=== PATIENT | female | born 1945 | race Caucasian/White ===

== ENCOUNTER → 2017-08-22 10:30 | Outpatient (CLI) | payer OTHER, SELFPAY ==
--- NOTE | 2017-08-22 10:34 | STE_ITS ---
Reason For Study: AORTIC INSUFFICIENCY Stress Results Protocol: Pasha Protocol Maximum Predicted HR: 149 bpm Target HR: 127 bpm% Max imum Predicted HR: 98 % DurationHeart Rate Stage (mm:ss) (bpm) BPComm ent BASELINE 59 142/70 STAGE 1 3:00 11 4 162/98 STAGE 2 3:00 14 6 174/100 STAGE 3 0:11 14 6 / LEG FATIGUE/ NO CHEST PAIN RECOVERY 81 148/82 Stress Duration: 6:11 mm:ss Maximum Stress HR: 146 bpm Baseline Echocardiogram Findings The estimated ejection fraction is 65 %. Stress Echo Wall motion Data Resting WMIntermediate WMStress WM Resting Wall Motion Wall Motion Stress No regional wall motion No regional wall motion abnormalities noted. abnormalities noted. EKG Data Normal intervals are noted. The patient exercised according to the regular Pasha protocol for a total duration of 6:11. The maximum heart rate attained was 166 beats per minute. The patient exercised into stage 3 of the Pasha protocol. This was 113% of maximum predicted heart rate. During stress, there were no ST or T wave changes noted to suggest ischemia. No clinical angina was noted. No arrhythmias noted. Interpretation Summary The estimated ejection fraction is 65 %. Normal, adequate, treadmill echocardiogram. Negative for ischemia by EKG and echocardiographic criteria. No anginal symptoms noted. No arrhythmias noted. Appropriate blood pressure response to exercise. Hypertensive blood pressure response to exercise. Average exercise capacity for age. Patient had mild aortic insufficiency which did not appreciably worsen at peak exercise. Final LVEF is 6075%. No complications. Doppler Measurements & Calculations AI max madisyn: 498.4 cm/sec AI max P.4 mmHg AI dec slope: 521.7 cm/sec2 AI P1/2t: 279.8 msec Ordering Physician: David Adams Referring Physician: David Adams Performed By: Candice Fields, AJAY, RVT
== END ==
PROVIDERS: Family Provider Internal Medicine; PCP Internal Medicine; Visit Provider Internal Medicine Cardiovascular Disease
DX: R06.09 Other forms of dyspnea (principal); I35.1 Nonrheumatic aortic (valve) insufficiency; I42.2 Other hypertrophic cardiomyopathy; I10 Essential (primary) hypertension
CPT/HCPCS: 93017; 93350

== ENCOUNTER 2017-11-10 10:28 | Day surgery (SDC) | payer OTHER, SELFPAY ==
[2017-11-10 10:49] VITALS: BP 139/63; PULSE 69; RESP 16; TEMP 36.9; O2SAT 100; BMI 32.2
--- NOTE | 2017-11-10 12:45 | PCM.HP.STD ---
Problem List (1) Screening for intestinal cancer Status: Acute History of Present Illness Date of Admission: 11/10/17 The patient is a 72 year old F who presents via open access for a screening colonoscopy. She was referred by Dr. Dyana Cartwright. The patient recently had a cardiac stress test performed by Dr. David Adams. This was felt to be an appropriate response. She is able to climb a flight of stairs. She denies chest pain or shortness of breath. No abdominal pain. No bright red blood per rectum or melena. Her most recent colonoscopy was 13 years prior. She has no personal or family history of colon polyps or colon cancer. Past Medical History Past Medical History (Chronic Problems): Chronic Problems (Last Reviewed 08/17/17 @ 08:50 by Catrina Esteban) Asymmetric septal hypertrophy (Chronic) Nonrheumatic aortic valve insufficiency (Chronic) Hypertension (Chronic) Medical History: Medical History (Last Reviewed 08/17/17 @ 08:50 by Catrina Esteban) Asymmetric septal hypertrophy (Chronic) I42.2 Nonrheumatic aortic valve insufficiency (Chronic) I35.1 Hypertension (Chronic) I10 Anserine bursitis M70.50 Macular degeneration H35.30 Obstructive sleep apnea G47.33 Vertigo R42 Allergies No Known Allergies Allergy (Verified 11/08/17 11:00) Home Medications: Ambulatory Orders Medication Instructions Recorded aspirin 81 mg tablet,delayed 81 mg PO QHS 08/01/17 release lisinopril 10 mg tablet 10 mg PO QDAY 08/01/17 vit A 7,160 unit-vit C 113 mg-vit 1 tab PO DAILY 08/01/17 E 100 [id number] tablet omega-3 fatty acids 1,000 mg 1,000 mg PO QDAY 08/02/17 capsule Surgical History: Surgical History (Last Reviewed 08/17/17 @ 08:50 by Catrina Esteban) H/O parathyroidectomy Z98.890 Hx of cholecystectomy Z90.49 Smoking Status: Never smoker Review of Systems Constitutional: Denies: Anorexia Eyes: Denies: Blurred vision Cardiovascular: Denies: Chest Pain, Claudication Respiratory: Denies: Cough Gastrointestinal: Denies: Abdominal Pain Psychiatric: Denies: Anxiety Endocrine: Denies: Change in Body Habitus VTE Information - Inpt Only VTE Present on Admission: No Patient Problems: Active and Suspected Problems (Last Reviewed 08/17/17 @ 08:50 by Catrina Esteban) Screening for intestinal cancer (Acute) - Physical Exam General: Alert, Oriented x3, Cooperative, No apparent distress HEENT: Atraumatic Oral: Moist Mucosa Neck: Supple Lungs: Clear to auscultation Cardiovascular: Regular rate, Regular Rhythm Abdomen: Bowel Sounds Present, Soft, Non Tender Extremities: No Calf Tenderness Musculoskeletal: No Tenderness to Palpation of Joints or Extremities Neurological: Cranial nerves II-XII grossly intact Psych/Mental Status: Normal Affect Vital Signs Temp Pulse Resp BP Pulse Ox 98.4 F 69 16 139/63 H 100 11/10/17 10:49 11/10/17 10:49 11/10/17 10:49 11/10/17 10:49 11/10/17 10:49 Oxygen Delivery Method Room Air Weight: 165 lb 2.02 oz Body Mass Index (BMI) 32.2 Assessment/Plan All Active Problems (Last Reviewed 08/17/17 @ 08:50 by Catrina Esteban) Screening for intestinal cancer (Acute) I recommend the patient is screening colonoscopy. She is aware of the technique, benefits, risks and alternatives. She has had an opportunity to ask and have questions answered. She is perform the bowel preparation. We will proceed as noted. Otis Thayer M.D., F.A.C.S.
[2017-11-10 13:22] VITALS: BP 112/46; BP 116/61; BP 124/79; BP 125/75; BP 131/114; BP 139/63; BP 146/59; PULSE 75; RESP 14; TEMP 36.6; O2SAT 100
--- NOTE | 2017-11-10 13:24 | OP.ENDO_ITS ---
Patient Name: Annette Hair Procedure Date: 11/10/2017 12:43 PM Date of : 1945 Age: 72 Procedure: Colonoscopy Indications: Screening for colorectal malignant neoplasm Providers: Otis Thayer MD Referring MD: Otis Thayer MD Medicines: Midazolam 3 mg IV, Meperidine 100 mg IV Patient Profile: Last Colonoscopy: more than 10 years ago. Complications: No immediate complications. Procedure: Pre-Anesthesia Assessment: - Prior to the procedure, a History and Physical was performed, and patient medications and allergies were reviewed. The patient's tolerance of previous anesthesia was also reviewed. The risks and benefits of the procedure and the sedation options and risks were discussed with the patient. All questions were answered, and informed consent was obtained. Prior Anticoagulants: The patient has taken no previous anticoagulant or antiplatelet agents. ASA Grade Assessment: II - A patient with mild systemic disease. After reviewing the risks and benefits, the patient was deemed in satisfactory condition to undergo the procedure. After I obtained informed consent, the scope was passed under direct vision. Throughout the procedure, the patient's blood pressure, pulse, and oxygen saturations were monitored continuously. The colonoscope was introduced through the anus and advanced to the cecum, identified by appendiceal orifice and ileocecal valve. The colonoscopy was performed without difficulty. The patient tolerated the procedure well. The quality of the bowel preparation was good. Moderate Sedation: Moderate (conscious) sedation was personally administered by the endoscopist. The following parameters were monitored: oxygen saturation, heart rate, blood pressure, and response to care. Total physician intraservice time was 15 minutes. Scope In: 1:06:45 PM Scope Withdrawal Time 0 hours 6 minutes 8 seconds Scope Out: 1:18:08 PM Total Procedure Duration Time 0 hours 11 minutes 23 seconds Findings: The digital rectal exam findings include non-thrombosed external hemorrhoids, non-thrombosed internal hemorrhoids and internal hemorrhoids that prolapse with straining, but spontaneously regress to the resting position (Grade II). Lax anal tone and perianal escoriation noted Multiple diverticula were found in the sigmoid colon and descending colon. The exam was otherwise without abnormality. Impression: - Non-thrombosed external hemorrhoids, non-thrombosed internal hemorrhoids and internal hemorrhoids that prolapse with straining, but spontaneously regress to the resting position (Grade II) found on digital rectal exam. - Diverticulosis in the sigmoid colon and in the descending colon. - The examination was otherwise normal. - No specimens collected. Recommendation: - Discharge patient to home. - Resume previous diet. - Continue present medications. - Repeat colonoscopy in 10 years for screening purposes. Procedure Code(s): --- Professional --- 11120, Colonoscopy, flexible; diagnostic, including collection of specimen(s) by brushing or washing, when performed (separate procedure) 25513, 59, Moderate sedation services provided by the same physician or other qualified health continuum of care manager performing the diagnostic or therapeutic service that the sedation supports, requiring the presence of an independent trained observer to assist in the monitoring of the patient's level of consciousness and physiological status; initial 15 minutes of intraservice time, patient age 5 years or older Diagnosis Code(s): --- Professional --- Z12.11, Encounter for screening for malignant neoplasm of colon K64.1, Second degree hemorrhoids K64.4, Residual hemorrhoidal skin tags K57.30, Diverticulosis of large intestine without perforation or abscess without bleeding CPT copyright 2017 [employer]. All rights reserved. The codes documented in this report are preliminary and upon real estate teacher review may be revised to meet current compliance requirements. Otis Thayer MD 11/10/2017 1:24:09 PM This report has been signed electronically. Number of Addenda: 0 Note Initiated On: 11/10/2017 12:43 PM
[2017-11-10 13:28] VITALS: BP 114/82; BP 139/63; PULSE 64; RESP 14; O2SAT 96
[2017-11-10 13:34] VITALS: BP 104/45; BP 139/63; PULSE 74; RESP 14; O2SAT 98
[2017-11-10 13:38] VITALS: BP 107/64; BP 139/63; PULSE 63; RESP 14; TEMP 36.1; O2SAT 99
[2017-11-10 14:00] VITALS: BP 139/63
== END 2017-11-10 14:08 | disposition home or self-care (01) ==
LOC: EN 10:28 → AC 10:30
PROVIDERS: Family Provider Internal Medicine; PCP Internal Medicine; Visit Provider Surgery
PROC: 0DJD8ZZ Inspection of Lower Intestinal Tract, Via Natural or Artificial Opening Endoscopic (ICD-10-PCS; CPT 45378; principal; 2017-11-10 12:25)
DX: Z12.11 Encounter for screening for malignant neoplasm of colon (principal); I10 Essential (primary) hypertension; G47.33 Obstructive sleep apnea (adult) (pediatric); Z79.899 Other long term (current) drug therapy; Z79.82 Long term (current) use of aspirin; K64.4 Residual hemorrhoidal skin tags; K57.30 Diverticulosis of large intestine without perforation or abscess without bleeding; K64.1 Second degree hemorrhoids
CPT/HCPCS: 45378; 99152; 99153; J7040; J7120

== ENCOUNTER → 2018-07-17 | Outpatient (CLI) | payer OTHER, SELFPAY ==
[2018-03-13 11:13] VITALS: BMI 32.9
--- NOTE | 2018-07-17 09:02 | ECHOCS_ITS ---
Reason For Study: VALVE REPLACEMENT-EVAL Procedure This was a 2D Doppler, Color Flow transthoracic echocardiogram. Exam performed in department. Left Ventricle Normal size and thickness. The estimated ejection fraction is 65 %. Stage 2 diastolic dysfunction. No regional wall motion abnormalities noted. Right Ventricle Normal size and thickness. Normal systolic function. Atria Normal left atrium. Normal right atrium. Normal atrial septum. Mitral Valve The mitral valve is structurally normal. No prolapse or stenosis seen. Trivial mitral valve insufficiency. Tricuspid Valve Normal tricuspid valve. Trivial tricuspid valve insufficiency. Right ventricular systolic pressure estimated to be 31 mmHg. Aortic Valve Trisinus/trileaflet aortic valve. Mild focal aortic valve calcification. Trivial aortic valve insufficiency. Pulmonic Valve Normal pulmonic valve. Great Vessels Normal aortic root. Normal arch. Normal inferior vena cava. Inferior vena cava collapse with sniff. Pericardium/Pleural No pericardial effusion. Medication 22 gauge I.V. with prn adaptor inserted into right arm. Diluted definity 4ml given slow IV push to enhance endocardial definition. MMode/2D Measurements & Calculations LVIDd: 4.0 cm IVSd: 1.0 cm Ao root diam: 2.8 cm LVIDs: 2.6 cm LVPWd: 1.0 cm RVDd: 3.3 cm FS: 34.3 % LAV(MOD-bp): 42.9 ml LVAd ap4: 29.5 cm2 SV(MOD-sp4): 59.3 ml LAV(MOD-bp) Indexed: 25.0 ml/m2 EDV(MOD-sp4): 88.7 ml LAV(MOD-sp2): 48.2 ml EDV(sp4-el): 96.2 ml LAV(MOD-sp4): 37.8 ml LVAs ap4: 14.9 cm2 ESV(MOD-sp4): 29.4 ml ESV(sp4-el): 31.1 ml EF(MOD-sp4): 66.9 % EF(sp4-el): 67.6 % SV(sp4-el): 65.1 ml LA A4 area: 14.7 cm2 LA dimension(2D): 3.4 cm RA A4 area: 14.7 cm2 Time Measurements MV dec time: 0.24 sec Doppler Measurements & Calculations MV E max wilfrid: 111.2 cm/sec Lat Peak E' Wilfrid: 10.8 cm/sec Med Peak E' Wilfrid: 10.1 cm/sec MV A max wilfrid: 68.0 cm/sec E/E' lat: 10.3 E/E' med: 11.0 MV E/A: 1.6 Ao V2 max: 190.6 cm/sec AI max wilfrid: 507.8 cm/sec LV V1 max: 107.9 cm/sec Ao max P.5 mmHg AI max P.2 mmHg LV V1 max P.7 mmHg AI dec slope: 285.4 cm/sec2 AI P1/2t: 521.2 msec PA V2 max: 92.2 cm/sec TR max wilfrid: 253.4 cm/sec TR max P.7 mmHg Interpretation Summary The estimated ejection fraction is 65 %. Stage 2 diastolic dysfunction. Trivial mitral valve insufficiency. Trivial tricuspid valve insufficiency. Right ventricular systolic pressure estimated to be 31 mmHg. Trivial aortic valve insufficiency. The study was technically difficult. There is no comparison study available. Contrast injection was performed. Ordering Physician: David Adams Referring Physician: JAI SHEARER Performed By: Taryn Pinon RDCS
== END | disposition home or self-care (01) ==
PROVIDERS: Family Provider Internal Medicine; PCP Internal Medicine; Referring Provider Internal Medicine Cardiovascular Disease; Visit Provider Internal Medicine Cardiovascular Disease
DX: I35.1 Nonrheumatic aortic (valve) insufficiency (principal); I10 Essential (primary) hypertension
CPT/HCPCS: 93306; Q9957; A4216; C8929

== ENCOUNTER → 2018-07-20 | Outpatient (CLI) | payer OTHER, SELFPAY ==
[2018-03-13 11:13] VITALS: BMI 32.9
--- NOTE | 2018-07-20 09:26 | STEWCON_ITS ---
Reason For Study: HTN, AI Stress Results Protocol: Pasha Protocol Maximum Predicted HR: 148 bpm Target HR: 126 bpm % Maximum Predicted HR: 91 % DurationHeart Rate Stage (mm:ss) (bpm) BP Comment Baseline 58 128/80No Chest Pain; Diluted Definity 3 ML Given Pasha Protocol Stage I 3:00 106 142/76No Chest Pain Pasha Protocol Stage II 3:00 134 150/72No Chest Pain; Mild to Moderate Dyspnea Recovery 75 118/78No Chest Pain Stress Duration: 6:00 mm:ss Maximum Stress HR: 134 bpm METS: 7 Baseline Echocardiogram Findings The estimated ejection fraction is 65 %. Stress Echo Wall motion Data Resting WM Intermediate WM Stress WM Resting Wall Motion Wall Motion Stress No regional wall motion No regional wall motion abnormalities noted. abnormalities noted. EKG Data The baseline ECG displays normal sinus rhythm. The patient exercised according to the regular Pasha protocol for a total duration of 6:00. The maximum heart rate attained was 146 beats per minute. This was 98% of maximum predicted heart rate. The patient exercised into stage 3 of the Pasha protocol. During stress, there were no ST or T wave changes noted to suggest ischemia. Interpretation Summary The estimated ejection fraction is 65 %. Normal, adequate, treadmill echocardiogram. Negative for ischemia by EKG and echocardiographic criteria. No anginal symptoms noted. Rare PVCs noted. Appropriate blood pressure response to exercise. Average exercise capacity for age. Test terminated due to leg discomfort. Final LVEF is 75%. Decreased sensitivity due to poor echo windows requiring Definity enhancing agent. No complications. The study was technically difficult. Contrast injection was performed. Ordering Physician: David Adams Referring Physician: Dyana Cartwright Performed By: Taryn Pinon RDCS
== END | disposition home or self-care (01) ==
PROVIDERS: Family Provider Internal Medicine; PCP Internal Medicine; Referring Provider Internal Medicine Cardiovascular Disease; Visit Provider Internal Medicine Cardiovascular Disease
DX: I35.1 Nonrheumatic aortic (valve) insufficiency (principal); I10 Essential (primary) hypertension; Z95.2 Presence of prosthetic heart valve
CPT/HCPCS: 93017; 93350; Q9957; A4216; C8928

== ENCOUNTER → 2018-11-10 | Outpatient (CLI) | payer OTHER, SELFPAY ==
[2018-10-19 10:33] VITALS: BMI 33.2
--- NOTE | 2018-11-10 15:42 | BI_ITS ---
MAMMOGRAPHY - BILATERAL SCREENING 3-D TOMOSYNTHESIS REASON FOR EXAM: Female, 73 years old. Screening PERTINENT HISTORY: No significant family history. TECHNIQUE: 2-D mammograms and 3-D Tomosynthesis of the breast (s) were performed. CAD was performed. BILATERAL DIGITAL MAMMOGRAM WITH TOMOSYNTHESIS: Mediolateraloblique and craniocaudal views demonstrate no evidence of dominant parenchymal masses. There is an 8 mm nodular density noted at the 6:00 position of deep right breast which was previously not seen. This nodular densities of uncertain etiology but has relatively smooth margins and probably represents a cyst or fibroadenoma, however, because of its more recent appearance and underlying tumor cannot be completely excluded and for this reason a targeted right breast ultrasound at the 6:00 position is recommended for further evaluation. The left breast is normal. No cluster of microcalcification or architectural distortion is seen. This new soft tissue nodular density represents a change from the previous mammogram obtained on 07/26/2017.. Breast Density: There are scattered areas of fibroglandular density. CAD was used to assist in final assessment. IMPRESSION: NORMAL MAMMOGRAM BILATERALLY. FINAL ASSESSMENT FINAL ASSESSMENT: BI-RAD CATEGORY 0 INCOMPLETE: (NEEDS ADDITIONAL IMAGINING EVALUATION) Approximately 10% of breast cancers are not detected by mammography. A normal mammogram should not delay biopsy of a clinically suspicious abnormality. Electronically Signed: Darren Luke, at 7:36 EDT Tel , Service support , BI/SCREEN MAMM (CAD) W/ORLANDO ALEJANDRE
== END | disposition home or self-care (01) ==
LOC: OPBI 15:40
PROVIDERS: Family Provider Internal Medicine; PCP Internal Medicine; Referring Provider Obstetrics & Gynecology; Visit Provider Obstetrics & Gynecology
DX: Z12.31 Encounter for screening mammogram for malignant neoplasm of breast (principal)
CPT/HCPCS: 77063; 77067

== ENCOUNTER → 2018-11-15 | Outpatient (CLI) | payer OTHER, SELFPAY ==
[2018-10-19 10:33] VITALS: BMI 33.2
--- NOTE | 2018-11-15 10:52 | US_ITS ---
STUDY: ULTRASOUND BREAST - RIGHT REASON FOR EXAM: Female, 73 years old. TECHNIQUE: Axial and longitudinal images of the RIGHT breast were performed with a high resolution ultrasound transducer. COMPARISON: None. FINDINGS: RIGHT Breast: A targeted right breast ultrasound was performed at 7:00 position shows a 6 x 9 x 5 mm area of decreased echogenicity in the posterior aspect of the right breast at 7:00 position. Upon careful review of this density has somewhat irregular margins and although it is hypoechoic and appears to be solid. This lesion was not seen previously and is of uncertain etiology. A fibroadenoma versus tumor or, less likely a complex cyst are also diagnostic possibilities. For this reason an ultrasound directed right breast biopsy would be helpful for additional evaluation. US/Breast Limited Unilateral IMPRESSION: A complex hypoechoic lesion is seen at 7:00 position in the right breast which has irregular margins and appears solid or cystic and contains debris. Fibroadenoma versus complex cyst versus tumor are the diagnostic possibilities and an ultrasound directed fine needle aspiration is recommended for further evaluation FINAL ASSESSMENT: BI-RAD CATEGORY IV (SUSPICIOUS ABNORMALITY - BIOPSY RECOMMENDED). ASSESSMENT CATEGORY: BIRADS Category 4B: Moderate suspicion for malignancy. A letter regarding these results will be sent to the patient by the facility within 30 days. Electronically Signed: Darren Luke, at 18:21 EDT Tel , Service support ,
== END | disposition home or self-care (01) ==
LOC: OPUS 10:50
PROVIDERS: Family Provider Internal Medicine; PCP Internal Medicine; Referring Provider Obstetrics & Gynecology; Visit Provider Obstetrics & Gynecology
DX: R92.2 Inconclusive mammogram (principal)
CPT/HCPCS: 76642

== ENCOUNTER → 2018-11-24 | Outpatient (CLI) | payer OTHER, SELFPAY ==
[2018-11-24 09:38] VITALS: BMI 33.2
--- NOTE | 2018-11-24 09:45 | BRBX_PTH ---
PATIENT: LUISA ANNA LOC: [facility] U#:[id number] AGE/SX: 73/F ROOM: RE11/24/[address]: Dr. Otis Thayer MD : 1945 BED: DIS: 11/24/2018 SPEC #: [id number] RECD: 11/24/18 11:11 STATUS: FELY REPorter #: [id number] MIKE: 11/24/18 09:[address]: Otis Thayer DEPT: SURGICAL PATHOLOGY RECD BY: Roberto Linares ENTERED: 11/24/18 12:22 SP TYPE: BREAST BX OT DR: Dr. Dyana Cartwright MD Tissues: Right breast, NOS Procedures: Surgery Specimen Level IV HEADER OPERATION: Ultrasound-guided needle core biopsy, right breast PRE-OP DIAGNOSIS: Abnormal mammogram/ultrasound, right breast TISSUE SUBMITTED: Right breast tissue FIXATION TIME: 57 hours MICROSCOPIC DIAGNOSIS Right breast tissue, ultrasound-guided needle core biopsy: Fatty benign breast tissue with focal mild intraductal hyperplasia without atypia. Negative for malignancy. FABIAN:dominik 11/27/18 COMMENT Correlation with clinical, radiologic findings and appropriate follow up are necessary. MICROSCOPIC DESCRIPTION Slides are reviewed. GROSS DESCRIPTION Received in fixative is one container labeled with the patient's name and designated right breast. The specimen consists of multiple elongated fragments of mir-yellow fibroadipose tissue that in aggregate measure 2.5 x 1.5 x 0.1 cm. The entire specimen is submitted in one cassette. / FABIAN:dominik 11/24/18 TC:5 CPT: 76682
--- NOTE | 2018-11-24 10:28 | BI_ITS ---
MAMMOGRAPHY - UNILATERAL DIAGNOSTIC: RIGHT BREAST REASON FOR EXAM: Female, 73 years old. Post biopsy clip placement. PERTINENT HISTORY: Ultrasound guided biopsy of a nodular density at 7:00 position breast. TECHNIQUE: Digital unilateral breast yusuf (3D mammographic acquisition) in the CC and MLO projections. 2-D mediolateral oblique (MLO) and craniocaudad (CC) views of both breasts were obtained. CAD: Full Field Digital Mammography with Computer Added Detection was performed. COMPARISON: Comparison is made with prior mammogram dated November 10, 2018. FINDINGS: Breast Composition: There are scattered areas of fibroglandular density. A tissue clip marker is seen within a nodular density in the deep mid portion of the right breast. No other significant abnormalities are identified. BI/DIAG MAMM W/CAD, UNILAT IMPRESSION: Tissue clip marker seen within a nodular density in the deep midportion of the right breast. ASSESSMENT CATEGORY: BIRADS Category 2: Benign. A letter regarding these results will be sent to the patient by the facility within 30 days. Approximately 10% of breast cancers are not detected by mammography. A normal mammogram should not delay biopsy of a clinically suspicious abnormality. Electronically Signed: Maurice Callejas, at 13:34 EDT , Service support ,
== END | disposition home or self-care (01) ==
PROVIDERS: Family Provider Internal Medicine; PCP Internal Medicine; Referring Provider Surgery; Visit Provider Surgery
DX: R92.8 Other abnormal and inconclusive findings on diagnostic imaging of breast (principal)
CPT/HCPCS: 77065; 88305

== ENCOUNTER → 2019-04-03 | Outpatient (CLI) | payer OTHER, SELFPAY ==
[2019-04-02 13:40] VITALS: BMI 33.0
--- NOTE | 2019-04-03 15:48 | CT_ITS ---
STUDY: CT ABDOMEN AND PELVIS WITHOUT CONTRAST REASON FOR EXAM: Female, 73 years old. rt FLANK PAIN, hx of stones and low functioning kidney RADIATION DOSAGE (If Supplied By Facility): CTDIvol = ( 11.27 ) mGy, DLP = ( 498.36 ) mGycm COMPARISON: None TECHNIQUE: A CT scan of the abdomen and pelvis was performed without IV contrast contrast administration. Coronal and sagittal reconstruction images were reviewed. This exam was performed according to our departmental dose-optimization program, which includes automated exposure control, adjustment of the mA and/or kV according to patient size and/or use of iterative reconstruction technique. FINDINGS: The lung bases and the base of the heart are normal. The liver is normal.The spleen is normal.The adrenal glands are normal.The head, body, and tail of the pancreas are normal. The left kidney is normal. Right renal hydronephrosis is identified with nonobstructing calyceal calculi seen in the inferior pole calyces of the right kidney. Right hydroureter is identified down to the pelvic brim. At that point there appears to be a dilated loop of intestine adjacent to the hydroureter but distal to the pelvic brim a dilated right ureter is not seen. A stricture or ureteral tumor could give this appearance. Further evaluation with a CT urogram or retrograde pyelogram is recommended. The abdominal aortal is normal along its course and distribution. Some mildly prominent periaortic lymphadenopathy is identified. This is particularly prominent along the superior right side of the abdominal aorta but the largest lymph node is between the abdominal aorta and inferior vena cava on axial cut 72 which measures 1.8 x 1.4 cm in size. No abdominal masses or lesions are seen. The patient has had a cholecystectomy. The CT scan of the pelvis was then reviewed. The common iliac vessels, external iliac vessels, and common femoral vessels are normal along their course and distribution No pelvis masses or lesions are seen. The appendix is normal. No pericecal inflammatory reaction is seen. Bone scanning windows of the lumbar spine and pelvis were reviewed in the coronal and sagittal planes and appear to be normal. CT/Abdomen/Pelvis without Cont IMPRESSION: 1. Right renal hydronephrosis and hydroureter extending down to the level of the pelvic brim. At that point there appears to be ureteral obstruction of uncertain etiology. A stricture at that location versus ureteral tumor are diagnostic possibilities. A CT urogram and/or retrograde pyelogram is recommended for further dilation. 2. Mild periaortic lymphadenopathy is identified of uncertain etiology. Lymphoma versus metastasis versus inflammatory lymphadenopathy are all diagnostic possibilities. Electronically Signed: Darren Luke, at 16:47 EST Tel , Service support ,
== END | disposition home or self-care (01) ==
PROVIDERS: PCP Internal Medicine; Referring Provider Urology; Visit Provider Urology
DX: N20.0 Calculus of kidney (principal); R10.9 Unspecified abdominal pain
CPT/HCPCS: 74176

== ENCOUNTER → 2019-04-03 | Outpatient (CLI) | payer OTHER, SELFPAY ==
[2019-04-02 13:40] VITALS: BMI 33.0
[2019-04-03 15:38] LABS: AST(SGOT) 24 U/L (15-37); Alanine Aminotransfer ALT/SGPT 38 U/L (13-56); Albumin, Serum 3.5 g/dL (3.2-5.0); Alkaline Phosphatase 87 U/L (45-117); Bilirubin, Direct 0.15 mg/dL (0.00-0.30); Cholesterol 201 mg/dL (200); Globulin 4.5 g/dL (2.2-4.2); High Density Lipoprotein 70 mg/dL; Triglycerides 125 mg/dL; Very Low Density Lipoprotein 25 mg/dL (5-40)
== END | disposition home or self-care (01) ==
LOC: MTLAB 13:11
PROVIDERS: PCP Internal Medicine; Referring Provider Internal Medicine Cardiovascular Disease; Visit Provider Internal Medicine Cardiovascular Disease
DX: I10 Essential (primary) hypertension (principal); I35.1 Nonrheumatic aortic (valve) insufficiency; Z82.3 Family history of stroke; Z82.49 Family history of ischemic heart disease and other diseases of the circulatory system
CPT/HCPCS: 36415; 80061; 80076

== ENCOUNTER → 2019-06-20 | Outpatient (CLI) | payer OTHER, SELFPAY ==
[2019-04-02 13:40] VITALS: BMI 33.0
--- NOTE | 2019-06-20 12:51 | ECHOD_ITS ---
Reason For Study: Pre-op Procedure This was a 2D Doppler, Color Flow transthoracic echocardiogram. Exam performed in department. Left Ventricle Normal size and thickness. The estimated ejection fraction is 65 %. Stage 2 diastolic dysfunction. No regional wall motion abnormalities noted. Right Ventricle Normal size and thickness. Normal systolic function. Atria Normal left atrium. Normal right atrium. Normal atrial septum. Mitral Valve The mitral valve is structurally normal. No prolapse or stenosis seen. Trivial mitral valve insufficiency. Tricuspid Valve Normal tricuspid valve. Trivial tricuspid valve insufficiency. Right ventricular systolic pressure estimated to be 31 mmHg. Aortic Valve Trisinus/trileaflet aortic valve. Mild diffuse aortic valve thickening. Mild (1+) aortic valve insufficiency. Pulmonic Valve Normal pulmonic valve. Great Vessels Normal aortic root. Normal arch. Normal inferior vena cava. Inferior vena cava collapse with sniff. Pericardium/Pleural No pericardial effusion. MMode/2D Measurements & Calculations LVIDd: 4.2 cm IVSd: 0.98 cm Ao root diam: 2.9 cm LVIDs: 2.3 cm LVPWd: 0.94 cm RVDd: 3.0 cm FS: 45.5 % LAV(MOD-bp): 49.7 ml LVAd ap4: 26.4 cm2 SV(MOD-sp4): 41.4 ml LAV(MOD-bp) Indexed: 28.9 ml/m2 EDV(MOD-sp4): 75.5 ml LAV(MOD-sp2): 51.8 ml EDV(sp4-el): 78.4 ml LAV(MOD-sp4): 42.3 ml LVAs ap4: 15.7 cm2 ESV(MOD-sp4): 34.1 ml ESV(sp4-el): 33.3 ml EF(MOD-sp4): 54.8 % EF(sp4-el): 57.4 % SV(sp4-el): 45.0 ml LA A4 area: 15.4 cm2 LA dimension(2D): 4.1 cm RA A4 area: 12.7 cm2 Doppler Measurements & Calculations MV E max wilfrid: 80.4 cm/sec Lat Peak E' Wilfrid: 8.1 cm/sec Med Peak E' Wilfrid: 7.5 cm/sec MV A max wilfrid: 86.4 cm/sec E/E' lat: 10.0 E/E' med: 10.7 MV E/A: 0.93 Ao V2 max: 153.4 cm/sec AI max wilfrid: 492.9 cm/sec LV V1 max: 128.2 cm/sec Ao max P.4 mmHg AI max P.2 mmHg LV V1 max P.6 mmHg AI dec slope: 215.5 cm/sec2 AI P1/2t: 669.8 msec PA V2 max: 92.3 cm/sec TR max wilfrid: 251.5 cm/sec TR max P.3 mmHg Interpretation Summary The estimated ejection fraction is 65 %. Stage 2 diastolic dysfunction. Trivial mitral valve insufficiency. Trivial tricuspid valve insufficiency. Right ventricular systolic pressure estimated to be 31 mmHg. Mild (1+) aortic valve insufficiency. In comparison echocardiogram dated 07/17/2018, LV function has remained the same and aortic insufficiency has gone from trivial to mild. RVSP has remained the same. Ordering Physician: David Adams Referring Physician: Dyana Cartwright Performed By: Milena Jeter RDCS
== END | disposition home or self-care (01) ==
PROVIDERS: PCP Internal Medicine; Referring Provider Internal Medicine Cardiovascular Disease; Visit Provider Internal Medicine Cardiovascular Disease
DX: I35.1 Nonrheumatic aortic (valve) insufficiency (principal); Z82.49 Family history of ischemic heart disease and other diseases of the circulatory system
CPT/HCPCS: 93306

== ENCOUNTER → 2019-06-28 10:21 | Outpatient (CLI) | payer OTHER, SELFPAY ==
[2019-04-02 13:40] VITALS: BMI 33.0
--- NOTE | 2019-06-28 10:22 | STE_ITS ---
Reason For Study: PREOP Stress Results Protocol: Pasha Protocol Maximum Predicted HR: 147 bpm Target HR: 125 bpm % Maximum Predicted HR: 102 % DurationHeart Rate Stage (mm:ss) (bpm) BP BASELINE 67 122/74 STAGE 1 3:00 103 140/60 STAGE 2 3:00 129 152/64 STAGE 3 0:38 150 / RECOVERY 84 120/78 Stress Duration: 6:38 mm:ss Maximum Stress HR: 150 bpm Baseline Echocardiogram Findings The estimated ejection fraction is 65 %. Stress Echo Wall motion Data Resting WM Intermediate WM Stress WM Resting Wall Motion Wall Motion Stress No regional wall motion No regional wall motion abnormalities noted. abnormalities noted. EKG Data The baseline ECG displays normal sinus rhythm. The patient exercised according to the regular Pasha protocol for a total duration of 6:38. The maximum heart rate attained was 160 beats per minute. This was 108% of maximum predicted heart rate. The patient exercised into stage 3 of the Pasha protocol. During stress, there were no ST or T wave changes noted to suggest ischemia. No clinical angina was noted. Interpretation Summary The estimated ejection fraction is 65 %. Normal, adequate, treadmill echocardiogram. Negative for ischemia by EKG and echocardiographic criteria. No anginal symptoms noted. Rare PVC noted. Appropriate blood pressure response to exercise. Average exercise capacity for age, and in alignment with previous stress test in July 2018. Test terminated due to the attainment of target heart rate and tired legs. Final LVEF is 75%. No complications. Ordering Physician: David Adams MD Referring Physician: David Adams Performed By: Candice Fields RDCS, RVT
== END ==
PROVIDERS: PCP Internal Medicine; Referring Provider Internal Medicine Cardiovascular Disease; Visit Provider Internal Medicine Cardiovascular Disease
DX: I10 Essential (primary) hypertension (principal); I35.1 Nonrheumatic aortic (valve) insufficiency; Z82.49 Family history of ischemic heart disease and other diseases of the circulatory system
CPT/HCPCS: 93017; 93350

== ENCOUNTER → 2019-08-03 | Outpatient (CLI) | payer OTHER, SELFPAY ==
[2019-07-11 10:50] VITALS: BMI 33.0
--- NOTE | 2019-08-03 15:57 | CT_ITS ---
STUDY: CT ABDOMEN AND PELVIS WITHOUT CONTRAST REASON FOR EXAM: Female, 73 years old. PERIAROTIC LYMPHADENOPATHY RADIATION DOSAGE (If Supplied By Facility): CTDIvol = ( 12.52 ) mGy, DLP = ( 550.64 ) mGycm TECHNIQUE: Transaxial images were obtained from the dome of the diaphragm to the symphysis pubis with oral contrast, and without intravenous contrast. Sagittal and coronal images were reconstructed. Individualized dose optimization techniques were used for this CT. COMPARISON: 04/03/2019 FINDINGS: The visualized lung bases are unremarkable. The visualized portions of the heart are within normal limits. Normal liver. There are surgical clips in the gallbladder fossa consistent with a prior cholecystectomy. Normal spleen. Normal pancreas. Normal bilateral adrenal glands. Moderate right renal atrophy with moderate hydronephrosis and nonobstructing stones possibly from chronic obstruction. However, the degree of obstruction is markedly improved when compared with the prior study. No ureteral stone. Normal left kidney. Normal visualized stomach. Normal small intestine. There are multiple colonic diverticula consistent with diverticulosis. The appendix is visualized and appears normal. Normal abdominal aorta. Normal inferior vena cava. Normal retroperitoneum. Normal urinary bladder. Normal abdominal wall. Normal osseous structures. CT/Abdomen/Pelvis without Cont IMPRESSION: No retroperitoneal lymphadenopathy. Improved right ureteral obstruction. Electronically Signed: Thai Almeida MD at 16:41 EDT Tel , Service support ,
== END | disposition home or self-care (01) ==
LOC: CT 15:57
PROVIDERS: PCP Internal Medicine; Referring Provider Internal Medicine; Visit Provider Internal Medicine
DX: R59.0 Localized enlarged lymph nodes (principal)
CPT/HCPCS: 74176

== ENCOUNTER → 2019-11-27 | Outpatient (CLI) | payer OTHER, SELFPAY ==
[2019-04-02 13:40] VITALS: BMI 33.0
[2019-10-09 11:08] VITALS: BMI 33.0
--- NOTE | 2019-11-27 09:54 | BI_ITS ---
MAMMOGRAPHY - BILATERAL SCREENING REASON FOR EXAM: Female, 74 years old. Routine annual screening examination. PERTINENT HISTORY: Non-contributory. TECHNIQUE: Digital bilateral breast [place] (3D mammographic acquisition) in the CC and MLO projections. 2-D mediolateral oblique (MLO) and craniocaudad (CC) views of both breasts were obtained. CAD: Full Field Digital Mammography with Computer Added Detection was performed. COMPARISON: Comparison is made with prior examination dated 11/10/2018. FINDINGS: Breast Composition: There are scattered areas of fibroglandular density. There are no dominant masses or suspicious calcifications. A tissue clip marker is seen within the inferior slightly lateral retroareolar region of the right breast. The previously seen nodular density has almost completely resolved. No other significant abnormalities are identified. BI/SCREEN MAMM (CAD) W/[place] BILAT IMPRESSION: Status post ultrasound-guided biopsy of the previously seen nodular density in the right breast. A tissue clip marker is seen at that site. Yearly follow-up mammogram recommended. (A) ASSESSMENT CATEGORY: BIRADS Category 2: Benign. A letter regarding these results will be sent to the patient by the facility within 30 days. Approximately 10% of breast cancers are not detected by mammography. A normal mammogram should not delay biopsy of a clinically suspicious abnormality. [id number] Electronically Signed: Maurice Callejas, at 15:47 EDT , Service support ,
== END | disposition home or self-care (01) ==
PROVIDERS: PCP Internal Medicine; Referring Provider Obstetrics & Gynecology; Visit Provider Obstetrics & Gynecology
DX: Z12.31 Encounter for screening mammogram for malignant neoplasm of breast (principal)
CPT/HCPCS: 77063; 77067

== ENCOUNTER → 2020-03-28 09:07 | Outpatient (CLI) | payer OTHER, SELFPAY ==
[2020-03-24 13:26] VITALS: BMI 33.6
[2020-03-28 09:53] LABS: Absolute Lymphocyte Count 2.34 X10^3/uL (0.83-4.51); Absolute Neutrophil Count 3.5 X10^3/uL (2.0-7.7); Basophil# 0.04 X10^3/uL; Basophil% 0.6 % (0-1); Eosinophil# 0.16 X10^3/uL; Eosinophils% 2.5 % (0-5); Hematocrit 36.1 % (37-47); Hemoglobin 11.2 g/dL (12.0-15.0); Lymphocyte # 2.34 X10^3/ul (4.0); Mean Corpuscular Hgb 28.1 pg (27.0-32.0); Mean Corpuscular Volume 90.5 fL (81-99); Mean Platelet Vol. 8.9 fl (6.2-12.0); Monocyte# 0.47 X10^3/uL; Monocyte% 7.2 % (0-10); NRBC Flagged by Analyzer 0 % (0-5); Neutrophil # 3.47 X10^3/uL (2.7-7.7); Neutrophil % 53.4 % (47-70); Platelet Count 233 K/mm3 (150-450); RBC Distribution Width CV 13.2 % (11.6-14.6); RBC Distribution Width SD 43.3 fl (35.1-43.9); Red Blood Count 3.99 M/mm3 (4.2-5.4); White Blood Count 6.5 K/mm3 (4.4-11.0)
[2020-03-28 10:38] LABS: Anion Gap 4 (5-15); BUN 30 mg/dL (7-18); BUN/Creat Ratio 23.1 RATIO (10-20); Calcium,Total 8.8 mg/dL (8.5-10.1); Chloride 106 mmol/L (98-107); EST Glomerular Filtration Rate 43 mL/min (>60); Est Glom Filt Rate - Afr Amer 51 mL/min (>60); Free T3 2.9 pg/mL (2.18-3.98); Glucose 95 mg/dL (74-106); Potassium 4.3 mmol/L (3.5-5.1); Sodium Level 139 mmol/L (136-145); Thyroid Stim Hormone (TSH) 1.75 uIU/mL (0.358-3.74)
[2020-03-28 10:52] LABS: Vitamin D,25 Hydroxy 36.7 ng/mL
== END ==
PROVIDERS: PCP Internal Medicine; Referring Provider Physician Assistant Medical; Visit Provider Physician Assistant Medical
DX: I10 Essential (primary) hypertension (principal); E55.9 Vitamin D deficiency, unspecified; R53.83 Other fatigue
CPT/HCPCS: 36415; 80048; 82306; 84439; 84443; 84481; 85025

== ENCOUNTER → 2020-04-14 14:52 | Outpatient (CLI) | payer OTHER, SELFPAY ==
[2020-04-08 09:53] VITALS: BMI 33.6
--- NOTE | 2020-04-14 14:58 | CT_ITS ---
STUDY: CT MAXILLOFACIAL SINUSES REASON FOR EXAM: Female, 74 years old. Sinus pain and headache RADIATION DOSAGE (If Supplied By Facility): CTDIvol = ( 33.06 ) mGy, DLP = ( 800.79 ) mGycm TECHNIQUE: The patient was scanned in a multi detector CT scanner. High resolution axial imaging was performed without the administration of intravenous contrast material. Sagittal and coronal images were reconstructed. Individualized dose optimization techniques were used for this CT. COMPARISON: None. FINDINGS: FRONTAL SINUSES: Normal aeration, without mucosal inflammatory disease. Aplastic right frontal sinus. ETHMOIDAL SINUSES: Normal aeration, without mucosal inflammatory disease. MAXILLARY SINUSES: Normal aeration, without mucosal inflammatory disease. SPHENOIDAL SINUSES: Normal aeration, without mucosal inflammatory disease. There is patency of the bilateral maxillary infundibuli with normal uncinate processes, ethmoid bullae, and hiatus semilunaris. Normal bilateral middle turbinates. Normal bilateral inferior turbinates. There is a left sided nasal septal deviation with a left sided nasal septal spur. There is patency of the bilateral nasal airways. The visualized osseous structures are normal. The visualized bilateral orbital contents are normal. CT/Sinus/Facial Bone IMPRESSION: 1. No CT evidence of acute or chronic sinusitis. 2. Patent ostiomeatal units bilaterally. 3. Slight deviation of the nasal septum to the left with a spur projecting into the inferior aspect of nasal cavity. Electronically Signed: Thai Almeida MD at 15:17 EST Tel , Service support ,
== END ==
PROVIDERS: PCP Internal Medicine; Referring Provider Internal Medicine; Visit Provider Internal Medicine
DX: R51.9 Headache, unspecified (principal)
CPT/HCPCS: 70486

== ENCOUNTER 2020-07-08 18:18 | Emergency (ER) | payer OTHER, SELFPAY ==
[2020-04-08 09:53] VITALS: BMI 33.6
[2020-07-08 18:19] VITALS: BP 157/75; BP 158/75; PULSE 57; RESP 16; TEMP 37.3; O2SAT 98; BMI 33.9
--- NOTE | 2020-07-08 18:24 | EKG12_ITS ---
Test Reason : CP Blood Pressure : / mmHG Vent. Rate : 059 BPM Atrial Rate : 059 BPM P-R Int : 152 ms QRS Dur : 076 ms QT Int : 422 ms P-R-T Axes : 066 013 042 degrees QTc Int : 417 ms Sinus bradycardia Otherwise normal ECG Confirmed by ELIOT BARON, LILIYA ([id number]), editor school photograph HOLLIE LIZ ([id number]) on 07/10/2020 12:28:18 PM Referred By: MARYBEL Confirmed By:LILIYA MCCABE MD
[2020-07-08 18:27] VITALS: O2SAT 100
--- NOTE | 2020-07-08 18:36 | EDS_ITS ---
HPI History of Present Illness Chief Complaint: Chest Pain Informant: patient and spouse/S.O. Onset/Context/Timing Onset: Today Context: Gradual Onset Current Severity: Mild Maximum Severity: Mild Narrative Narrative: Patient presents with complaints of back pain and some chest tightness. Patient is very minimizing of her symptoms and states that she has been able to go up and down stairs without shortness of breath or significant chest tightness so she is not really concerned about it. Nausea and headache were also complaints made in triage. She states she is a chronic headache that is not any different than her baseline. She does admit to some mild nausea. [facility] Medical History (Updated 07/08/20 @ 20:[address] Mita Espinal MD) Abnormal mammogram of right breast Anserine bursitis Asymmetric septal hypertrophy Cystocele Family history of ischemic heart disease Heart murmur Hypertension Kidney stones Macular degeneration Nonrheumatic aortic valve insufficiency Obstructive sleep apnea UTI (urinary tract infection) Vertigo Home Medications aspirin 81 mg tablet,delayed release 81 mg PO QHS 08/01/17 [History Last Taken 11/04/17] d-mannose 1 ea PO DAILY g 06/07/19 [History Last Taken Unknown] estradiol 1 g VAGINAL 2XW 09/12/19 [History Last Taken Unknown] lisinopril 20 mg tablet 20 mg PO DAILY #90 tab 09/20/19 [Rx Last Taken Unknown] vitamin A-vitamin C-vit E-min [Ocuvite] 1 tab DAILY 07/08/20 [History Last Taken Unknown] Allergy/AdvReac Type Severity Reaction Status Date / Time No Known Allergies Allergy Verified 04/08/20 10:03 Family History Mother Hypertension CVA (cerebral vascular accident) Father Heart disease Myocardial infarction from [place] age 61 Brother CAD (coronary artery disease) CABG 40's Son Arthritis Surgical History H/O parathyroidectomy History of right breast biopsy (~11/2018) Hx of cholecystectomy Social History Smoking Status: Never smoker alcohol intake: never substance use type: does not use caffeine: Yes what type of physical activity do you participate in: walking seatbelt use: always do you feel safe at home: Yes additional social history: Doug Euceda Patient is retired ROS ROS ED Constitutional Constitutional ED: Reports chills; Denies fever(s) Eyes Eyes: Denies change in vision ENT ENT ED: Denies sore throat Cardiovascular Cardiovascular: Reports chest pain Respiratory/Chest Respiratory/Chest: Denies cough or dyspnea Gastrointestinal Gastrointestinal: Reports nausea; Denies abdominal pain, diarrhea or vomiting Genitourinary Genitourinary ED: Denies dysuria Musculoskeletal Musculoskeletal: Reports back pain Integumentary Denies rash Neurologic Neurologic: Reports headache(s); Denies weakness Psychiatric Psychiatric: Denies anxiety or depression Endocrine Endocrinology: Denies polydipsia or polyuria Allergic/Immunologic Allergic/Immunologic ED: Denies urticaria EXAM Physical Exam Const Vital Signs: 07/08/20 18:19 07/08/20 18:27 07/08/20 19:32 Temperature 99.1 F Temperature Source Temporal Pulse Rate 57 L 56 L Respiratory Rate 16 16 Blood Pressure 158/75 H 144/84 H Blood Pressure Mean 102 104 Pulse Ox 98 100 96 Oxygen Delivery Method Room Air Room Air Room Air Positive well nourished and well developed General Appearance ED: well developed HEENT Reports normocephalic and head/scalp atraumatic Eyes PERRL and EOMs intact bilaterally Neck supple Chest Wall inspection of chest normal and palpation of chest normal Resp normal respiratory effort and clear to auscultation bilaterally Cardio regular rate and regular rhythm GI normal to inspection, nondistended, normoactive bowel sounds Palpation: soft Extremity normal to inspection Neuro oriented x3 and no sensory deficits noted Sensorium / Orientation: alert Motor Exam: strength 5/5 throughout Psych mental status grossly normal Skin no rashes or lesions noted MDM MDM MDM Narrative Medical decision making narrative: Patient was placed on quality assurance monitor body. EKG, chest x-ray, labs were obtained. Lab Data Attestation: I reviewed the patient's lab results. Labs: Laboratory Results - last 24 hr 07/08/20 07/08/20 07/08/20 18:36 18:36 18:36 WBC 8.8 RBC 4.20 Hgb 11.8 L Hct 37.4 MCV 89.0 MCH 28.1 MCHC 31.6 L RDW Std Deviation 44.8 H RDW Coeff of Radhames 13.8 Plt Count 244 MPV 9.0 Immature Gran % (Auto) 0.300 Neut % (Auto) 57.5 Lymph % (Auto) 33.4 [place] % (Auto) 6.7 Eos % (Auto) 1.6 Baso % (Auto) 0.5 Absolute Neuts (auto) 5.1 Absolute Lymphs (auto) 2.94 Nucleated RBC % 0 D-Dimer Quant (PE/DVT) 0.51 H* Sodium 139 Potassium 4.4 Chloride 104 Carbon Dioxide 27.0 Anion Gap 8 BUN 31 H Creatinine 1.51 H Estim Creat Clear Calc 23.48 Est GFR (MDRD) Af Amer 43 L Est GFR (MDRD) Non-Af 36 L BUN/Creatinine Ratio 20.5 H Glucose 101 Calcium 9.0 Troponin I < 0.015 Radiography Chest X-Ray - ED: 1 View, Read by ED Physician, Normal, Heart, Lungs and Mediastinum Diagnostic Testing: Radiology Impression Chest X-Ray 07/08/20 18:51 IMPRESSION: No acute cardiopulmonary pathology Electronically Signed: Chung Harris MD at 19:13 EDT , Service support , EKG Initial EKG: Attestation: I personally reviewed and interpreted this EKG as follows: Interpretation: Sinus Bradycardia (Sinus bradycardia 59 bpm. No acute ischemia.) Treatment and Re-Evaluation Comments:: Test results discussed with patient and at bedside. She is comfortable with discharge to home and will follow up with her doctor as needed. Return instructions are provided. Discharge Plan Triage Chief Complaint: Chest Pain ED Provider: Mita Espinal Dx/Rx/DC Orders Clinical Impression: Atypical chest pain Instructions: ED Chest Pain, Uncertain Cause Prescriptions: No Action aspirin [Adult Aspirin Regimen] 81 mg tablet,delayed release (DR/EC) 81 mg PO QHS RF: 0 lisinopril 20 mg tablet 20 mg PO DAILY Qty: 90 RF: 3 estradiol [Estrace] 0.01 % (0.1 mg/gram) cream 1 g VAGINAL 2XW RF: 0 d-mannose [Mannxtra] Powder 1 ea PO DAILY RF: 0 Ocuvite Tablet 1 tab DAILY RF: 0 Primary Care Provider: Dyana Cartwright Referrals: Dyana Cartwright MD [Primary Care Provider] - 1 Week Disposition Disposition: Home, self care
[2020-07-08] MEDS: Aspirin 81 MG TAB.CHEW 324 MG PO (18:48)
--- NOTE | 2020-07-08 18:51 | RAD_ITS ---
STUDY: X-RAY CHEST REASON FOR EXAM: Female, 74 years old. chest pain TECHNIQUE: AP portable COMPARISON: None. FINDINGS: The lungs are clear and expanded. There is no demonstrated pleural abnormality. Normal size heart. Normal mediastinum and chris. Normal visualized pulmonary arteries. Mildly calcified aortic arch and descending thoracic aorta. Dorsal spine demonstrates degenerative change. Normal visualized ribs, clavicles, and shoulders. There is no demonstrated abnormality of the visualized soft tissue structures of the upper abdomen. RAD/Chest 1 View (Portable) IMPRESSION: No acute cardiopulmonary pathology Electronically Signed: Chung Harris MD at 19:13 EDT , Service support ,
[2020-07-08 18:52] LABS: Absolute Lymphocyte Count 2.94 X10^3/uL (0.83-4.51); Absolute Neutrophil Count 5.1 X10^3/uL (2.0-7.7); Basophil# 0.04 X10^3/uL; Basophil% 0.5 % (0-1); Eosinophil# 0.14 X10^3/uL; Eosinophils% 1.6 % (0-5); Hematocrit 37.4 % (37-47); Hemoglobin 11.8 g/dL (12.0-15.0); Lymphocyte # 2.94 X10^3/ul (0.83-4.51); Lymphocyte % 33.4 % (19-41); Mean Corp Hgb Conc 31.6 g/dL (32-36); Mean Corpuscular Hgb 28.1 pg (27.0-32.0); Monocyte# 0.59 X10^3/uL; Monocyte% 6.7 % (0-10); NRBC Flagged by Analyzer 0 % (0-5); Neutrophil # 5.07 X10^3/uL (2.7-7.7); Neutrophil % 57.5 % (47-70); Platelet Count 244 K/mm3 (150-450); RBC Distribution Width CV 13.8 % (11.6-14.6); RBC Distribution Width SD 44.8 fl (35.1-43.9); White Blood Count 8.8 K/mm3 (4.4-11.0)
[2020-07-08 19:16] LABS: Anion Gap 8 (5-15); BUN 31 mg/dL (7-18); BUN/Creat Ratio 20.5 RATIO (10-20); Chloride 104 mmol/L (98-107); Creatinine, Serum 1.51 mg/dL (0.55-1.02); EST Glomerular Filtration Rate 36 mL/min (>60); Est Glom Filt Rate - Afr Amer 43 mL/min (>60); Estimated Creatinine Clearance 23.48 ml/min; Glucose 101 mg/dL (74-106); Potassium 4.4 mmol/L (3.5-5.1); Sodium Level 139 mmol/L (136-145)
[2020-07-08 19:21] LABS: D-Dimer Quantitative (DVT/PE) 0.51 FEU/ug/m (0.27-0.49)
[2020-07-08 19:32] VITALS: BP 144/84; PULSE 56; RESP 16; O2SAT 96
[2020-07-08 20:35] VITALS: BP 156/70; PULSE 88; RESP 14; TEMP 36.1; O2SAT 97
== END 2020-07-08 20:37 | disposition home or self-care (01) ==
PROVIDERS: Emergency Provider Emergency Medicine; PCP Internal Medicine
DX: R07.89 Other chest pain (principal); I10 Essential (primary) hypertension; Z79.899 Other long term (current) drug therapy
CPT/HCPCS: 71045; 80048; 84484; 85025; 85379; 93005; 99284; A4216

== ENCOUNTER → 2020-10-16 12:16 | Outpatient (CLI) | payer OTHER, SELFPAY ==
[2020-10-16 13:20] LABS: Anion Gap 4 (5-15); BUN 28 mg/dL (7-18); BUN/Creat Ratio 21.7 RATIO (10-20); Calcium,Total 9.5 mg/dL (8.5-10.1); Chloride 105 mmol/L (98-107); Creatinine, Serum 1.29 mg/dL (0.55-1.02); EST Glomerular Filtration Rate 43 mL/min (>60); Est Glom Filt Rate - Afr Amer 52 mL/min (>60); Glucose 103 mg/dL (74-106); Magnesium 2.8 mg/dL (1.6-2.6); Potassium 4.5 mmol/L (3.5-5.1); Sodium Level 138 mmol/L (136-145)
== END ==
PROVIDERS: PCP Internal Medicine; Referring Provider Internal Medicine; Visit Provider Internal Medicine
DX: N39.0 Urinary tract infection, site not specified (principal)
CPT/HCPCS: 36415; 80048; 83735

== ENCOUNTER → 2020-11-27 11:01 | Outpatient (CLI) | payer OTHER, SELFPAY ==
[2020-04-08 09:53] VITALS: BMI 33.6
--- NOTE | 2020-11-27 11:02 | BI_ITS ---
MAMMOGRAPHY - BILATERAL SCREENING REASON FOR EXAM: Female, 75 years old. Routine annual screening examination. PERTINENT HISTORY: Non-contributory. TECHNIQUE: Digital bilateral breast [place] (3D mammographic acquisition) in the CC and MLO projections. 2-D mediolateral oblique (MLO) and craniocaudad (CC) views of both breasts were obtained. CAD: Full Field Digital Mammography with Computer Added Detection was performed. COMPARISON: Comparison is made with prior examination 11/27/2019 and 11/24/2018. FINDINGS: Breast Composition: There are scattered areas of fibroglandular density. There are no dominant masses or suspicious calcifications. Stable small benign appearing bilateral axillary lymph nodes. A tissue clip marker is once again seen in the inferior slightly lateral retroareolar region of the right breast No other significant abnormalities are identified. There has been no significant change since the prior study. BI/SCRN MAMM (CAD)W/[place] BILAT IMPRESSION: Stable bilateral screening mammogram. Yearly follow-up mammogram recommended. (A) ASSESSMENT CATEGORY: BIRADS Category 2: Benign. A letter regarding these results will be sent to the patient by the facility within 30 days. Approximately 10% of breast cancers are not detected by mammography. A normal mammogram should not delay biopsy of a clinically suspicious abnormality. [id number] Electronically Signed: Maurice Callejas MD at 15:07 EDT , Service support ,
== END ==
PROVIDERS: PCP Internal Medicine; Referring Provider Obstetrics & Gynecology; Visit Provider Obstetrics & Gynecology
DX: Z12.31 Encounter for screening mammogram for malignant neoplasm of breast (principal)
CPT/HCPCS: 77063; 77067

== ENCOUNTER 2021-04-14 08:51 | Outpatient (CLI) | payer OTHER, SELFPAY ==
--- NOTE | 2021-04-14 09:00 | ECHOCS_ITS ---
Reason For Study: MURMUR Procedure This was a 2D Doppler, Color Flow transthoracic echocardiogram. The study was technically difficult. Exam performed in department. Left Ventricle Normal LV size. Left ventricular systolic function is normal. The estimated ejection fraction is 60 %. Stage 1 diastolic dysfunction. No regional wall motion abnormalities noted. Right Ventricle Normal RV size. Normal systolic function. Atria Normal left atrium. Normal right atrium. Mitral Valve Normal mitral valve. Tricuspid Valve Normal tricuspid valve. Mild tricuspid valve insufficiency. Pulmonary artery systolic pressure is 34 mmHg. Aortic Valve Trisinus/trileaflet aortic valve. Mild (1+) eccentric aortic valve insufficiency. Pulmonic Valve The pulmonic valve is not well visualized. Great Vessels Normal aortic root. The pulmonary artery is normal size. Normal inferior vena cava. Pericardium/Pleural No pericardial effusion. Medication 22 gauge I.V. with prn adaptor inserted into right arm. Diluted definity 3ml given slow IV push to enhance endocardial definition. MMode/2D Measurements & Calculations LVIDd: 4.1 cm IVSd: 0.92 cm LVOT diam: 2.0 cm LVIDs: 2.8 cm LVPWd: 1.0 cm RVDd: 3.2 cm FS: 31.2 % LVOT area: 3.1 cm2 Ao root diam: 2.9 cm LAV(MOD-bp): 42.4 ml LVAd ap4: 31.7 cm2 LAV(MOD-bp) Indexed: 24.0 ml/m2 LVLd ap4: 7.8 cm LAV(MOD-sp2): 42.2 ml EDV(MOD-sp4): 105.8 ml LAV(MOD-sp4): 38.2 ml EDV(sp4-el): 109.6 ml LVAs ap4: 17.7 cm2 LVLs ap4: 6.2 cm ESV(MOD-sp4): 41.1 ml ESV(sp4-el): 42.8 ml EF(MOD-sp4): 61.2 % EF(sp4-el): 61.0 % SV(MOD-sp4): 64.7 ml SV(sp4-el): 66.8 ml LA A4 area: 15.3 cm2 LA dimension(2D): 3.4 cm RA A4 area: 14.6 cm2 Time Measurements MV dec time: 0.19 sec Doppler Measurements & Calculations MV E max wilfrid: 93.9 cm/sec Lat Peak E' Wilfrid: 9.6 cm/sec Med Peak E' Wilfrid: 7.5 cm/sec MV A max wilfrid: 105.3 cm/sec E/E' lat: 9.8 E/E' med: 12.5 MV E/A: 0.89 Ao V2 max: 231.8 cm/sec AI max wilfrid: 520.4 cm/sec LV V1 max: 100.0 cm/sec Ao max P.5 mmHg AI max P.3 mmHg LV V1 max P.0 mmHg Ao V2 mean: 166.3 cm/sec AI dec slope: 343.1 cm/sec2 LV V1 mean P.3 mmHg Ao mean P.1 mmHg AI P1/2t: 444.2 msec LV V1 mean: 70.4 cm/sec Ao V2 VTI: 63.5 cm LV V1 VTI: 28.0 cm [place](I,D): 1.4 cm2 [place](V,D): 1.3 cm2 SV(LVOT): 86.6 ml PA V2 max: 90.3 cm/sec TR max wilfrid: 273.9 cm/sec TR max P.0 mmHg ECHO/Echo Complete W/ Contrast Interpretation Summary Normal LV size. Left ventricular systolic function is normal. The estimated ejection fraction is 60 %. Stage 1 diastolic dysfunction. Mild (1+) eccentric aortic valve insufficiency. Contrast injection was performed. Ordering Physician: Beverley North/Zohaib Beck Referring Physician: JAI SHEARER Performed By: Taryn Pinon RDCS
== END 2021-04-14 23:59 | disposition home or self-care (01) ==
PROVIDERS: PCP Internal Medicine; Referring Provider Physician Assistant Medical; Visit Provider Physician Assistant Medical
DX: I35.1 Nonrheumatic aortic (valve) insufficiency (principal)
CPT/HCPCS: 93306; Q9957; A4216; C8929

== ENCOUNTER 2021-04-23 10:55 | Outpatient (CLI) | payer OTHER, SELFPAY ==
[2021-04-23 12:08] LABS: Absolute Lymphocyte Count 2.51 X10^3/uL (0.83-4.51); Absolute Neutrophil Count 5.9 X10^3/uL (2.0-7.7); Basophil# 0.03 X10^3/uL; Basophil% 0.3 % (0-1); Eosinophil# 0.14 X10^3/uL; Eosinophils% 1.5 % (0-5); Hematocrit 36.4 % (37-47); Hemoglobin 11.7 g/dL (12.0-15.0); Lymphocyte # 2.51 X10^3/ul (0.83-4.51); Lymphocyte % 27.5 % (19-41); Mean Corp Hgb Conc 32.1 g/dL (32-36); Mean Corpuscular Hgb 29.2 pg (27.0-32.0); Mean Corpuscular Volume 90.8 fL (81-99); Mean Platelet Vol. 9.6 fl (6.2-12.0); Monocyte# 0.51 X10^3/uL; Monocyte% 5.6 % (0-10); NRBC Flagged by Analyzer 0 % (0-5); Neutrophil # 5.92 X10^3/uL (2.7-7.7); Neutrophil % 64.8 % (47-70); Platelet Count 220 K/mm3 (150-450); RBC Distribution Width CV 13.3 % (11.6-14.6); RBC Distribution Width SD 42.9 fl (35.1-43.9); Red Blood Count 4.01 M/mm3 (4.2-5.4); White Blood Count 9.1 K/mm3 (4.4-11.0)
[2021-04-23 12:35] LABS: AST(SGOT) 13 U/L (15-37); Alanine Aminotransfer ALT/SGPT 15 U/L (13-56); Albumin, Serum 3.9 g/dL (3.2-5.0); Alkaline Phosphatase 58 U/L (45-117); Anion Gap 6 (5-15); BUN 25 mg/dL (7-18); BUN/Creat Ratio 19.7 RATIO (10-20); Calcium,Total 9.3 mg/dL (8.5-10.1); Chloride 105 mmol/L (98-107); Cholesterol 222 mg/dL (200); Creatinine, Serum 1.27 mg/dL (0.55-1.02); EST Glomerular Filtration Rate 44 mL/min (>60); Est Glom Filt Rate - Afr Amer 53 mL/min (>60); Globulin 3.8 g/dL (2.2-4.2); Glucose 100 mg/dL (74-106); High Density Lipoprotein 71 mg/dL; Magnesium 2.2 mg/dL (1.6-2.6); Potassium 4.1 mmol/L (3.5-5.1); Protein, Total 7.7 g/dL (6.4-8.2); Sodium Level 140 mmol/L (136-145); Thyroid Stim Hormone (TSH) 1.31 uIU/mL (0.358-3.74); Triglycerides 128 mg/dL; Very Low Density Lipoprotein 26 mg/dL (5-40)
[2021-04-23 12:36] LABS: Vitamin D,25 Hydroxy 38.7 ng/mL
== END 2021-04-23 23:59 | disposition home or self-care (01) ==
LOC: BIMLAB 10:56
PROVIDERS: PCP Internal Medicine; Referring Provider Internal Medicine; Visit Provider Internal Medicine
DX: G47.33 Obstructive sleep apnea (adult) (pediatric) (principal); I35.1 Nonrheumatic aortic (valve) insufficiency; I10 Essential (primary) hypertension; E55.9 Vitamin D deficiency, unspecified
CPT/HCPCS: 36415; 80053; 80061; 82306; 83735; 84443; 85025

== ENCOUNTER 2021-06-01 06:25 | Outpatient (CLI) | payer OTHER, SELFPAY ==
--- NOTE | 2021-06-01 08:27 | TELEMED_ITS ---
[facility] Tele[facility] has confirmed receipt of a request for visit. This document confirms receipt of the order initiating the consult. To find the results of the consultation, please view the patient's reports for the scanned Telemed Consult.
== END 2021-06-01 23:59 | disposition home or self-care (01) ==
PROVIDERS: PCP Internal Medicine; Referring Provider Nurse Practitioner; Visit Provider Nurse Practitioner
DX: R40.4 Transient alteration of awareness (principal)
CPT/HCPCS: 95819

== ENCOUNTER → 2021-07-01 | Outpatient (CLI) | payer OTHER, SELFPAY ==
--- NOTE | 2021-07-01 12:39 | MRI_ITS ---
STUDY: MRA OF THE HEAD WITHOUT CONTRAST REASON FOR EXAM: Female, 75 years old. TIA TECHNIQUE: 3-D [id number] (TOF) imaging was performed with MIPs. The study was performed unenhanced. COMPARISON: None. FINDINGS: Normal bilateral petrous carotid arteries. There is atheromatous plaque formation of the right cavernous carotid artery, with a mild stenosis (less than 50%). There is signal loss of the left cavernous carotid artery consistent with either flow artifact or possible atherosclerotic plaque disease, however there is no demonstrated hemodynamically significant stenosis. Normal right A1 segments of the anterior cerebral artery. Normal left A1 segments of the anterior cerebral artery. Normal intact anterior communicating artery (ACOM). Normal bilateral A2 segments of the anterior cerebral arteries. Normal right M1 and M2 segments of the middle cerebral arteries, with a normal M1 bifurcation. Normal left M1 and M2 segments of the middle cerebral arteries, with a normal M1 bifurcation. 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 Normal left posterior communicating artery (PCOM). Normal bilateral vertebral arteries. Normal basilar artery with a normal basilar bifurcation. The visualized bilateral superior cerebellar (SCA) arteries are normal. Normal bilateral P1, P2 and visualized P3 segments of the posterior cerebral arteries. There is no demonstrated aneurysm of the [place] of [place]. There is no major vessel occlusion or hemodynamically significant stenosis. MRI/MRA Head ONLY without Contrast IMPRESSION: 1. There is no demonstrated aneurysm of the [place] of [place]. There is no major vessel occlusion or hemodynamically significant stenosis. Electronically Signed: Kain Landaverde MD at 15:38 EDT ,
--- NOTE | 2021-07-01 12:40 | MRI_ITS ---
STUDY: MRA NECK WITHOUT CONTRAST REASON FOR EXAM: Female, 75 years old. TIA TECHNIQUE: Source images were obtained, MIPs were performed. The study was performed unenhanced. COMPARISON: None. FINDINGS: RIGHT CAROTID ARTERIES: Normal right common carotid artery (CCA). Normal right common carotid bulb. Normal origin of the right internal carotid (ICA) artery without a hemodynamically significant stenosis. Normal visualized cervical portion of the right internal carotid artery. Normal origin of the right external carotid artery (ECA). LEFT CAROTID ARTERIES: Normal left common carotid artery (CCA). Normal left common carotid bulb. Normal origin of the left internal carotid (ICA) artery without a hemodynamically significant stenosis. Normal visualized cervical portion of the left internal carotid artery. Normal origin of the left external carotid artery (ECA). VERTEBRAL ARTERIES: Normal antegrade flow within the bilateral vertebral artery without a hemodynamically significant stenosis. MRI/MRA Neck without Contrast IMPRESSION: Normal bilateral cervical carotid and vertebral arteries. Electronically Signed: Thai Almeida MD at 15:59 EDT ,
== END | disposition home or self-care (01) ==
PROVIDERS: PCP Internal Medicine; Visit Provider Nurse Practitioner
DX: G45.9 Transient cerebral ischemic attack, unspecified (principal)
CPT/HCPCS: 70544; 70547

== ENCOUNTER → 2021-10-29 | Outpatient (CLI) | payer OTHER, SELFPAY ==
[2021-10-29 12:54] LABS: Absolute Lymphocyte Count 2.95 X10^3/uL (0.83-4.51); Absolute Neutrophil Count 3.7 X10^3/uL (2.0-7.7); Basophil# 0.04 X10^3/uL; Basophil% 0.5 % (0-1); Eosinophil# 0.18 X10^3/uL; Eosinophils% 2.4 % (0-5); Hematocrit 34.8 % (37-47); Hemoglobin 11.2 g/dL (12.0-15.0); Lymphocyte # 2.95 X10^3/ul (0.83-4.51); Mean Corp Hgb Conc 32.2 g/dL (32-36); Mean Corpuscular Volume 90.2 fL (81-99); Mean Platelet Vol. 9.4 fl (6.2-12.0); Monocyte# 0.67 X10^3/uL; Monocyte% 8.9 % (0-10); NRBC Flagged by Analyzer 0 % (0-5); Neutrophil # 3.71 X10^3/uL (2.7-7.7); Neutrophil % 48.9 % (47-70); Platelet Count 161 K/mm3 (150-450); RBC Distribution Width CV 14.4 % (11.6-14.6); RBC Distribution Width SD 47.2 fl (35.1-43.9); Red Blood Count 3.86 M/mm3 (4.2-5.4); White Blood Count 7.6 K/mm3 (4.4-11.0)
[2021-10-29 13:16] LABS: Vitamin D,25 Hydroxy 49.3 ng/mL
[2021-10-29 13:23] LABS: ALB/GLOB Ratio 0.9 RATIO (0.9-2.4); AST(SGOT) 21 U/L (15-37); Alanine Aminotransfer ALT/SGPT 19 U/L (13-56); Albumin, Serum 3.7 g/dL (3.2-5.0); Alkaline Phosphatase 66 U/L (45-117); Anion Gap 7 (5-15); BUN 27 mg/dL (7-18); BUN/Creat Ratio 18.4 RATIO (10-20); Calcium,Total 9.1 mg/dL (8.5-10.1); Chloride 106 mmol/L (98-107); Creatinine, Serum 1.47 mg/dL (0.55-1.02); EST Glomerular Filtration Rate 37 mL/min (>60); Est Glom Filt Rate - Afr Amer 44 mL/min (>60); Globulin 4.1 g/dL (2.2-4.2); Glucose 95 mg/dL (74-106); Potassium 4.2 mmol/L (3.5-5.1); Protein, Total 7.8 g/dL (6.4-8.2); Sodium Level 140 mmol/L (136-145); Thyroid Stim Hormone (TSH) 1.27 uIU/mL (0.358-3.74)
== END | disposition home or self-care (01) ==
LOC: LAB 11:13
PROVIDERS: PCP Internal Medicine; Referring Provider Internal Medicine; Visit Provider Internal Medicine
DX: I10 Essential (primary) hypertension (principal); R42 Dizziness and giddiness; R51.9 Headache, unspecified; I35.1 Nonrheumatic aortic (valve) insufficiency
CPT/HCPCS: 36415; 80053; 82306; 84443; 85025

== ENCOUNTER → 2021-12-01 | Outpatient (CLI) | payer OTHER, SELFPAY ==
--- NOTE | 2021-12-01 08:27 | BI_ITS ---
MAMMOGRAPHY - BILATERAL SCREENING REASON FOR EXAM: Female, 76 years old. Routine annual screening examination. PERTINENT HISTORY: Non-contributory. TECHNIQUE: Digital bilateral breast orlando (3D mammographic acquisition) in the CC and MLO projections. 2-D mediolateral oblique (MLO) and craniocaudad (CC) views of both breasts were obtained. CAD: Full Field Digital Mammography with Computer Added Detection was performed. COMPARISON: Comparison is made with prior study dated 11/27/2020 and 11/27/2019. FINDINGS: Breast Composition: There are scattered areas of fibroglandular density. There are no dominant masses or suspicious calcifications. A tissue clip marker is once again seen in the inferior slightly lateral retroareolar region of the right breast. Stable small benign appearing bilateral axillary lymph nodes. No other significant abnormalities are identified. There has been no significant change since the prior study. BI/SCRN MAMM (CAD)W/ORLANDO BILAT IMPRESSION: Stable bilateral screening mammogram. Yearly follow-up mammogram recommended. (A) ASSESSMENT CATEGORY: BIRADS Category 2: Benign. A letter regarding these results will be sent to the patient by the facility within 30 days. Approximately 10% of breast cancers are not detected by mammography. A normal mammogram should not delay biopsy of a clinically suspicious abnormality. [id number] Electronically Signed: Maurice Callejas MD at 10:21 EDT ,
== END | disposition home or self-care (01) ==
LOC: OPBI 08:26
PROVIDERS: PCP Internal Medicine; Referring Provider Obstetrics & Gynecology; Visit Provider Obstetrics & Gynecology
DX: Z12.31 Encounter for screening mammogram for malignant neoplasm of breast (principal)
CPT/HCPCS: 77063; 77067

== ENCOUNTER → 2022-01-22 | Outpatient (CLI) | payer OTHER, SELFPAY ==
--- NOTE | 2022-01-22 15:52 | US_ITS ---
STUDY: RENAL ULTRASOUND - COMPLETE REASON FOR EXAM: Female, 76 years old. URINARY RETENTION TECHNIQUE: Ultrasound evaluation of the kidneys was performed with real-time and static ratliff-scale imaging. COMPARISON: None. FINDINGS: RIGHT KIDNEY: Normal location of the right kidney, which is normal in size. The right kidney measures 10.0 cm. There is diffuse thinning of the renal cortex. The renal cortex measures 0.5 cm. There is no right renal mass or cyst. There are no right renal calculi. There is moderate hydronephrosis of the right kidney. DISTAL RIGHT URETER: There is non-visualization of the distal right ureter. There is no demonstrated right ureterovesical junction calculus. There is a visualized right ureteral jet. LEFT KIDNEY: Normal location of the left kidney, which is normal in size. The left kidney measures 9.9 cm. There is a normal cortex of the left kidney. The renal cortex measures 1.0 cm. There is no left renal mass or cyst. There are no left renal calculi. There is no left hydronephrosis. DISTAL LEFT URETER: There is non-visualization of the distal left ureter. There is no demonstrated left ureterovesical junction calculus. There is a visualized left ureteral jet. BLADDER: The distended urinary bladder has a volume of 810 ml. The empty urinary bladder has a volume of 798 ml. There is a normal wall thickness of the distended urinary bladder. There is no demonstrated mass within the urinary bladder. There are no demonstrated bladder calculi. US/Kidney and Bladder IMPRESSION: Urinary retention with moderate right-sided hydronephrosis and parenchymal atrophy suggestive of chronic obstruction. Electronically Signed: Thai Almeida MD at 16:57 EST ,
[2022-01-22 18:01] LABS: Anion Gap 4 (5-15); BUN 43 mg/dL (7-18); BUN/Creat Ratio 25.9 RATIO (10-20); Calcium,Total 8.9 mg/dL (8.5-10.1); Chloride 105 mmol/L (98-107); Creatinine, Serum 1.66 mg/dL (0.55-1.02); EST Glomerular Filtration Rate 32 mL/min (>60); Est Glom Filt Rate - Afr Amer 39 mL/min (>60); Glucose 115 mg/dL (74-106); Potassium 4.5 mmol/L (3.5-5.1); Sodium Level 138 mmol/L (136-145)
== END | disposition home or self-care (01) ==
PROVIDERS: PCP Internal Medicine; Referring Provider Urology; Visit Provider Urology
DX: R33.9 Retention of urine, unspecified (principal)
CPT/HCPCS: 36415; 76770; 80048

== ENCOUNTER → 2022-02-09 | Outpatient (CLI) | payer OTHER, SELFPAY ==
[2022-02-09 15:02] LABS: Anion Gap 5 (5-15); BUN 35 mg/dL (7-18); Calcium,Total 9.2 mg/dL (8.5-10.1); Chloride 106 mmol/L (98-107); Creatinine, Serum 1.25 mg/dL (0.55-1.02); EST Glomerular Filtration Rate 44 mL/min (>60); Est Glom Filt Rate - Afr Amer 54 mL/min (>60); Glucose 104 mg/dL (74-106); Potassium 4.2 mmol/L (3.5-5.1); Sodium Level 140 mmol/L (136-145)
== END | disposition home or self-care (01) ==
LOC: MTLAB 13:17
PROVIDERS: PCP Internal Medicine; Referring Provider Urology; Visit Provider Urology
DX: R33.9 Retention of urine, unspecified (principal)
CPT/HCPCS: 36415; 80048

== ENCOUNTER → 2022-03-02 | Outpatient (CLI) | payer OTHER, SELFPAY ==
[2022-03-02 18:47] LABS: Anion Gap 5 (5-15); BUN 26 mg/dL (7-18); BUN/Creat Ratio 20.5 RATIO (10-20); Calcium,Total 9.1 mg/dL (8.5-10.1); Chloride 105 mmol/L (98-107); Creatinine, Serum 1.27 mg/dL (0.55-1.02); EST Glomerular Filtration Rate 43 mL/min (>60); Est Glom Filt Rate - Afr Amer 53 mL/min (>60); Glucose 105 mg/dL (74-106); Potassium 4.5 mmol/L (3.5-5.1); Sodium Level 140 mmol/L (136-145)
== END | disposition home or self-care (01) ==
LOC: MTLAB 16:36
PROVIDERS: PCP Internal Medicine; Referring Provider Urology; Visit Provider Urology
DX: N28.9 Disorder of kidney and ureter, unspecified (principal)
CPT/HCPCS: 36415; 80048

== ENCOUNTER → 2022-05-28 | Outpatient (CLI) | payer OTHER, SELFPAY ==
--- NOTE | 2022-05-28 12:48 | US_ITS ---
INDICATION: HYDRONEPHROSIS EXAMINATION: US Kidney(s) complete (eg, kidneys and bladder) TECHNIQUE: Flannery scale and color doppler images were obtained of the kidneys. COMPARISON: 01/22/2022. FINDINGS: RIGHT KIDNEY: Measures 9.5 cm in length.. There is moderate hydronephrosis. There is a 5 mm nonobstructing stone. No focal mass or perinephric collection is demonstrated. LEFT KIDNEY: Measures 10.1 cm in length.. There is no hydronephrosis. No shadowing calculus, focal lesion or perinephric collection is demonstrated. URINARY BLADDER: No acute abnormality. US/Kidney and Bladder IMPRESSION: Moderate right hydronephrosis with no obstructing stone or mass seen. 5 mm nonobstructing stone in the lower pole of the right kidney. Electronically Signed: Daniel Pena MD at 23:09 EDT ,
== END | disposition home or self-care (01) ==
PROVIDERS: PCP Internal Medicine; Referring Provider Urology; Visit Provider Urology
DX: N13.30 Unspecified hydronephrosis (principal); R33.9 Retention of urine, unspecified
CPT/HCPCS: 76770

== ENCOUNTER → 2022-06-02 | Outpatient (CLI) | payer OTHER, SELFPAY ==
--- NOTE | 2022-06-02 13:56 | ECHOCS_ITS ---
Reason For Study: AI Procedure This was a 2D Doppler, Color Flow transthoracic echocardiogram. Contrast injection was performed. Exam performed in department. Left Ventricle Normal LV size. Left ventricular systolic function is normal. The estimated ejection fraction is 60 %. Stage 2 diastolic dysfunction. No regional wall motion abnormalities noted. Right Ventricle Normal right ventricle. Normal systolic function. Atria Normal left atrium. Normal right atrium. Mitral Valve Normal mitral valve. Tricuspid Valve Normal tricuspid valve. Mild (1+) tricuspid valve insufficiency. Pulmonary artery systolic pressure is 32 mmHg. Aortic Valve Trisinus/trileaflet aortic valve. Peak aortic valve gradient 29 mmHg. Mean aortic valve gradient 18 mmHg. Mild (1+) aortic valve insufficiency. Pulmonic Valve Normal pulmonic valve. Great Vessels Normal aortic root. The pulmonary artery is normal size. Normal inferior vena cava. Pericardium/Pleural No pericardial effusion. Medication Performed a rapid injection of agitated mix of 9 cc saline and 1cc air to assess for atrial septal defect. Diluted definity 2ml given slow IV push to enhance endocardial definition. MMode/2D Measurements & Calculations LVIDd: 5.4 cm IVSd: 0.83 cm LVOT diam: 1.9 cm LVIDs: 3.7 cm LVPWd: 0.71 cm RVDd: 4.4 cm FS: 32.7 % LVOT area: 2.9 cm2 Ao root diam: 2.5 cm LAV(MOD-bp): 49.2 ml LVAd ap4: 29.3 cm2 LAV(MOD-bp) Indexed: 27.3 ml/m2 LVLd ap4: 7.9 cm LAV(MOD-sp2): 56.9 ml EDV(MOD-sp4): 90.0 ml LAV(MOD-sp4): 42.4 ml EDV(sp4-el): 92.6 ml LVAs ap4: 14.4 cm2 LVLs ap4: 6.1 cm ESV(MOD-sp4): 29.0 ml ESV(sp4-el): 29.0 ml EF(MOD-sp4): 67.7 % EF(sp4-el): 68.7 % SV(MOD-sp4): 61.0 ml SV(sp4-el): 63.6 ml LA A4 area: 16.8 cm2 LA dimension(2D): 3.8 cm RA A4 area: 16.6 cm2 Time Measurements MV dec time: 0.23 sec Doppler Measurements & Calculations MV E max wilfrid: 105.7 cm/sec Lat Peak E' Wilfrid: 8.5 cm/sec Med Peak E' Wilfrid: 9.9 cm/sec MV A max wilfrid: 72.9 cm/sec E/E' lat: 12.4 E/E' med: 10.7 MV E/A: 1.5 MV dec slope: 468.5 cm/sec2 Ao V2 max: 268.9 cm/sec AI max wilfrid: 469.4 cm/sec Ao max P.0 mmHg AI max P.2 mmHg Ao V2 mean: 205.3 cm/sec AI dec slope: 283.1 cm/sec2 Ao mean P.0 mmHg AI P1/2t: 485.7 msec Ao V2 VTI: 80.3 cm AV (velocity ratio): 0.41 KENTON(I,D): 1.2 cm2 KENTON(V,D): 1.3 cm2 LV V1 max: 121.9 cm/sec SV(LVOT): 96.4 ml PA V2 max: 81.4 cm/sec LV V1 max P.9 mmHg LV V1 mean P.1 mmHg LV V1 mean: 81.6 cm/sec LV V1 VTI: 33.2 cm TR max wilfrid: 264.0 cm/sec TR max P.9 mmHg ECHO/Echo Complete W/ Contrast Interpretation Summary Normal LV size. Left ventricular systolic function is normal. The estimated ejection fraction is 60 %. Stage 2 diastolic dysfunction. Mean aortic valve gradient 18 mmHg. Mild (1+) aortic valve insufficiency. Contrast injection was performed. Ordering Physician: Beverley oNrth Referring Physician: Dyana Cartwright Performed By: Shayy Stahl RDCS, RVT
== END | disposition home or self-care (01) ==
LOC: CVS 13:54
PROVIDERS: PCP Internal Medicine; Referring Provider Physician Assistant Medical; Visit Provider Physician Assistant Medical
DX: I35.1 Nonrheumatic aortic (valve) insufficiency (principal)
CPT/HCPCS: 93306; Q9957; A4216; C8929

== ENCOUNTER → 2022-06-08 | Outpatient (CLI) | payer OTHER, SELFPAY ==
[2022-06-08 09:37] LABS: Absolute Lymphocyte Count 2.94 X10^3/uL (0.83-4.51); Absolute Neutrophil Count 3.1 X10^3/uL (2.0-7.7); Basophil# 0.04 X10^3/uL; Basophil% 0.6 % (0-1); Eosinophil# 0.17 X10^3/uL; Eosinophils% 2.5 % (0-5); Hematocrit 35.6 % (37-47); Hemoglobin 10.8 g/dL (12.0-15.0); Lymphocyte # 2.94 X10^3/ul (0.83-4.51); Lymphocyte % 42.9 % (19-41); Mean Corp Hgb Conc 30.3 g/dL (32-36); Mean Corpuscular Hgb 27.6 pg (27.0-32.0); Mean Corpuscular Volume 90.8 fL (81-99); Mean Platelet Vol. 9.5 fl (6.2-12.0); Monocyte# 0.57 X10^3/uL; Monocyte% 8.3 % (0-10); NRBC Flagged by Analyzer 0 % (0-5); Neutrophil # 3.11 X10^3/uL (2.7-7.7); Neutrophil % 45.4 % (47-70); Platelet Count 150 K/mm3 (150-450); RBC Distribution Width CV 14.4 % (11.6-14.6); RBC Distribution Width SD 47.7 fl (35.1-43.9); Red Blood Count 3.92 M/mm3 (4.2-5.4); White Blood Count 6.9 K/mm3 (4.4-11.0)
[2022-06-08 10:03] LABS: ALB/GLOB Ratio 0.9 RATIO (0.9-2.4); AST(SGOT) 18 U/L (15-37); Alanine Aminotransfer ALT/SGPT 17 U/L (13-56); Albumin, Serum 3.6 g/dL (3.2-5.0); Alkaline Phosphatase 73 U/L (45-117); Anion Gap 5 (5-15); BUN 28 mg/dL (7-18); BUN/Creat Ratio 20.1 RATIO (10-20); Calcium,Total 9.3 mg/dL (8.5-10.1); Chloride 107 mmol/L (98-107); Cholesterol 206 mg/dL (200); Creatinine, Serum 1.39 mg/dL (0.55-1.02); EST Glomerular Filtration Rate 39 mL/min (>60); Est Glom Filt Rate - Afr Amer 47 mL/min (>60); Globulin 3.9 g/dL (2.2-4.2); Glucose 108 mg/dL (74-106); High Density Lipoprotein 67 mg/dL; Potassium 4.5 mmol/L (3.5-5.1); Protein, Total 7.5 g/dL (6.4-8.2); Sodium Level 141 mmol/L (136-145); Triglycerides 170 mg/dL; Very Low Density Lipoprotein 34 mg/dL (5-40)
[2022-06-08 15:15] LABS: Ferritin 27 ng/mL (8-252); Iron 52 ug/dL (50-170); Iron Binding Capacity,Total 357 ug/dL (250-450); PERCENT IRON SATURATION 14.6 % (15.0-55.0)
== END | disposition home or self-care (01) ==
LOC: LAB 09:08
PROVIDERS: PCP Internal Medicine; Referring Provider Internal Medicine; Visit Provider Internal Medicine
DX: I10 Essential (primary) hypertension (principal); R42 Dizziness and giddiness; G47.33 Obstructive sleep apnea (adult) (pediatric); R51.9 Headache, unspecified; D64.9 Anemia, unspecified; Z13.220 Encounter for screening for lipoid disorders
CPT/HCPCS: 36415; 80053; 80061; 82728; 82746; 83540; 83550; 85025

== ENCOUNTER → 2022-10-04 | Outpatient (CLI) | payer OTHER, SELFPAY ==
[2022-10-04 15:45] LABS: Iron 52 ug/dL (50-170); Iron Binding Capacity,Total 330 ug/dL (250-450); PERCENT IRON SATURATION 15.8 % (15.0-55.0)
== END | disposition home or self-care (01) ==
LOC: LAB 14:39
PROVIDERS: PCP Internal Medicine; Referring Provider Internal Medicine; Visit Provider Internal Medicine
DX: D64.9 Anemia, unspecified (principal)
CPT/HCPCS: 36415; 83540; 83550

== ENCOUNTER → 2022-10-14 | Outpatient (CLI) | payer OTHER, SELFPAY ==
--- NOTE | 2022-10-14 16:19 | US_ITS ---
INDICATION: pelvic pain/ discomfort, history of urinary bladder prolapse EXAMINATION: US Pelvis Non OB Complete With Transvaginal Imaging TECHNIQUE: Transabdominal and transvaginal pelvic ultrasound was performed. Grayscale, spectral waveform, and color flow Doppler evaluation of the adnexa. COMPARISON: None. FINDINGS: Limited evaluation, patient unable to empty urinary bladder. Urinary bladder volume 217 mL. No bladder wall thickening detected. Poorly visualized uterus is anteverted and measures 6.7 x 3.3 x 4.9 cm, transvaginally. Nonvisualized endometrium. No discrete uterine mass detected. No adnexal mass or significant free pelvic fluid. Bilateral ovaries are nonvisualized transabdominally and transvaginally. US/Pelvic (Non ) IMPRESSION: Suboptimal evaluation with poorly visualized uterus and nonvisualized ovaries. Electronically Signed: Hima Sebastian MD at 1:33 EDT ,
== END | disposition home or self-care (01) ==
LOC: US 16:16
PROVIDERS: PCP Internal Medicine; Referring Provider Obstetrics & Gynecology; Visit Provider Obstetrics & Gynecology
DX: N81.4 Uterovaginal prolapse, unspecified (principal)
CPT/HCPCS: 76830; 76856

== ENCOUNTER 2022-11-12 07:46 | Observation (INO) | payer OTHER, MEDICARE, SELFPAY ==
--- NOTE | 2022-11-04 12:01 | EKG12_ITS ---
Test Reason : PREOP Blood Pressure : / mmHG Vent. Rate : 057 BPM Atrial Rate : 057 BPM P-R Int : 152 ms QRS Dur : 072 ms QT Int : 442 ms P-R-T Axes : 051 -12 021 degrees QTc Int : 430 ms Sinus bradycardia Otherwise normal ECG Confirmed by BEL BARON, MILADYS ([id number]), design editor NIKOS ESPINOSA ([id number]) on 11/12/2022 1:09:36 PM Referred By: Selene Barney Confirmed By:MILADYS STAPLES MD
[2022-11-04 12:34] LABS: Absolute Lymphocyte Count 2.46 X10^3/uL (0.83-4.51); Absolute Neutrophil Count 5.4 X10^3/uL (2.0-7.7); Basophil# 0.05 X10^3/uL; Basophil% 0.6 % (0-1); Eosinophil# 0.18 X10^3/uL; Eosinophils% 2.1 % (0-5); Hematocrit 36.3 % (37-47); Hemoglobin 11.8 g/dL (12.0-15.0); Lymphocyte # 2.46 X10^3/ul (0.83-4.51); Lymphocyte % 28.2 % (19-41); Mean Corp Hgb Conc 32.5 g/dL (32-36); Mean Corpuscular Hgb 29.1 pg (27.0-32.0); Mean Corpuscular Volume 89.6 fL (81-99); Mean Platelet Vol. 9.3 fl (6.2-12.0); Monocyte# 0.57 X10^3/uL; Monocyte% 6.5 % (0-10); NRBC Flagged by Analyzer 0 % (0-5); Neutrophil # 5.44 X10^3/uL (2.7-7.7); Neutrophil % 62.4 % (47-70); Platelet Count 156 K/mm3 (150-450); RBC Distribution Width CV 15.3 % (11.6-14.6); RBC Distribution Width SD 50.1 fl (35.1-43.9); Red Blood Count 4.05 M/mm3 (4.2-5.4); White Blood Count 8.7 K/mm3 (4.4-11.0)
[2022-11-04 13:29] LABS: Magnesium 2.6 mg/dL (1.6-2.6)
[2022-11-04 13:53] LABS: ALB/GLOB Ratio 0.9 RATIO (0.9-2.4); AST(SGOT) 20 U/L (15-37); Alanine Aminotransfer ALT/SGPT 22 U/L (13-56); Albumin, Serum 3.8 g/dL (3.2-5.0); Alkaline Phosphatase 72 U/L (45-117); Anion Gap 7 (5-15); BUN 28 mg/dL (7-18); Calcium,Total 9.3 mg/dL (8.5-10.1); Chloride 106 mmol/L (98-107); EST Glomerular Filtration Rate 39 mL/min (>60); Est Glom Filt Rate - Afr Amer 47 mL/min (>60); Globulin 4.1 g/dL (2.2-4.2); Glucose 100 mg/dL (74-106); Potassium 4.4 mmol/L (3.5-5.1); Protein, Total 7.9 g/dL (6.4-8.2); Sodium Level 139 mmol/L (136-145)
[2022-11-12] VITALS (11 sets, daily range): BP systolic 102–150; BP diastolic 51–73; PULSE 47–92; RESP 16; TEMP 36.1–36.7; O2SAT 96–100; BMI 34.9; BMI 36.3
--- NOTE | 2022-11-12 05:41 | HP.PCM_ITS ---
History and Physical Annette Hair Alfredo Allergies animal dander unknown cat dander unknown dog dander unknown mold unknown Special Indicators No Data to Display Problems Preop exam for internal medicine Anemia Uncontrolled morning headache Aortic insufficiency Asymmetric septal hypertrophy Essential hypertension ?CONTROLLED WITH MED Cystocele ?sees dr holcomb, discussed with patient, discussed TVH and pelvic floor repair combo case if wants surgery. failed pessary.?Hold aspirin for 7 days prior to surgery per [facility] Macular degeneration Vertigo Obstructive sleep apnea ?bavis said has it and then new neuro says she does not have it = no longer uses cpap Vital Signs No Data to Display Labs Blood Type B POSITIVE Antibody Screen NEGATIVE Hct 36.3 % (37-47) L Hgb 11.8 g/dL (12.0-15.0) L PFSH MEDICAL HISTORY ONSET Abnormal mammogram of right breast Anserine bursitis Aortic insufficiency Aortic valve defect Asymmetric septal hypertrophy Bladder disease CPAP (continuous positive airway pressure) dependence Cardiology follow-up encounter Cystocele Essential hypertension Family history of ischemic heart disease Headache History of echocardiogram History of edema History of renal disease History of stress test Kidney stones Leg cramps Low iron Macular degeneration Non-smoker Obstructive sleep apnea Post-menopausal Seizures UTI (urinary tract infection) Vertigo Wears glasses Wears hearing aid SURGICAL HISTORY ONSET H/O parathyroidectomy History of right breast biopsy ~11/2018 Hx of cholecystectomy Hx of colonoscopy Hx of left cataract extraction Hx of right cataract extraction FAMILY HISTORY SOCIAL HISTORY Provider Notes Last 24 Hrs No Data to Display Documents Most Recent Departmental BMS CONSENT SURGICAL CONSENT 10/05/22 [facility]MS HIPAA 05/26/19 [facility] Facility Correspondence Urology visit note 01/27/22 [facility] [place] Other Facility OP Report [facility] OP REPOR[facility] 01/26/17 [facility] Other Facility Outside Results Misc CV Echo, Cardiovascular 07/12/17 [facility] [place] Other Facility Sleep Study SLEEP MED- CPAP TITRATION STUDY 02/14/17 Cardiology Visit 05/18/22 Discharge Instructions 03/05/15 Discharge Summary CONV 01/29/12 ED Discharge Packet 07/08/20 ED T-Form 03/05/15 EKG 07/08/20 behavior support specialist Strip Mount Sheet 11/10/17 EKG Report 09/08/00, 09/07/00- [facility] 08/02/17 ER Physician Documentation 07/08/20 Echocardiogram POMERENE, 07/16/16 TRANSTHORACIC - [facility] 07/12/17 Echocardiogram 06/02/22 Echocardiogram 06/02/22 Electrocardiogram 07/08/20 Emergency Department Summary 01/29/12 Event Recorder SUPRIYAO EVENT MONITOR 06/07/21 External Correspondence [facility] PRE ADMISSION TESTING REPORT 11/10/22 History & Physical 11/10/17 Hospital Procedure Report AYDINY MEDICAL FLUOROSCOPY REPORT AND PLACEMENT OF CATH RENAL PELVIS 02/23/17 Internal Medicine Visit 11/04/22 AUGER SUPERVISOR Visit 10/04/22 Office Visit 07/08/21 Office Visit [facility] NEURO - JOSE M MONSIVAIS ADJUNCT HISTORY INSTRUCTOR, OV NOTE 06/04/21 Operative Notes 11/10/17 Other Facility Information 05/25/22 Pre-Procedure Sedation Assessment 11/10/17 Provation Operative Report 11/10/17 Stress Echocardiogram 06/28/19 Stress Echocardiogram 07/04/19 Stress Echocardiogram 06/28/19 Surgery Visit 11/30/19 TeleEEG Consult Results 06/01/21 Telemedicine Consultation 06/01/21 Imaging Abdomen/Pelvis CT 08/03/19 Ankle X-Ray 03/05/15 Breast Ultrasound 11/15/18 Chest X-Ray 07/08/20 Facial/Sinus 04/14/20 Head MRA 07/01/21 Mammogram Computer Aided Diagnostic 11/24/18 Mammogram Computer Aided Screening 12/01/21 Neck MRA 07/01/21 Pelvis Ultrasound 10/14/22 Renal Ultrasound 05/28/22 Imaging/Procedure Reports No Data to Display Home Meds Not Confirmed Prescription Monitoring Program MEDICATIONS (INSTRUCTIONS) Active acetaminophen [Tylenol] 325 mgPOONCEPRNpain ??amlodipine 2.5 mg tablet ??2.5 mgPOBID#180 tabs aspirin [Adult Low Dose Aspirin] 81 mgPOQHS ferrous sulfate 325 mg (65 mg iron) tablet 325 mgPOBID fexofenadine [Poonam Allergy] 180 mgPODAILYPRNALLERGIES FRUITS 3 capPODAILY lisinopril 20 mg tablet 20 mgPODAILY#90 tabs multivitamin 1 tabPODAILY omega-3 fatty acids 600 mgPOBID *Product no longer available pregabalin 50 mgPOBID PREVAGEN 1 capPODAILY VEGGIES 3 capPODAILY vitamins A,C,H-flib-ncnwgl [PreserVision AREDS] 1 capPOBID ?Not Included in Conflicts Documents ANNETTE HAIR??77??F??1945 ? Allergy/Adv: animal dander, cat dander, dog dander, mold (More??) Close BMS CONSENT 10/05/22 SURGICAL CONSENT [facility] HIPAA 05/26/19 [facility] Other Facility Correspondence 01/27/22 Urology visit note [facility] Other Facility OP Report 01/26/17 [facility] OP REPORTS [facility] Other Facility Outside Results Misc 07/12/17 CV Echo, Cardiovascular [facility] Other Facility Sleep Study 02/14/17 SLEEP MED- CPAP TITRATION STUDY Cardiology Visit (Signed) Beverley Norht - 05/18/22 10:22 Discharge Instructions (Signed) Asim Catalan - 03/05/15 09:03 Discharge Summary CONV 01/29/12 ED Discharge Packet (Viewable) 07/08/20 20:20 ED T-Form 03/05/15 EKG 07/08/20 behavior support specialist Strip Mount Sheet 11/10/17 EKG Report 08/02/17 09/08/00, 09/07/00- [facility] ER Physician Documentation (Signed) Mtia Espinal - 07/08/20 18:36 Echocardiogram 07/12/17 BRIANA, 07/16/16 TRANSTHORACIC - [facility] Echocardiogram (Signed) Zohaib Beck - 06/02/22 13:56 Echocardiogram 06/02/22 Electrocardiogram (Signed) Manuel Byrnes - 07/08/20 18:24 Emergency Department Summary 01/29/12 Event Recorder 06/07/21 ZIO EVENT MONITOR External Correspondence 11/10/22 [facility] PRE ADMISSION TESTING REPORT History & Physical (Signed) Otis Thayer - 11/10/17 12:45 Hospital Procedure Report 02/23/17 [facility] FLUOROSCOPY REPORT AND PLACEMENT OF CATH RENAL PELVIS Internal Medicine Visit (Signed) Dyana Cartwright - 11/04/22 13:06 AUGER SUPERVISOR Visit (Signed) Selene Barney - 10/04/22 13:27 Office Visit (Signed) Beverley North - 07/08/21 11:06 Office Visit 06/04/21 [facility] NEUR[facility] - JOSE M MONSIVAIS ADJUNCT HISTORY INSTRUCTOR, OV NOTE Operative Notes (Signed) Otis Thayer - 11/10/17 12:43 Other Facility Information 05/25/22 Pre-Procedure Sedation Assessment 11/10/17 Provation Operative Report 11/10/17 Stress Echocardiogram (Signed) David Adams - 06/28/19 10:22 Stress Echocardiogram 07/04/19 Stress Echocardiogram 06/28/19 Surgery Visit (Signed) Otis Thayer - 11/30/19 12:50 TeleEEG Consult Results 06/01/21 Telemedicine Consultation (Signed) LOIJOSE M - 06/01/21 08:27 Abdomen/Pelvis CT (Signed) Thai Almeida - 08/03/19 15:57 Ankle X-Ray (Signed) Maurice Callejas - 03/05/15 08:44 Breast Ultrasound (Signed) Darren Luke - 11/15/18 10:52 Chest X-Ray (Signed) Chung Harris - 07/08/20 18:51 Facial/Sinus (Signed) Thai Almeida - 04/14/20 14:58 Head MRA (Signed) Kain Landaverde - 07/01/21 12:39 Mammogram Computer Aided Diagnostic (Signed) Maurice Callejas - 11/24/18 10:28 Mammogram Computer Aided Screening (Signed) Maurice Callejas - 12/01/21 08:27 Neck MRA (Signed) Thai Almeida - 07/01/21 12:40 Pelvis Ultrasound (Signed) Hima Sebastian - 10/14/22 16:19 Renal Ultrasound (Signed) Daniel Pena - 05/28/22 12:48 Add?Addendum [facility] [address] [place] [address] OFFICE VISIT Date of Service: 10/04/22 MR#: [id number] Acct: [id number] Name: ANNETTE HAIR Rep #: [id number] : 1945 Provider: Dr. 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) Allergies animal dander Allergy (Unknown, Verified 05/18/22 10:23) unknowncat dander Allergy (Unknown, Verified 05/18/22 10:23) unknowndog dander Allergy (Unknown, Verified 05/18/22 10:23) unknownmold Allergy (Unknown, Verified 05/18/22 10:23) unknown Medications acetaminophen 325 mg capsule (Tylenol) 325 mg PO ONCE PRN 09/25/20 [History Confirmed 10/04/22] multivitamin 1 tab PO DAILY 09/25/20 [History Confirmed 10/04/22] amlodipine 2.5 mg tablet 2.5 mg PO BID #180 tabs 08/12/21 [Rx Confirmed 10/04/22] pregabalin 25 mg capsule 25 mg PO DAILY 10/02/21 [History Confirmed 10/04/22] lisinopril 20 mg tablet 20 mg PO DAILY #90 tabs 04/19/22 [Rx Confirmed 10/04/22] aspirin 81 mg tablet,delayed release (Adult Low Dose Aspirin) 81 mg PO DAILY 05/18/22 [History Confirmed 10/04/22] vitamins A,C,T-hrxh-qwwutc 4,296 mcg-226 mg-90 mg capsule (PreserVision AREDS) 1 cap PO DAILY 05/18/22 [History Confirmed 10/04/22] ferrous sulfate 325 mg (65 mg iron) tablet (Feosol) 325 mg PO BID 08/18/22 [History Confirmed 10/04/22] Is last menstrual period known: No Post menopausal: Yes Patient : No : No PFSH Medical History (Updated 08/17/22 @ 16:07 by Beverley Moy) Abnormal mammogram of right breast Anserine bursitis Aortic insufficiency Asymmetric septal hypertrophy Cystocele Essential hypertension Family history of ischemic heart disease Kidney stones Macular degeneration Obstructive sleep apnea UTI (urinary tract infection) Vertigo Surgical History H/O parathyroidectomy History of right breast biopsy (~11/2018) Hx of cholecystectomy Family History Mother Hypertension CVA (cerebral vascular accident)Father Heart disease Myocardial infarction from [place] age 61Brother CAD (coronary artery disease) CABG 40'sSon Arthritis Social History Smoking Status: Never smoker alcohol intake: never substance use type: does not use caffeine: Yes what type of physical activity do you participate in: walking seatbelt use: always do you feel safe at home: Yes additional social history: Doug Euced[employer] Patient is retired History 4 Elective abortions Hx Para 4 Spontaneous abortions Hx # Term Pregnancies Ectopic pregnancies Hx # Pregnancies Multiple births # of living children Past Pregnancies Del. Date Name GA/Weeks Outcome Route Bth Weight Gen Labor Lgth Anesthesia Del Locatn Provider FOB Unknown 1969 Bautista Unknown 1971 Huma Unknown 1976 Leslie Unknown 1978 Eder [facility] Details: ANNETTE HAIR is a 76 year old who presents planning hysterectomy here soon combo case with aicha. Last PAP: nl in past History of abnormal PAP: no severe Female Reproductive History Questions: metorrhagia: No, dyspareunia: No and PCB: No Menopausal Symptoms: No night sweats ROS Const Constitutional: Reports system reviewed and no additional complaints, except as documented; Denies fatigue, headache(s) or night sweats ENT ENT: Reports system reviewed and no additional complaints, except as documented Cardio Card: Denies chest pain Resp Resp: Denies cough or dyspnea GI GI: Denies abdominal pain, bloating, change in stool character, constipation, fecal incontinence, nausea or vomiting : Reports prolapse symptoms, urinary incontinence and vaginal dryness; Denies nipple discharge, pelvic pain, sexual dysfunction, urinary frequency, urinary urgency, vaginal discharge, vaginal odor or vaginal pruritus Musc Musc: Denies arthralgias, back pain or muscle weakness Skin Skin/Breast: Denies alopecia, change in hair, dry skin, breast mass, breast pain, breast skin changes or nipple discharge Neuro Neuro: Reports system reviewed and no additional complaints, except as documented Psych Psych: Denies anxiety or depression Endo Endo: Denies cold intolerance, excessive sweating, heat intolerance or polydipsia James/Lymph Hematologic/Lymphatic: Denies easy bleeding, Denies easy bruising and Denies lymphadenopathy Exam Const General: cooperative, healthy appearing, comfortable, no acute distress and well developed Orientation: alert [facility] Head: normal to inspection, normocephalic and atraumatic Ears: hearing grossly normal bilaterally and external ears normal Nose: external nose normal and nares normal Face and sinus: normal facial exam Neck Neck: normal visual inspection, full ROM, no lymphadenopathy and trachea midline Thyroid: thyroid normal Resp Effort & Inspection: normal respiratory effort Auscultation: clear to auscultation bilaterally Cardio Rate: regular rate Rhythm: regular rhythm Heart Sounds: S1 normal and S2 normal GI Inspection: normal to inspection and non-distended Palpation: soft, no hepatosplenomegaly, no hepatomegaly, not rigid and nontender General: bladder normal to palpation External Female Exam: abnormal external appearance (atrophic introitus), normal appearance of the urethra and no lesions Urethra: normal appearance of the urethra Speculum Exam - Vagina: abnormal appearance of the vagina, normal vaginal discharge, vagina atrophic and no lesions Speculum Exam - Cervix: normal appearance of the cervix Bimanual Exam- Vagina & Uterus: normal bimanual exam, uterine size normal, bladder normal to palpation, uterine shape normal, uterine mobility normal and non-tender Bimanual Exam- Adnexa, other: normal adnexae, no masses, rectocele, cystocele and vaginal apex descent Pelvic Support: cystocele, rectocele and vaginal apex descent Musc Other: gross motor intact no deficits, full bilateral strength Skin General: no rashes or lesions noted and atrophy Neuro General: patient alert, patient awake, moves all extremities and no focal motor deficits Motor: muscle tone normal throughout Extrem General: normal to inspection and no pedal edema Psych Appearance: grossly normal Mental Status: mental status grossly normal Affect: normal affect Speech and Movement: speech and movement normal Assessment and Plan cystocele prolapse Plan After discussing the patient's diagnosis and treatment plan options, patient wishes to proceed with surgical management. I have discussed with the patient the risks, benefits, and alternatives of the procedure which include but are not limited to risks of anesthesia, bleeding, infection, possible damage to bowel, bladder, or surrounding vasculature which could lead to additional surgery to evaluate any complications. Patient agrees to procedure and wishes to proceed. ACOG/uptodate references given for additional information regarding procedure. UPDATE- I have seen the patient and performed any clinically relevant updates to the history and physical exam. Selene Barney MD Date Selene Barney MD Cosign Signature: Date (if applicable) CC: ~
[2022-11-12] MEDS: Magnesium 1 GM over 15 mins IV (06:25)
[2022-11-12] MEDS: Lactated Ringers 1,000 ML 40 ML IV (06:31)
[2022-11-12] MEDS: Acetaminophen 500 MG Tablet 1000 MG PO ×3 (06:32→23:43)
[2022-11-12] MEDS: Gabapentin 600 MG Tablet PO (06:32)
[2022-11-12] MEDS: Celecoxib 200 MG Capsule 400 MG PO (06:32)
[2022-11-12] MEDS: Scopolamine 1mg/72hr Patch 1 PATCH TD (06:34)
[2022-11-12] MEDS: dexAMETHasone 4 MG/ML Vial 8 MG IV (06:34)
[2022-11-12] MEDS: Enoxaparin 40 MG/0.4 ML Syringe SC (06:35)
[2022-11-12 07:11] LABS: Bedside Glucose 107 mg/dL (74-106)
--- NOTE | 2022-11-12 07:30 | HYST_PTH ---
PATIENT: LUISA ANNA LOC: MS3 U#:[id number] AGE/SX: 77/F ROOM: [facility] [place]12/[address]: Dr. Selene Barney MD : 1945 BED: 1 DIS: 11/13/2022 SPEC #: [id number] RECD: 11/12/22 13:08 STATUS: FELY HARRISPorter #: [id number] MIKE: 11/12/22 07:[address]: Selene Barney DEPT: SURGICAL PATHOLOGY RECD BY: Arlet Owusu ENTERED: 11/12/22 13:33 SP TYPE: HYSTERECT OTHR DR: MD Dr. Dyana Russell MD Tissues: Uterus, NOS Procedures: Surgery Specimen Level V HEADER OPERATION: ERAS, total vaginal hysterectomy PRE-OP DIAGNOSIS: Cystocele prolapse, urinary retention, urge incontinence TISSUE SUBMITTED: Uterus, cervix MICROSCOPIC DIAGNOSIS Uterus, hysterectomy: Cervix - nabothian cysts and hyperkeratosis. Endometrium - focal simple hyperplasia without atypia. Changes of atrophy with cystic change. Myometrium - calcifications of vessel bro. AM:dominik 11/15/2022 MICROSCOPIC DESCRIPTION Slides are reviewed. GROSS DESCRIPTION Received in fixative is one container labeled with the patient's name and designated uterus, cervix. The specimen consists of a hysterectomy specimen consisting of uterus with cervix weighing 53 gm and measuring 12.0 x 4.5 x 3.0 cm. The serosal surface is mir, glistening. The ectocervical mucosa is unremarkable. The external os is oval and patulous in contour. The endocervical canal is elongated and measures 6.5 cm in length. A polyp is noted in the mid portion measuring 1.2 x 0.7 x 0.5 cm. It is present in the anterior surface of the wall. The rest of the endocervical mucosa is unremarkable. Sections reveal two cysts filled with mucoid material. The triangular endometrial cavity measures 4.0 cm in length and 2.5 cm in width. A sessile endometrial polyp is noted measuring 0.4 cm in greatest dimension. The rest of the endometrium is mir, glistening and measures <0.1 cm in thickness. Sections of myometrial wall do not reveal any mass lesion and measures 1.5 cm in thickness. Bearing Inspector sections are submitted in seven cassettes as follows: 1 - anterior cervix and endocervical polyp, 2 - posterior cervix, 3 & 4 - anterior uterine wall, 5 & 6 - posterior uterine wall, 7 - sessile endometrial polyp, entirely submitted. / FABIAN:dominik 11/12/2022 TC:5 CPT: 31688
[2022-11-12] MEDS: Cefotetan 2 GM in 0.9% NS 100 ML IV (07:45)
--- NOTE | 2022-11-12 07:52 | OP.PCM_ITS ---
Problems Associated Problem List Diagnoses (1) Cystocele: (2) S/P vaginal hysterectomy: Report of Operation Date of Procedure: 11/12/22 Pre-Operative Diagnosis: see PL Post-Operative Diagnosis: same Surgery/Procedure Performed:: TVH Description of Surgical Findings:: nl uterus tubes ovaries severe complete procidentia Surgeon: Selene Barney business support manager: Gaurav Lomeli Type of Anesthesia: General Specimen's removed: uterus Drains: nunez Fluids Replaced: crystalloid Description of Procedure: Patient was taken to the operating room and was placed under general anesthesia was prepped and draped in normal sterile fashion in the dorsal lithotomy position. Preoperative antibiotics and SCDs and Nunez catheter was placed inside the bladder. Weighted speculum was unable to be placed in the vagina due to severe prolapse and the anterior and posterior lip of the cervix was grasped with 2 Nasim clamps and circumferentially injected with dilute vasopressin. A circumferential incision was made with a bovie and the sharp dissection began. tissue planes were severely distorted and thickened due to the severe chronic prolapse. progressive sharp dissection was done and bilateral pedicles laterally taken several times, and after 60 minutes of dissection circumferentially, the posterior cul-de-sac was entered into sharply and a longneck speculum was placed. The anterior cul-de-sac was also dissected down finally completely and entered into sharply after the uterosacral ligaments were clamped cut and suture ligated bilaterally followed by the cardinal ligaments which were Clamped cut and suture ligated bilaterally with 0 Monocryl. The uterus serially descended and progressive bites were taken bilaterally up to the level of the utero-ovarian ligament bilaterally which was clamped transected and double ligated with 0 Monocryl suture and 0 Vicryl free tie. Bilateral fallopian tubes and ovaries were well visualized and noted be within normal limits but noted to be severely outside of the reachable operative field, so only a tvh was performed. posterior peritoneum was closed after two additional sutures on the left cuff and vascular pedicles were used for hemostasis. The vagina was closed with [id number] 0 Vicryl pop offs including the posterior and anterior peritoneum in the reapproximation. Excellent hemostasis was noted. Then Dr. Leger began her portion of the procedure. Grafts/Implants Used: none Complications none Admit VTE Documentation VTE Present on Admission: No VTE Mechan Device Prophylaxis: SCD's VTE Pharm Prophylaxis ordered?: Yes Multi Select Codes Urinary/Genital Urinary/Genital CPT Codes: 19991 TVH <250 gr uterus
--- NOTE | 2022-11-12 07:53 | DCINST_ITS ---
Discharge Instructions Diet Discharge Diet: No restrictions Activity Discharge Activity: Return to Normal Activity, May Not Drive (while taking narcotic pain medications.) and May Shower May resume sexual activity in: 6-8 weeks Dressing / Incision Call your doctor if your incision/area has: Continuous Slow Oozing, Sudden Increased Bleeding, Increased Pain/ Swelling, Increased Redness and Foul Smelling Discharge Call your doctor if you observe: Fever of 101 or Higher, Inability to urinate, Inability to have a bowel movement and Using more than 1 pad per hour Follow Up Care Please Follow Up With: Selene Barney MD Test Results: Test results from this visit will be discussed in further detail at your follow- up appointment, if applicable. Discharge Plan Admission Attending Provider: Selene Barney Primary Care Provider: Dyana Cartwright Consulting Providers: Ingrid Leger Discharge Orders/Prescriptions Prescriptions: No Action acetaminophen [Tylenol] 325 mg capsule 325 mg PO ONCE PRN (Reason: pain) multivitamin Tablet 1 tab PO DAILY pregabalin 25 mg capsule 50 mg PO BID aspirin [Adult Low Dose Aspirin] 81 mg tablet,delayed release (DR/EC) 81 mg PO QHS PreserVision AREDS 4,296 mcg-226 mg-90 mg capsule 1 cap PO BID omega-3 fatty acids Capsule 600 mg PO BID VEGGIES 3 cap PO DAILY FRUITS 3 cap PO DAILY PREVAGEN 1 cap PO DAILY fexofenadine [Poonam Allergy] 180 mg tablet 180 mg PO DAILY PRN (Reason: ALLERGIES) lisinopril 20 mg tablet 20 mg PO DAILY Qty: 90 3RF ferrous sulfate [Feosol] 325 mg (65 mg iron) tablet 325 mg PO BID Rx Instructions: decrease to daily if causes constipation amlodipine 2.5 mg tablet 2.5 mg PO BID Qty: 180 3RF Referrals / Follow Up: Dyana Cartwright MD [Primary Care Provider] - Disposition Disposition (needs filled in before D/C Order can be placed): Home, Self Care
[2022-11-12] MEDS: Ondansetron 4 MG/2 ML Vial IV (08:09)
[2022-11-12] MEDS: Vasopressin 20 UNITS/ML Vial (08:09)
--- NOTE | 2022-11-12 09:12 | DCINST_ITS ---
Discharge Instructions Diet Discharge Diet: No restrictions Activity Discharge Activity: May Shower May resume sexual activity in: 8 weeks Dressing / Incision Call your doctor if your incision/area has: Continuous Slow Oozing, Sudden Increased Bleeding, Increased Pain/ Swelling, Increased Redness and Foul Smelling Discharge Call your doctor if you observe: Fever of 101 or Higher, Inability to urinate, Inability to have a bowel movement and Using more than 1 pad per hour Additional Dressing/Incision Instructions:: Home with nunez catheter to straight drain. Leg bag and larger overnight bag. Follow Up Care Please Follow Up With: Selene Barney MD When: Dr. Leger, the office will call with follow up instructions. Test Results: Test results from this visit will be discussed in further detail at your follow- up appointment, if applicable. Discharge Plan Admission Admit Date/Time: 11/12/22 07:46 Attending Provider: Selene Barney Primary Care Provider: Dyana Cartwright Consulting Providers: Ingrid Leger Discharge Orders/Prescriptions Prescriptions: New oxycodone-acetaminophen [Percocet] 5-325 mg tablet 1 tab PO Q6H PRN (Reason: pain) 7 Days Qty: 20 0RF naproxen [naproxen] 500 mg tablet 500 mg PO BID PRN PRN (Reason: Pain) Qty: 30 1RF cephalexin [cephalexin] 500 mg capsule 500 mg PO Q12 3 Days Qty: 6 0RF Continued acetaminophen [Tylenol] 325 mg capsule 325 mg PO ONCE PRN (Reason: pain) multivitamin Tablet 1 tab PO DAILY pregabalin 25 mg capsule 50 mg PO BID aspirin [Adult Low Dose Aspirin] 81 mg tablet,delayed release (DR/EC) 81 mg PO QHS PreserVision AREDS 4,296 mcg-226 mg-90 mg capsule 1 cap PO BID omega-3 fatty acids Capsule 600 mg PO BID VEGGIES 3 cap PO DAILY FRUITS 3 cap PO DAILY PREVAGEN 1 cap PO DAILY fexofenadine [Poonam Allergy] 180 mg tablet 180 mg PO DAILY PRN (Reason: ALLERGIES) lisinopril 20 mg tablet 20 mg PO DAILY Qty: 90 3RF ferrous sulfate [Feosol] 325 mg (65 mg iron) tablet 325 mg PO BID Rx Instructions: decrease to daily if causes constipation amlodipine 2.5 mg tablet 2.5 mg PO BID Qty: 180 3RF Referrals / Follow Up: Dyana Cartwright MD [Primary Care Provider] - Disposition Disposition (needs filled in before D/C Order can be placed): Home, Self Care
--- NOTE | 2022-11-12 09:15 | PCM.OPRPT ---
Report of Operation Date of Procedure: 11/12/22 Pre-Operative Diagnosis: Uterovaginal prolapse, neurogenic bladder with urinary retention, right ureteral stricture with chronic hydronephrosis Post-Operative Diagnosis: Same Surgery/Procedure Performed:: Anterior and posterior repair, bilateral sacrospinous ligament fixation with dermis, cystoscopy with bilateral ureteral catheter insertion, bilateral retrograde pyelograms, left ureteral stent insertion Surgeon: Ingrid Leger Type of Anesthesia: General Specimen's removed: None Estimated Blood Loss (mL): 100cc Description of Procedure: The patient is a 77-year-old female with significant pelvic organ prolapse along with urinary retention and a right ureteral stricture. She reports that she has been having more difficulty with cathing despite having her pessary and she is ready to have surgical intervention. Informed consent was obtained. She was taken to the operating room and placed on the operating room table. Anesthesia monitored the head, neck, airway, IV access and vital signs throughout the case. Once anesthesia was appropriately administered, she was placed into dorsolithotomy position and was prepped and draped in usual sterile fashion. A Peng catheter was inserted to straight drain and Dr. Barney proceeded with her portion of the procedure. This was a difficult case secondary to her prolapse etc. After closure of the vaginal cuff, the case was turned over to me. At this time, I removed the Peng catheter and placed the cystoscope through the urethra under direct visualization into the urinary bladder. Cystoscopy revealed no evidence of injury to the urinary bladder and the Peng catheter was full of clear urine. The bladder was very redundant, I suspect that she has not been cathing appropriately as recommended. A 5 Estonian whistle-tip catheter was inserted with some difficult on the left side. There was essentially J hooking, and I had to use a Glidewire in order to pass the whistle-tip catheter. Once the Glidewire was in place, the whistle-tip catheter passed without incident up to 20 cm. On the right side, the catheter met resistance but I left it indwelling so as to be able to be more aware of the location of the ureter during the procedure. The whistle-tip catheters were left in place and the Peng catheter was inserted alongside of them into the urinary bladder. Due to the vaginal cuff line being in a more anterior position, the decision was made to place the sacrospinous ligament sutures and the dermis in a posterior approach. The posterior vaginal wall was isolated and infiltrated with vasopressin. A midline incision was made and sharp and blunt dissection was performed bilaterally until the ischial spine was palpable, sacrospinous ligaments were identified and freed from surrounding tissues. During this portion of the procedure there was some bleeding, likely both from the retroperitoneum and I did isolate a vaginal wall arterial bleed that was corrected using a 2-0 Vicryl suture this seemed to essentially stop the active bleeding, however her tissues were very weak. The Yooneed.comio device was quickly used to pass a 2-0 Ethibond suture through each ligament through the dermis, and then in full-thickness fashion through the vaginal apex. This was tied into position and the posterior and vault prolapse were reduced. The dermis was sutured using interrupted 2-0 Vicryl to the white line around the perimeter. The perineal body was reconstructed using 3-0 PDS and 2-0 Vicryl interrupted sutures. When this process was complete, the midline incision was closed using running interlocking 2-0 Vicryl. Attention was turned towards the cystocele at this time. Given the significant vault length and difficulty with which this dissection was going, the decision was made to be conservative with the anterior repair. The midline distal prolapse was isolated and the submucosa was infiltrated with vasopressin. A midline incision was made and sharp and blunt dissection was performed bilaterally until there was identifiable pubocervical fascia. This was brought together in interrupted closure using mostly 2-0 Vicryl with a few 3-0 PDS sutures. At this time it was noted that the left ureteral catheter was putting out blood-tinged urine. The decision was made to complete the closure of the anterior repair and proceed with retrograde pyelograms. The midline incision was closed using running interlocking 2-0 Vicryl. At this time 2 Ray-Sally's were placed into the vaginal vault. The Peng catheter was removed. The cystoscope was inserted through the urethra under direct visualization. There was no injury to the bladder identified. There was no leaking identified of the cystoscopy fluid. At this time, a C arm was brought in and contrast was injected in retrograde fashion through the left whistle-tip catheter revealing positioning of the catheter just distal to the renal pelvis. There was no evidence of extravasation of contrast along the ureter or in the renal pelvis. A Glidewire was then placed alongside of the catheter which was then removed. The Glidewire was seen in good positioning in the renal pelvis on fluoroscopic visualization. A 6 Estonian 22 cm JJ stent was then placed over the Glidewire with good positioning in the renal pelvis and this was done without any difficulty. As soon as the wire was removed from the ureteral stent, blood-tinged urine was seen extravasating from the distal aspect of the stent. Attention was then turned towards the patient's right side. She had a known right ureteral stricture but given the current situation I elected to attempt a right ureteral stent insertion. A retrograde pyelogram confirmed the stricture which was more proximal to the area of dissection that was performed today. A Glidewire was able to passed through the strictured area and I did attempt both a 6 Estonian and 4.5 Estonian ureteral stent insertion both were unsuccessful. At this time I elected to leave the right side as is. The cystoscope was removed the Peng catheter was replaced and this is when the blood in the Peng bag was first identified. The Ray-Sally's were removed from the vagina and there was no blood identified. This was replaced with vaginal packing and estrogen cream. The patient's abdomen was nice and soft at the conclusion of the case. She was awakened and taken to the recovery room in stable condition. Of note, her blood pressures and vital signs remained stable throughout the procedure. Grafts/Implants Used: 6 x 22 JJ stent Complications Left renal collecting system laceration Admit VTE Documentation VTE Present on Admission: Yes VTE Mechan Device Prophylaxis: SCD's VTE Pharm Prophylaxis ordered?: Yes
--- NOTE | 2022-11-12 11:37 | RAD_ITS ---
STUDY: INTRAOPERATIVE MAMMOGRAM. BILATERAL REASON FOR EXAM: Female, 77 years old. URETERAL STONE TECHNIQUE: Intraoperative imaging of the left ureter was performed intraoperatively. A left-sided double-J stent catheter was placed. COMPARISON: None. RAD/O.R. Fluoro for C-Arm IMPRESSION: A left-sided double-J stent catheter was placed. Electronically Signed: Maurice Callejas MD at 8:55 EDT ,
[2022-11-12] MEDS: Estrogens,Conj. 1 Tube 1 DOSE (12:49)
[2022-11-12 13:16] LABS: Absolute Lymphocyte Count 1.24 X10^3/uL (0.83-4.51); Absolute Neutrophil Count 8.4 X10^3/uL (2.0-7.7); Basophil# 0.02 X10^3/uL; Basophil% 0.2 % (0-1); Eosinophil# 0.01 X10^3/uL; Eosinophils% 0.1 % (0-5); Hematocrit 34.3 % (37-47); Hemoglobin 10.6 g/dL (12.0-15.0); Lymphocyte # 1.24 X10^3/ul (0.83-4.51); Lymphocyte % 12.6 % (19-41); Mean Corp Hgb Conc 30.9 g/dL (32-36); Mean Corpuscular Hgb 27.6 pg (27.0-32.0); Mean Corpuscular Volume 89.3 fL (81-99); Monocyte# 0.15 X10^3/uL; Monocyte% 1.5 % (0-10); NRBC Flagged by Analyzer 0 % (0-5); Neutrophil # 8.43 X10^3/uL (2.7-7.7); Neutrophil % 85.3 % (47-70); Platelet Count 107 K/mm3 (150-450); RBC Distribution Width CV 15.2 % (11.6-14.6); RBC Distribution Width SD 49.2 fl (35.1-43.9); Red Blood Count 3.84 M/mm3 (4.2-5.4); White Blood Count 9.9 K/mm3 (4.4-11.0)
[2022-11-12 13:44] LABS: Anion Gap 4 (5-15); BUN 24 mg/dL (7-18); BUN/Creat Ratio 15.4 RATIO (10-20); Calcium,Total 8.7 mg/dL (8.5-10.1); Chloride 109 mmol/L (98-107); Creatinine, Serum 1.56 mg/dL (0.55-1.02); EST Glomerular Filtration Rate 34 mL/min (>60); Est Glom Filt Rate - Afr Amer 41 mL/min (>60); Estimated Creatinine Clearance 22.79 ml/min; Glucose 145 mg/dL (74-106); Potassium 4.2 mmol/L (3.5-5.1); Sodium Level 139 mmol/L (136-145)
--- NOTE | 2022-11-12 13:55 | SUR.PHASEI ---
DR DOTY AT BEDSIDE, PT HR BETWEEN 45-53. PER , PT OK FOR MS3. NO NEW ORDERS AT THIS TIME. CONT PLAN OF CARE.
[2022-11-12] MEDS: Ketorolac 15 MG/ML Vial IV ×2 (15:43→23:43)
[2022-11-12] MEDS: Docusate Sodium 100 MG Capsule PO ×2 (15:43→21:56)
[2022-11-12] MEDS: Cefazolin 1 GM/50 ML BAG IV ×2 (15:43→21:55)
[2022-11-12] MEDS: amLODIPine 2.5 MG Tablet PO ×2 (15:43→21:56)
[2022-11-12] MEDS: Lisinopril 20 MG Tablet PO (15:44)
[2022-11-12] MEDS: 0.9% Saline Lock 10 ML Syringe IV (15:47)
[2022-11-12] MEDS: Pregabalin 50 MG Capsule PO (21:56)
[2022-11-13 02:16] VITALS: BP 142/49; PULSE 70; RESP 16; TEMP 37.2; O2SAT 97
[2022-11-13] MEDS: Ketorolac 15 MG/ML Vial IV ×2 (05:47→11:02)
[2022-11-13] MEDS: Cefazolin 1 GM/50 ML BAG IV (05:47)
[2022-11-13] MEDS: Acetaminophen 500 MG Tablet 1000 MG PO ×2 (05:48→11:02)
[2022-11-13 06:13] VITALS: BP 108/52; PULSE 62; RESP 16; TEMP 36.7; O2SAT 97
--- NOTE | 2022-11-13 06:30 | PN.OBGYN_ITS ---
Subjective Subjective Patient doing well without complaints. Tolerating PO. Ambulating without difficulty. Denies chest pain, shortness of breath, calf pain/swelling, fevers, chills, lightheadedness. Objective Data Objective Data Vital Signs: Vital Signs Temp Pulse Resp BP Pulse Ox O2 Del Method O2 Flow Rate 98.1 F 62 16 108/52 L 97 Room Air 4 11/13/22 06:13 11/13/22 06:13 11/13/22 06:13 11/13/22 06:13 11/13/22 06:13 11/13/22 06:13 11/12/22 14:26 Oxygen Flow Rate (L/min) 4 Oxygen Delivery Method Room Air Weight: 192 lb 7 oz Body Mass Index (BMI) 36.3 Intake & Output: Intake and Output for Last 24 Hours 11/11/22 11/12/22 11/13/22 23:59 23:59 23:59 Intake Total 302 / 302 50 / 50 Output Total 2450 / 2450 400 / 400 Balance -2148 / -2148 -350 / -350 Lab / Micro Data 11/12/22 13:02 11/12/22 13:02 Labs: Laboratory Results - last 24 hr 11/12/22 06:25: POC Glucose 107 H 11/12/22 13:02: WBC 9.9, RBC 3.84 L, Hgb 10.6 L, Hct 34.3 L, MCV 89.3, MCH 27.6, MCHC 30.9 L, RDW Std Deviation 49.2 H, RDW Coeff of Radhames 15.2 H, Plt Count 107 L, MPV 10.0, Immature Gran % (Auto) 0.300, Neut % (Auto) 85.3 H, Lymph % (Auto) 12.6 L, [place] % (Auto) 1.5, Eos % (Auto) 0.1, Baso % (Auto) 0.2, Absolute Neuts (auto) 8.4 H, Absolute Lymphs (auto) 1.24, Nucleated RBC % 0, Sodium 139, Potassium 4.2, Chloride 109 H, Carbon Dioxide 26.0, Anion Gap 4 L, BUN 24 H, Creatinine 1.56 H, Estim Creat Clear Calc 22.79, Est GFR (MDRD) Af Amer 41 L, E st GFR (MDRD) Non-Af 34 L, BUN/Creatinine Ratio 15.4, Glucose 145 H, Calcium 8.7 ROS Constitutional Constitutional: Reports systems reviewed and no addt'l complaints, except as documented Cardiovascular Cardiovascular: Reports systems reviewed and no addt'l complaints, except as documented Respiratory/Chest Respiratory/Chest: Reports systems reviewed and no addt'l complaints, except as documented Gastrointestinal Gastrointestinal: Reports systems reviewed and no addt'l complaints, except as documented Physical Exam Const alert, oriented x3 and no apparent distress HEENT Head and Scalp: atraumatic Resp normal respiratory effort GI soft to palpation and non-tender Assessment & Plan (1) S/P vaginal hysterectomy: PLAN: Plan patient is s/p tvh pelvic floor repair aicha POD 1 1. routine ERAS protocol postop care- increase ambulation, encourage oral intake and oral control of pain. lovenox and scds for dvt prophylaxis, patient stable for discharge to home once cleared by aicha. nunez management per urogyn.
[2022-11-13 07:57] LABS: Hematocrit 31.8 % (37-47); Hemoglobin 9.8 g/dL (12.0-15.0); Mean Corp Hgb Conc 30.8 g/dL (32-36); Mean Corpuscular Hgb 27.8 pg (27.0-32.0); Mean Corpuscular Volume 90.3 fL (81-99); Mean Platelet Vol. 9.6 fl (6.2-12.0); Platelet Count 122 K/mm3 (150-450); RBC Distribution Width CV 15.5 % (11.6-14.6); RBC Distribution Width SD 51.2 fl (35.1-43.9); Red Blood Count 3.52 M/mm3 (4.2-5.4); White Blood Count 13.4 K/mm3 (4.4-11.0)
[2022-11-13 10:00] VITALS: PULSE 60
--- NOTE | 2022-11-13 10:10 | CASEMGMT ---
RN CM NOTE: Intro role of CM to patient and BASHIR form explained re: Observation status for treatment of vaginal hysterectomy, uterovaginal prolapse, and neurogenic bladder.? Explained hospitalization will be paid per?her insurance policy for Outpatient billing?and condition will continue to be evaluated for Inpt necessity. Also let pt know that [facility] sends paper in the billing packet with their phone number if questions arise. Pt verbalizes understanding and does not have further questions. ?Form signed, copy made and placed in chart, and original given to pt. Pt denies having discharge planning needs/concerns. Kentrell BSN RNCM
[2022-11-13] MEDS: Lactated Ringers 1,000 ML 40 ML IV (11:00)
[2022-11-13] MEDS: Docusate Sodium 100 MG Capsule PO (11:01)
[2022-11-13] MEDS: amLODIPine 2.5 MG Tablet PO (11:01)
[2022-11-13] MEDS: Enoxaparin 30 MG/0.3 ML Syringe SC (11:01)
[2022-11-13] MEDS: Pregabalin 50 MG Capsule PO (11:01)
[2022-11-13] MEDS: Lisinopril 20 MG Tablet PO (11:02)
--- NOTE | 2022-11-13 11:11 | PN.URO_ITS ---
Subjective Subjective No issues overnight. She has been tolerating oral intake without nausea, vomiting or difficulty. No significant complaints of pain. She has not been out of bed to ambulate just yet. Objective Data Objective Data Vital Signs: Vital Signs Temp Pulse Resp BP Pulse Ox O2 Del Method O2 Flow Rate 98.1 F 62 16 108/52 L 97 Room Air 4 11/13/22 06:13 11/13/22 06:13 11/13/22 06:13 11/13/22 06:13 11/13/22 06:13 11/13/22 06:13 11/12/22 14:26 Oxygen Flow Rate (L/min) 4 Oxygen Delivery Method Room Air Weight: 87.288 kg Body Mass Index (BMI) 36.3 Intake & Output: Intake and Output for Last 24 Hours 11/11/22 11/12/22 11/13/22 23:59 23:59 23:59 Intake Total 302 / 302 1050 / 1050 Output Total 2450 / 2450 400 / 400 Balance -2148 / -2148 650 / 650 Lab / Micro Data 11/13/22 06:20 11/12/22 13:02 Labs: Laboratory Results - last 24 hr 11/12/22 13:02: WBC 9.9, RBC 3.84 L, Hgb 10.6 L, Hct 34.3 L, MCV 89.3, MCH 27.6, MCHC 30.9 L, RDW Std Deviation 49.2 H, RDW Coeff of Radhames 15.2 H, Plt Count 107 L, MPV 10.0, Immature Gran % (Auto) 0.300, Neut % (Auto) 85.3 H, Lymph % (Auto) 12.6 L, [place] % (Auto) 1.5, Eos % (Auto) 0.1, Baso % (Auto) 0.2, Absolute Neuts (auto) 8.4 H, Absolute Lymphs (auto) 1.24, Nucleated RBC % 0, Sodium 139, Potassium 4.2, Chloride 109 H, Carbon Dioxide 26.0, Anion Gap 4 L, BUN 24 H, Creatinine 1.56 H, Estim Creat Clear Calc 22.79, Est GFR (MDRD) Af Amer 41 L, Est GFR (MDRD) Non-Af 34 L, BUN/Creatinine Ratio 15.4, Glucose 145 H, Calcium 8.7 11/13/22 06:20: WBC 13.4 H, RBC 3.52 L, Hgb 9.8 L, Hct 31.8 L, MCV 90.3, MCH 27.8, MCHC 30.8 L, RDW Std Deviation 51.2 H, RDW Coeff of Radhames 15.5 H, Plt Count 122 L, MPV 9.6 Physical Exam Narrative Alert and oriented x3 Sitting up in bed and eating breakfast SCDs in place, no calf pain Peng catheter draining clear yellow urine this morning Vaginal packing removed without incident, no significant bleeding Assessment & Plan Assessment/Plan (1) Cystocele: (2) S/P vaginal hysterectomy: PLAN: Plan Out of bed and ambulate Home with Peng catheter either later today or tomorrow pending blood work
[2022-11-13 12:05] VITALS: O2SAT 97
[2022-11-13 14:00] VITALS: BP 113/58; PULSE 81; RESP 18; TEMP 36.7; O2SAT 97
[2022-11-13 14:34] LABS: Absolute Lymphocyte Count 3.44 X10^3/uL (0.83-4.51); Absolute Neutrophil Count 7.7 X10^3/uL (2.0-7.7); Basophil# 0.05 X10^3/uL; Basophil% 0.4 % (0-1); Eosinophil# 0.07 X10^3/uL; Eosinophils% 0.6 % (0-5); Hematocrit 30.1 % (37-47); Hemoglobin 9.8 g/dL (12.0-15.0); Lymphocyte # 3.44 X10^3/ul (0.83-4.51); Lymphocyte % 28.4 % (19-41); Mean Corp Hgb Conc 32.6 g/dL (32-36); Mean Corpuscular Hgb 29.5 pg (27.0-32.0); Mean Corpuscular Volume 90.7 fL (81-99); Monocyte# 0.87 X10^3/uL; Monocyte% 7.2 % (0-10); NRBC Flagged by Analyzer 0 % (0-5); Neutrophil # 7.67 X10^3/uL (2.7-7.7); Neutrophil % 63.2 % (47-70); Platelet Count 121 K/mm3 (150-450); RBC Distribution Width CV 15.5 % (11.6-14.6); RBC Distribution Width SD 51.4 fl (35.1-43.9); Red Blood Count 3.32 M/mm3 (4.2-5.4); White Blood Count 12.1 K/mm3 (4.4-11.0)
[2022-11-13 15:02] LABS: Anion Gap 4 (5-15); BUN 28 mg/dL (7-18); BUN/Creat Ratio 17.3 RATIO (10-20); Calcium,Total 8.1 mg/dL (8.5-10.1); Chloride 106 mmol/L (98-107); Creatinine, Serum 1.62 mg/dL (0.55-1.02); EST Glomerular Filtration Rate 33 mL/min (>60); Est Glom Filt Rate - Afr Amer 40 mL/min (>60); Estimated Creatinine Clearance 21.95 ml/min; Glucose 138 mg/dL (74-106); Sodium Level 135 mmol/L (136-145)
== END 2022-11-13 16:44 | disposition home or self-care (01) ==
LOC: SDC 11:13 → MS3 13:18
PROVIDERS: Anesthesiology; Urology; Admitting Provider Obstetrics & Gynecology; PCP Internal Medicine; Referring Provider Obstetrics & Gynecology; Visit Provider Obstetrics & Gynecology
PROC: (CPT 58260; principal; 2022-11-12 07:10)
PROC: (CPT 57260; 2022-11-12 07:10)
DX: N81.4 Uterovaginal prolapse, unspecified (principal); D64.9 Anemia, unspecified; I10 Essential (primary) hypertension; R33.9 Retention of urine, unspecified; N31.9 Neuromuscular dysfunction of bladder, unspecified; N13.1 Hydronephrosis with ureteral stricture, not elsewhere classified; Z79.899 Other long term (current) drug therapy; Z79.82 Long term (current) use of aspirin; G47.33 Obstructive sleep apnea (adult) (pediatric); E66.9 Obesity, unspecified; Z68.34 Body mass index [BMI] 34.0-34.9, adult; N85.01 Benign endometrial hyperplasia
CPT/HCPCS: 58260; 57260; 52332; 00944; 36415; 76000; 80048; 80053; 82962; 83735; 85025; 85027; 86850; 86900; 86901; 88307; 93005; 94668; 96365; 96366; 96372; 96375; 96376; 99221; 99252; J7120; A4216; C1758; C2625; G0378; G0463; J2405; J3475

== ENCOUNTER → 2022-11-16 | Outpatient (CLI) | payer OTHER, SELFPAY ==
[2022-11-16 15:38] LABS: Hematocrit 31.7 % (37-47); Hemoglobin 9.8 g/dL (12.0-15.0); Mean Corp Hgb Conc 30.9 g/dL (32-36); Mean Corpuscular Hgb 28.3 pg (27.0-32.0); Mean Corpuscular Volume 91.6 fL (81-99); Mean Platelet Vol. 9.9 fl (6.2-12.0); Platelet Count 165 K/mm3 (150-450); RBC Distribution Width CV 15.7 % (11.6-14.6); RBC Distribution Width SD 51.6 fl (35.1-43.9); Red Blood Count 3.46 M/mm3 (4.2-5.4); White Blood Count 9.8 K/mm3 (4.4-11.0)
[2022-11-16 16:08] LABS: Anion Gap 5 (5-15); BUN 19 mg/dL (7-18); BUN/Creat Ratio 14.8 RATIO (10-20); Calcium,Total 9.3 mg/dL (8.5-10.1); Chloride 108 mmol/L (98-107); Creatinine, Serum 1.28 mg/dL (0.55-1.02); EST Glomerular Filtration Rate 43 mL/min (>60); Est Glom Filt Rate - Afr Amer 52 mL/min (>60); Glucose 111 mg/dL (74-106); Potassium 4.4 mmol/L (3.5-5.1); Sodium Level 140 mmol/L (136-145)
== END | disposition home or self-care (01) ==
LOC: MTLAB 13:37
PROVIDERS: PCP Internal Medicine; Referring Provider Urology; Visit Provider Urology
DX: N28.9 Disorder of kidney and ureter, unspecified (principal)
CPT/HCPCS: 36415; 80048; 85027

== ENCOUNTER 2022-12-29 17:46 | Emergency (ER) | payer OTHER, SELFPAY ==
[2022-12-29 17:47] VITALS: BP 153/97; PULSE 77; RESP 15; TEMP 36.4; O2SAT 98; BMI 34.9
--- NOTE | 2022-12-29 18:48 | CT_ITS ---
STUDY: CT ABDOMEN AND PELVIS WITH CONTRAST REASON FOR EXAM: Female, 77 years old. rectal pain, post hysterectomy and bladder suspens RADIATION DOSAGE (If Supplied By Facility): CTDIvol = ( 12.55 ) mGy, DLP = ( 695.02 ) mGycm TECHNIQUE: Transaxial images were obtained from the dome of the diaphragm to the symphysis pubis without oral contrast. IV 100mL [id number]-370 was administered. Sagittal and coronal images were reconstructed. Individualized dose optimization techniques were used for this CT. COMPARISON: Ultrasound 05/28/2022 FINDINGS: There are chronic interstitial fibrotic changes of the lung bases. The visualized portions of the heart are within normal limits. Normal liver. There are surgical clips in the gallbladder fossa consistent with a prior cholecystectomy. Normal spleen. Normal pancreas. Normal bilateral adrenal glands. Atrophy of the right kidney with moderate hydronephrosis and hydroureter, not substantially changed since prior ultrasound. Left ureteral stent identified extending from the left renal pelvis to the urinary bladder. No hydronephrosis of the left kidney. There are small punctate calculi of the right kidney measuring 2-3 mm. Normal visualized stomach. No dilated small bowel. There are multiple colonic diverticula consistent with diverticulosis. No pericolonic/perirectal stranding. The appendix is visualized and appears normal. There is diffuse atherosclerotic calcification of the abdominal aorta, without a demonstrated aneurysm. Normal inferior vena cava. There is borderline retroperitoneal lymphadenopathy with enlarged nodes no greater than 10mm in the short axis diameter. No bladder wall thickening. Air-fluid level in the urinary bladder. Hysterectomy. Normal abdominal wall. There are diffuse degenerative changes of the visualized lumbar spine. CT/Abdomen/Pelvis W IV Cont ONLY IMPRESSION: 1. No acute inflammatory process or bowel obstruction. 2. Left ureteral stent without hydronephrosis. 3. Stable right hydronephrosis and right renal cortical atrophy, as seen on prior ultrasound. 4. Chronic changes, as above. Electronically Signed: Delvis Matias MD (Brooks) at 20:28 EST Reading Location ID and State: [facility] / [place] , Service support ,
--- NOTE | 2022-12-29 18:49 | EX.ED.DYSGE1 ---
HPI History of Present Illness Chief Complaint: Other, Pain/Inj Detail of Chief Complaint: Rectal pain Informant: patient and spouse/S.O. Narrative Narrative: Patient presents to the emergency department with complaint of rectal pain that she has had for over a month. Patient states that on November 12 she had a hysterectomy and bladder suspension. She started having this rectal pain about a week later. Patient denies any fevers or chills or sweats. The pain tends to come and go. Patient states the pains been continuous over the last 2 or 3 days and worse when sitting up. She denies any rectal bleeding. She denies fevers or chills or sweats. She denies dysuria. [facility] Medical History (Updated 12/29/22 @ 21:[address] Asim Catalan, DO) Abnormal mammogram of right breast Anserine bursitis Aortic insufficiency Aortic valve defect Asymmetric septal hypertrophy Bladder disease Cardiology follow-up encounter CPAP (continuous positive airway pressure) dependence Cystocele Essential hypertension Family history of ischemic heart disease Headache History of echocardiogram History of edema History of renal disease History of stress test Kidney stones Leg cramps Low iron Macular degeneration Non-smoker Obstructive sleep apnea Post-menopausal Seizures UTI (urinary tract infection) Vertigo Wears glasses Wears hearing aid Home Medications acetaminophen 325 mg capsule (Tylenol) 325 mg PO ONCE PRN pain 09/25/20 [History Last Taken Unknown] multivitamin 1 tab PO DAILY 09/25/20 [History Last Taken Unknown] pregabalin 25 mg capsule 50 mg PO BID 10/02/21 [History Last Taken 11/12/22] lisinopril 20 mg tablet 20 mg PO DAILY #90 tabs 04/19/22 [Rx Last Taken 11/12/22] aspirin 81 mg tablet,delayed release (Adult Low Dose Aspirin) 81 mg PO QHS 05/18/22 [History Last Taken 11/09/22] vitamins A,C,Y-jwhg-sfwpix 4,296 mcg-226 mg-90 mg capsule (PreserVision AREDS) 1 cap PO BID 05/18/22 [History Last Taken 11/11/22] ferrous sulfate 325 mg (65 mg iron) tablet (Feosol) 325 mg PO BID 08/18/22 [History Last Taken 11/11/22] FRUITS 3 cap PO DAILY 10/28/22 [History Last Taken Unknown] PREVAGEN 1 cap PO DAILY 10/28/22 [History Last Taken Unknown] VEGGIES 3 cap PO DAILY 10/28/22 [History Last Taken Unknown] fexofenadine 180 mg tablet (Poonam Allergy) 180 mg PO DAILY PRN ALLERGIES 10/28/22 [History Last Taken 11/11/22] omega-3 fatty acids 600 mg PO BID 10/28/22 [History Last Taken Unknown] amlodipine 2.5 mg tablet 2.5 mg PO BID #180 tabs 11/04/22 [Rx Last Taken 11/12/22] ciprofloxacin HCl 500 mg tablet (Cipro) 500 mg PO BID #14 tabs 12/29/22 [Rx Last Taken Unknown] Allergy/AdvReac Type Severity Reaction Status Date / Time animal dander Allergy Unknown unknown Verified 12/29/22 19:27 cat dander Allergy Unknown unknown Verified 12/29/22 19:27 dog dander Allergy Unknown unknown Verified 12/29/22 19:27 mold Allergy Unknown unknown Verified 12/29/22 19:27 Family History Mother Hypertension CVA (cerebral vascular accident) Father Heart disease Myocardial infarction from [place] age 61 Brother CAD (coronary artery disease) CABG 40's Son Arthritis Surgical History H/O parathyroidectomy History of right breast biopsy (~11/2018) Hx of cholecystectomy Hx of colonoscopy Hx of left cataract extraction Hx of right cataract extraction S/P vaginal hysterectomy Social History Smoking Status: Never smoker alcohol intake: never substance use type: does not use caffeine: Yes what type of physical activity do you participate in: walking seatbelt use: always do you feel safe at home: Yes additional social history: [employer] Patient is retired ROS ROS ED Review of Systems ROS Unobtainable: other Constitutional Constitutional ED: Reports lethargy; Denies chills, fever(s), sweats or weight loss Eyes Eyes: Denies blurry vision, change in vision or diplopia ENT ENT ED: Denies rhinorrhea or sore throat Cardiovascular Cardiovascular: Denies chest pain, orthopnea or racing heartbeat Respiratory/Chest Respiratory/Chest: Denies cough, dyspnea, dyspnea on exertion, orthopnea or sputum Gastrointestinal Gastrointestinal: Reports other Details: Rectal pain ; Denies abdominal pain, diarrhea, nausea or vomiting Genitourinary Genitourinary ED: Denies dysuria, hematuria or urinary frequency Musculoskeletal Musculoskeletal: Denies arthralgias, back pain, myalgias or neck pain Integumentary Denies abscess, Abrasions or rash Neurologic Neurologic: Denies headache(s) or weakness Psychiatric Psychiatric: Denies anxiety, depression or suicidal thoughts Endocrine Endocrinology: Denies polydipsia, polyphagia or polyuria Hematologic/Lymphatic Hematologic/Lymphatic: Denies easy bleeding, easy bruising or lymphadenopathy Allergic/Immunologic Allergic/Immunologic ED: Denies mouth swelling, tongue swelling or urticaria EXAM Physical Exam Const Vital Signs: 12/29/22 17:47 12/29/22 19:30 12/29/22 19:47 Temperature 97.6 F L Temperature Source Temporal Pulse Rate 77 76 Respiratory Rate 15 14 Respiratory Effort Normal Blood Pressure 153/97 H 138/84 H Blood Pressure Mean 115 102 Pulse Ox 98 99 Oxygen Delivery Method Room Air 12/29/22 21:47 12/29/22 22:14 Temperature Temperature Source Pulse Rate 72 72 Respiratory Rate 16 16 Respiratory Effort Blood Pressure 129/76 H 129/76 H Blood Pressure Mean 93 93 Pulse Ox 99 99 Oxygen Delivery Method Positive well nourished and well developed General Appearance ED: well developed and NAD HEENT Reports TM's clear and moist mucous membranes normocephalic and atraumatic; Negative for trauma or tenderness Tympanic Membrane ED: Yes TM's clear Eyes PERRL and EOMs intact bilaterally General Eye ED: Negative for pale conjunctiva or scleral icterus Neck no lymphadenopathy, supple and no JVD General: Negative for tenderness Chest Wall inspection of chest normal and palpation of chest normal Chest: Negative for tenderness Resp normal respiratory effort and clear to auscultation bilaterally Effort and Inspection: Negative for respiratory distress or pain with movement Auscultation: Negative for rhonchi, wheezes or diminished lung sounds Cardio regular rate, regular rhythm, S1 normal heart sound, S2 normal heart sound and no murmurs Peripheral Pulses: pulses 2+ throughout GI normal to inspection, nondistended, normoactive bowel sounds, soft to palpation, non-distended and no masses GI Narrative: Abdomen nontender. No rebound or rigidity or peritoneal signs. On rectal exam I do not appreciate any hemorrhoids or fissures. On digital rectal exam she had hard feces in the rectal vault that I manually disimpacted. Back/Spine no CVA tenderness and no thoracic nor lumbar tenderness Extremity normal to inspection General Extremety ED: Negative for edema General Extremity: Negative for edema Neuro oriented x3, CN's II-XII intact bilaterally, no sensory deficits noted and gait normal Sensorium / Orientation: awake, alert, oriented to person, oriented to place and oriented to time Motor Exam: strength 5/5 throughout and strength abnormal Psych mental status grossly normal Skin no rashes or lesions noted and no wounds MDM MDM MDM Narrative Medical decision making narrative: Patient presents with intermittent rectal pain x1 month. Patient currently not taking any narcotic pain medications. She states she has been having bowel movements. An IV line was established. Labs will be ordered as well as CT scan of the abdomen pelvis with IV CBC with differential showed a white count of 8.0 with hemoglobin 10.7 and platelet count of 129. Chemistries unremarkable. BUN 35 and creatinine 1.56. Glucose was slightly elevated 120. Urinalysis positive for wiley with positive nitrites and greater than 100 RBCs and 50-100 WBCs with +4 bacteria. I did start patient on Rocephin 1 g IV and ordered a urine culture. Patient had a CT scan of the abdomen pelvis with IV contrast given her rectal pain and recent postop to evaluate further. CT showed no acute inflammatory process or bowel obstruction. There was left ureteral stent noted without hydronephrosis. Patient also had some chronic changes. There was noted a air-fluid level within the bladder. It is unclear if the air-fluid level related to recent surgery. Patient with some evidence of constipation and rectal impaction. I recommended soapsuds enema which she refused. We will send her home with a fleets enema. I instructed her to use MiraLAX. Etiology of her rectal pain unclear but suspect may be related to constipation versus this urinary tract infection. Patient clinically looks well and is nontoxic-appearing. Advised her to follow-up with her urologist within next 3 to 5 days. She is to return if worsening pain, fever, vomiting, or condition should worsen anyway. Lab Data Attestation: I reviewed the patient's lab results. Labs: Laboratory Results - last 24 hr 12/29/22 12/29/22 19:25 20:35 WBC 8.0 RBC 3.95 L Hgb 10.7 L Hct 35.2 L MCV 89.1 MCH 27.1 MCHC 30.4 L RDW Std Deviation 44.4 H RDW Coeff of Radhames 13.6 Plt Count 129 L MPV 9.6 Immature Gran % (Auto) 0.300 Neut % (Auto) 49.3 Lymph % (Auto) 38.9 [place] % (Auto) 8.1 Eos % (Auto) 2.6 Baso % (Auto) 0.8 Absolute Neuts (auto) 3.9 Absolute Lymphs (auto) 3.09 Nucleated RBC % 0 Sodium 139 Potassium 4.2 Chloride 107 Carbon Dioxide 28.0 Anion Gap 4 L BUN 35 H Creatinine 1.56 H Estim Creat Clear Calc 22.79 Est GFR (MDRD) Af Amer 41 L Est GFR (MDRD) Non-Af 34 L BUN/Creatinine Ratio 22.4 H Glucose 120 H Calcium 9.2 Urine Color Yellow Urine Clarity Cloudy Urine pH 6.0 Ur Specific [place] 1.015 Urine Protein 100 H Urine Glucose (UA) Normal Urine Ketones Negative Urine Occult Blood 250 H Urine Nitrite Positive H Urine Bilirubin Negative Urine Urobilinogen Normal Ur Leukocyte Esterase 500 H Urine RBC > 100 SEEN Urine WBC 50-100 SEEN Ur Squamous Epith Cells 0 SEEN Urine Bacteria 4+ Urine Mucus 0 SEEN Radiography Diagnostic Testing: Clinical Impression(s) from Imaging Studies Abdomen/Pelvis CT 12/29/22 18:48 IMPRESSION: 1. No acute inflammatory process or bowel obstruction. 2. Left ureteral stent without hydronephrosis. 3. Stable right hydronephrosis and right renal cortical atrophy, as seen on prior ultrasound. 4. Chronic changes, as above. Electronically Signed: Delvis Matias MD ([place]) at 20:28 EST Reading Location ID and State: [facility] / [place] , Service support , Discharge Plan Triage Chief Complaint: Other, Pain/Inj ED Provider: Asim Catalan Dx/Rx/DC Orders Clinical Impression: Acute UTI, Constipation, Pain, rectum Instructions: ED Constipation (Adult), ED Pain, Acute, Uncertain Cause, ED Cystitis Female Adult Prescriptions: New ciprofloxacin HCl [Cipro] 500 mg tablet 500 mg PO BID Qty: 14 0RF No Action acetaminophen [Tylenol] 325 mg capsule 325 mg PO ONCE PRN (Reason: pain) multivitamin Tablet 1 tab PO DAILY pregabalin 25 mg capsule 50 mg PO BID aspirin [Adult Low Dose Aspirin] 81 mg tablet,delayed release (DR/EC) 81 mg PO QHS PreserVision AREDS 4,296 mcg-226 mg-90 mg capsule 1 cap PO BID omega-3 fatty acids Capsule 600 mg PO BID VEGGIES 3 cap PO DAILY FRUITS 3 cap PO DAILY PREVAGEN 1 cap PO DAILY fexofenadine [Poonam Allergy] 180 mg tablet 180 mg PO DAILY PRN (Reason: ALLERGIES) lisinopril 20 mg tablet 20 mg PO DAILY Qty: 90 3RF ferrous sulfate [Feosol] 325 mg (65 mg iron) tablet 325 mg PO BID Rx Instructions: decrease to daily if causes constipation amlodipine 2.5 mg tablet 2.5 mg PO BID Qty: 180 3RF Primary Care Provider: Dyana Cartwright Referrals: Ingrid Leger MD [Med Staff - Active Staff] - 3-5 Days Dyana Cartwright MD [Primary Care Provider] - 3-5 Days Disposition Disposition: Home, Self Care
[2022-12-29] MEDS: 0.9% Normal Saline (1000mL) 1,000 ML 150 ML IV (19:31)
[2022-12-29 19:39] LABS: Absolute Lymphocyte Count 3.09 X10^3/uL (0.83-4.51); Absolute Neutrophil Count 3.9 X10^3/uL (2.0-7.7); Basophil# 0.06 X10^3/uL; Basophil% 0.8 % (0-1); Eosinophil# 0.21 X10^3/uL; Eosinophils% 2.6 % (0-5); Hematocrit 35.2 % (37-47); Hemoglobin 10.7 g/dL (12.0-15.0); Lymphocyte # 3.09 X10^3/ul (0.83-4.51); Lymphocyte % 38.9 % (19-41); Mean Corp Hgb Conc 30.4 g/dL (32-36); Mean Corpuscular Hgb 27.1 pg (27.0-32.0); Mean Corpuscular Volume 89.1 fL (81-99); Mean Platelet Vol. 9.6 fl (6.2-12.0); Monocyte# 0.64 X10^3/uL; Monocyte% 8.1 % (0-10); NRBC Flagged by Analyzer 0 % (0-5); Neutrophil # 3.93 X10^3/uL (2.7-7.7); Neutrophil % 49.3 % (47-70); Platelet Count 129 K/mm3 (150-450); RBC Distribution Width CV 13.6 % (11.6-14.6); RBC Distribution Width SD 44.4 fl (35.1-43.9); Red Blood Count 3.95 M/mm3 (4.2-5.4)
[2022-12-29 19:47] VITALS: BP 138/84; PULSE 76; RESP 14; O2SAT 99
[2022-12-29 19:52] LABS: Anion Gap 4 (5-15); BUN 35 mg/dL (7-18); BUN/Creat Ratio 22.4 RATIO (10-20); Calcium,Total 9.2 mg/dL (8.5-10.1); Chloride 107 mmol/L (98-107); Creatinine, Serum 1.56 mg/dL (0.55-1.02); EST Glomerular Filtration Rate 34 mL/min (>60); Est Glom Filt Rate - Afr Amer 41 mL/min (>60); Estimated Creatinine Clearance 22.79 ml/min; Glucose 120 mg/dL (74-106); Potassium 4.2 mmol/L (3.5-5.1); Sodium Level 139 mmol/L (136-145)
[2022-12-29 20:42] LABS: Mucous, Urine 0 SEEN /hpf (<or=2+); Squamous Epithelial Cells - UA 0 SEEN /hpf (5-10)
[2022-12-29 20:44] LABS: Color, Urine Yellow (Yellow); Glucose, Dipstick Normal (Normal); Ketone-Dipstick Negative (Negative); Leukocyte Esterase-Dipstick 500 /ul (Negative); Nitrite-Dipstick Positive (Negative); Occult Blood-Urine 250 /ul (Negative); Protein-Dipstick 100 mg/dl (Negative); Specific Gravity, Urine 1.015 (1.002-1.030); Urine Bilirubin Dipstick Negative (Negative); Urine Clarity Cloudy (Clear); Urine Urobilinogen Normal (Normal)
[2022-12-29 20:55] LABS: Bacteria 4+ /hpf (None Seen); Red Blood Cells-Urine > 100 SEEN /hpf (0-5); White Blood Cells 50-100 SEEN /hpf (0-5)
[2022-12-29] MEDS: Ceftriaxone 1 GM/50 ML BAG IV (21:26)
[2022-12-29 21:47] VITALS: BP 129/76; PULSE 72; RESP 16; O2SAT 99
[2022-12-29 22:14] VITALS: BP 129/76; PULSE 72; RESP 16; O2SAT 99
== END 2022-12-29 22:23 | disposition home or self-care (01) ==
PROVIDERS: Emergency Provider Emergency Medicine; PCP Internal Medicine; Visit Provider Emergency Medicine
DX: N39.0 Urinary tract infection, site not specified (principal); K56.49 Other impaction of intestine; I10 Essential (primary) hypertension
CPT/HCPCS: 74177; 80048; 81001; 85025; 87077; 87086; 87088; 87186; 96361; 96365; 99285; J7030; Q9967; A4216

== ENCOUNTER → 2023-01-11 | Outpatient (CLI) | payer OTHER, SELFPAY | END | disposition home or self-care (01) | LOC: LAB 10:41 | PROVIDERS: PCP Internal Medicine; Referring Provider Internal Medicine; Visit Provider Internal Medicine | DX: R31.9 Hematuria, unspecified (principal) | CPT/HCPCS: 81001; 87086 ==

== ENCOUNTER → 2023-01-13 | Outpatient (CLI) | payer OTHER, SELFPAY ==
[2023-01-13 17:36] LABS: Hematocrit 35.8 % (37-47); Hemoglobin 11.1 g/dL (12.0-15.0); Mean Corpuscular Hgb 27.6 pg (27.0-32.0); Mean Corpuscular Volume 89.1 fL (81-99); Mean Platelet Vol. 10.1 fl (6.2-12.0); Platelet Count 172 K/mm3 (150-450); RBC Distribution Width CV 13.8 % (11.6-14.6); RBC Distribution Width SD 44.5 fl (35.1-43.9); Red Blood Count 4.02 M/mm3 (4.2-5.4); White Blood Count 8.9 K/mm3 (4.4-11.0)
[2023-01-13 18:08] LABS: Anion Gap 8 (5-15); BUN 29 mg/dL (7-18); BUN/Creat Ratio 20.4 RATIO (10-20); Chloride 104 mmol/L (98-107); Creatinine, Serum 1.42 mg/dL (0.55-1.02); EST Glomerular Filtration Rate 38 mL/min (>60); Est Glom Filt Rate - Afr Amer 46 mL/min (>60); Glucose 99 mg/dL (74-106); Potassium 3.8 mmol/L (3.5-5.1); Sodium Level 138 mmol/L (136-145)
== END | disposition home or self-care (01) ==
LOC: MTLAB 14:41
PROVIDERS: PCP Internal Medicine; Referring Provider Urology; Visit Provider Urology
DX: N39.0 Urinary tract infection, site not specified (principal); R33.9 Retention of urine, unspecified
CPT/HCPCS: 36415; 80048; 85027

== ENCOUNTER → 2023-01-21 | Outpatient (CLI) | payer OTHER, SELFPAY ==
--- NOTE | 2023-01-21 14:59 | US_ITS ---
STUDY: RENAL ULTRASOUND - COMPLETE REASON FOR EXAM: Female, 77 years old. HYDRONEPHROSIS TECHNIQUE: Ultrasound evaluation of the kidneys was performed with real-time and static ratliff-scale imaging. COMPARISON: CT 12/29/2022. FINDINGS: RIGHT KIDNEY: Normal location of the right kidney, which is normal in size. The right kidney measures 10.4 x 4.8 cm.Echogenic.. There is diffuse thinning of the renal cortex. There is no right renal mass or cyst. 2 right renal calculi measuring 5 x 5 mm and 7 x 4 mm. There is moderate hydronephrosis of the right kidney. DISTAL RIGHT URETER: There is non-visualization of the distal right ureter. There is no demonstrated right ureterovesical junction calculus. There is no demonstrated right ureteral jet. LEFT KIDNEY: Normal location of the left kidney, which is normal in size. The left kidney measures 10.5 x 4.8 cm. . There is a normal cortex of the left kidney. There is no left renal mass or cyst. There are no left renal calculi. There is mild hydronephrosis of the left kidney. Left ureteral stent in place. DISTAL LEFT URETER: There is non-visualization of the distal left ureter. There is no demonstrated left ureterovesical junction calculus. There is no demonstrated left ureteral jet. AORTA: There is obscuration of the abdominal aorta by overlying bowel gas I.V.C.: It is not visualized. There is too much overlying bowel gas. BLADDER: There is a diffusely thickened wall of the distended bladder. There is no demonstrated mass within the urinary bladder. There are no demonstrated bladder calculi. Urinary bladder wall measures 8 mm in thickness. There is a stent visualized in the urinary bladder. Prevoid urinary bladder volume is 32 cc. US/Kidney and Bladder IMPRESSION: There is a diffusely thickened wall of the distended bladder. This can be seen in cystitis. Moderate right hydronephrosis. Mild left hydronephrosis. Left stent in place. Echogenic right kidney may suggest chronic medical renal disease. Nonobstructive right renal stones. Electronically Signed: Chito Vega MD at 15:42 EST ,
== END | disposition home or self-care (01) ==
LOC: US 14:52
PROVIDERS: PCP Internal Medicine; Referring Provider Urology; Visit Provider Urology
DX: N13.30 Unspecified hydronephrosis (principal)
CPT/HCPCS: 76770

== ENCOUNTER 2023-01-27 15:56 | Emergency (ER) | payer OTHER, SELFPAY ==
[2023-01-27 15:58] VITALS: BP 171/86; PULSE 78; RESP 14; TEMP 35.9; O2SAT 100; BMI 33.4
[2023-01-27 18:55] LABS: Mucous, Urine 0 SEEN /hpf (<or=2+)
[2023-01-27 19:00] VITALS: BP 161/55; PULSE 74; RESP 18; O2SAT 98
[2023-01-27 19:00] LABS: Color, Urine Red (Yellow); Glucose, Dipstick Normal (Normal); Ketone-Dipstick 15 mg/dl (Negative); Leukocyte Esterase-Dipstick 500 /ul (Negative); Nitrite-Dipstick Positive (Negative); Occult Blood-Urine 250 /ul (Negative); Protein-Dipstick 100 mg/dl (Negative); Specific Gravity, Urine 1.015 (1.002-1.030); Urine Bilirubin Dipstick Negative (Negative); Urine Clarity Cloudy (Clear); Urine Urobilinogen Normal (Normal); Urine pH 6.5 (5.0 - 8.0)
[2023-01-27] MEDS: DiphenhydrAMINE 25 MG Capsule PO (19:03)
[2023-01-27 19:08] LABS: Red Blood Cells-Urine > 100 SEEN /hpf (0-5); Squamous Epithelial Cells - UA 0-5 SEEN /hpf (5-10); White Blood Cells 5-10 SEEN /hpf (0-5)
[2023-01-27 19:09] LABS: Bacteria RARE /hpf (None Seen)
[2023-01-27] MEDS: proCHLORPERazine 10 MG/2 ML Vial IV (19:40)
[2023-01-27] MEDS: 0.9% Normal Saline (1000mL) 1,000 ML 999 ML IV (19:40)
[2023-01-27 19:45] LABS: Absolute Lymphocyte Count 2.82 X10^3/uL (0.83-4.51); Absolute Neutrophil Count 4.2 X10^3/uL (2.0-7.7); Basophil# 0.04 X10^3/uL; Basophil% 0.5 % (0-1); Eosinophil# 0.09 X10^3/uL; Eosinophils% 1.2 % (0-5); Hematocrit 35.8 % (37-47); Hemoglobin 11.3 g/dL (12.0-15.0); Lymphocyte # 2.82 X10^3/ul (0.83-4.51); Lymphocyte % 37.1 % (19-41); Mean Corp Hgb Conc 31.6 g/dL (32-36); Mean Corpuscular Hgb 27.6 pg (27.0-32.0); Mean Corpuscular Volume 87.5 fL (81-99); Mean Platelet Vol. 9.9 fl (6.2-12.0); Monocyte# 0.47 X10^3/uL; Monocyte% 6.2 % (0-10); NRBC Flagged by Analyzer 0 % (0-5); Neutrophil # 4.17 X10^3/uL (2.7-7.7); Neutrophil % 54.7 % (47-70); Platelet Count 119 K/mm3 (150-450); RBC Distribution Width CV 13.4 % (11.6-14.6); RBC Distribution Width SD 42.6 fl (35.1-43.9); Red Blood Count 4.09 M/mm3 (4.2-5.4); White Blood Count 7.6 K/mm3 (4.4-11.0)
[2023-01-27 20:00] LABS: Anion Gap 7 (5-15); BUN 27 mg/dL (7-18); Calcium,Total 9.8 mg/dL (8.5-10.1); Chloride 106 mmol/L (98-107); Creatinine, Serum 1.23 mg/dL (0.55-1.02); EST Glomerular Filtration Rate 45 mL/min (>60); Est Glom Filt Rate - Afr Amer 54 mL/min (>60); Glucose 109 mg/dL (74-106); Sodium Level 140 mmol/L (136-145)
--- NOTE | 2023-01-27 20:19 | CT_ITS ---
STUDY: CT BRAIN WITHOUT CONTRAST REASON FOR EXAM: Female, 77 years old. Headache RADIATION DOSAGE (If Supplied By Facility): CTDIvol = ( 44.99 ) mGy, DLP = ( 796.11 ) mGycm TECHNIQUE: Transaxial CT imaging of the brain was performed without administration of intravenous contrast material. Individualized dose optimization techniques were used for this CT. COMPARISON: No relevant priors. FINDINGS: Normal soft tissue structures. Normal calvarium. Normal size ventricles and extra-axial spaces for the patient''s age. Normal white matter tracts of the cerebral hemispheres. Normal basal ganglia and thalami. Normal brainstem. Normal cerebellum. There is no intracranial hemorrhage. There are no findings of an acute ischemic infarction. Normal visualized paranasal sinuses. CT/Brain/Head without Contrast IMPRESSION: No acute intracranial pathology of the brain. Electronically Signed: Lakhwinder Alicea DO at 20:48 EST ,
[2023-01-27] MEDS: Ketorolac 15 MG/ML Vial IV (21:28)
[2023-01-27 21:35] VITALS: BP 169/55; PULSE 72; PULSE 73; RESP 16; RESP 18; O2SAT 98
--- NOTE | 2023-01-28 00:15 | EX.ED.VIS.HA ---
HPI History of Present Illness Chief Complaint: Headache Narrative Narrative: 77-year-old female presenting with headache. She states there is nothing new about her headache she has had this for years in the morning. She states that she has seen neurology a couple of years ago but does not know what her diagnosis for headaches. She states that she was previously put on pregabalin for her headaches by the neurologist but ran out a day and a half ago and notes that her headaches are worsening. She also stated that she had some lower extremity edema bilaterally, but she states this is also not new either and she has had this for years. Patient admits that he had some hematuria and she had a stent placed by Dr. Yepez in November and is unsure why. She denies dysuria or urinary frequency. She states he is already been in touch with urology and they were not concerned. She denies flank pain or back pain. She denies nausea or vomiting. Denies fever or chills. She does admit to a lot of anxiety and she states that she is very worried that her family is coming for [employer] because she is going to have to cook for the mall. The patient was tearful throughout most of her interview and examination on and off. Her states that she is very nervous about this coming visit. [facility] Medical History Abnormal mammogram of right breast Anserine bursitis Aortic insufficiency Aortic valve defect Asymmetric septal hypertrophy Bladder disease Cardiology follow-up encounter CPAP (continuous positive airway pressure) dependence Cystocele Essential hypertension Family history of ischemic heart disease Headache History of echocardiogram History of edema History of renal disease History of stress test Kidney stones Leg cramps Low iron Macular degeneration Non-smoker Obstructive sleep apnea Post-menopausal Seizures UTI (urinary tract infection) Vertigo Wears glasses Wears hearing aid Home Medications acetaminophen 325 mg capsule (Tylenol) 325 mg PO ONCE PRN pain 09/25/20 [History Last Taken Unknown] multivitamin 1 tab PO DAILY 09/25/20 [History Last Taken Unknown] pregabalin 25 mg capsule 50 mg PO BID 10/02/21 [History Last Taken 11/12/22] lisinopril 20 mg tablet 20 mg PO DAILY #90 tabs 04/19/22 [Rx Last Taken 11/12/22] aspirin 81 mg tablet,delayed release (Adult Low Dose Aspirin) 81 mg PO QHS 05/18/22 [History Last Taken 11/09/22] vitamins A,C,W-zhzm-qfqomi 4,296 mcg-226 mg-90 mg capsule (PreserVision AREDS) 1 cap PO BID 05/18/22 [History Last Taken 11/11/22] ferrous sulfate 325 mg (65 mg iron) tablet (Feosol) 325 mg PO BID 08/18/22 [History Last Taken 11/11/22] FRUITS 3 cap PO DAILY 10/28/22 [History Last Taken Unknown] PREVAGEN 1 cap PO DAILY 10/28/22 [History Last Taken Unknown] VEGGIES 3 cap PO DAILY 10/28/22 [History Last Taken Unknown] fexofenadine 180 mg tablet (Poonam Allergy) 180 mg PO DAILY PRN ALLERGIES 10/28/22 [History Last Taken 11/11/22] omega-3 fatty acids 600 mg PO BID 10/28/22 [History Last Taken Unknown] amlodipine 2.5 mg tablet 2.5 mg PO BID #180 tabs 11/04/22 [Rx Last Taken 11/12/22] ciprofloxacin HCl 500 mg tablet (Cipro) 500 mg PO BID #14 tabs 12/29/22 [Rx Last Taken Unknown] Allergy/AdvReac Type Severity Reaction Status Date / Time animal dander Allergy Unknown unknown Verified 01/10/23 11:00 cat dander Allergy Unknown unknown Verified 01/10/23 11:00 dog dander Allergy Unknown unknown Verified 01/10/23 11:00 mold Allergy Unknown unknown Verified 01/10/23 11:00 Family History Mother Hypertension CVA (cerebral vascular accident) Father Heart disease Myocardial infarction from [place] age 61 Brother CAD (coronary artery disease) CABG 40's Son Arthritis Surgical History H/O parathyroidectomy History of right breast biopsy (~11/2018) Hx of cholecystectomy Hx of colonoscopy Hx of left cataract extraction Hx of right cataract extraction S/P vaginal hysterectomy Social History Smoking Status: Never smoker alcohol intake: never substance use type: does not use caffeine: Yes what type of physical activity do you participate in: walking seatbelt use: always do you feel safe at home: Yes additional social history: [employer] Patient is retired ROS ROS ED Constitutional Constitutional ED: Denies chills or fever(s) Eyes Eyes: Denies change in vision or diplopia ENT ENT ED: Denies rhinorrhea or sore throat Cardiovascular Cardiovascular: Denies chest pain or palpitations Respiratory/Chest Respiratory/Chest: Denies cough or dyspnea Gastrointestinal Gastrointestinal: Denies abdominal pain, nausea or vomiting Genitourinary Genitourinary ED: Denies dysuria Musculoskeletal Musculoskeletal: Denies arthralgias or back pain Integumentary Denies abscess or Abrasions Neurologic Neurologic: Reports headache(s); Denies paresthesias Psychiatric Psychiatric: Reports anxiety; Denies depression EXAM Physical Exam Const Vital Signs: 01/27/23 15:58 01/27/23 17:37 01/27/23 19:00 Temperature 96.7 F L Temperature Source Temporal Pulse Rate 78 74 Respiratory Rate 14 18 Respiratory Pattern Normal Blood Pressure 171/86 H 161/55 H Blood Pressure Mean 114 90 Pulse Ox 100 98 Oxygen Delivery Method Room Air Room Air 01/27/23 21:35 01/27/23 21:35 Temperature Temperature Source Pulse Rate 72 73 Respiratory Rate 18 16 Respiratory Pattern Blood Pressure 169/55 H 169/55 H Blood Pressure Mean 93 93 Pulse Ox 98 98 Oxygen Delivery Method Room Air Positive well nourished General Appearance ED: NAD; Negative for pallor HEENT Reports normocephalic and TM's clear atraumatic Tympanic Membrane ED: Yes TM's clear Eyes PERRL and EOMs intact bilaterally Neck no lymphadenopathy and supple Resp normal respiratory effort and clear to auscultation bilaterally Cardio regular rate and regular rhythm GI non-tender Extremity normal to inspection General Extremety ED: Negative for edema or tenderness General Extremity: Negative for edema Neuro oriented x3, CN's II-XII intact bilaterally and no sensory deficits noted Kinsey Coma Scale: document GCS findings Spontaneous Obeys Commands Oriented 15 Sensorium / Orientation: awake and alert Speech: speech normal Motor Exam: strength 5/5 throughout Psych mental status grossly normal Mood & Affect: anxious and tearful Skin General Skin Exam: Negative for jaundice or pallor MDM MDM MDM Narrative Medical decision making narrative: Patient presenting with headache which she reports is not new. She states has had this for years and she is run out of her pregabalin. She was treated with Compazine and Benadryl. We did check some basic lab work and her CBC and BMP were unremarkable. She was given some fluids and on reevaluation she still had a headache and she states it was worse. For this reason we gave her some Toradol injection urinalysis. Urinalysis shows 500 leukocyte esterase with 100 RBCs. 5-10 WBCs with 0-5 squamous epithelial cells with does not appear to be consistent with an infection and she not have any symptoms of infection other than that hematuria which she is already had checked by urology. After Toradol her headache is completely gone. She states she feels better. We discussed her anxiety over her family visit coming up and she and her will try to have family help with the cooking which seems to be the aspect is causing most of her anxiety. She will need to follow-up with her PCP/neurologist to get her pregabalin filled. Return precautions discussed. Impression: 1. Headache 2. Hematuria 3. Anxiety Lab Data Attestation: I reviewed the patient's lab results. Labs: Laboratory Results - last 24 hr 01/27/23 01/27/23 18:47 19:24 WBC 7.6 RBC 4.09 L Hgb 11.3 L Hct 35.8 L MCV 87.5 MCH 27.6 MCHC 31.6 L RDW Std Deviation 42.6 RDW Coeff of Radhames 13.4 Plt Count 119 L MPV 9.9 Immature Gran % (Auto) 0.300 Neut % (Auto) 54.7 Lymph % (Auto) 37.1 [place] % (Auto) 6.2 Eos % (Auto) 1.2 Baso % (Auto) 0.5 Absolute Neuts (auto) 4.2 Absolute Lymphs (auto) 2.82 Nucleated RBC % 0 Sodium 140 Potassium 4.0 Chloride 106 Carbon Dioxide 27.0 Anion Gap 7 BUN 27 H Creatinine 1.23 H Estim Creat Clear Calc 28.90 Est GFR (MDRD) Af Amer 54 L Est GFR (MDRD) Non-Af 45 L BUN/Creatinine Ratio 22.0 H Glucose 109 H Calcium 9.8 Urine Color Red Urine Clarity Cloudy Urine pH 6.5 Ur Specific Anthony 1.015 Urine Protein 100 H Urine Glucose (UA) Normal Urine Ketones 15 H Urine Occult Blood 250 H Urine Nitrite Positive H Urine Bilirubin Negative Urine Urobilinogen Normal Ur Leukocyte Esterase 500 H Urine RBC > 100 SEEN Urine WBC 5-10 SEEN Ur Squamous Epith Cells 0-5 SEEN Urine Bacteria RARE Urine Mucus 0 SEEN Radiography Diagnostic Testing: Clinical Impression(s) from Imaging Studies Brain CT 01/27/23 20:19 IMPRESSION: No acute intracranial pathology of the brain. Electronically Signed: Lakhwinder Alicea DO at 20:48 EST Reading Location ID and State: [facility] / [place] Tel [phone], Service support , Discharge Plan Triage Chief Complaint: Headache Other Complaint: Edema ED Provider: Nba Floyd Dx/Rx/DC Orders Instructions: ED Headache Unspecified Prescriptions: No Action acetaminophen [Tylenol] 325 mg capsule 325 mg PO ONCE PRN (Reason: pain) multivitamin Tablet 1 tab PO DAILY pregabalin 25 mg capsule 50 mg PO BID aspirin [Adult Low Dose Aspirin] 81 mg tablet,delayed release (DR/EC) 81 mg PO QHS PreserVision AREDS 4,296 mcg-226 mg-90 mg capsule 1 cap PO BID ciprofloxacin HCl [Cipro] 500 mg tablet 500 mg PO BID Qty: 14 0RF omega-3 fatty acids Capsule 600 mg PO BID VEGGIES 3 cap PO DAILY FRUITS 3 cap PO DAILY PREVAGEN 1 cap PO DAILY fexofenadine [Poonam Allergy] 180 mg tablet 180 mg PO DAILY PRN (Reason: ALLERGIES) lisinopril 20 mg tablet 20 mg PO DAILY Qty: 90 3RF ferrous sulfate [Feosol] 325 mg (65 mg iron) tablet 325 mg PO BID Rx Instructions: decrease to daily if causes constipation amlodipine 2.5 mg tablet 2.5 mg PO BID Qty: 180 3RF Primary Care Provider: Dyana Cartwright Referrals: Dyana Cartwright MD [Primary Care Provider] - Disposition Disposition: Home, Self Care Discharge Date/Time: 01/27/23 21:38
== END 2023-01-27 21:38 | disposition home or self-care (01) ==
PROVIDERS: Emergency Provider Student in an Organized Health Care Education/Training Program; PCP Internal Medicine; Visit Provider Student in an Organized Health Care Education/Training Program
DX: R51.9 Headache, unspecified (principal); F41.9 Anxiety disorder, unspecified; R31.9 Hematuria, unspecified; I10 Essential (primary) hypertension; R60.9 Edema, unspecified
CPT/HCPCS: 70450; 80048; 81001; 85025; 96361; 96374; 96375; 99284; J7030; A4216

== ENCOUNTER → 2023-02-16 | Outpatient (CLI) | payer OTHER, SELFPAY ==
--- NOTE | 2023-02-16 13:08 | US_ITS ---
PROCEDURE: RENAL ULTRASOUND - COMPLETE REASON FOR EXAM: Female, 77 years old. Hydronephrosis TECHNIQUE: Ultrasound evaluation of the bilateral kidneys was performed with real-time ultrasonography and static grayscale imaging. COMPARISON: None. FINDINGS: RIGHT KIDNEY: Normal location of the right kidney which is normal in size. The right kidney measures 10 x 4.5 x 3.9 cm. There is diffuse thinning of the renal cortex. The renal cortex measures 0.9 cm. There is no right renal mass or cyst. There are 2 small echogenic shadows in the right kidney measuring about 6 mm and 4 mm suggestive of nonobstructing stones. There is no right hydronephrosis. DISTAL RIGHT URETER: There is non-visualization of the distal right ureter. There is no demonstrated right ureterovesical junction calculus. There is no demonstrated right ureteral jet. LEFT KIDNEY: Normal location of the left kidney which is normal in size. The left kidney measures 9.7 x 4.2 x 4.4 cm. There is a normal cortex of the left kidney. The renal cortex measures 1 cm. There is no left renal mass or cyst. There are no left renal calculi. There is no left hydronephrosis. DISTAL LEFT URETER: There is non-visualization of the distal left ureter. There is no demonstrated left ureterovesical junction calculus. There is a visualized left ureteral jet. BLADDER: The distended urinary bladder has a volume of 204 ml. There is a normal wall thickness of the distended urinary bladder. There is no demonstrated mass within the urinary bladder. There is no demonstrated bladder calculi. US/Kidney and Bladder IMPRESSION: 1. Small right renal stones. 2. Moderate right hydronephrosis. Electronically Signed: Nayan Handy MD at 14:46 EST ,
--- OUTSIDE RECORDS SUMMARY | 2023-02-16 13:23 | XMS RPT_ITS | CCD ---
Author Name Unknown Address [id number] [place] [address] Organization [facility] Care Team Providers Care Controls Designer Name Role Phone Ml Gopal E. Unavailable Unavailable Jai Shearer Unavailable Unavailable Ml Gopal EBin Unavailable Unavailable Jai Shearer Unavailable Unavailable Ml Gopal EBin Unavailable Unavailable Jai Shearer Unavailable Unavailable Frantz Barrientos DOin G Unavailable Chung [place] MD Primary Care Provider Jai Shearer MD Primary Care Provider Tung Barrientos DO Unavailable Jai Shearer MD Primary Care Provider Floyd AHMADI Tung G Unavailable Jai Shearer MD Primary Care Provider Floyd AHMADI Tung G Unavailable Jai Shearer MD Primary Care Provider KRISTA RICE Referring Unavailable KRISTA RICE Attending Unavailable JAI SHEARER Primary Care Unavailable KRISTA RICE Attending Unavailable JAI SHEARER Primary Care Unavailable KRISTA RICE Referring Unavailable KRISTA RICE Attending Unavailable JAI SHEARER Primary Care Unavailable KRISTA RICE Referring Unavailable JAI SHEARER MD Consulting Unavailable JAI SHEARER Attending Unavailable JAI SHEARER Primary Care Unavailable JAI SHEARER Admitting Unavailable PROVIDER, UNKNOWN Consulting Unavailable PROVIDER, UNKNOWN Consulting Unavailable PROVIDER, UNKNOWN Consulting Unavailable Tung Barrientos DO Unavailable [phone] Gabbie BARON, Jai Waldrop Primary Care Provider Allergies Allergy Classification Reported Allergen(s) Allergy Type Date of Onset Reaction(s) Facility (16 sources) Esomeprazole; Translations: [ESOMEPRAZOLE MAGNESIUM] Drug Allergy 03-27-2007 Vomiting [facility] Work Phone: Medications Current Medications Medication Drug Class(es) Dates Sig (Normalized) Sig (Original) cyclobenzaprine hydrochloride 5 mg oral tablet (1 source) Muscle Relaxant Start: 03-16-2022 End: 04-15-2022 take 2.5 mg by mouth every twenty-four hours as needed cyclobenzaprine (FLEXERIL) 5 mg tablet Take 0.5 tablets by mouth at bedtime as needed. 15 tablet 0 03/16/2022 04/15/2022 Active Completed/Discontinued Medications Medication Drug Class(es) Dates Sig (Normalized) Sig (Original) Acetaminophen (15 sources) take 1 tablet by taylor th once daily at bedtime ACETAMINOPHEN (TYLENOL 8 HOUR ORAL) Indications: Cystocele , Mixed incontinence Take 1 tablet by mouth daily at bedtime. 0 Active Problems Active Problems Problem Classification Problem Date Documented Date Episodic/Chronic Acute cerebrovascular disease (1 source) Cerebrovascular accident; Translations: [Cerebral infarction, unspecified] Chronic Anxiety disorders (1 source) Claustrophobia; Translations: [Claustrophobia] Chronic Chronic kidney disease (15 sources) Chronic kidney disease stage 3A ; Translations: [Stage 3a chronic kidney disease] Onset: 09-14-2020 09-14-2020 Chronic Disorders of lipid metabolism (15 sources) Hyperlipidemia; Translations: [Hyperlipidemia, unspecified] Onset: 12-12-2014 12-12-2014 Chronic Essential hypertension (15 sources) Hypertensive disorder; Translations: [Essential (primary) hypertension] Onset: 12-12-2014 07-28-2015 Chronic Genitourinary symptoms and ill-defined conditions (15 sources) Incontinence; Translations: [Mixed incontinence] Onset: 09-28-2013 09-04-2020 Chronic Headache; including migraine (3 sources) Chronic cluster headache; Translations: [Chronic cluster headache, intractable] 09-14-2022 Chronic Headache; including migraine (1 source) Headache; including migraine; Translations: [Chronic intractable headache, unspecified headache type] Onset: 05-27-2022 Heart valve disorders (15 sources) Aortic incompetence, non-rheumatic ; Translations: [Nonrheumatic aortic (valve) insufficiency] Onset: 09-04-2020 09-04-2020 Chronic Nutritional deficiencies (15 sources) Vitamin D deficiency; Translations: [Vitamin D deficiency, unspecified] Onset: 11-06-2012 11-06-2012 Chronic Osteoporosis (15 sources) Osteoporosis; Translations: [Age-related osteoporosis without current pathological fracture] Onset: 12-12-2014 12-12-2014 Chronic Other nervous system disorders (1 source) Other chronic pain; Translations: [Chronic intractable headache, unspecified headache type] Onset: 05-27-2022 Chronic Other upper respiratory disease (15 sources) Seasonal allergic rhinitis; Translations: [Other seasonal allergic rhinitis] Onset: 09-04-2020 09-04-2020 Chronic Residual codes; unclassified (19 sources) Obstructive sleep apnea syndrome; Translations: [Obstructive sleep apnea (adult) (pediatric)] Onset: 09-15-2020 Chronic Residual codes; unclassified (1 source) Obstructive sleep apnea (adult) (pediatric); Translations: [JENNFIER (obstructive sleep apnea)] Onset: 05-15-2021 Chronic Residual codes; unclassified (1 source) Transient altered mental status; Translations: [Transient alteration of awareness] Episodic Residual codes; unclassified (1 source) Memory impairment; Translations: [Other amnesia] Episodic Spondylosis; intervertebral disc disorders; other back problems (20 sources) Neck pain; Translations: [Cervicalgia] Onset: 05-28-2013 05-28-2013 Episodic Transient cerebral ischemia (2 sources) Cerebral ischemia; Translations: [Transient cerebral ischemic attack, unspecified] Chronic Unclassified (1 source) Unknown / UNK(Unknown) Onset: 01-26-2017 Unclassified (15 sources) Herniated urinary bladder; Translations: [Cystocele] Onset: 09-28-2013 09-28-2013 Past or Other Problems Problem Classification Problem Date Documented Da te Episodic/Chronic Headache; including migraine (19 sources) Headache; Translations: [Nonintractable episodic headache] Onset: 12-01-2015 12-01-2015 Episodic Residual codes; unclassified (3 sources) Transient alteration of awareness; Translations: [Transient alteration of awareness] Onset: 09-24-2021 Episodic Unclassified (1 source) RIGHT URETERAL STONE Onset: 01-26-2017 Results Test Name Value Interpretation Reference Range Facil ity Vital Signs Date Time Vital Sign Value Performing Clinician Mickey barriga 05-27-2022 14:23-0400 Body temperature 98.6 [degF] Krista Dahlhausen CONFIGURATION MANAGEMENT ARCHITECT.A[employer] TECHNICIAN Work Phone: [facility] 05-27-2022 14:23-0400 Body weight 83.92 kg Kristamatthew Mehtahlhausen CONFIGURATION MANAGEMENT ARCHITECT.AIR LA[employer] WEAP[employer] TECHNICIAN Work Phone: [facility] 05-27-2022 14:23-0400 Diastolic blood pressure 55 mm[Hg] Krista Dahlhausen CONFIGURATION MANAGEMENT ARCHITECT.AIR LAUNCH WEAPONS TECHNICIAN Work Phone: [facility] 05-27-2022 14:23-0400 Heart rate 74 /min Krista Tysonhlhausen CONFIGURATION MANAGEMENT ARCHITECT.AIR LA[employer] WEAPONS TECHNICIAN Work Phone: [facility] 05-27-2022 14:23-0400 Respiratory rate 16 /min Krista Tysonhlhausen CONFIGURATION MANAGEMENT ARCHITECT.AIR [employer] WEAP[employer] TECHNICIAN Work Phone: [facility] 05-27-2022 14:23-0400 SaO2% (BldA) [Mass fraction] 95 % Krista Mehtahlhausen CONFIGURATION MANAGEMENT ARCHITECT.AIR LAUN[employer] WEAP[employer] TECHNICIAN Work Phone: [facility] 05-27-2022 14:23-0400 Systolic blood pressure 134 mm[Hg] Krista Tysonhlhausen CONFIGURATION MANAGEMENT ARCHITECT.AIR LA[employer] WEAP[employer] TECHNICIAN Work Phone: [facility] 09-24-2021 10:46-0400 Body temperature 98.29 [degF] Krista Dahlhausen CONFIGURATION MANAGEMENT ARCHITECT.AIR LA[employer] WEAP[employer] TECHNICIAN Work Phone: [facility] 09-24-2021 10:46-0400 Body weight 79.02 kg Kristamatthew Mehtahlhausen CONFIGURATION MANAGEMENT ARCHITECT.AIR LA[employer] WEAPONS TECHNICIAN Work Phone: [facility] 09-24-2021 10:46-0400 Diastolic blood pressure 74 mm[Hg] Krista Dahlhausen CONFIGURATION MANAGEMENT ARCHITECT.AIR LA[employer] WEAPONS TECHNICIAN Work Phone: [facility] 09-24-2021 10:46-0400 Heart rate 54 /min Krista Dahlhausen CONFIGURATION MANAGEMENT ARCHITECT.AIR LA[employer] WEAP[employer] TECHNICIAN Work Phone: [facility] 09-24-2021 10:46-0400 Respiratory rate 18 /min Krista Dahlhausen CONFIGURATION MANAGEMENT ARCHITECT.AIR LA[employer]AP[employer] TECHNICIAN Work Phone: [facility] 09-24-2021 10:46-0400 SaO2% (BldA) [Mass fraction] 99 % Krista Dahlhausen CONFIGURATION MANAGEMENT ARCHITECT.AIR LAUN[employer] WEAP[employer] TECHNICIAN Work Phone: [facility] 09-24-2021 10:46-0400 Systolic blood pressure 122 mm[Hg] Krista Dahlhausen CONFIGURATION MANAGEMENT ARCHITECT.AIR LAUN[employer] WEAPONS TECHNICIAN Work Phone: [facility] 06-04-2021 10:43-0400 Body temperature 97.81 [degF] Krista Dahlhausen CONFIGURATION MANAGEMENT ARCHITECT.AIR LA[employer] WEAPONS TECHNICIAN Work Phone: [facility] 06-04-2021 10:43-0400 Body weight 75.75 kg Krista Dahlhausen CONFIGURATION MANAGEMENT ARCHITECT.AIR LA[employer] WEAP[employer] TECHNICIAN Work Phone: [facility] 06-04-2021 10:43-0400 Diastolic blood pressure 68 mm[Hg] Krista Dahlhausen CONFIGURATION MANAGEMENT ARCHITECT.AIR LA[employer] WEAP[employer] TECHNICIAN Work Phone: [facility] 06-04-2021 10:43-0400 Heart rate 58 /min Krista Dahlhausen CONFIGURATION MANAGEMENT ARCHITECT.AIR [employer] WEAP[employer] TECHNICIAN Work Phone: [facility] 06-04-2021 10:43-0400 Respiratory rate 18 /min Krista Dahlhausen CONFIGURATION MANAGEMENT ARCHITECT.AIR [employer]AP[employer] TECHNICIAN Work Phone: [facility] 06-04-2021 10:43-0400 SaO2% (BldA) [Mass fraction] 100 % Krista Dahlhausen CONFIGURATION MANAGEMENT ARCHITECT.AIR LAUN[employer] WEAP[employer] TECHNICIAN Work Phone: [facility] 06-04-2021 10:43-0400 Systolic blood pressure 110 mm[Hg] Krista Dahlhausen CONFIGURATION MANAGEMENT ARCHITECT.AIR LA[employer] WEAP[employer] TECHNICIAN Work Phone: [facility] Encounters Encounter Date Encounter Type Care Provider Facility Start: 01-10-2023 Refill Krista George rené CONFIGURATION MANAGEMENT ARCHITECT.A[employer] TECHNICIAN Work Phone: Neurology Procedures Date Procedure Procedure Detail Performing Clinician Start: 11-10-2017 Colonoscopy Smiley hodgson Jr., MD Work Phone: Start: 07-28-2015 Adult depression scr eening assessment Smiley Stoddard Jr., MD Work Phone: Plan of Treatment Date Care Activity Detail Author Start: 09-04-2025 LIPID SCREEN LIPID SCREEN [facility] Start: 09-05-2023 DIABETES SCREEN DIABETES SCREEN [facility] Start: 09-05-2023 Diabetes Screening Diabetes Screening [facility] Start: 02-05-2023 Urine microalbumin profile [facility] Start: 10-08-2022 Covid-19 Vaccine () Covid-19 Vaccine () [facility] Start: 10-08-2022 Influenza vaccination [facility] Start: 09-24-2022 BP CONTROLLED (<130/80) BP CONTROLLED (<130/80) [facility] Start: 06-04-2022 BP CONTROLLED (<130/80) BP CONTROLLED (<130/80) [facility] Start: 04-09-2022 BP CONTROLLED (<130/80) BP CONTROLLED (<130/80) [facility] Start: 02-07-2022 ADVANCE DIRECTIVE DISCUSSION ADVANCE DIRECTIVE DISCUSSION [facility] Start: 02-07-2022 DEPRESSION ASSESSMENT DEPRESSION ASSESSMENT [facility] Start: 10-08-2021 Influenza vaccination [facility] Start: 09-04-2021 ANNUAL PCP TEAM CHRONIC DISEASE VISIT ANNUAL PCP TEAM CHRONIC DISEASE VISIT [facility] Start: 09-04-2021 SERUM CREATININE SERUM CREATININE [facility] Start: 05-17-2021 COVID-19 VACCINE (4 - Booster for Moderna series) COVID-19 VACCINE (4 - Booster for Moderna series) [facility] Start: 03-13-2021 COVID-19 VACCINE (4 - Booster for Moderna series) COVID-19 VACCINE (4 - Booster for Moderna series) [facility] Start: 03-13-2021 COVID-19 VACCINE (4 - Moderna series) COVID-19 VACCINE (4 - Moderna series) [facility] Start: 02-07-2021 ADVANCE DIRECTIVE DISCUSSION ADVANCE DIRECTIVE DISCUSSION [facility] Start: 02-07-2021 DEPRESSION ASSESSMENT DEPRESSION ASSESSMENT [facility] Start: 11-10-2018 Colonoscopy COLONOSCOPY [facility] Start: 11-11-2017 COLORECTAL CANCER SCREENING COLORECTAL CANCER SCREENING [facility] Start: 02-15-2017 COLORECTAL CANCER SCREENING COLORECTAL CANCER SCREENING [facility] Start: 02-15-2017 FECAL OCCULT BLOOD FECAL OCCULT BLOOD [facility] Start: 07-27-2016 Adult depression screening assessment DEPRESSION SCREENING [facility] Start: 10-22-2015 HEMOGLOBIN/HEMATOCRIT HEMOGLOBIN/HEMATOCRIT [facility] Start: 01-22-2012 SHINGRIX VACCINE (2 of 3) SHINGRIX VACCINE (2 of 3) [facility] Start: 2005 RSV Vaccine (1 - 1-dose 60+ series) RSV Vaccine (1 - 1-dose 60+ series) [facility] Start: 1990 COLOGUARD (FIT-DNA) COLOGUARD (FIT-DNA) [facility] Start: 1990 Colonoscopy COLONOSCOPY [facility] Start: [address] COLONOGRAPHY [facility] Start: 1990 SIGMOIDOSCOPY SIGMOIDOSCOPY [facility] Start: 10-11-1963 BP CONTROLLED (<130/80) BP CONTROLLED (<130/80) [facility] End: 07-04-2022 Mra head w/o contrst material MRA BRAIN WO IVCON Radiology Routine Transient cerebral ischemia, unspecified type 1 Occurrences starting 06/04/2021 until 07/04/2022 [facility] Work Phone: Immunizations Immunization Date Immunization Notes Care Provider Fa cility 04-09-2020 COVID-19 vaccine, fu ll dose (MODERNA) Smiley Stoddard Jr., MD Work Phone: [facility] 03-12-2020 COVID-19 vaccine, fu ll dose (MODERNA) Smiley Stoddard Jr., MD Work Phone: [facility] 01-29-2019 influenza, injectabl e, quadrivalent, preservative free Smiley Stoddard Jr., MD Work Phone: [facility] 01-29-2019 influenza virus vacc ine, unspecified formulation Krista Rice APRNWAQAS Work Phone: [facility] 10-31-2017 influenza, injectabl e, quadrivalent, preservative free Smiley Stoddard Jr., MD Work Phone: [facility] 01-19-2017 influenza, injectabl e, quadrivalent, preservative free Smiley Stoddard Jr., MD Work Phone: [facility] 11-29-2015 influenza, high dose seasonal, preservative-free Smiley Stoddard Jr., MD Work Phone: [facility] Work Phone: 12-12-2014 influenza, high dose seasonal, preservative-free Smiley Stoddard Jr., MD Work Phone: [facility] 08-30-2014 pneumococcal conjuga te vaccine, 13 valent Smiley Stoddard Jr., MD Work Phone: [facility] 12-05-2013 influenza, seasonal, injectable Smiley Stoddard Jr., MD Work Phone: [facility] 02-05-2013 tetanus toxoid, redu angelina diphtheria toxoid, and acellular pertussis vaccine, adsorbed Smiley Stoddard Jr., MD Work Phone: [facility] 12-23-2012 influenza virus vacc ine, unspecified formulation Smiley Stoddard Jr., MD Work Phone: [facility] Work Phone: 11-27-2011 influenza virus vacc ine, unspecified formulation Smiley Stoddard Jr., MD Work Phone: [facility] 11-27-2011 varicella virus vaccine Will champ Richi Padilla MD Work Phone: [facility] 11-27-2011 zoster vaccine, live Smiley Stoddard Jr., MD Work Phone: [facility] 11-24-2010 influenza virus vacc ine, unspecified formulation Smiley Stoddard Jr., MD Work Phone: [facility] 11-24-2010 pneumococcal polysaccharide vaccine, 23 valent Smiley Stoddard Jr., MD Work Phone: [facility] 11-18-2009 influenza virus vacc ine, unspecified formulation Smiley Stoddard Jr., MD Work Phone: [facility] 11-13-2008 influenza virus vacc ine, unspecified formulation Smiley Stoddard Jr., MD Work Phone: [facility] Work Phone: 02-07-2003 tetanus and diphther ia toxoids, not adsorbed, for adult use Smiley Stoddard Jr., MD Work Phone: [facility] Work Phone: 02-07-2003 tetanus toxoid, redu angelina diphtheria toxoid, and acellular pertussis vaccine, adsorbed Smiley Stoddard Jr., MD Work Phone: [facility] Payers Date Payer Category Payer Unknown [employer] PPO [id number] 2020-Present [phone] [address] [place] [address] PPO [id number] 2020 Unknown [id number] 2010 Medicare MEDICARE MEDICAR E A [id number] 2010-Present [phone] [address] [place] [address] Medicare [id number] 1995 Unknown [id number] 1945 Unknown [id number] Social History Date Type Detail Facility Start: 11-24-2010 Tobacco smoking stat us [facility] Never smoked tobacco [facility] Start: 04-09-2021 End: 01-11-2023 Alcohol intake Current non-drinker of alcohol (finding) [facility] Start: 1945 Sex Assigned At Female C [facility] Start: 03-10-2021 End: 09-24-2021 Exposure to SARS-CoV-2 (event) Not sure [facility] Start: 06-12-2021 End: 06-22-2021 Exposure to SARS-CoV-2 (event) Unable to assess [facility] Start: 11-24-2010 Tobacco use and exposure Smoke less tobacco non-user [facility] Start: 09-14-2022 End: 12-02-2022 History of Social function [facility] Start: 09-14-2022 End: 12-02-2022 Tobacco use panel [facility] National Score (1-10 0), lower number is lower risk 36 [facility] Start: 04-19-2021 Gender identity Identifies as female gender (finding) [facility] Start: 04-19-2021 Sexual orientation Heterosexual (alonso montoya) [facility] Clinical Notes 09-26-2014 to 01-11-2023 Telephone Encounter - Krista Rice APRN.CNP - 01/11/2023 9:40 AM ESTTelephone Encounter - Mita Shepherd - 01/11/2023 7:49 AM Sofiya Rice APRN.CNP - 05/27/2022 2:30 PM EDT Note Date & Type Note Facility 01-11-2023 Miscellaneous Notes Pt must keep upcoming appt with Dr. Stoddard on 02/14/2023. PDMP website checked and validated. All prescriptions have been APPROPRIATELY filled. No suspicious activity was identified. January 11, 2023 Krista Rice APRN.CNP Pharmacy verified in [facility]. Patient has been identified by name and date of : Yes Patient aware RX will be sent to pharmacy. No need to notify patient. Pharmacy phones for refill(s): Requested Prescriptions Pending Prescriptions Disp Refills pregabalin (LYRICA) 50 mg capsule [Pharmacy Med Name: Pregabalin 50 MG Oral Capsule] 60 capsule 0 Sig: Take 1 capsule by mouth two times a day. Date of last office visit : 05/27/2022 Date of next office visit : 02/14/2023 Last 2 Encounter Wt Readings: Date: Wt: 05/27/2022 83.9 kg (185 lb) 09/24/2021 79 kg (174 lb 3.2 oz) Please advise. Mita Shepherd documented in this encounter [facility] 11-30-2022 Miscellaneous Notes Spoke with patient and set up virtual visit for 12/02/2022 @ 1030. Patient has never completed a VV before. She was provided with [facility] phone number in case she has any issues when trying to log on to appointment. Spoke with patient and she would like to schedule in [place]. Looked at scheduling appointment with Rhoda ALCANTARA in [place] and her 1st available is 03/09/2023. Patient does have follow up scheduled with Dr. Stoddard on 02/14/2023. PDMP website checked and validated. All prescriptions have been APPROPRIATELY filled. No suspicious activity was identified. November 30, 2022 Krista Rice APRN.NUNU Pt out of medication and not feeling well, having headache and dizziness without medication. Please advise when medication has been sent to the pharmacy or if there is a problem. Velvet Sarmiento LPN Patient has been identified by name and date of : Yes, Provider Krista Rice CNP Date 11/30/22 Time 12:27 pm Spouse phones for refill(s): Requested Prescriptions Pending Prescriptions Disp Refills pregabalin (LYRICA) 50 mg capsule 60 capsule 1 Sig: Take 1 capsule by mouth two times a day for 90 days. Date of last office visit in primary care: 05/27/2022 Date of next office visit in primary care: 02/14/2023 Last 2 Encounter Wt Readings: Date: Wt: 05/27/2022 83.9 kg (185 lb) 09/24/2021 79 kg (174 lb 3.2 oz) Previous labs/tests for medication: Not applicable Please advise. Thank you. Velvet Sarmiento LPN. documented in this encounter [facility] 09-22-2022 Miscellaneous Notes Medication was sent to [facility] in [place] on September 14 for pt. Pia Barney LPN documented in this encounter [facility] 09-15-2022 Miscellaneous Notes Pt notified via [email or web address] message. Pia Barney LPN Lab work reviewed from 06/29. Pt needs follow up appt. PDMP website checked and validated. All prescriptions have been APPROPRIATELY filled. No suspicious activity was identified. September 14, 2022 Krista Rice APRN.A[employer]AP[employer] TECHNICIAN Medication refill requested by Patient Please review and advise. Requested Prescriptions Pending Prescriptions Disp Refills pregabalin (LYRICA) 50 mg capsule 60 capsule 2 Sig: Take 1 capsule by mouth twice daily for 90 days. Last encounter with this provider: 05/27/2022 Next appt: Not scheduled. Cookie Wayne RN documented in this encounter [facility] 06-02-2022 Miscellaneous Notes [email or web address] message sent to pt with below information. Pia Barney LPN Called patient and no answer. Please contact patient to let her know that I would like her to complete formal neurocognitive testing (a longer version of the memory test we completed in the office) to determine if we can find a cause of the lapses of memory she is having. It sounds like PAP mask may be causing some of her headaches and would recommend returning to DME again to discuss mask fit. Will await lab results before determining plan for medication. Consideration is still to increase Lyrica verses starting alternative medication. documented in this encounter [facility] 05-27-2022 Note HNO ID: [id number] Author: Krista Rice APRN.A[employer] TECHNICIAN Service: ? Author Type: Nurse Practitioner Type: Progress Notes Filed: 05/28/2022 1:31 PM Note Text: [facility] Neurologic [place] Follow-up Visit Follow-up note May 27, 2022 HPI: Ms. Hair presents today for a follow-up visit. 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 MRI completed after onset in 2017 in addition to MRI completed since previous visit unremarkable for etiology. Headaches still presenting as a band radiating around her head and frontally. Can also be associated with neck stiffness and still occurring upon waking. Additional new headaches as noted below. She has since completed PT for cervical pains and at last appointment noted improvement in WEST. However, today she reports headaches are again occurring frequently. She is currently taking gabapentin 100mg BID. Will avoid increasing medication dose as she reports she can feel off balance and dizzy, though uncertain if related to timing of gabapentin. Instead, will DC gabapentin and transition to Lyrica 25mg BID. SE reviewed. G47.33 JENNIFER (obstructive sleep apnea) Comment: Pt currently using PAP regularly. She reports improved sleep overnight and without frequent awakenings. However, she still reports feeling tired during the day and will nap for short periods of time. She also reports headaches upon waking which, per patient description begin under the eyes and at the bridge of the nose. Currently using a FFM and concern that mask possibly contributing to facial/head pain as she reports it feels very tight. Download reviewed as per above. Will forward to Dr. Stoddard. Discussed possibly considering alternative mask and pt agreeable. R40.4 Transient alteration of awareness Comment: Patient previously reporting multiple episodes where she has lost periods of time since 2019. She has not had any further episodes since time of previous appointment (last episode per report was in April). Testing completed included EEG which was unremarkable. MRI of brain noting multiple remote infarcts nor previously seen on imaging from 2017 and concern that events may be related to MRI findings. MRA brain/neck completed in interim and unremarkable. Outpt radiation monitor also completed without evidence of afib but noting SVT; recommendation made to follow with her facilities maintenance assistant. Goals remain BP <140/90 and BG <140. She continues to take ASA regularly. Recommend follow up with PCP regarding LDL (128) and cholesterol/BP management. Continue to stay compliant with medications and take daily. Continue to get adequate exercise/physical activity within limitations. Using PAP nightly. Sometimes feels the mask is leaking but just tightens it and it is fine. Now has a really soft mask but has not had any change in facial pressure. Does not feel like pressure is too high. Sleeps well. Does not feel drowsy. Still having pressure across her forehead and across her nose. Occasional sharp pain above R eye. Has an aortic valve leak. Will be going for echocardiogram. Tomorrow has a renal scan. States function is low. Has to self cath twice per day. Will determine if there is improvement since self cath tomorrow. Blood work done recently. Does not results with her today. Currently taking Lyrica 50mg BID. Denies SE. Reports some balance problems. Denies neck pain. Still getting massages. Massage did not help her headache though reports it does help posterior headaches. Tylenol will help her headaches. Will take Tylenol prior to going to bed if she has a headache. Does not grind her teeth or clench her teeth. No jaw pain with headaches. Sometimes will ask her questions that he knows she knows but seems confused. Her states these episodes are scary sometimes. In a few hours will return back to normal. Happens once every five days but can vary. Always occurs with a headache. Will start crying when this happens. Pt tearful in office. States head doesn't even hurt that bad; just pressure build up. Can have pressure headaches without associated memory. No associated loss of vision, blurred vision, floaters with headaches. R eye with mac degen. Sometimes blurred vision L eye. Denies slurred or garbled speech. Episodes vary; can be afternoon or middle of the night. She remembers that the episodes occur. Head can hurt in the morning as well after taking her PAP mask off. Has not tried a night without the PAP mask to see if pain is still there. No loss of control of b/b. No tongue/cheek biting. No convulsions. Did not try flexeril. Tried Mucinex sinus medication. Not forgetting family or friends namens. Not getting lost in familiar places. Not leavin (more content not included)... [facility] 05-27-2022 History of Present illness Narrative Images from the original note were not included. [facility] [place] Follow-up Visit Follow-up note May 27, 2022 HPI: Ms. Hair presents today for a follow-up visit. 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 MRI completed after onset in 2017 in addition to MRI completed since previous visit unremarkable for etiology. Headaches still presenting as a band radiating around her head and frontally. Can also be associated with neck stiffness and still occurring upon waking. Additional new headaches as noted below. She has since completed PT for cervical pains and at last appointment noted improvement in WEST. However, today she reports headaches are again occurring frequently. She is currently taking gabapentin 100mg BID. Will avoid increasing medication dose as she reports she can feel off balance and dizzy, though uncertain if related to timing of gabapentin. Instead, will DC gabapentin and transition to Lyrica 25mg BID. SE reviewed. G47.33 JENNIFER (obstructive sleep apnea) Comment: Pt currently using PAP regularly. She reports improved sleep overnight and without frequent awakenings. However, she still reports feeling tired during the day and will nap for short periods of time. She also reports headaches upon waking which, per patient description begin under the eyes and at the bridge of the nose. Currently using a FFM and concern that mask possibly contributing to facial/head pain as she reports it feels very tight. Download reviewed as per above. Will forward to Dr. Stoddard. Discussed possibly considering alternative mask and pt agreeable. R40.4 Transient alteration of awareness Comment: Patient previously reporting multiple episodes where she has lost periods of time since 2019. She has not had any further episodes since time of previous appointment (last episode per report was in April). Testing completed included EEG which was unremarkable. MRI of brain noting multiple remote infarcts nor previously seen on imaging from 2017 and concern that events may be related to MRI findings. MRA brain/neck completed in interim and unremarkable. Outpt radiation monitor also completed without evidence of afib but noting SVT; recommendation made to follow with her facilities maintenance assistant. Goals remain BP <140/90 and BG <140. She continues to take ASA regularly. Recommend follow up with PCP regarding LDL (128) and cholesterol/BP management. Continue to stay compliant with medications and take daily. Continue to get adequate exercise/physical activity within limitations. Using PAP nightly. Sometimes feels the mask is leaking but just tightens it and it is fine. Now has a really soft mask but has not had any change in facial pressure. Does not feel like pressure is too high. Sleeps well. Does not feel drowsy. Still having pressure across her forehead and across her nose. Occasional sharp pain above R eye. Has an aortic valve leak. Will be going for echocardiogram. Tomorrow has a renal scan. States function is low. Has to self cath twice per day. Will determine if there is improvement since self cath tomorrow. Blood work done recently. Does not results with her today. Currently taking Lyrica 50mg BID. Denies SE. Reports some balance problems. Denies neck pain. Still getting massages. Massage did not help her headache though reports it does help posterior headaches. Tylenol will help her headaches. Will take Tylenol prior to going to bed if she has a headache. Does not grind her teeth or clench her teeth. No jaw pain with headaches. Sometimes will ask her questions that he knows she knows but seems confused. Her states these episodes are scary sometimes. In a few hours will return back to normal. Happens once every five days but can vary. Always occurs with a headache. Will start crying when this happens. Pt tearful in office. States head doesn't even hurt that bad; just pressure build up. Can have pressure headaches without associated memory. No associated loss of vision, blurred vision, floaters with headaches. R eye with mac degen. Sometimes blurred vision L eye. Denies slurred or garbled speech. Episodes vary; can be afternoon or middle of the night. She remembers that the episodes occur. Head can hurt in the morning as well after taking her PAP mask off. Has not tried a night without the PAP mask to see if pain is still there. No loss of control of b/b. No tongue/cheek biting. No convulsions. Did not try flexeril. Tried Mucinex sinus medication. Not forgetting family or friends namens. Not getting lost in familiar places. Not leaving stove on or forgetting ingredients. Not forgetting medications. Taking 81mg ASA daily. Hx of kidney stone. Denies glaucoma hx. Denies liver issues. *PAP download reviewed. Worn for / days for an average of 6 hours and 52 minutes. Settings 6-12cm H2O. AHI of 4.1. Leak 95th percentile 48. MOCA 05/27/22 Visuospatial/exec (5-5) (4/4) Naming (0-3) (3/3) Memory Words, up to 2 trials: Face, Velvet, Yarsani, Chayito, Red (no points) 5/5 first try, 5/5 second try Attention forwards: 2 1 8 5 4 (0-1) (1/1) Attention backwards: 7 4 2 (0-1) (1/) Tap for the A : F B A C M N A A J K L B A F A K D E A A A J A M O F A A B (1 point if 0 or 1 error) (0/1) Serial subtraction by 7: [id number] (3 points for correct 4 or 5; 2 points for 2 or 3 correct; 1 point for 1 correct) [id number] (04/09) Language: repeat: I only know that Darren is the one to help today (0-1) (02/07) Language: repeat: The cat always hid under the couch when dogs were in the room (0-1) (02/07) Fluency: max words beginning with the letter F (1 point if 11 or more words) lllll lllll l (02/07) Abstraction: practice banana-orange=fruit. Then train-bicycle (1) AND watch-ruler (1) total: (2) (2) Delayed recall: recall words: face, velvet, catholic, chayito, red (0-5) got chayito, red, catholic with clues (2/5) Orientation: date(1), month(1), year(1), day(1), place(1), city(1) max 6 points (07/13) Level of education: add 1 if did not receive more than a HS education +1 Total Score max 29 (25) Hearing impaired (Y or N) Y Vision impaired (Y or N) Y The average MoCA score for MCI is 22 (range 19-25) and the average MoCA score for Mild AD is 16 (11-21). PAST MEDICAL HISTORY Diagnosis Date Abdominal pain, epigastric Acute gastritis without mention of hemorrhage Diarrhea Diverticulosis of colon (without mention of hemorrhage) Hyperparathyroidism (HCC) post removal HYPERTENSION 10/21/2004 Kidney stone on right side LBP (low back pain) 11/27/2011 Osteoarthrosis, unspecified whether generalized or localized, other specified sites ARTHRITIS Sleep apnea Stage 3a chronic kidney disease (HCC) 09/14/[address] [facility] PAST SURGICAL HISTORY Procedure Laterality Date CHOLECYSTECTOMY CHOLECYSTECTOMY COLONOSCOPY FLX DX W/COLLJ SPEC WHEN PFRMD 01/20/05 Colonoscopy EGD TRANSORAL BIOPSY SINGLE/MULTIPLE 06/18/08 KIDNEY STONE SURGERY HX stent in and stent out Feb 2017 PARATHYROIDECTOMY/EXPLORATION PARATHYROIDS 11/04/2014 Current Outpatient Medications on File Prior to Visit Medication Sig pregabalin (LYRICA) 50 mg capsule Take 1 capsule by mouth twice daily for 90 days. CPAP Auto PAP 6-12 cmH2O with humidification (with mask fitting). Lifetime supplies. If fixed pressure necessary than 7 cmH2O with download in 4 weeks. lisinopril (ZESTRIL, PRINIVIL) 20 mg tablet Take 20 mg by mouth once daily. beta-carotene,A,-vits C,E/mins (OCUVITE ORAL) Take by mouth as directed. estradiol (ESTRACE) 0.01 % (0.1 mg/gram) vaginal cream Estradiol (Estrace) 0.01 % (0.1 mg/gram) cream Active 1 GM VAGINAL TWICE A WEEK September 12, 2019 11:02am D-MANNOSE ORAL Take by mouth as directed. aspirin, enteric coated (ASPIRIN, ENTERIC COATED) 81 mg EC tablet Take 1 tablet by mouth once daily. ACETAMINOPHEN (TYLENOL 8 HOUR ORAL) Take 1 tablet by mouth daily at bedtime. No current facility-administered medications on file prior to visit. Social History Tobacco Use Smoking status: Never Smokeless tobacco: Never Substance Use Topics Alcohol use: No Drug use: No ALLERGIES Allergen Reactions Nexium [Esomeprazol* Vomiting Review of Systems: Cardiopulmonary: denies chest pain, palpitations Respiratory: denies shortness of breath GI/: denies recent nausea, vomiting, diarrhea, constipation, incontinence Musculoskeletal: denies weakness, joint ache/pain Back/spine: denies + low back or + cervical pains (pulled muscle in R neck) Neuro: denies tremors, loss of feeling, dizziness, seizure, blackout, paresthesia, facial paresthesia, facial weakness, difficulty in speech, slurring of words, dysarthria, dysphagia, memory loss, + headache, + vision changes (shingles R eye), loss of hearing Physical Exam: 05/27/22 1423 BP: 134/55 Pulse: 74 Resp: 16 Temp: 37 C (98.6 F) SpO2: 95% Weight: 83.9 kg (185 lb) Patient is alert and in no distress. Dress is appropriate. Mood is appropriate Breathing appears regular and unstressed Neurologic examination: MOCA above. CN: Pupils equal and reactive to light, extraocular movements intact with no nystagmus, face is symmetric with no facial droop, hearing intact bilaterally, symmetric elevation of the soft palate, tongue is midline with no deviation, shoulder shrug is symmetric. Motor exam shows 5/5 strength symmetric through the upper and lower extremities in all groups tested. Sensory intact to light touch in all extremities. Vibratory sensation is intact and symmetric all extremities. Deep tendon reflexes are brisk and symmetric at the biceps, brachioradialis, triceps, patella, and achilles bilaterally. Negative Chung's bilaterally. Coordination: No dysmetria on finger to nose. No tremors noted. No drift seen. Gait normal in stance and pattern. Tandem with imbalance. Able to stand on heels and toes. No pain with palpation over bilateral TMJ, temporal region, or occipital region. Labs/studies: Outpatient [employer] 06/26/21: Patient had a min HR of 46 bpm, max HR of 171 bpm, and avg HR of 65 bpm. Predominant underlying rhythm was Sinus Rhythm. 15 Supraventricular Tachycardia runs occurred, the run with the fastest interval lasting 5 beats with a max rate of 171 bpm, the longest lasting 20 beats with an avg rate of 99 bpm. Isolated SVEs were rare (<1.0%), SVE Couplets were rare (<1.0%), and SVE Triplets were rare (<1.0%). Isolated VEs were rare (<1.0%), VE Couplets were rare (<1.0%), and no VE Triplets were present. MRA Neck 07/07/21: MRA Head 07/07/21: EEG 06/01/21: Previously Reviewed: MRI Report MRI BRAIN WO IVCON Exam End: 04/24/2021 8:57 AM (Final result) Narrative: * * *Final Report* * * DATE OF EXAM: Apr 24 2021 8:57AM [id number] - MRI BRAIN WO IVCON / PROCEDURE REASON: multiple diagnoses * * * * Physician Interpretation * * * * EXAMINATION: MRI BRAIN WO IVCON CLINICAL HISTORY: Transient alteration of awareness Transient cerebral ischemia, unspecified type TECHNIQUE: Routine noncontrast MRI protocol including diffusion images. MQ: [id number] COMPARISON: CT head 07/04/2014 RESULT: Acute Change: There is no evidence of restricted diffusion to suggest an acute infarct. Hemorrhage: No evidence of prior parenchymal hemorrhage on the gradient echo images. Mass Lesion/ Mass Effect: No evidence of an intracranial mass or extra-axial fluid collection. No significant mass effect. Chronic Change: Scattered patchy areas of increased T2 and FLAIR signal are present in the supratentorial white matter which is a nonspecific finding but likely represents mild chronic microvascular ischemia. Parenchyma: There is mild to moderate generalized parenchymal volume loss. Remote lacunar infarcts in the right frontal centrum semiovale and left cerebellar hemisphere. Tiny remote cortical infarct in left occipital lobe. Ventricles: Ventriculomegaly corresponds to the degree of parenchymal volume loss. Skull Base: Hypothalamic and pituitary region are grossly normal. Craniocervical junction is normal. No significant marrow replacement process. Vasculature: Major intracranial arterial structures, and dural venous sinuses show typical flow void, suggesting patency by spin echo criteria. Other: The visualized paranasal sinuses and mastoid air cells are clear. The orbits and extracranial soft tissues are unremarkable. Impression: IMPRESSION: No acute intracranial process. No acute infarct. Chronic changes as described including remote infarcts, not discretely seen on the prior CT from 2014, although comparison is difficult due to differences in technique. Winemaker: LUIS DANIEL Transcribe Date/Time: Apr 24 2021 9:13A Dictated by : RED VENTURA MD This examination was interpreted and the report reviewed and electronically signed by: RED VENTURA MD on Apr 24 2021 9:16AM EST Complete Results EEG 06/01/21 ([facility]): No focal, lateralized, nor epileptiform abnormalities noted. Unremarkable waking EEG. Echo 04/14/21 ([facility]): Normal LV size. Left ventricular systolic function is normal. The estimated EF is 60%. State 1 diastolic dysfunction. Mild (1+) ecentric aortic valve insufficiency. Contrast injection was performed. Component Latest Ref Rng & Units 02/24/2021 WSR 0 - 20 mm/hr 38 (H) CRP <0.9 mg/dL 0.5 Previously Reviewed: HSAT 03/18/21: IMPRESSION/RECOMMENDATIONS: 1. This study confirms a diagnosis of at least mild obstructive sleep apnea. 2. The results of this study may represent an underestimation of the degree of obstructive sleep apnea, especially hypopneas, because of the known limitations of HSAT, such as inability to record arousals because EEG is not recorded. 3. Treatment of mild sleep apnea can include weight loss, positional therapy, treatment of allergies, oral appliance therapy or ENT evaluation of any airway abnormalities. PAP therapy may be considered in patients with documented symptoms of daytime sleepiness, impaired cognition, mood disorder, insomnia, or documented hypertension, ischemic heart disease, or history of stroke. MRI Brain WO 02/16/16: ESSENTIALLY NORMAL EXAMINATION WITH MINIMAL VOLUME LOSS FOR THE PATIENT'S CHRONOLOGIC AGE. Component Latest Ref Rng & Units 09/04/2020 02/24/2021 Protein, Total 6.3 - 8.0 g/dL 7.2 Albumin 3.9 - 4.9 g/dL 4.4 Calcium 8.5 - 10.2 mg/dL 9.4 Bilirubin, Total 0.2 - 1.3 mg/dL 0.3 Alkaline Phosphatase 34 - 123 U/L 57 AST 13 - 35 U/L 18 Glucose 74 - 99 mg/dL 115 (H) BUN 7 - 21 mg/dL 28 (H) Creatinine 0.58 - 0.96 mg/dL 1.16 (H) Sodium 136 - 144 mmol/L 141 Potassium 3.7 - 5.1 mmol/L 4.5 Chloride 97 - 105 mmol/L 104 CO2 22 - 30 mmol/L 25 Anion Gap 9 - 18 mmol/L 12 ALT 7 - 38 U/L 12 eGFR- 55 eGFR-All Other Races . 46 Total Cholesterol, Nonfasting <200 mg/dL 217 (H) Triglycerides, Nonfasting <150 mg/dL 134 HDL Cholesterol, Nonfasting >39 mg/dL 62 LDL Cholesterol, Nonfasting <100 mg/dL 128 (H) Non HDL Cholesterol, Nonfasting <130 mg/dL 155 (H) VLDL Cholesterol, Nonfasting <30 mg/dL 27 Total Chol/HDL Ratio, Nonfasting <5.10 mg/dL 3.50 LDL/HDL Ratio, Nonfasting <2.54 mg/dL 2.06 Vitamin D 25 Hydroxy 31.0 - 80.0 ng/mL 35.1 WSR 0 - 20 mm/hr 38 (H) CRP <0.9 mg/dL 0.5 Assessment/Plan: R51.9, G89.29 Chronic intractable headache, unspecified headache type (primary encounter diagnosis) M54.81 Occipital neuralgia of right side M54.2 Cervicalgia Comment: 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 MRI completed after onset in 2017 in addition to MRI completed since previous visit unremarkable for etiology. Headaches still presenting as a band radiating around her head and frontally. Also noting pressure across the bridge of her nose. She does note posterior headaches have improved with use of massage. Today, she reports that headaches are still occurring frequently. Attempted to change PAP mask without relief of sx. Headaches are relieved with Tylenol and not associated with weakness, vision changes, speech changes. However, she does report that occasionally headaches are associated with memory changes (see below). She is currently taking Lyrica 50mg BID as daily headache preventative. Discussed increasing dose verses alternative medication (consider VPA, Cymbalta if CMP WNL). Pt reports recent renal issues but no recent lab work available. She will obtain results and bring them to the office tomorrow for review at which time medication changes will be determined. If unable to make medication changes would recommend consult to the headache clinic. G47.33 JENNIFER (obstructive sleep apnea) Comment: Pt reports PAP compliance. Download reviewed as noted above. AHI essentially normalized. Mask leak slightly elevated, however, pt [facility] [place] [facility] [place] and denies concerns regarding mask. Continue to stay complaint with PAP. R40.4 Transient alteration of awareness R41.3 Memory change Comment: Patient previously reporting multiple episodes where she has lost periods of time since 2018. At the time of her previous appointment she had not had any further episodes, however, today she reports multiple episodes since September at which time she experiences confusion and worsening of her headache. Previous testing included EEG which was unremarkable as well as MRI of brain which noted multiple remote infarcts. MRA was unremarkable. She continues to take ASA 81 mg regularly. As recent concerns involve confusion and memory issues, MoCA was completed in the office today with score of 25/29. For further evaluation of episodes will repeat MRI brain to rule out new stroke. Will also proceed with formal neurocognitive testing to assess cognitive deficits. Office Visit on 05/27/22 MRI BRAIN WO IVCON NEUROPSYCHOLOGICAL TESTING CONSULT Krista Rice APRN.NUNU I spent a total of 55 minutes on the date of the service which included preparing to see the patient, [id number] patient care, completing clinical documentation, obtaining and/or reviewing separately obtained history, performing a medically appropriate examination, and counseling and educating the patient/family/caregiver. documented in this encounter [facility] 04-01-2022 Miscellaneous Notes Patient contacted through to see if concerns were addressed regarding Flexeril. Will watch for patient reply. Pauly Broussard LPN documented in this encounter [facility] 03-10-2022 Miscellaneous Notes Spoke with patient regarding pressure. Patient reporting pain and pressure around forehead and nose/sinus that occurs when taking her mask off. During phone call she is having pain across her nose. States she has had increased stress due to recent kidney failure diagnosis. Has been doing self cath. Has appointment scheduled to review mask fit Tuesday. Will also be going to massage therapist soon. Did increase Lyrica since time of previous appointment and taking 50mg BID. After discussion she will go to mask fitting and massage. If pain persists may attempt PT or low dose of muscle relaxant prn at bedtime. She will update the office on Tuesday after mask fitting. 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 MRI completed after onset in 2017 in addition to MRI completed since previous visit unremarkable for etiology. Headaches still presenting as a band radiating around her head and frontally. Can also be associated with neck stiffness and still occurring upon waking. Additional new headaches as noted below. She has since completed PT for cervical pains and at last appointment noted improvement in WEST. However, today she reports headaches are again occurring frequently. She is currently taking gabapentin 100mg BID. Will avoid increasing medication dose as she reports she can feel off balance and dizzy, though uncertain if related to timing of gabapentin. Instead, will DC gabapentin and transition to Lyrica 25mg BID. SE reviewed. G47.33 JENNIFER (obstructive sleep apnea) Comment: Pt currently using PAP regularly. She reports improved sleep overnight and without frequent awakenings. However, she still reports feeling tired during the day and will nap for short periods of time. She also reports headaches upon waking which, per patient description begin under the eyes and at the bridge of the nose. Currently using a FFM and concern that mask possibly contributing to facial/head pain as she reports it feels very tight. Download reviewed as per above. Will forward to Dr. Stoddard. Discussed possibly considering alternative mask and pt agreeable. R40.4 Transient alteration of awareness Comment: Patient previously reporting multiple episodes where she has lost periods of time since 2019. She has not had any further episodes since time of previous appointment (last episode per report was in April). Testing completed included EEG which was unremarkable. MRI of brain noting multiple remote infarcts nor previously seen on imaging from 2017 and concern that events may be related to MRI findings. MRA brain/neck completed in interim and unremarkable. Outpt radiation monitor also completed without evidence of afib but noting SVT; recommendation made to follow with her facilities maintenance assistant. Goals remain BP <140/90 and BG <140. She continues to take ASA regularly. Recommend follow up with PCP regarding LDL (128) and cholesterol/BP management. Continue to stay compliant with medications and take daily. Continue to get adequate exercise/physical activity within limitations. documented in this encounter [facility] 12-11-2021 Note HNO ID: [id number] Author: Willi Romero APRN.[employer] TECHNICIAN Service: ? Author Type: Nurse Practitioner Type: Progress Notes Filed: 12/11/2021 8:32 AM Note Text: pre [facility] 12-08-2021 Miscellaneous Notes Message relayed to patient. Patient requesting a phone call with date that she can refill/package pick up medication. Images from the original note were not included. Per My Chart encounter dated 11/08/21 Yris Bunch MD to Annette Hair 2:56 PM Tremaine Bryant, I am covering for Dr. Stoddard. It looks like you are taking Lyrica 25 mg, 2 capsules twice daily. If you feel taking a partial dose around 4PM would be helpful, I suggest taking 1 capsule at 4PM and then another at your usual bedtime dose. This would spread out the dose but keep it to 4 capsules per day as you have been taking. If you take extra then you will run short. Hope you have a nice time away. Yris Bunch MD At this current dose of 4 capsules twice daily it is not too early to fill. Message left on patient's voicemail to call office for update concerning too early for Lyrica RX. Requested Prescriptions Refused Prescriptions Disp Refills pregabalin (LYRICA) 25 mg capsule 120 capsule 2 Sig: Take 2 capsules by mouth twice daily for 90 days. Refused By: SMILEY STODDARD Reason for Refusal: Patient has requested refill too soon Shelby Ragsdale LPN Patient phones requesting refills as follows: Requested Prescriptions Pending Prescriptions Disp Refills pregabalin (LYRICA) 25 mg capsule 120 capsule 2 Sig: Take 2 capsules by mouth twice daily for 90 days. Please review and advise. Monica Mc LPN documented in this encounter [facility] 11-16-2021 Miscellaneous Notes VIJAYA: 09/24/21 NOV: none scheduled at this time Return in about 3 months (around 12/25/2021). 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 MRI completed after onset in 2017 in addition to MRI completed since previous visit unremarkable for etiology. Headaches still presenting as a band radiating around her head and frontally. Can also be associated with neck stiffness and still occurring upon waking. Additional new headaches as noted below. She has since completed PT for cervical pains and at last appointment noted improvement in WEST. However, today she reports headaches are again occurring frequently. She is currently taking gabapentin 100mg BID. Will avoid increasing medication dose as she reports she can feel off balance and dizzy, though uncertain if related to timing of gabapentin. Instead, will DC gabapentin and transition to Lyrica 25mg BID. SE reviewed. G47.33 JENNIFER (obstructive sleep apnea) Comment: Pt currently using PAP regularly. She reports improved sleep overnight and without frequent awakenings. However, she still reports feeling tired during the day and will nap for short periods of time. She also reports headaches upon waking which, per patient description begin under the eyes and at the bridge of the nose. Currently using a FFM and concern that mask possibly contributing to facial/head pain as she reports it feels very tight. Download reviewed as per above. Will forward to Dr. Stoddard. Discussed possibly considering alternative mask and pt agreeable. R40.4 Transient alteration of awareness Comment: Patient previously reporting multiple episodes where she has lost periods of time since 2019. She has not had any further episodes since time of previous appointment (last episode per report was in April). Testing completed included EEG which was unremarkable. MRI of brain noting multiple remote infarcts nor previously seen on imaging from 2017 and concern that events may be related to MRI findings. MRA brain/neck completed in interim and unremarkable. Outpt radiation monitor also completed without evidence of afib but noting SVT; recommendation made to follow with her facilities maintenance assistant. Goals remain BP <140/90 and BG <140. She continues to take ASA regularly. Recommend follow up with PCP regarding LDL (128) and cholesterol/BP management. Continue to stay compliant with medications and take daily. Continue to get adequate exercise/physical activity within limitations. Krista Rice APRN.[employer] TECHNICIAN documented in this encounter [facility] 09-24-2021 Note HNO ID: [id number] Author: Krista Rice APRN.[employer] TECHNICIAN Service: ? Author Type: Nurse Practitioner Type: Progress Notes Filed: 09/28/2021 11:12 AM Note Text: [facility] [place] Follow-up Visit Follow-up note September 24, 2021 HPI: Ms. Hair presents today for a follow-up visit. 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 MRI completed after onset in 2017 in addition to MRI completed since previous visit unremarkable for etiology. Headaches presenting as a band that radiates frontally and can be associated with neck stiffness, often occurring upon waking. Previously started on gabapentin 100mg TID. Also completed PT for cervical pains. Today she reports significant improvement in headaches. Occasionally will have AM headache which can be relieved with use of OTC medication. Note, she has also recently begun using PAP device and will await further use of machine to determine if further improvement in headaches. Will continue gabapentin as previously prescribed. G47.33 JENNIFER (obstructive sleep apnea) Comment: Recently began using PAP as of one week ago. No notable changes in symptoms as of this time, however, she does report improvement of sleep and ability to sleep through the night. Continue to follow with sleep medicine as scheduled. R40.4 Transient alteration of awareness I63.9 Cerebrovascular accident (CVA), unspecified mechanism (HCC) Comment: Patient previously reporting multiple episodes where she has lost periods of time since 2019. As of last appointment last episode was in December of 2020, however, she does report one more recent episode occurring at the beginning of April. EEG completed in interim and without finding of seizure or epileptic abnormalities. MRI of brain also completed and without acute infarct, however, imaging did note multiple remote infarcts not noted on imaging in 2017. She is currently taking ASA 81mg. Will proceed with further workup including outpatient radiation monitor and MRA brain/neck (given history of kidney disease). Note, recent echo completed on 04/14/21. Recommend goal BP <140/90 and BS <140. Pt reports recent LDL completed by PCP outside [facility]. Recommend continued follow up for BP and cholesterol management. Continue to stay compliant with medications and take daily. Continue to get adequate exercise/physical activity within limitations. F40.240 Claustrophobia Comment: Pt w/hx of claustrophobia and will provide pt with Ativan 0.5mg 30 min prior to MRI. Pt advised not to drive after taking Ativan dose. Has been wearing CPAP. States she still feels tired and sleepy and can fall asleep in the afternoon. Does not wake up often overnight. Wakes up once to urinate. Does not feel like mask is leaking. Not certain if pressure needs to be changed. Naps for roughly 15 minutes per day. Has been waking up every morning with a headache. States it usually on the R and under her eyes will hurt. Notes pain across the bridge of her nose and under her eyes. Was going to start an allergy medication but did not. Still taking gabapentin BID; AM and PM. States she feels off balance with a headache. Denies vertigo. Does not feel it is related to timing of medication. Headaches persist throughout the day. Can still feel like a band around the head. Feels like a pressure. Denies vision changes with headaches. Has not had any episodes of loss of memory or periods of time for some time; has been many months. Still taking ASA 81mg QHS. Not currently taking cholesterol medication. Still doing home exercise program with PT. Also going to massage therapist. *PAP download reviewed. Worn for 88/90 days for an average of 6 hours and 19 minutes. Settings 6-12cm H2O. AHI of 4.9. Leak 95th percentile 8.4. PAST MEDICAL HISTORY Diagnosis Date Abdominal pain, epigastric Acute gastritis without mention of hemorrhage Diarrhea Diverticulosis of colon (without mention of hemorrhage) Hyperparathyroidism (HCC) post removal HYPERTENSION 10/21/2004 Kidney stone on right side LBP (low back pain) 11/27/2011 Osteoarthrosis, unspecified whether generalized or localized, other specified sites ARTHRITIS Sleep apnea Stage 3a chronic kidney disease (HCC) 09/14/2020 Patient to [facility] PAST SURGICAL HISTORY Procedure Laterality Date CHOLECYSTECTOMY CHOLECYSTECTOMY COLONOSCOPY FLX DX W/COLLJ SPEC WHEN PFRMD 01/20/05 Colonoscopy EGD TRANSORAL BIOPSY SINGLE/MULTIPLE 06/18/08 KIDNEY STONE SURGERY HX stent in and stent out Feb 2017 PARATHYROIDECTOMY/EXPLORATION PARATHYROIDS 11/04/2014 Current Outpatient Medications on File Prior to Visit Medication Sig CPAP Auto PAP 6-12 cmH2O with humidification (with mask fit (more content not included)... [facility] 09-24-2021 History of Present illness Narrative Images from the original note were not included. [facility] [place] Follow-up Visit Follow-up note September 24, 2021 HPI: Ms. Hair presents today for a follow-up visit. 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 MRI completed after onset in 2017 in addition to MRI completed since previous visit unremarkable for etiology. Headaches presenting as a band that radiates frontally and can be associated with neck stiffness, often occurring upon waking. Previously started on gabapentin 100mg TID. Also completed PT for cervical pains. Today she reports significant improvement in headaches. Occasionally will have AM headache which can be relieved with use of OTC medication. Note, she has also recently begun using PAP device and will await further use of machine to determine if further improvement in headaches. Will continue gabapentin as previously prescribed. G47.33 JENNIFER (obstructive sleep apnea) Comment: Recently began using PAP as of one week ago. No notable changes in symptoms as of this time, however, she does report improvement of sleep and ability to sleep through the night. Continue to follow with sleep medicine as scheduled. R40.4 Transient alteration of awareness I63.9 Cerebrovascular accident (CVA), unspecified mechanism (HCC) Comment: Patient previously reporting multiple episodes where she has lost periods of time since 2019. As of last appointment last episode was in December of 2020, however, she does report one more recent episode occurring at the beginning of April. EEG completed in interim and without finding of seizure or epileptic abnormalities. MRI of brain also completed and without acute infarct, however, imaging did note multiple remote infarcts not noted on imaging in 2017. She is currently taking ASA 81mg. Will proceed with further workup including outpatient radiation monitor and MRA brain/neck (given history of kidney disease). Note, recent echo completed on 04/14/21. Recommend goal BP <140/90 and BS <140. Pt reports recent LDL completed by PCP outside [facility]. Recommend continued follow up for BP and cholesterol management. Continue to stay compliant with medications and take daily. Continue to get adequate exercise/physical activity within limitations. F40.240 Claustrophobia Comment: Pt w/hx of claustrophobia and will provide pt with Ativan 0.5mg 30 min prior to MRI. Pt advised not to drive after taking Ativan dose. Has been wearing CPAP. States she still feels tired and sleepy and can fall asleep in the afternoon. Does not wake up often overnight. Wakes up once to urinate. Does not feel like mask is leaking. Not certain if pressure needs to be changed. Naps for roughly 15 minutes per day. Has been waking up every morning with a headache. States it usually on the R and under her eyes will hurt. Notes pain across the bridge of her nose and under her eyes. Was going to start an allergy medication but did not. Still taking gabapentin BID; AM and PM. States she feels off balance with a headache. Denies vertigo. Does not feel it is related to timing of medication. Headaches persist throughout the day. Can still feel like a band around the head. Feels like a pressure. Denies vision changes with headaches. Has not had any episodes of loss of memory or periods of time for some time; has been many months. Still taking ASA 81mg QHS. Not currently taking cholesterol medication. Still doing home exercise program with PT. Also going to massage therapist. *PAP download reviewed. Worn for 88/90 days for an average of 6 hours and 19 minutes. Settings 6-12cm H2O. AHI of 4.9. Leak 95th percentile 8.4. PAST MEDICAL HISTORY Diagnosis Date Abdominal pain, epigastric Acute gastritis without mention of hemorrhage Diarrhea Diverticulosis of colon (without mention of hemorrhage) Hyperparathyroidism (HCC) post removal HYPERTENSION 10/21/2004 Kidney stone on right side LBP (low back pain) 11/27/2011 Osteoarthrosis, unspecified whether generalized or localized, other specified sites ARTHRITIS Sleep apnea Stage 3a chronic kidney disease (HCC) 09/14/2020 [facility] Procedure Laterality Date CHOLECYSTECTOMY CHOLECYSTECTOMY COLONOSCOPY FLX DX W/COLLJ SPEC WHEN PFRMD 01/20/05 Colonoscopy EGD TRANSORAL BIOPSY SINGLE/MULTIPLE 06/18/08 KIDNEY STONE SURGERY HX stent in and stent out Feb 2017 PARATHYROIDECTOMY/EXPLORATION PARATHYROIDS 11/04/2014 Current Outpatient Medications on File Prior to Visit Medication Sig CPAP Auto PAP 6-12 cmH2O with humidification (with mask fitting). Lifetime supplies. If fixed pressure necessary than 7 cmH2O with download in 4 weeks. gabapentin (NEURONTIN) 100 mg capsule Take 1 capsule by mouth three times daily for 90 days. lisinopril (ZESTRIL, PRINIVIL) 20 mg tablet Take 20 mg by mouth once daily. beta-carotene,A,-vits C,E/mins (OCUVITE ORAL) Take by mouth as directed. estradiol (ESTRACE) 0.01 % (0.1 mg/gram) vaginal cream Estradiol (Estrace) 0.01 % (0.1 mg/gram) cream Active 1 GM VAGINAL TWICE A WEEK September 12, 2019 11:02am D-MANNOSE ORAL Take by mouth as directed. aspirin, enteric coated (ASPIRIN, ENTERIC COATED) 81 mg EC tablet Take 1 tablet by mouth once daily. ACETAMINOPHEN (TYLENOL 8 HOUR ORAL) Take 1 tablet by mouth daily at bedtime. No current facility-administered medications on file prior to visit. Social History Tobacco Use Smoking status: Never Smokeless tobacco: Never Substance Use Topics Alcohol use: No Drug use: No ALLERGIES Allergen Reactions Nexium [Esomeprazol* Vomiting Review of Systems: Cardiopulmonary: denies chest pain, palpitations Respiratory: denies shortness of breath GI/: denies recent nausea, vomiting, diarrhea, constipation, incontinence Musculoskeletal: denies weakness, joint ache/pain Back/spine: denies + low back or + cervical pains (pulled muscle in R neck) Neuro: denies tremors, loss of feeling, dizziness, seizure, blackout, paresthesia, facial paresthesia, facial weakness, difficulty in speech, slurring of words, dysarthria, dysphagia, memory loss, + headache, + vision changes (shingles R eye), loss of hearing Physical Exam: 09/24/21 1046 BP: 122/74 Pulse: (!) 54 Resp: 18 Temp: 36.8 C (98.3 F) SpO2: 99% Weight: 79 kg (174 lb 3.2 oz) Patient is alert and in no distress. Dress is appropriate. Mood is appropriate Breathing appears regular and unstressed Neurologic examination: Cognitively intact. No deficits. No formal MMSE performed. CN: Pupils equal and reactive to light, extraocular movements intact with no nystagmus, face is symmetric with no facial droop, hearing intact bilaterally, symmetric elevation of the soft palate, tongue is midline with no deviation, shoulder shrug is symmetric. Motor exam shows 5/5 strength symmetric through the upper and lower extremities in all groups tested. Sensory intact to light touch in all extremities. Vibratory sensation is intact and symmetric all extremities. Deep tendon reflexes are brisk and symmetric at the biceps, brachioradialis, triceps, patella, and achilles bilaterally. Coordination: No dysmetria on finger to nose. No tremors noted. No drift seen. Gait normal in stance and pattern. Labs/studies: Outpatient [employer] 06/26/21: Patient had a min HR of 46 bpm, max HR of 171 bpm, and avg HR of 65 bpm. Predominant underlying rhythm was Sinus Rhythm. 15 Supraventricular Tachycardia runs occurred, the run with the fastest interval lasting 5 beats with a max rate of 171 bpm, the longest lasting 20 beats with an avg rate of 99 bpm. Isolated SVEs were rare (<1.0%), SVE Couplets were rare (<1.0%), and SVE Triplets were rare (<1.0%). Isolated VEs were rare (<1.0%), VE Couplets were rare (<1.0%), and no VE Triplets were present. MRA Neck 07/07/21: MRA Head 07/07/21: EEG 06/01/21: Previously Reviewed: MRI Report MRI BRAIN WO IVCON Exam End: 04/24/2021 8:57 AM (Final result) Narrative: * * *Final Report* * * DATE OF EXAM: Apr 24 2021 8:57AM [id number] - MRI BRAIN WO IVCON / PROCEDURE REASON: multiple diagnoses * * * * Physician Interpretation * * * * EXAMINATION: MRI BRAIN WO IVCON CLINICAL HISTORY: Transient alteration of awareness Transient cerebral ischemia, unspecified type TECHNIQUE: Routine noncontrast MRI protocol including diffusion images. MQ: [id number] COMPARISON: CT head 07/04/2014 RESULT: Acute Change: There is no evidence of restricted diffusion to suggest an acute infarct. Hemorrhage: No evidence of prior parenchymal hemorrhage on the gradient echo images. Mass Lesion/ Mass Effect: No evidence of an intracranial mass or extra-axial fluid collection. No significant mass effect. Chronic Change: Scattered patchy areas of increased T2 and FLAIR signal are present in the supratentorial white matter which is a nonspecific finding but likely represents mild chronic microvascular ischemia. Parenchyma: There is mild to moderate generalized parenchymal volume loss. Remote lacunar infarcts in the right frontal centrum semiovale and left cerebellar hemisphere. Tiny remote cortical infarct in left occipital lobe. Ventricles: Ventriculomegaly corresponds to the degree of parenchymal volume loss. Skull Base: Hypothalamic and pituitary region are grossly normal. Craniocervical junction is normal. No significant marrow replacement process. Vasculature: Major intracranial arterial structures, and dural venous sinuses show typical flow void, suggesting patency by spin echo criteria. Other: The visualized paranasal sinuses and mastoid air cells are clear. The orbits and extracranial soft tissues are unremarkable. Impression: IMPRESSION: No acute intracranial process. No acute infarct. Chronic changes as described including remote infarcts, not discretely seen on the prior CT from 2014, although comparison is difficult due to differences in technique. Winemaker: [facility] Transcribe Date/Time: Apr 24 2021 9:13A Dictated by : RED VENTURA MD This examination was interpreted and the report reviewed and electronically signed by: RED VENTURA MD on Apr 24 2021 9:16AM EST Complete Results EEG 06/01/21 ([facility]): No focal, lateralized, nor epileptiform abnormalities noted. Unremarkable waking EEG. Echo 04/14/21 ([facility]): Normal LV size. Left ventricular systolic function is normal. The estimated EF is 60%. State 1 diastolic dysfunction. Mild (1+) ecentric aortic valve insufficiency. Contrast injection was performed. Component Latest Ref Rng & Units 02/24/2021 WSR 0 - 20 mm/hr 38 (H) CRP <0.9 mg/dL 0.5 Previously Reviewed: HSAT 03/18/21: IMPRESSION/RECOMMENDATIONS: 1. This study confirms a diagnosis of at least mild obstructive sleep apnea. 2. The results of this study may represent an underestimation of the degree of obstructive sleep apnea, especially hypopneas, because of the known limitations of HSAT, such as inability to record arousals because EEG is not recorded. 3. Treatment of mild sleep apnea can include weight loss, positional therapy, treatment of allergies, oral appliance therapy or ENT evaluation of any airway abnormalities. PAP therapy may be considered in patients with documented symptoms of daytime sleepiness, impaired cognition, mood disorder, insomnia, or documented hypertension, ischemic heart disease, or history of stroke. MRI Brain WO 02/16/16: ESSENTIALLY NORMAL EXAMINATION WITH MINIMAL VOLUME LOSS FOR THE PATIENT'S CHRONOLOGIC AGE. Component Latest Ref Rng & Units 09/04/2020 02/24/2021 Protein, Total 6.3 - 8.0 g/dL 7.2 Albumin 3.9 - 4.9 g/dL 4.4 Calcium 8.5 - 10.2 mg/dL 9.4 Bilirubin, Total 0.2 - 1.3 mg/dL 0.3 Alkaline Phosphatase 34 - 123 U/L 57 AST 13 - 35 U/L 18 Glucose 74 - 99 mg/dL 115 (H) BUN 7 - 21 mg/dL 28 (H) Creatinine 0.58 - 0.96 mg/dL 1.16 (H) Sodium 136 - 144 mmol/L 141 Potassium 3.7 - 5.1 mmol/L 4.5 Chloride 97 - 105 mmol/L 104 CO2 22 - 30 mmol/L 25 Anion Gap 9 - 18 mmol/L 12 ALT 7 - 38 U/L 12 eGFR- 55 eGFR-All Other Races . 46 Total Cholesterol, Nonfasting <200 mg/dL 217 (H) Triglycerides, Nonfasting <150 mg/dL 134 HDL Cholesterol, Nonfasting >39 mg/dL 62 LDL Cholesterol, Nonfasting <100 mg/dL 128 (H) Non HDL Cholesterol, Nonfasting <130 mg/dL 155 (H) VLDL Cholesterol, Nonfasting <30 mg/dL 27 Total Chol/HDL Ratio, Nonfasting <5.10 mg/dL 3.50 LDL/HDL Ratio, Nonfasting <2.54 mg/dL 2.06 Vitamin D 25 Hydroxy 31.0 - 80.0 ng/mL 35.1 WSR 0 - 20 mm/hr 38 (H) CRP <0.9 mg/dL 0.5 Assessment/Plan: R51.9, G89.29 Chronic intractable headache, unspecified headache type (primary encounter diagnosis) M54.81 Occipital neuralgia of right side M54.2 Cervicalgia Comment: 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 MRI completed after onset in 2017 in addition to MRI completed since previous visit unremarkable for etiology. Headaches still presenting as a band radiating around her head and frontally. Can also be associated with neck stiffness and still occurring upon waking. Additional new headaches as noted below. She has since completed PT for cervical pains and at last appointment noted improvement in WEST. However, today she reports headaches are again occurring frequently. She is currently taking gabapentin 100mg BID. Will avoid increasing medication dose as she reports she can feel off balance and dizzy, though uncertain if related to timing of gabapentin. Instead, will DC gabapentin and transition to Lyrica 25mg BID. SE reviewed. G47.33 JENNIFER (obstructive sleep apnea) Comment: Pt currently using PAP regularly. She reports improved sleep overnight and without frequent awakenings. However, she still reports feeling tired during the day and will nap for short periods of time. She also reports headaches upon waking which, per patient description begin under the eyes and at the bridge of the nose. Currently using a FFM and concern that mask possibly contributing to facial/head pain as she reports it feels very tight. Download reviewed as per above. Will forward to Dr. Stoddard. Discussed possibly considering alternative mask and pt agreeable. R40.4 Transient alteration of awareness Comment: Patient previously reporting multiple episodes where she has lost periods of time since 2019. She has not had any further episodes since time of previous appointment (last episode per report was in April). Testing completed included EEG which was unremarkable. MRI of brain noting multiple remote infarcts nor previously seen on imaging from 2017 and concern that events may be related to MRI findings. MRA brain/neck completed in interim and unremarkable. Outpt radiation monitor also completed without evidence of afib but noting SVT; recommendation made to follow with her facilities maintenance assistant. Goals remain BP <140/90 and BG <140. She continues to take ASA regularly. Recommend follow up with PCP regarding LDL (128) and cholesterol/BP management. Continue to stay compliant with medications and take daily. Continue to get adequate exercise/physical activity within limitations. Krista Rice APRN.NUNU I spent a total of 45 minutes on the date of the service which included preparing to see the patient, [id number] patient care, completing clinical documentation, obtaining and/or reviewing separately obtained history, performing a medically appropriate examination, counseling and educating the patient/family/caregiver, and ordering medications, tests, or procedures. documented in this encounter [facility] 07-22-2021 Miscellaneous Notes Pt requesting Zio report to be faxed to Dr Beck's office. Report faxed to [phone]. Sherrie Holloway LPN documented in this encounter [facility] 07-10-2021 Miscellaneous Notes Updated patient via [employer]. Shelby Ragsdale LPN Per reports all testing was unremarkable. Smiley Stoddard MD PAP Compliance report from 05/25/21 to present, EEG results and MRA of Neck and Head scanned into [employer] for Provider to review and address as needed. Shelby Ragsdale LPN documented in this encounter [facility] 06-04-2021 Note HNO ID: [id number] Author: Krista Rice APRN.[employer] TECHNICIAN Service: ? Author Type: Nurse Practitioner Type: Progress Notes Filed: 06/04/2021 12:13 PM Note Text: [facility] Neurologic [place] Follow-up Visit Follow-up note June 04, 2021 HPI: Ms. Hair presents today for a follow-up visit. 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 Previous MRI completed in 2017 (after onset of headaches) unremarkable for etiology. ESR and CRP previously ordered but not yet completed. Today she reports headaches can also present as a band radiating frontally and can be associated with neck stiffness. Headaches also occur often in the morning upon waking. Also reports episode of double vision with headache. Previously started on gabapentin 100mg TID with improvement in symptoms. Continues to take Tylenol OTC prn with relief of symptoms as well. Given vision changes in addition to events noted below, will proceed with MRI brain for further work up. See below. Also as noted below, will be starting PAP therapy with possible improvement in headaches as they often occur in the AM upon waking. Discussed changes to medications today, however, will await PAP and MRI of brain prior to making adjustments. ? G47.33 JENNIFER (obstructive sleep apnea) Comment: Past history of JENNIFER with more recent HSAT reporting diagnosis of at least mild sleep apnea. Pt reports use of PAP therapy in the past but stopped using machine roughly one year ago. Today she reports daytime fatigue, snoring, and frequent napping. Past sleep studies available and reviewed as well. After discussion with Dr. Stoddard, will start on auto PAP 5-15 cmH2O with humidification. Pt to schedule follow up with sleep medicine for review after initiation of PAP therapy. ? R40.4 Transient alteration of awareness Comment: Patient reporting multiple episodes where she has lost periods of time. Episodes began in 2018 and have occurred periodically since that time up until December of 2020 when she experienced the last episode. Has not happened since that time. Episodes last from a few minutes to an hour and can occur a few days in a row or months apart. Does note that episodes can be associated with a headache. Last MRI of brain was completed in 02/2016 and was unremarkable, however, events began to occur after imaging completed. At this time will proceed with repeat MRI of brain to evaluate for stroke and EEG to rule out seizure. Pt reports claustrophobia and will provide pt with Ativan 0.5mg 30 min prior to MRI. ?Pt advised not to drive after taking Ativan dose. Headaches have been much better. Will occasionally have a headache in the morning upon waking and will take an Advil and this will provide relief of headache. Still notes some neck stiffness. Has been using cream on her neck which helps with the pain. Still taking gabapentin. Would have vertigo prior to taking the gabapentin. Can now have occasional periods of lightheadedness. Currently taking gabapentin 100mg TID. She started CPAP one week ago. Unsure if this is affecting headache. Now using the nasal pillows instead of the full mask. Feels like she is able to tolerate the mask better the longer she wears it. Once she falls asleep she doesn't wake up until 5am. Has not had an episode where she has lost any periods of time, however, then states the last time this happened was when her sister in law passed at the beginning of April of this year. She states that this was the only time this has happened in the past few weeks. Had EEG completed through [facility] this week. Recently had follow up with PCP. Had cholesterol checked in April. Follows with outside cardiology and had echo within the past month. No other new neurological symptoms including speech/vision changes, focal weakness. PAST MEDICAL HISTORY Diagnosis Date - Abdominal pain, epigastric - Acute gastritis without mention of hemorrhage - Diarrhea - Diverticulosis of colon (without mention of hemorrhage) - Hyperparathyroidism (HCC) post removal - HYPERTENSION 10/21/2004 - Kidney stone on right side - LBP (low back pain) 11/27/2011 - Osteoarthrosis, unspecified whether generalized or localized, other specified sites ARTHRITIS - Sleep apnea - Stage 3a chronic kidney disease (HCC) 09/14/2020 Patient to [facility] - Vertigo PAST SURGICAL HISTORY Procedure Laterality Date - CHOLECYSTECTOMY CHOLECYSTECTOMY - COLONOSCOPY FLX DX W/COLLJ SPEC WHEN PFRMD 01/20/05 Colonoscopy - EGD TRANSORAL BIOPSY SINGLE/MULTIPLE 06/18/08 - KIDNEY STONE SURGERY HX stent in and stent out Feb 2017 - PARATHYROIDECTOMY/EXPLORATION PARATHYROIDS 11/04/2014 Current Outpatient Medications on File Prior to Visit Me (more content not included)... [facility] 06-04-2021 Note HNO ID: [id number] Author: Oksana Paz MD Service: Interventional Cardiology Author Type: Physician Type: Procedures Filed: 07/10/2021 2:22 PM Note Text: Patient Name: Annette Hair : 1945 Ordering Provider: KRISTA RICE Indication: I63.9 Cerebral infarction, unspecified Type of Monitor: Extended Monitoring-Zio Patch Enrollment Dates: 06/07/2021-06/21/2021 [facility] 06-04-2021 History of Present illness Narrative Images from the original note were not included. [facility] Neurologic [place] Follow-up Visit Follow-up note June 04, 2021 HPI: Ms. Hair presents today for a follow-up visit. 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 Previous MRI completed in 2017 (after onset of headaches) unremarkable for etiology. ESR and CRP previously ordered but not yet completed. Today she reports headaches can also present as a band radiating frontally and can be associated with neck stiffness. Headaches also occur often in the morning upon waking. Also reports episode of double vision with headache. Previously started on gabapentin 100mg TID with improvement in symptoms. Continues to take Tylenol OTC prn with relief of symptoms as well. Given vision changes in addition to events noted below, will proceed with MRI brain for further work up. See below. Also as noted below, will be starting PAP therapy with possible improvement in headaches as they often occur in the AM upon waking. Discussed changes to medications today, however, will await PAP and MRI of brain prior to making adjustments. G47.33 JENNIFER (obstructive sleep apnea) Comment: Past history of JENNIFER with more recent HSAT reporting diagnosis of at least mild sleep apnea. Pt reports use of PAP therapy in the past but stopped using machine roughly one year ago. Today she reports daytime fatigue, snoring, and frequent napping. Past sleep studies available and reviewed as well. After discussion with Dr. Stoddard, will start on auto PAP 5-15 cmH2O with humidification. Pt to schedule follow up with sleep medicine for review after initiation of PAP therapy. R40.4 Transient alteration of awareness Comment: Patient reporting multiple episodes where she has lost periods of time. Episodes began in 2019 and have occurred periodically since that time up until December of 2020 when she experienced the last episode. Has not happened since that time. Episodes last from a few minutes to an hour and can occur a few days in a row or months apart. Does note that episodes can be associated with a headache. Last MRI of brain was completed in 02/2016 and was unremarkable, however, events began to occur after imaging completed. At this time will proceed with repeat MRI of brain to evaluate for stroke and EEG to rule out seizure. Pt reports claustrophobia and will provide pt with Ativan 0.5mg 30 min prior to MRI. Pt advised not to drive after taking Ativan dose. Headaches have been much better. Will occasionally have a headache in the morning upon waking and will take an Advil and this will provide relief of headache. Still notes some neck stiffness. Has been using cream on her neck which helps with the pain. Still taking gabapentin. Would have vertigo prior to taking the gabapentin. Can now have occasional periods of lightheadedness. Currently taking gabapentin 100mg TID. She started CPAP one week ago. Unsure if this is affecting headache. Now using the nasal pillows instead of the full mask. Feels like she is able to tolerate the mask better the longer she wears it. Once she falls asleep she doesn't wake up until 5am. Has not had an episode where she has lost any periods of time, however, then states the last time this happened was when her sister in law passed at the beginning of April of this year. She states that this was the only time this has happened in the past few weeks. Had EEG completed through [facility] this week. Recently had follow up with PCP. Had cholesterol checked in April. Follows with outside cardiology and had echo within the past month. No other new neurological symptoms including speech/vision changes, focal weakness. PAST MEDICAL HISTORY Diagnosis Date Abdominal pain, epigastric Acute gastritis without mention of hemorrhage Diarrhea Diverticulosis of colon (without mention of hemorrhage) Hyperparathyroidism (HCC) post removal HYPERTENSION 10/21/2004 Kidney stone on right side LBP (low back pain) 11/27/2011 Osteoarthrosis, unspecified whether generalized or localized, other specified sites ARTHRITIS Sleep apnea Stage 3a chronic kidney disease (HCC) 09/14/2020 [facility]ST SURGICAL HISTORY Procedure Laterality Date CHOLECYSTECTOMY CHOLECYSTECTOMY COLONOSCOPY FLX DX W/COLLJ SPEC WHEN PFRMD 01/20/05 Colonoscopy EGD TRANSORAL BIOPSY SINGLE/MULTIPLE 06/18/08 KIDNEY STONE SURGERY HX stent in and stent out Feb 2017 PARATHYROIDECTOMY/EXPLORATION PARATHYROIDS 11/04/2014 Current Outpatient Medications on File Prior to Visit Medication Sig CPAP Auto PAP 6-12 cmH2O with humidification (with mask fitting). Lifetime supplies. If fixed pressure necessary than 7 cmH2O with download in 4 weeks. gabapentin (NEURONTIN) 100 mg capsule Take 1 capsule by mouth three times daily for 90 days. lisinopril (ZESTRIL, PRINIVIL) 20 mg tablet Take 20 mg by mouth once daily. beta-carotene,A,-vits C,E/mins (OCUVITE ORAL) Take by mouth as directed. estradiol (ESTRACE) 0.01 % (0.1 mg/gram) vaginal cream Estradiol (Estrace) 0.01 % (0.1 mg/gram) cream Active 1 GM VAGINAL TWICE A WEEK September 12, 2019 11:02am D-MANNOSE ORAL Take by mouth as directed. aspirin, enteric coated (ASPIRIN, ENTERIC COATED) 81 mg EC tablet Take 1 tablet by mouth once daily. ACETAMINOPHEN (TYLENOL 8 HOUR ORAL) Take 1 tablet by mouth daily at bedtime. No current facility-administered medications on file prior to visit. Social History Tobacco Use Smoking status: Never Smoker Smokeless tobacco: Never Used Substance Use Topics Alcohol use: No Drug use: No ALLERGIES Allergen Reactions Nexium [Esomeprazol* Vomiting Review of Systems: Cardiopulmonary: denies chest pain, palpitations Respiratory: denies shortness of breath GI/: denies recent nausea, vomiting, diarrhea, constipation, incontinence Musculoskeletal: denies weakness, joint ache/pain Back/spine: denies + low back or + cervical pains (pulled muscle in R neck) Neuro: denies tremors, loss of feeling, dizziness, seizure, blackout, paresthesia, facial paresthesia, facial weakness, difficulty in speech, slurring of words, dysarthria, dysphagia, memory loss, + headache, + vision changes (shingles R eye), loss of hearing Physical Exam: 06/04/21 1043 BP: 110/68 Pulse: (!) 58 Resp: 18 Temp: 36.6 C (97.8 F) SpO2: 100% Weight: 75.8 kg (167 lb) Patient is alert and in no distress. Dress is appropriate. Mood is appropriate Breathing appears regular and unstressed Neurologic examination: Cognitively intact. No deficits. No formal MMSE performed. CN: Pupils equal and reactive to light, extraocular movements intact with no nystagmus, face is symmetric with no facial droop, hearing intact bilaterally, symmetric elevation of the soft palate, tongue is midline with no deviation, shoulder shrug is symmetric. Motor exam shows 5/5 strength symmetric through the upper and lower extremities in all groups tested. Sensory intact to light touch in all extremities. Vibratory sensation is intact and symmetric all extremities. Deep tendon reflexes are brisk and symmetric at the biceps, brachioradialis, triceps, patella, and achilles bilaterally. Coordination: No dysmetria on finger to nose. No tremors noted. No drift seen. Gait normal in stance and pattern. Labs/studies: MRI Report MRI BRAIN WO IVCON Exam End: 04/24/2021 8:57 AM (Final result) Narrative: * * *Final Report* * * DATE OF EXAM: Apr 24 2021 8:57AM WRM [id number] - MRI BRAIN WO IVCON / PROCEDURE REASON: multiple diagnoses * * * * Physician Interpretation * * * * EXAMINATION: MRI BRAIN WO IVCON CLINICAL HISTORY: Transient alteration of awareness Transient cerebral ischemia, unspecified type TECHNIQUE: Routine noncontrast MRI protocol including diffusion images. MQ: [id number] COMPARISON: CT head 07/04/2014 RESULT: Acute Change: There is no evidence of restricted diffusion to suggest an acute infarct. Hemorrhage: No evidence of prior parenchymal hemorrhage on the gradient echo images. Mass Lesion/ Mass Effect: No evidence of an intracranial mass or extra-axial fluid collection. No significant mass effect. Chronic Change: Scattered patchy areas of increased T2 and FLAIR signal are present in the supratentorial white matter which is a nonspecific finding but likely represents mild chronic microvascular ischemia. Parenchyma: There is mild to moderate generalized parenchymal volume loss. Remote lacunar infarcts in the right frontal centrum semiovale and left cerebellar hemisphere. Tiny remote cortical infarct in left occipital lobe. Ventricles: Ventriculomegaly corresponds to the degree of parenchymal volume loss. Skull Base: Hypothalamic and pituitary region are grossly normal. Craniocervical junction is normal. No significant marrow replacement process. Vasculature: Major intracranial arterial structures, and dural venous sinuses show typical flow void, suggesting patency by spin echo criteria. Other: The visualized paranasal sinuses and mastoid air cells are clear. The orbits and extracranial soft tissues are unremarkable. Impression: IMPRESSION: No acute intracranial process. No acute infarct. Chronic changes as described including remote infarcts, not discretely seen on the prior CT from 2014, although comparison is difficult due to differences in technique. Winemaker: LUIS DANIEL Transcribe Date/Time: Apr 24 2021 9:13A Dictated by : RED VENTURA MD This examination was interpreted and the report reviewed and electronically signed by: RED VENTURA MD on Apr 24 2021 9:16AM EST Complete Results EEG 06/01/21 ([facility]): No focal, lateralized, nor epileptiform abnormalities noted. Unremarkable waking EEG. Echo 04/14/21 ([facility]): Normal LV size. Left ventricular systolic function is normal. The estimated EF is 60%. State 1 diastolic dysfunction. Mild (1+) ecentric aortic valve insufficiency. Contrast injection was performed. Component Latest Ref Rng & Units 02/24/2021 WSR 0 - 20 mm/hr 38 (H) CRP <0.9 mg/dL 0.5 Previously Reviewed: HSAT 03/18/21: IMPRESSION/RECOMMENDATIONS: 1. This study confirms a diagnosis of at least mild obstructive sleep apnea. 2. The results of this study may represent an underestimation of the degree of obstructive sleep apnea, especially hypopneas, because of the known limitations of HSAT, such as inability to record arousals because EEG is not recorded. 3. Treatment of mild sleep apnea can include weight loss, positional therapy, treatment of allergies, oral appliance therapy or ENT evaluation of any airway abnormalities. PAP therapy may be considered in patients with documented symptoms of daytime sleepiness, impaired cognition, mood disorder, insomnia, or documented hypertension, ischemic heart disease, or history of stroke. MRI Brain WO 02/16/16: ESSENTIALLY NORMAL EXAMINATION WITH MINIMAL VOLUME LOSS FOR THE PATIENT'S CHRONOLOGIC AGE. Component Latest Ref Rng & Units 09/04/2020 02/24/2021 Protein, Total 6.3 - 8.0 g/dL 7.2 Albumin 3.9 - 4.9 g/dL 4.4 Calcium 8.5 - 10.2 mg/dL 9.4 Bilirubin, Total 0.2 - 1.3 mg/dL 0.3 Alkaline Phosphatase 34 - 123 U/L 57 AST 13 - 35 U/L 18 Glucose 74 - 99 mg/dL 115 (H) BUN 7 - 21 mg/dL 28 (H) Creatinine 0.58 - 0.96 mg/dL 1.16 (H) Sodium 136 - 144 mmol/L 141 Potassium 3.7 - 5.1 mmol/L 4.5 Chloride 97 - 105 mmol/L 104 CO2 22 - 30 mmol/L 25 Anion Gap 9 - 18 mmol/L 12 ALT 7 - 38 U/L 12 eGFR- 55 eGFR-All Other Races . 46 Total Cholesterol, Nonfasting <200 mg/dL 217 (H) Triglycerides, Nonfasting <150 mg/dL 134 HDL Cholesterol, Nonfasting >39 mg/dL 62 LDL Cholesterol, Nonfasting <100 mg/dL 128 (H) Non HDL Cholesterol, Nonfasting <130 mg/dL 155 (H) VLDL Cholesterol, Nonfasting <30 mg/dL 27 Total Chol/HDL Ratio, Nonfasting <5.10 mg/dL 3.50 LDL/HDL Ratio, Nonfasting <2.54 mg/dL 2.06 Vitamin D 25 Hydroxy 31.0 - 80.0 ng/mL 35.1 WSR 0 - 20 mm/hr 38 (H) CRP <0.9 mg/dL 0.5 Assessment/Plan: R51.9, G89.29 Chronic intractable headache, unspecified headache type (primary encounter diagnosis) M54.81 Occipital neuralgia of right side M54.2 Cervicalgia Comment: 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 MRI completed after onset in 2017 in addition to MRI completed since previous visit unremarkable for etiology. Headaches presenting as a band that radiates frontally and can be associated with neck stiffness, often occurring upon waking. Previously started on gabapentin 100mg TID. Also completed PT for cervical pains. Today she reports significant improvement in headaches. Occasionally will have AM headache which can be relieved with use of OTC medication. Note, she has also recently begun using PAP device and will await further use of machine to determine if further improvement in headaches. Will continue gabapentin as previously prescribed. G47.33 JENNIFER (obstructive sleep apnea) Comment: Recently began using PAP as of one week ago. No notable changes in symptoms as of this time, however, she does report improvement of sleep and ability to sleep through the night. Continue to follow with sleep medicine as scheduled. R40.4 Transient alteration of awareness I63.9 Cerebrovascular accident (CVA), unspecified mechanism (HCC) Comment: Patient previously reporting multiple episodes where she has lost periods of time since 2019. As of last appointment last episode was in December of 2020, however, she does report one more recent episode occurring at the beginning of April. EEG completed in interim and without finding of seizure or epileptic abnormalities. MRI of brain also completed and without acute infarct, however, imaging did note multiple remote infarcts not noted on imaging in 2017. She is currently taking ASA 81mg. Will proceed with further workup including outpatient radiation monitor and MRA brain/neck (given history of kidney disease). Note, recent echo completed on 04/14/21. Recommend goal BP <140/90 and BS <140. Pt reports recent LDL completed by PCP outside [facility]. Recommend continued follow up for BP and cholesterol management. Continue to stay compliant with medications and take daily. Continue to get adequate exercise/physical activity within limitations. F40.240 Claustrophobia Comment: Pt w/hx of claustrophobia and will provide pt with Ativan 0.5mg 30 min prior to MRI. Pt advised not to drive after taking Ativan dose. Office Visit on 06/04/21 CTA HEAD W IVCON *Canceled* CTA NECK W IVCON *Canceled* MRA BRAIN WO IVCON MRA CAROTID WO IVCON CREATININE BLD *Canceled* OUTSIDE VENDOR CARDIAC OUTPATIENT EXTENDED RHYTHM RECORDING (WITHOUT TELEMETRY) Krista Rice APRN.NUNU I spent a total of 50 minutes on the date of the service which included preparing to see the patient, [id number] patient care, completing clinical documentation, obtaining and/or reviewing separately obtained history, performing a medically appropriate examination, counseling and educating the patient/family/caregiver, ordering medications, tests, or procedures and communicating results to the patient/family/caregiver. PDMP website checked and validated. All prescriptions have been APPROPRIATELY filled. No suspicious activity was identified. June 04, 2021 Krista Rice APRN.NUNU documented in this encounter [facility] 05-26-2021 Miscellaneous Notes Orders faxed to [facility]. Shelby Ragsdale LPN Received copy of CPAP Titration results from [facility]. Will forward to Dr Stoddard to review. 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) 05/12/2012 04/05/2014 Xerosis cutis 05/12/2012 04/05/2014 Irritated//Inflamed Seborrheic Keratosis 013 04/05/2014 Viral warts, unspecified 03/26/2012 015 Skin tag 03/26/2012 04/05/2014 Actinic skin damage 03/26/2012 04/05/2014 Neuralgia, neuritis, and radiculitis, unspecifie d 09/16/2009 11/04/2015 Acute gastritis without mention of hemorrhage 11/04/2015 Esophageal reflux 06/19/2007 11/04/2015 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 016 HYPERLIPIDEMIA SPECIFIED TYPE NEC 10/21/2004 11/04/2015 OSTEOPENIA 10/21/2004 07/28/2015 Diarrhea 11/04/2015 Internal hemorrhoids without mention of complica tion 04/05/2014 documented as of this encounter (statuses as of 06/04/2021) [facility] History of Past illness Narrative* Problem Noted Date Resolved Date Primary hyperparathyroidism 09/26/201410/09 Hyperparathyroidism 09/19/2013 11/04/2015 Postinflammatory skin changes 05/12/2012 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) 05/12/2012 04/05/2014 Xerosis cutis 05/12/2012 04/05/2014 Irritated//Inflamed Seborrheic Keratosis 013 04/05/2014 Viral warts, unspecified 03/26/2012 015 Skin tag 03/26/2012 04/05/2014 Actinic skin damage 03/26/2012 04/05/2014 Neuralgia, neuritis, and radiculitis, unspecifie d 09/16/2009 11/04/2015 Acute gastritis without mention of hemorrhage 11/04/2015 Esophageal reflux 06/19/2007 11/04/2015 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 016 HYPERLIPIDEMIA SPECIFIED TYPE NEC 10/21/2004 11/04/2015 OSTEOPENIA 10/21/2004 07/28/2015 Diarrhea 11/04/2015 Internal hemorrhoids without mention of complica tion 04/05/2014 documented as of this encounter (statuses as of 07/10/2021) [facility] History of Past illness Narrative* Problem Noted Date Resolved Date Primary hyperparathyroidism 09/26/201410/09 Hyperparathyroidism 09/19/2013 11/04/2015 Postinflammatory skin changes 05/12/2012 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) 05/12/2012 04/05/2014 Xerosis cutis 05/12/2012 04/05/2014 Irritated//Inflamed Seborrheic Keratosis 013 04/05/2014 Viral warts, unspecified 03/26/2012 015 Skin tag 03/26/2012 04/05/2014 Actinic skin damage 03/26/2012 04/05/2014 Neuralgia, neuritis, and radiculitis, unspecifie d 09/16/2009 11/04/2015 Acute gastritis without mention of hemorrhage 11/04/2015 Esophageal reflux 06/19/2007 11/04/2015 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 016 HYPERLIPIDEMIA SPECIFIED TYPE NEC 10/21/2004 11/04/2015 OSTEOPENIA 10/21/2004 07/28/2015 Diarrhea 11/04/2015 Internal hemorrhoids without mention of complica tion 04/05/2014 documented as of this encounter (statuses as of 07/22/2021) [facility] History of Past illness Narrative* Problem Noted Date Resolved Date Primary hyperparathyroidism 09/26/201410/09 Hyperparathyroidism 09/19/2013 11/04/2015 Postinflammatory skin changes 05/12/2012 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) 05/12/2012 04/05/2014 Xerosis cutis 05/12/2012 04/05/2014 Irritated//Inflamed Seborrheic Keratosis 013 04/05/2014 Viral warts, unspecified 03/26/2012 015 Skin tag 03/26/2012 04/05/2014 Actinic skin damage 03/26/2012 04/05/2014 Neuralgia, neuritis, and radiculitis, unspecifie d 09/16/2009 11/04/2015 Acute gastritis without mention of hemorrhage 11/04/2015 Esophageal reflux 06/19/2007 11/04/2015 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 016 HYPERLIPIDEMIA SPECIFIED TYPE NEC 10/21/2004 11/04/2015 OSTEOPENIA 10/21/2004 07/28/2015 Diarrhea 11/04/2015 Internal hemorrhoids without mention of complica tion 04/05/2014 documented as of this encounter (statuses as of 09/28/2021) [facility] History of Past illness Narrative* Problem Noted Date Resolved Date Primary hyperparathyroidism 09/26/201410/09 Hyperparathyroidism 09/19/2013 11/04/2015 Postinflammatory skin changes 05/12/2012 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) 05/12/2012 04/05/2014 Xerosis cutis 05/12/2012 04/05/2014 Irritated//Inflamed Seborrheic Keratosis 013 04/05/2014 Viral warts, unspecified 03/26/2012 015 Skin tag 03/26/2012 04/05/2014 Actinic skin damage 03/26/2012 04/05/2014 Neuralgia, neuritis, and radiculitis, unspecifie d 09/16/2009 11/04/2015 Acute gastritis without mention of hemorrhage 11/04/2015 Esophageal reflux 06/19/2007 11/04/2015 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 016 HYPERLIPIDEMIA SPECIFIED TYPE NEC 10/21/2004 11/04/2015 OSTEOPENIA 10/21/2004 07/28/2015 Diarrhea 11/04/2015 Internal hemorrhoids without mention of complica tion 04/05/2014 documented as of this encounter (statuses as of 12/02/2021) [facility] History of Past illness Narrative* Problem Noted Date Resolved Date Primary hyperparathyroidism 09/26/201410/09 Hyperparathyroidism 09/19/2013 11/04/2015 Postinflammatory skin changes 05/12/2012 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) 05/12/2012 04/05/2014 Xerosis cutis 05/12/2012 04/05/2014 Irritated//Inflamed Seborrheic Keratosis 013 04/05/2014 Viral warts, unspecified 03/26/2012 015 Skin tag 03/26/2012 04/05/2014 Actinic skin damage 03/26/2012 04/05/2014 Neuralgia, neuritis, and radiculitis, unspecifie d 09/16/2009 11/04/2015 Acute gastritis without mention of hemorrhage 11/04/2015 Esophageal reflux 06/19/2007 11/04/2015 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 016 HYPERLIPIDEMIA SPECIFIED TYPE NEC 10/21/2004 11/04/2015 OSTEOPENIA 10/21/2004 07/28/2015 Diarrhea 11/04/2015 Internal hemorrhoids without mention of complica tion 04/05/2014 documented as of this encounter (statuses as of 12/08/2021) [facility] History of Past illness Narrative* Problem Noted Date Resolved Date Primary hyperparathyroidism 09/26/201410/09 Hyperparathyroidism 09/19/2013 11/04/2015 Postinflammatory skin changes 05/12/2012 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) 05/12/2012 04/05/2014 Xerosis cutis 05/12/2012 04/05/2014 Irritated//Inflamed Seborrheic Keratosis 013 04/05/2014 Viral warts, unspecified 03/26/2012 015 Skin tag 03/26/2012 04/05/2014 Actinic skin damage 03/26/2012 04/05/2014 Neuralgia, neuritis, and radiculitis, unspecifie d 09/16/2009 11/04/2015 Acute gastritis without mention of hemorrhage 11/04/2015 Esophageal reflux 06/19/2007 11/04/2015 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 016 HYPERLIPIDEMIA SPECIFIED TYPE NEC 10/21/2004 11/04/2015 OSTEOPENIA 10/21/2004 07/28/2015 Diarrhea 11/04/2015 Internal hemorrhoids without mention of complica tion 04/05/2014 documented as of this encounter (statuses as of 03/10/2022) [facility] History of Past illness Narrative* Problem Noted Date Resolved Date Primary hyperparathyroidism 09/26/201410/09 Hyperparathyroidism 09/19/2013 11/04/2015 Postinflammatory skin changes 05/12/2012 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) 05/12/2012 04/05/2014 Xerosis cutis 05/12/2012 04/05/2014 Irritated//Inflamed Seborrheic Keratosis 013 04/05/2014 Viral warts, unspecified 03/26/2012 015 Skin tag 03/26/2012 04/05/2014 Actinic skin damage 03/26/2012 04/05/2014 Neuralgia, neuritis, and radiculitis, unspecifie d 09/16/2009 11/04/2015 Acute gastritis without mention of hemorrhage 11/04/2015 Esophageal reflux 06/19/2007 11/04/2015 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 016 HYPERLIPIDEMIA SPECIFIED TYPE NEC 10/21/2004 11/04/2015 OSTEOPENIA 10/21/2004 07/28/2015 Diarrhea 11/04/2015 Internal hemorrhoids without mention of complica tion 04/05/2014 documented as of this encounter (statuses as of 04/05/2022) [facility] History of Past illness Narrative* Problem Noted Date Resolved Date Primary hyperparathyroidism 09/26/201410/09 Hyperparathyroidism 09/19/2013 11/04/2015 Postinflammatory skin changes 05/12/2012 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) 05/12/2012 04/05/2014 Xerosis cutis 05/12/2012 04/05/2014 Irritated//Inflamed Seborrheic Keratosis 013 04/05/2014 Viral warts, unspecified 03/26/2012 015 Skin tag 03/26/2012 04/05/2014 Actinic skin damage 03/26/2012 04/05/2014 Neuralgia, neuritis, and radiculitis, unspecifie d 09/16/2009 11/04/2015 Acute gastritis without mention of hemorrhage 11/04/2015 Esophageal reflux 06/19/2007 11/04/2015 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 016 HYPERLIPIDEMIA SPECIFIED TYPE NEC 10/21/2004 11/04/2015 OSTEOPENIA 10/21/2004 07/28/2015 Diarrhea 11/04/2015 Internal hemorrhoids without mention of complica tion 04/05/2014 documented as of this encounter (statuses as of 05/28/2022) [facility] History of Past illness Narrative* Problem Noted Date Resolved Date Primary hyperparathyroidism 09/26/201410/09 Hyperparathyroidism 09/19/2013 11/04/2015 Postinflammatory skin changes 05/12/2012 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) 05/12/2012 04/05/2014 Xerosis cutis 05/12/2012 04/05/2014 Irritated//Inflamed Seborrheic Keratosis 013 04/05/2014 Viral warts, unspecified 03/26/2012 015 Skin tag 03/26/2012 04/05/2014 Actinic skin damage 03/26/2012 04/05/2014 Neuralgia, neuritis, and radiculitis, unspecifie d 09/16/2009 11/04/2015 Acute gastritis without mention of hemorrhage 11/04/2015 Esophageal reflux 06/19/2007 11/04/2015 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 016 HYPERLIPIDEMIA SPECIFIED TYPE NEC 10/21/2004 11/04/2015 OSTEOPENIA 10/21/2004 07/28/2015 Diarrhea 11/04/2015 Internal hemorrhoids without mention of complica tion 04/05/2014 documented as of this encounter (statuses as of 06/02/2022) [facility] History of Past illness Narrative* Problem Noted Date Diagnosed Date Resolved Date Primary hyperparathyroidism 09/26/2014 11/04/2015 Hyperparathyroidism 09/19/2013 11/04/19 16 Postinflammatory skin changes 05/12/2012 04/05/2014 Scar condition and fibrosis of skin (cryosurgical) 05/12/2012 04/05/2014 Xerosis cutis 05/12/2012 04/05/2014 Irritated//Inflamed Seborrheic Keratosis 03/26/2012 04/05/2014 Viral warts, unspecified 03/26/2012 Skin tag 03/26/2012 04/05/2014 Actinic skin damage 03/26/2012 04/05/19 15 Neuralgia, neuritis, and rad iculitis, unspecified 09/16/2009 11/04/2015 Acute gastritis without mention of hemorrhage 06/19/19 09 11/04/2015 Esophageal reflux 06/19/2007 11/04/2015 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 HYPERLIPIDEMIA SPECIFIED TYPE NEC 10/21/2004 11/04/2015 OSTEOPENIA 10/21/2004 07/28/2015 Diarrhea 11/04/2015 Internal hemorrhoids without mention of complication 04/05/2014 documented as of this encounter (statuses as of 09/15/2022) [facility] History of Past illness Narrative* Problem Noted Date Diagnosed Date Resolved Date Primary hyperparathyroidism 09/26/2014 11/04/2015 Hyperparathyroidism 09/19/2013 11/04/19 16 Postinflammatory skin changes 05/12/2012 04/05/2014 Scar condition and fibrosis of skin (cryosurgical) 05/12/2012 04/05/2014 Xerosis cutis 05/12/2012 04/05/2014 Irritated//Inflamed Seborrheic Keratosis 03/26/2012 04/05/2014 Viral warts, unspecified 03/26/2012 Skin tag 03/26/2012 04/05/2014 Actinic skin damage 03/26/2012 04/05/19 15 Neuralgia, neuritis, and rad iculitis, unspecified 09/16/2009 11/04/2015 Acute gastritis without mention of hemorrhage 06/19/19 09 11/04/2015 Esophageal reflux 06/19/2007 11/04/2015 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 HYPERLIPIDEMIA SPECIFIED TYPE NEC 10/21/2004 11/04/2015 OSTEOPENIA 10/21/2004 07/28/2015 Diarrhea 11/04/2015 Internal hemorrhoids without mention of complication 04/05/2014 documented as of this encounter (statuses as of 09/23/2022) [facility] History of Past illness Narrative* Problem Noted Date Diagnosed Date Resolved Date Primary hyperparathyroidism 09/26/2014 11/04/2015 Hyperparathyroidism 09/19/2013 11/04/19 16 Postinflammatory skin changes 05/12/2012 04/05/2014 Scar condition and fibrosis of skin (cryosurgical) 05/12/2012 04/05/2014 Xerosis cutis 05/12/2012 04/05/2014 Irritated//Inflamed Seborrheic Keratosis 03/26/2012 04/05/2014 Viral warts, unspecified 03/26/2012 Skin tag 03/26/2012 04/05/2014 Actinic skin damage 03/26/2012 04/05/19 15 Neuralgia, neuritis, and rad iculitis, unspecified 09/16/2009 11/04/2015 Acute gastritis without mention of hemorrhage 06/19/19 09 11/04/2015 Esophageal reflux 06/19/2007 11/04/2015 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 HYPERLIPIDEMIA SPECIFIED TYPE NEC 10/21/2004 11/04/2015 OSTEOPENIA 10/21/2004 07/28/2015 Diarrhea 11/04/2015 Internal hemorrhoids without mention of complication 04/05/2014 documented as of this encounter (statuses as of 12/07/2022) [facility] History of Past illness Narrative* Problem Noted Date Diagnosed Date Resolved Date Primary hyperparathyroidism 09/26/2014 11/04/2015 Hyperparathyroidism 09/19/2013 11/04/19 16 Postinflammatory skin changes 05/12/2012 04/05/2014 Scar condition and fibrosis of skin (cryosurgical) 05/12/2012 04/05/2014 Xerosis cutis 05/12/2012 04/05/2014 Irritated//Inflamed Seborrheic Keratosis 03/26/2012 04/05/2014 Viral warts, unspecified 03/26/2012 Skin tag 03/26/2012 04/05/2014 Actinic skin damage 03/26/2012 04/05/19 15 Neuralgia, neuritis, and rad iculitis, unspecified 09/16/2009 11/04/2015 Acute gastritis without mention of hemorrhage 06/19/19 09 11/04/2015 Esophageal reflux 06/19/2007 11/04/2015 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 HYPERLIPIDEMIA SPECIFIED TYPE NEC 10/21/2004 11/04/2015 OSTEOPENIA 10/21/2004 07/28/2015 Diarrhea 11/04/2015 Internal hemorrhoids without mention of complication 04/05/2014 documented as of this encounter (statuses as of 01/11/2023) [facility] Diagnosis JENNIFER (obstructive sleep apnea) Obstructive sleep apnea (adult) (pediatric) Chronic intractable headache, unspecified headache type- Primary Occipital neuralgia of right side Cervicalgia JENNIFER (obstructive sleep apnea) Obstructive sleep apnea (adult) (pediatric) Transient alteration of awareness [facility] Diagnosis Chronic intractable headache, unspecified headache type- Primary Occipital neuralgia of right side Cervicalgia JENNIFER (obstructive sleep apnea) Obstructive sleep apnea (adult) (pediatric) Transient alteration of awareness Transient cerebral ischemia, unspecified type Cerebrovascular accident (CVA), unspecified mechanism (HCC) Claustrophobia Other isolated or specific phobias [facility] Diagnosis Chronic intractable headache, unspecified headache type- Primary Occipital neuralgia of right side Cervicalgia JENNIFER (obstructive sleep apnea) Obstructive sleep apnea (adult) (pediatric) Transient alteration of awareness [facility] Diagnosis Chronic intractable headache, unspecified headache type Occipital neuralgia of right side [facility] Diagnosis Chronic intractable headache, unspecified headache type- Primary Occipital neuralgia of right side Cervicalgia JENNIFER (obstructive sleep apnea) Obstructive sleep apnea (adult) (pediatric) Transient alteration of awareness Memory change Memory loss Transient cerebral ischemia, unspecified type [facility] Diagnosis Intractable chronic cluster headache Chronic cluster headache Occipital neuralgia of right side [facility] Diagnosis Intractable chronic cluster headache Chronic cluster headache Occipital neuralgia of right side [facility] Diagnosis Intractable chronic cluster headache Chronic cluster headache Occipital neuralgia of right side documented in this encounter [facility] Summary Purpose Family History No Family History Records FoundNo Family History Records FoundNo Family History Records FoundNo Family History Records FoundNo Family History Records Found Advance Directives No Advanced Directives Records FoundNo Advanced Directives Records FoundNo Advanced Directives Records FoundNo Advanced Directives Records FoundNo Advanced Directives Records Found Reason for Referral Specialty Diagnoses / Procedures Referred By Coleman bennett Referred To Contact MR IMAGING Diagnoses Transient cerebral ischemia, unspecified type Procedures MRA CAROTID WO IVCON MRA, NECK; W/O CONTRAST Krista Rice, CONFIGURATION MANAGEMENT ARCHITECT.[employer] TECHNICIAN [address] [place] [address] Mr Imaging Referral ID Status Reason Start Date Expiration Date Visits Requested Visits Authorized [id number] Pending Review Auto-Generat ed Referral 06/04/2021 07/04/2022 1 1 Specialty Diagnoses / Procedures Referred By Contac t Referred To Contact MR IMAGING Diagnoses Transient cerebral ischemia, unspecified type Procedures MRA BRAIN WO IVCON MRA, HEAD W/O CONTRAST Krista Rice APRN.[employer] TECHNICIAN [address] [place] [address] Mr Imaging Referral ID Status Reason Start Date Expiration Date Visits Requested Visits Authorized [id number] Pending Review Auto-Generat ed Referral 06/04/2021 07/04/2022 1 1 Specialty Diagnoses / Procedures Referred By Contac t Referred To Contact MR IMAGING Diagnoses Transient cerebral ischemia, unspecified type Procedures MRI BRAIN WO IVCON MRI BRAIN BRAIN STEM W/O CONTRAST MATERIAL Krista Rice, NORAH.A[employer] TECHNICIAN [address] [place] [address] Mr Imaging Referral ID Status Reason Start Date Expiration Date Visits Requested Visits Authorized [id number] Pending Review Auto-Generat ed Referral 05/28/2022 06/27/2023 1 1 Additional Source Comments INFORMATION SOURCE (unrecogn ized section and content) DATE CREATED AUTHOR AUTHOR'S ORGANIZ ATION 11/05/2018 [facility] DATE CREATED AUTHOR AUTHOR'S ORGANIZ ATION 03/31/2021 [facility] DATE CREATED AUTHOR AUTHOR'S ORGANIZ ATION 05/29/2022 [facility] DATE CREATED AUTHOR AUTHOR'S ORGANIZ ATION 06/11/2022 [facility] Source Comments (unrecognize d section and content) In the event this informatio n is protected by the Federal Confidentiality of Alcohol and Drug Abuse Patient Records regulations: The Federal rules restrict any use of the information to criminally investigate or prosecute any alcohol or drug abuse patient.[facility] the event this information is protected by the Federal Confidentiality of Alcohol and Drug Abuse Patient Records regulations: The Federal rules restrict any use of the information to criminally investigate or prosecute any alcohol or drug abuse patient.[facility] the event this information is protected by the Federal Confidentiality of Alcohol and Drug Abuse Patient Records regulations: The Federal rules restrict any use of the information to criminally investigate or prosecute any alcohol or drug abuse patient.[facility] the event this information is protected by the Federal Confidentiality of Alcohol and Drug Abuse Patient Records regulations: The Federal rules restrict any use of the information to criminally investigate or prosecute any alcohol or drug abuse patient.[facility] the event this information is protected by the Federal Confidentiality of Alcohol and Drug Abuse Patient Records regulations: The Federal rules restrict any use of the information to criminally investigate or prosecute any alcohol or drug abuse patient.[facility] the event this information is protected by the Federal Confidentiality of Alcohol and Drug Abuse Patient Records regulations: The Federal rules restrict any use of the information to criminally investigate or prosecute any alcohol or drug abuse patient.[facility] the event this information is protected by the Federal Confidentiality of Alcohol and Drug Abuse Patient Records regulations: The Federal rules restrict any use of the information to criminally investigate or prosecute any alcohol or drug abuse patient.[facility] the event this information is protected by the Federal Confidentiality of Alcohol and Drug Abuse Patient Records regulations: The Federal rules restrict any use of the information to criminally investigate or prosecute any alcohol or drug abuse patient.[facility] the event this information is protected by the Federal Confidentiality of Alcohol and Drug Abuse Patient Records regulations: The Federal rules restrict any use of the information to criminally investigate or prosecute any alcohol or drug abuse patient.[facility] the event this information is protected by the Federal Confidentiality of Alcohol and Drug Abuse Patient Records regulations: The Federal rules restrict any use of the information to criminally investigate or prosecute any alcohol or drug abuse patient.[facility] the event this information is protected by the Federal Confidentiality of Alcohol and Drug Abuse Patient Records regulations: The Federal rules restrict any use of the information to criminally investigate or prosecute any alcohol or drug abuse patient.[facility] the event this information is protected by the Federal Confidentiality of Alcohol and Drug Abuse Patient Records regulations: The Federal rules restrict any use of the information to criminally investigate or prosecute any alcohol or drug abuse patient.[facility] the event this information is protected by the Federal Confidentiality of Alcohol and Drug Abuse Patient Records regulations: The Federal rules restrict any use of the information to criminally investigate or prosecute any alcohol or drug abuse patient.[facility] the event this information is protected by the Federal Confidentiality of Alcohol and Drug Abuse Patient Records regulations: The Federal rules restrict any use of the information to criminally investigate or prosecute any alcohol or drug abuse patient.[facility] the event this information is protected by the Federal Confidentiality of Alcohol and Drug Abuse Patient Records regulations: The Federal rules restrict any use of the information to criminally investigate or prosecute any alcohol or drug abuse patient.[facility] Reason for Visit (unrecogniz ed section and content) Reason Comments Established NI Patient Specialty Diagnoses / Procedures Referred By Coleman bennett Referred To Contact Neurology / NEUROLOGY Diagnoses Headaches headaches- referring. records in scanned documents Procedures NEW PATIENT VISIT LEVEL 5 NEW NEUR HEADACHE Jai Shearer MD [address] [place] [address] Smiley Stoddard Jr., MD [address] [facility] [address] [place] [address] Referral ID Status Reason Start Date Expiration Date V isits Requested Visits Authorized [id number] Authorized 12/30/2020 12/30/2021 99 99 Reason Comments Results Reason Comments Zio Results Reason Comments Follow Up 3 month Specialty Diagnoses / Procedures Referred By Contac t Referred To Contact Neurology / NEUROLOGY Diagnoses Follow-up exam 3 month follow up Procedures OFFICE/OUTPATIENT ESTABLISHED MOD MDM 30-39 MIN EST NI PATIENT Krystal Krista, CONFIGURATION MANAGEMENT ARCHITECT.AIR [employer] TECHNICIAN [address] [place] [address] Krista Rice, CONFIGURATION MANAGEMENT ARCHITECT.AIR [employer] TECHNICIAN [address] [place] [address] Referral ID Status Reason Start Date Expiration Date Visits Re quested Visits Authorized [id number] Closed 09/24/2021 02/06/2022 1 1 Reason Onset Date Comments Refill Request 12/07/2021 Reason Comments Follow Up Specialty Diagnoses / Procedures Referred By Contac t Referred To Contact Neurology / NEUROLOGY Diagnoses Follow-up examination follow up Procedures OFFICE/OUTPATIENT ESTABLISHED MOD MDM 30-39 MIN EST NI PATIENT Johnny Riceisten, CONFIGURATION MANAGEMENT ARCHITECT.A[employer] TECHNICIAN [address] [address] Krista Rice, CONFIGURATION MANAGEMENT ARCHITECT.AIR [employer] TECHNICIAN [address] [place] [address] Referral ID Status Reason Start Date Expiration Date Visits Re quested Visits Authorized [id number] Closed 05/20/2022 02/06/2023 1 1 Reason Onset Date Comments Refill Request 09/14/2022 Reason Onset Date Comments Refill Request 11/30/2022 Refill Request 12/07/2022 Reason Comments Refill Request Care Teams (unrecognized sec tion and content) Controls Designer Relationship Specialty Start Date End Date Jai Shearer MD [address] [place], [place] [id number] PCP - General Internal Medicine 05/18/21 Tung Barrientos DO Specialty Visual Basic .Net Developer Endocrinology 02/23/13 Controls Designer Relationship Specialty Start Date End Date Jai Shearer MD [address] [place] [address] PCP - General Internal Medicine 05/18/21 Tung Barrientos, DO Specialty Visual Basic .Net Developer Endocrinology 02/23/13 Controls Designer Relationship Specialty Start Date End Date Jai Shearer MD [address] [address] PCP - General Internal Medicine 05/18/21 Tung Barrientos, DO Specialty Visual Basic .Net Developer Endocrinology 02/23/13 Controls Designer Relationship Specialty Start Date End Date Jai Shearer MD [address] [place] [address] PCP - General Internal Medicine 05/18/21 Tung Barrientos, DO Specialty Visual Basic .Net Developer Endocrinology 02/23/13 Controls Designer Relationship Specialty Start Date End Date Jai Shearer MD [address] [place] [address] PCP - General Internal Medicine 05/18/21 Tung Barrientos, DO Specialty Visual Basic .Net Developer Endocrinology 02/23/13 Controls Designer Relationship Specialty Start Date End Date Jai Shearer MD [address] [place] [address] PCP - General Internal Medicine 05/18/21 Tung Barrientos, DO Specialty Visual Basic .Net Developer Endocrinology 02/23/13 Controls Designer Relationship Specialty Start Date End Date Jai Shearer MD [address] [place] [address] PCP - General Internal Medicine 05/18/21 Tung Barrientos DO Specialty Visual Basic .Net Developer Endocrinology 02/23/13 Controls Designer Relationship Specialty Start Date End Date Jai Shearer MD [address] [place] [address] PCP - General Internal Medicine 05/18/21 Tung Barrientos DO Specialty Visual Basic .Net Developer Endocrinology 02/23/13 Controls Designer Relationship Specialty Start Date End Date Jai Shearer MD [address] [place] [address] PCP - General Internal Medicine 05/18/21 Tung Barrientos DO Specialty Visual Basic .Net Developer Endocrinology 02/23/13 Controls Designer Relationship Specialty Start Date End Date Jai Shearer MD [address] [place] [address] PCP - General Internal Medicine 05/18/21 Tung Barrientos DO Specialty Visual Basic .Net Developer Endocrinology 02/23/13 Controls Designer Relationship Specialty Start Date End Date Jai Shearer MD [address] [place] [address] PCP - General Internal Medicine 05/18/21 Tung Barrientos DO Specialty Visual Basic .Net Developer Endocrinology 02/23/13 Controls Designer Relationship Specialty Start Date End Date Jai Shearer MD [address] [place] [address] PCP - General Internal Medicine 05/18/21 Tung Barrientos DO Specialty Visual Basic .Net Developer Endocrinology 02/23/13 Controls Designer Relationship Specialty Start Date End Date Jai Shearer MD [address] [place], [place] [address] PCP - General Internal Medicine 05/18/21 Tung Barrientos DO Specialty Visual Basic .Net Developer Endocrinology 02/23/13 FOR RECORDS PERTAINING TO PATIENTS WHO ARE OR HAVE BEEN ENROLLED IN A CHEMICAL DEPENDENCY/SUBSTANCEABUSE PROGRAM, SOME INFORMATION MAY BE OMITTED. This clinical summary was aggregated from multiple sources. Caution should be exercised in using it in the provision of clinical care. This summary normalizes information from multiple sources, and as a consequence, information in this document may materially change the coding, format and clinical context of patient data. In addition, data may be omitted in some cases. CLINICAL DECISIONS SHOULD BE BASED ON THE PRIMARY CLINICAL RECORDS. [employer] [facility]. provides no warranty or guarantee of the accuracy or completeness of information in this document.
== END | disposition home or self-care (01) ==
PROVIDERS: PCP Internal Medicine; Referring Provider Urology; Visit Provider Urology
DX: N13.30 Unspecified hydronephrosis (principal)
CPT/HCPCS: 76770

== ENCOUNTER 2023-03-01 08:00 | Emergency (ER) | payer OTHER, SELFPAY ==
[2023-03-01 08:03] VITALS: BP 147/67; PULSE 87; RESP 14; TEMP 36.6; O2SAT 97; BMI 31.2
--- NOTE | 2023-03-01 08:14 | CT_ITS ---
STUDY: CTA HEAD AND NECK WITH CONTRAST REASON FOR EXAM: Female, 77 years old. Headaches and confusion. Recent UTI. RADIATION DOSAGE (If Supplied By Facility): CTDIvol = ( 26.98 ) mGy, DLP = ( 1286.10 ) mGycm TECHNIQUE: CT angiography was performed with a multi-detector CT scanner. Data acquisition was obtained from the skull base through the vertex following intravenous administration of IV 100mL Isovue-370. MIP images were reconstructed from the axial data set. Post-processing of the angiographic images was performed, with multiplanar reformation and 3D reconstruction. Individualized dose optimization techniques were used for this CT. COMPARISON: Comparison is made with prior CT scan of the brain dated January 27, 2023. FINDINGS: Normal bilateral petrous carotid arteries. There is calcified plaque formation of the right cavernous carotid artery, with a moderate stenosis (50-75%). There is calcified plaque formation of the left cavernous carotid artery, without a cross-sectional luminal stenosis. Normal right A1 segments of the anterior cerebral artery. Normal left A1 segments of the anterior cerebral artery. Normal intact anterior communicating artery (ACOM). Normal bilateral A2 segments of the anterior cerebral arteries. Normal right M1 and M2 segments of the middle cerebral arteries, with a normal M1 bifurcation. Normal left M1 and M2 segments of the middle cerebral arteries, with a normal M1 bifurcation. Normal right posterior communicating artery (PCOM). Normal left posterior communicating artery (PCOM). Normal bilateral vertebral arteries. Normal basilar artery with a normal basilar bifurcation. The visualized bilateral superior cerebellar (SCA) arteries are normal. Normal bilateral P1, P2 and visualized P3 segments of the posterior cerebral arteries. There is no demonstrated aneurysm of the [place]. Stable atrophy of the brain. Scattered calcifications are seen in both basal ganglia. Stable examination. AORTIC ARCH: There is atherosclerotic calcific plaque formation of the aortic arch and great vessels arising from the aortic arch, without a hemodynamically significant stenosis. There is a normal origin of the brachiocephalic, left common carotid, and left subclavian arteries. RIGHT CAROTID ARTERIES: Normal right common carotid artery (CCA). Normal right common carotid bulb. There is mild atherosclerotic plaque formation of the origin of the right internal carotid artery with less than 50% cross sectional diameter stenosis. Normal visualized cervical portion of the right internal carotid artery. Normal origin of the right external carotid artery (ECA). LEFT CAROTID ARTERIES: Normal left common carotid artery (CCA). Normal left common carotid bulb. Normal origin of the left internal carotid (ICA) artery without a hemodynamically significant stenosis. Normal visualized cervical portion of the left internal carotid artery. Normal origin of the left external carotid artery (ECA). VERTEBRAL ARTERIES: Normal bilateral vertebral arteries. CT/CTA Head AND Neck W/ Contrast IMPRESSION: Minimal plaque formation at the origin of the left internal carotid artery. Plaque formation in the supraclinoid region of the right internal carotid artery causing greater than 50% stenosis. Electronically Signed: Maurice Callejas MD at 9:35 EST ,
--- NOTE | 2023-03-01 08:17 | EX.ED.VIS.HA ---
HPI History of Present Illness Chief Complaint: Headache Detail of Chief Complaint: Headache Informant: patient Narrative Narrative: Patient presents to the emergency department complaint of headache over the last 3 months. Patient states that she has had headaches half her life. She has seen her primary care physician for this and was ordered pregabalin which the pharmacy can fill today. Currently rates her headache a 4 out of 10. She complains of nausea. Normally the headache is frontal but today more the right side of her head. She denies photophobia. She denies history of migraines. Patient states that she had a CT scan of her brain recently that was unremarkable. Patient denies any falls or head injuries. She developed a cough about 2 days ago. Denies fevers. Denies urinary symptoms although she was recently treated for urinary tract infection. [facility] Medical History (Updated 03/01/23 @ 09:[address] Asim Catalan, ) Abnormal mammogram of right breast Anserine bursitis Aortic insufficiency Aortic valve defect Asymmetric septal hypertrophy Bladder disease Cardiology follow-up encounter CPAP (continuous positive airway pressure) dependence Cystocele Essential hypertension Family history of ischemic heart disease Headache History of echocardiogram History of edema History of renal disease History of stress test Kidney stones Leg cramps Low iron Macular degeneration Non-smoker Obstructive sleep apnea Post-menopausal Seizures UTI (urinary tract infection) Vertigo Wears glasses Wears hearing aid Home Medications acetaminophen 325 mg capsule (Tylenol) 325 mg PO ONCE PRN pain 09/25/20 [History Last Taken Unknown] multivitamin 1 tab PO DAILY 09/25/20 [History Last Taken Unknown] lisinopril 20 mg tablet 20 mg PO DAILY #90 tabs 04/19/22 [Rx Last Taken 11/12/22] aspirin 81 mg tablet,delayed release (Adult Low Dose Aspirin) 81 mg PO QHS 05/18/22 [History Last Taken 11/09/22] vitamins A,C,D-ejct-keiboq 4,296 mcg-226 mg-90 mg capsule (PreserVision AREDS) 1 cap PO BID 05/18/22 [History Last Taken 11/11/22] ferrous sulfate 325 mg (65 mg iron) tablet (Feosol) 325 mg PO BID 08/18/22 [History Last Taken 11/11/22] FRUITS 3 cap PO DAILY 10/28/22 [History Last Taken Unknown] PREVAGEN 1 cap PO DAILY 10/28/22 [History Last Taken Unknown] VEGGIES 3 cap PO DAILY 10/28/22 [History Last Taken Unknown] fexofenadine 180 mg tablet (Poonam Allergy) 180 mg PO DAILY PRN ALLERGIES 10/28/22 [History Last Taken 11/11/22] omega-3 fatty acids 600 mg PO BID 10/28/22 [History Last Taken Unknown] amlodipine 2.5 mg tablet 2.5 mg PO BID #180 tabs 11/04/22 [Rx Last Taken 11/12/22] venlafaxine 37.5 mg capsule,extended release 24 hr 37.5 mg PO DAILY #30 caps 02/02/23 [Rx Last Taken Unknown] pregabalin 25 mg capsule 50 mg (2 x 25 mg) PO BID #120 caps 02/22/23 [Rx Last Taken Unknown] cephalexin 500 mg capsule 500 mg PO Q6 #28 CAPSULES 03/01/23 [Rx Last Taken Unknown] Allergy/AdvReac Type Severity Reaction Status Date / Time animal dander Allergy Unknown unknown Verified 02/02/23 09:40 cat dander Allergy Unknown unknown Verified 02/02/23 09:40 dog dander Allergy Unknown unknown Verified 02/02/23 09:40 mold Allergy Unknown unknown Verified 02/02/23 09:40 Family History Mother Hypertension CVA (cerebral vascular accident) Father Heart disease My[place] infarction from [place] age 61 Brother CAD (coronary artery disease) CABG 40's Son Arthritis Surgical History H/O parathyroidectomy History of right breast biopsy (~11/2018) Hx of cholecystectomy Hx of colonoscopy Hx of left cataract extraction Hx of right cataract extraction S/P vaginal hysterectomy Social History Smoking Status: Never smoker alcohol intake: never substance use type: does not use caffeine: Yes what type of physical activity do you participate in: walking seatbelt use: always do you feel safe at home: Yes additional social history: [employer] Patient is retired ROS ROS ED Review of Systems ROS Unobtainable: other Constitutional Constitutional ED: Reports lethargy; Denies chills, fever(s), sweats or weight loss Eyes Eyes: Denies blurry vision, change in vision or diplopia ENT ENT ED: Denies rhinorrhea or sore throat Cardiovascular Cardiovascular: Denies chest pain, orthopnea or racing heartbeat Respiratory/Chest Respiratory/Chest: Reports dyspnea on exertion; Denies cough, dyspnea, orthopnea or sputum Gastrointestinal Gastrointestinal: Reports nausea; Denies abdominal pain, diarrhea or vomiting Genitourinary Genitourinary ED: Denies dysuria, hematuria or urinary frequency Musculoskeletal Musculoskeletal: Denies arthralgias, back pain, myalgias or neck pain Integumentary Denies abscess, Abrasions or rash Neurologic Neurologic: Reports headache(s); Denies weakness Psychiatric Psychiatric: Denies anxiety, depression or suicidal thoughts Endocrine Endocrinology: Denies polydipsia, polyphagia or polyuria Hematologic/Lymphatic Hematologic/Lymphatic: Denies easy bleeding, easy bruising or lymphadenopathy Allergic/Immunologic Allergic/Immunologic ED: Denies mouth swelling, tongue swelling or urticaria EXAM Physical Exam Const Vital Signs: 03/01/23 08:03 03/01/23 10:09 Temperature 97.9 F Temperature Source Temporal Pulse Rate 87 Respiratory Rate 14 Blood Pressure 147/67 H 150/62 H Blood Pressure Mean 93 91 Pulse Ox 97 Oxygen Delivery Method Room Air Positive well nourished and well developed General Appearance ED: well developed and NAD HEENT Reports TM's clear and moist mucous membranes normocephalic and atraumatic; Negative for trauma or tenderness Tympanic Membrane ED: Yes TM's clear Eyes PERRL and EOMs intact bilaterally General Eye ED: Negative for pale conjunctiva or scleral icterus Neck no lymphadenopathy, supple and no JVD General: Negative for tenderness Chest Wall inspection of chest normal and palpation of chest normal Chest: Negative for tenderness Resp normal respiratory effort and clear to auscultation bilaterally Effort and Inspection: Negative for respiratory distress or pain with movement Auscultation: Negative for rhonchi, wheezes or diminished lung sounds Cardio regular rate, regular rhythm, S1 normal heart sound, S2 normal heart sound and no murmurs Peripheral Pulses: pulses 2+ throughout GI normal to inspection, nondistended, normoactive bowel sounds, soft to palpation, non-tender, non-distended and no masses Back/Spine no CVA tenderness and no thoracic nor lumbar tenderness Extremity normal to inspection General Extremety ED: Negative for edema General Extremity: Negative for edema Neuro oriented x3, CN's II-XII intact bilaterally, no sensory deficits noted and gait normal Sensorium / Orientation: awake, alert, oriented to person, oriented to place and oriented to time Motor Exam: strength 5/5 throughout and strength abnormal Psych mental status grossly normal Skin no rashes or lesions noted and no wounds MDM MDM MDM Narrative Medical decision making narrative: Patient presents with headache that has been chronic but worse over the last 3 months. Evaluation of the medical record reveals that she was seen in January in the emergency department for headache and had a CT scan of the brain at that time that was essentially unremarkable. Patient will have an IV line established. She will be medicated with Zofran and a liter of fluid. Will obtain a urinalysis as well as COVID and flu testing and basic labs. Will order a CTA of the head and neck to evaluate for dissection versus aneurysm or other abnormality. Patient tells me she also ran out of her pregabalin about 6 days ago. She is to see neurology Dr. Stoddard. Patient was medicated with IV fluids and Zofran. She currently states her headaches not bad. She will have her pregabalin available today. Patient also has UTI noted and I did send off a culture. Her last culture was from December 2022 that grew out E. coli sensitive to everything. I will cover her with Keflex. She does see urology and she is advised to follow-up with urology within the week. Patient was negative for COVID, flu, and influenza. Lab Data Attestation: I reviewed the patient's lab results. Labs: Laboratory Results - last 24 hr 03/01/23 03/01/23 08:18 09:00 WBC 7.7 RBC 4.59 Hgb 12.6 Hct 39.7 MCV 86.5 MCH 27.5 MCHC 31.7 L RDW Std Deviation 46.0 H RDW Coeff of Radhames 14.6 Plt Count 161 MPV 9.6 Immature Gran % (Auto) 0.300 Neut % (Auto) 62.0 Lymph % (Auto) 30.4 [place] % (Auto) 5.3 Eos % (Auto) 1.2 Baso % (Auto) 0.8 Absolute Neuts (auto) 4.8 Absolute Lymphs (auto) 2.34 Nucleated RBC % 0 Sodium 139 Potassium 3.9 Chloride 108 H Carbon Dioxide 23.0 Anion Gap 8 BUN 28 H Creatinine 1.31 H Estim Creat Clear Calc 31.98 Est GFR (MDRD) Af Amer 51 L Est GFR (MDRD) Non-Af 42 L BUN/Creatinine Ratio 21.4 H Glucose 98 Calcium 9.7 Urine Color Yellow Urine Clarity Cloudy Urine pH 5.0 Ur Specific [place] 1.020 Urine Protein 30 H Urine Glucose (UA) Normal Urine Ketones 50 H Urine Occult Blood 25 H Urine Nitrite Positive H Urine Bilirubin Negative Urine Urobilinogen Normal Ur Leukocyte Esterase 500 H Urine RBC 0-5 SEEN Urine WBC 25-50 SEEN Ur Squamous Epith Cells 5-10 SEEN Urine Bacteria 3+ Urine Mucus 1+ Radiography Diagnostic Testing: Clinical Impression(s) from Imaging Studies Head/Neck CTA 03/01/23 08:14 IMPRESSION: Minimal plaque formation at the origin of the left internal carotid artery. Plaque formation in the supraclinoid region of the right internal carotid artery causing greater than 50% stenosis. Electronically Signed: Maurice Callejas MD at 9:35 EST , Discharge Plan Triage Chief Complaint: Headache ED Provider: Asim Catalan Dx/Rx/DC Orders Clinical Impression: Headache, Acute UTI Instructions: ED Headache Unspecified, ED Cystitis Female Adult Prescriptions: New cephalexin [cephalexin] 500 mg capsule 500 mg PO Q6 Qty: 28 0RF No Action acetaminophen [Tylenol] 325 mg capsule 325 mg PO ONCE PRN (Reason: pain) multivitamin Tablet 1 tab PO DAILY aspirin [Adult Low Dose Aspirin] 81 mg tablet,delayed release (DR/EC) 81 mg PO QHS PreserVision AREDS 4,296 mcg-226 mg-90 mg capsule 1 cap PO BID venlafaxine 37.5 mg capsule,extended release 24hr 37.5 mg PO DAILY Qty: 30 1RF omega-3 fatty acids Capsule 600 mg PO BID VEGGIES 3 cap PO DAILY FRUITS 3 cap PO DAILY PREVAGEN 1 cap PO DAILY fexofenadine [Poonam Allergy] 180 mg tablet 180 mg PO DAILY PRN (Reason: ALLERGIES) lisinopril 20 mg tablet 20 mg PO DAILY Qty: 90 3RF ferrous sulfate [Feosol] 325 mg (65 mg iron) tablet 325 mg PO BID Rx Instructions: decrease to daily if causes constipation amlodipine 2.5 mg tablet 2.5 mg PO BID Qty: 180 3RF pregabalin 25 mg capsule 50 mg PO BID Qty: 120 5RF Primary Care Provider: Dyana Cartwright Referrals: Ingrid Leger MD [Med Staff - Active Staff] - 3-5 Days Dyana Cartwright MD [Primary Care Provider] - Disposition Disposition: Home, Self Care Discharge Date/Time: 03/01/23 10:10
[2023-03-01] MEDS: 0.9% Normal Saline (1000mL) 1,000 ML 1000 ML IV (08:24)
[2023-03-01] MEDS: Ondansetron 4 MG/2 ML Vial IV (08:24)
[2023-03-01 08:33] LABS: Absolute Lymphocyte Count 2.34 X10^3/uL (0.83-4.51); Absolute Neutrophil Count 4.8 X10^3/uL (2.0-7.7); Basophil# 0.06 X10^3/uL; Basophil% 0.8 % (0-1); Eosinophil# 0.09 X10^3/uL; Eosinophils% 1.2 % (0-5); Hematocrit 39.7 % (37-47); Hemoglobin 12.6 g/dL (12.0-15.0); Lymphocyte # 2.34 X10^3/ul (0.83-4.51); Lymphocyte % 30.4 % (19-41); Mean Corp Hgb Conc 31.7 g/dL (32-36); Mean Corpuscular Hgb 27.5 pg (27.0-32.0); Mean Corpuscular Volume 86.5 fL (81-99); Mean Platelet Vol. 9.6 fl (6.2-12.0); Monocyte# 0.41 X10^3/uL; Monocyte% 5.3 % (0-10); NRBC Flagged by Analyzer 0 % (0-5); Neutrophil # 4.79 X10^3/uL (2.7-7.7); Platelet Count 161 K/mm3 (150-450); RBC Distribution Width CV 14.6 % (11.6-14.6); Red Blood Count 4.59 M/mm3 (4.2-5.4); White Blood Count 7.7 K/mm3 (4.4-11.0)
[2023-03-01 08:58] LABS: Anion Gap 8 (5-15); BUN 28 mg/dL (7-18); BUN/Creat Ratio 21.4 RATIO (10-20); Calcium,Total 9.7 mg/dL (8.5-10.1); Chloride 108 mmol/L (98-107); Creatinine, Serum 1.31 mg/dL (0.55-1.02); EST Glomerular Filtration Rate 42 mL/min (>60); Est Glom Filt Rate - Afr Amer 51 mL/min (>60); Estimated Creatinine Clearance 31.98 ml/min; Glucose 98 mg/dL (74-106); Potassium 3.9 mmol/L (3.5-5.1); Sodium Level 139 mmol/L (136-145)
--- OUTSIDE RECORDS SUMMARY | 2023-03-01 08:58 | XMS RPT_ITS | CCD ---
Author Name Unknown Address [address] [address] [place] [address] Organization [facility] Care Team Providers Care Roll Up Operator Name Role Phone Ml Gopal E. Unavailable [...] UNKNOWN Consulting Unavailable Tung Barrientos DO Unavailable Gabbie BARON, Jai Waldrop Primary Care Provider Allergies Allergy Classification Reported Allergen(s) Allergy Type Date of Onset Reaction(s) Facility (16 sources) Esomeprazole; Translations: [ESOMEPRAZOLE MAGNESIUM] Drug Allergy 03-27-[address] [facility] Work Phone: Medications Current Medications Medication [...] source) Obstructive sleep apnea (adult) (pediatric); Translations: [JENNIFER (obstructive sleep apnea)] Onset: 05-15-2021 Chronic Residual [...] 14:23-0400 Body temperature 98.6 [degF] Krista Dahlhausen FAMILY DAY CARE PROVIDER.ENGINE BUILDER Work Phone: [facility] 05-27-2022 14:23-0400 Body weight 83.92 kg Kristamatthew Mehtahlhausen FAMILY DAY CARE PROVIDER.ENGINE BUILDER Work Phone: [facility] 05-27-2022 14:23-0400 Diastolic blood pressure 55 mm[Hg] Krista Dahlhausen FAMILY DAY CARE PROVIDER.ENGINE BUILDER Work Phone: [facility] 05-27-2022 14:23-0400 Heart rate 74 /min Krista Tysonhlhausen FAMILY DAY CARE PROVIDER.ENGINE BUILDER Work Phone: [facility] 05-27-2022 14:23-0400 Respiratory rate 16 /min Krista Tysonhlhausen FAMILY DAY CARE PROVIDER.ENGINE BUILDER Work Phone: [facility] 05-27-2022 14:23-0400 SaO2% (BldA) [Mass fraction] 95 % Krista Mehtahlhausen FAMILY DAY CARE PROVIDER.ENGINE BUILDER Work Phone: [facility] 05-27-2022 14:23-0400 Systolic blood pressure 134 mm[Hg] Krista Tysonhlhausen FAMILY DAY CARE PROVIDER.ENGINE BUILDER Work Phone: [facility] 09-24-2021 10:46-0400 Body temperature 98.29 [degF] Krista Dahlhausen FAMILY DAY CARE PROVIDER.ENGINE BUILDER Work Phone: [facility] 09-24-2021 10:46-0400 Body weight 79.02 kg Kristamatthew Mehtahlhausen FAMILY DAY CARE PROVIDER.ENGINE BUILDER Work Phone: [facility] 09-24-2021 10:46-0400 Diastolic blood pressure 74 mm[Hg] Krista Dahlhausen FAMILY DAY CARE PROVIDER.ENGINE BUILDER Work Phone: [facility] 09-24-2021 10:46-0400 Heart rate 54 /min Krista Dahlhausen FAMILY DAY CARE PROVIDER.ENGINE BUILDER Work Phone: [facility] 09-24-2021 10:46-0400 Respiratory rate 18 /min Krista Dahlhausen FAMILY DAY CARE PROVIDER.ENGINE BUILDER Work Phone: [facility] 09-24-2021 10:46-0400 SaO2% (BldA) [Mass fraction] 99 % Krista Dahlhausen FAMILY DAY CARE PROVIDER.ENGINE BUILDER Work Phone: [facility] 09-24-2021 10:46-0400 Systolic blood pressure 122 mm[Hg] Krista Dahlhausen FAMILY DAY CARE PROVIDER.ENGINE BUILDER Work Phone: [facility] 06-04-2021 10:43-0400 Body temperature 97.81 [degF] Krista Dahlhausen FAMILY DAY CARE PROVIDER.ENGINE BUILDER Work Phone: [facility] 06-04-2021 10:43-0400 Body weight 75.75 kg Krista Dahlhausen FAMILY DAY CARE PROVIDER.ENGINE BUILDER Work Phone: [facility] 06-04-2021 10:43-0400 Diastolic blood pressure 68 mm[Hg] Krista Dahlhausen FAMILY DAY CARE PROVIDER.ENGINE BUILDER Work Phone: [facility] 06-04-2021 10:43-0400 Heart rate 58 /min Krista Dahlhausen FAMILY DAY CARE PROVIDER.ENGINE BUILDER Work Phone: [facility] 06-04-2021 10:43-0400 Respiratory rate 18 /min Krista Dahlhausen FAMILY DAY CARE PROVIDER.ENGINE BUILDER Work Phone: [facility] 06-04-2021 10:43-0400 SaO2% (BldA) [Mass fraction] 100 % Krista Dahlhausen FAMILY DAY CARE PROVIDER.ENGINE BUILDER Work Phone: [facility] 06-04-2021 10:43-0400 Systolic blood pressure 110 mm[Hg] Krista Dahlhausen FAMILY DAY CARE PROVIDER.ENGINE BUILDER Work Phone: [facility] Encounters Encounter Date Encounter Type Care Provider Facility Start: 01-10-2023 Refill Krista George rené FAMILY DAY CARE PROVIDER.ENGINE BUILDER Work Phone: Neurology Procedures Date Procedure Procedure Detail Performing Clinician Start: 11-10-2017 Colonoscopy Smiley hodgson Jr., MD Work Phone: Start: 07-28-2015 Adult depression scr eening assessment Smiley Stoddard Jr., MD Work Phone: Plan of Treatment Date Care Activity Detail Author Start: 09-04-[address] [facility] Start: 09-05-2023 DIABETES SCREEN DIABETES SCREEN [facility] Start: 09-05-2023 Diabetes Screening Diabetes Screening [facility] Start: 02-05-[address] [facility] Start: 10-08-2022 Covid-19 Vaccine () Covid-19 Vaccine () [facility] Start: 10-08-[address] [facility] Start: 09-24-2022 BP CONTROLLED (<130/80) BP CONTROLLED (<130/80) [facility] Start: 06-04-2022 BP CONTROLLED (<130/80) BP CONTROLLED (<130/80) [facility] Start: 04-09-2022 BP CONTROLLED (<130/80) BP CONTROLLED (<130/80) [facility] Start: 02-07-2022 ADVANCE DIRECTIVE DISCUSSION ADVANCE DIRECTIVE DISCUSSION [facility] Start: 02-07-2022 DEPRESSION ASSESSMENT DEPRESSION ASSESSMENT [facility] Start: 10-08-[address] [facility] Start: 09-04-2021 ANNUAL PCP TEAM CHRONIC DISEASE VISIT ANNUAL PCP TEAM CHRONIC DISEASE VISIT [facility] Start: 09-04-2021 SERUM CREATININE SERUM CREATININE [facility] Start: 05-17-2021 COVID-19 VACCINE (4 - Booster for Moderna series) COVID-19 VACCINE (4 - Booster for Moderna series) [facility] Start: 03-13-2021 COVID-19 VACCINE (4 - Booster for Moderna series) COVID-19 VACCINE (4 - Booster for Moderna series) [facility] Start: 03-13-2021 COVID-19 VACCINE (4 - Moderna series) COVID-19 VACCINE (4 - Moderna series) [facility] Start: 02-07-2021 ADVANCE DIRECTIVE DISCUSSION ADVANCE DIRECTIVE DISCUSSION [facility] Start: 02-07-2021 DEPRESSION ASSESSMENT DEPRESSION ASSESSMENT [facility] Start: 11-10-[address] [facility] Start: 11-11-2017 COLORECTAL CANCER SCREENING COLORECTAL CANCER SCREENING [facility] Start: 02-15-2017 COLORECTAL CANCER SCREENING COLORECTAL CANCER SCREENING [facility] Start: 02-15-2017 FECAL OCCULT BLOOD FECAL OCCULT BLOOD [facility] Start: 07-27-2016 Adult depression screening assessment DEPRESSION SCREENING [facility] Start: 10-22-2015 HEMOGLOBIN/HEMATOCRIT HEMOGLOBIN/HEMATOCRIT [facility] Start: 01-22-2012 SHINGRIX VACCINE (2 of 3) SHINGRIX VACCINE (2 of 3) [facility] Start: 2005 RSV Vaccine (1 - 1-dose 60+ series) RSV Vaccine (1 - 1-dose 60+ series) [facility] Start: 1990 COLOGUARD (FIT-DNA) COLOGUARD (FIT-DNA) [facility] Start: [address] [facility] Start: [address] COL[address]AP[address] [facility] Start: [address] [facility] Start: 10-11-1963 BP CONTROLLED (<130/80) BP CONTROLLED (<130/80) [facility] End: 07-04-2022 Mra head w/o contrst material MRA BRAIN WO IVCON Radiology Routine Transient cerebral ischemia, unspecified type 1 Occurrences starting 06/04/2021 until 07/04/2022 [facility] Work Phone: Immunizations Immunization Date Immunization Notes Care Provider Fa cility 04-09-2020 COVID-19 vaccine, fu ll dose (MODERNA) Smiley Stoddard Jr., MD Work Phone: [facility] 03-12-2020 COVID-19 vaccine, fu ll dose (MODERNA) Smiley Stoddard Jr., MD Work Phone: [facility] 01-29-2019 influenza, injectabl e, quadrivalent, preservative free Smiley Stoddard Jr., MD Work Phone: [facility] 01-29-2019 influenza virus vacc ine, unspecified formulation Krista Rice APRNWAQAS Work Phone: [facility] 10-31-2017 influenza, injectabl e, quadrivalent, preservative free Smiley Stoddard Jr., MD Work Phone: [facility] 01-19-2017 influenza, injectabl e, quadrivalent, preservative free Smiley Stoddard Jr., MD Work Phone: [facility] 11-29-2015 influenza, high dose seasonal, preservative-free Smiley Stoddard Jr., MD Work Phone: [facility] Work Phone: 12-12-2014 influenza, high dose seasonal, preservative-free Smiley Stoddard Jr., MD Work Phone: [facility] 08-30-2014 pneumococcal conjuga te vaccine, 13 valent Smiley Stoddard Jr., MD Work Phone: [facility] 12-05-2013 influenza, seasonal, injectable Smiley Stoddard Jr., MD Work Phone: [facility] 02-05-2013 tetanus toxoid, redu angelina diphtheria toxoid, and acellular pertussis vaccine, adsorbed Smiley Stoddard Jr., MD Work Phone: [facility] 12-23-2012 influenza virus vacc ine, unspecified formulation Smiley Stoddard Jr., MD Work Phone: [facility] Work Phone: 11-27-2011 influenza virus vacc ine, unspecified formulation Smiley Stoddard Jr., MD Work Phone: [facility] 11-27-2011 varicella virus vaccine Will champ Richi Padilla MD Work Phone: [facility] 11-27-2011 zoster vaccine, live Smiley Stoddard Jr., MD Work Phone: [facility] 11-24-2010 influenza virus vacc ine, unspecified formulation Smiley Stoddard Jr., MD Work Phone: [facility] 11-24-2010 pneumococcal polysaccharide vaccine, 23 valent Smiley Stoddard Jr., MD Work Phone: [facility] 11-18-2009 influenza virus vacc ine, unspecified formulation Smiley Stoddard Jr., MD Work Phone: [facility] 11-13-2008 influenza virus vacc ine, unspecified formulation Smiley Stoddard Jr., MD Work Phone: [facility] Work Phone: 02-07-2003 tetanus and diphther ia toxoids, not adsorbed, for adult use Smiley Stoddard Jr., MD Work Phone: [facility] Work Phone: 02-07-2003 tetanus toxoid, redu angelina diphtheria toxoid, and acellular pertussis vaccine, adsorbed Smiley Stoddard Jr., MD Work Phone: [facility] Payers Date Payer Category Payer Unknown [employer] PPO [id number] 2020-Present [phone] [address] [place] [address] PPO [id number] 2020 Unknown [id number] 2010 Medicare MEDICARE MEDICAR E A [id number] 2010-Present [phone] [address] [place] [address] Medicare [id number] 1995 Unknown [id number] 1945 Unknown [id number] Social History Date Type Detail Facility Start: 11-24-2010 Tobacco smoking stat us [facility] Never smoked tobacco [facility] Start: 04-09-2021 End: 01-11-2023 Alcohol intake Current non-drinker of alcohol (finding) [facility] Start: 1945 Sex Assigned At Female [facility] Start: 03-10-2021 End: 09-24-2021 Exposure to SARS-CoV-2 (event) Not sure [facility] Start: 06-12-2021 End: 06-22-2021 Exposure to SARS-CoV-2 (event) Unable to assess [facility] Start: 11-24-2010 Tobacco use and exposure Smoke less tobacco non-user [facility] Start: 09-14-2022 End: 12-02-2022 History of [address] [facility] Start: 09-14-2022 End: 12-02-[address] [facility] National Score (1-10 0), lower number is lower risk [address] [facility] Start: 04-19-2021 Gender identity Identifies as female gender (finding) [facility] Start: 04-19-2021 Sexual orientation Heterosexual (alonso montoya) [facility] Clinical Notes 09-26-2014 to 01-11-2023 Telephone [...] 2023 Krista Rice APRN.CNP Pharmacy verified in [employer]. Patient has been identified by name and [...] advise. Mita Shepherd documented in this encounter [facility] 11-30-2022 Miscellaneous Notes Spoke with patient and set up virtual visit for 12/02/2022 @ 1030. Patient has never completed a VV before. She was provided with [facility] phone number in case she has any issues when trying to log on to appointment. Spoke with patient and she would like to schedule in [place]. Looked at scheduling appointment with Rhoda ALCANTARA in [place] and her 1st available is 03/09/2023. Patient [...] Velvet Sarmiento LPN. documented in this encounter [facility] 09-22-2022 Miscellaneous Notes Medication was sent to [facility] in [place] on September 14 for pt. Pia Barney LPN documented in this encounter [facility] 09-15-2022 Miscellaneous Notes Pt notified via [employer] message. Pia Barney LPN Lab work reviewed from 06/29. Pt needs follow up appt. PDMP website checked and validated. All prescriptions have been APPROPRIATELY filled. No suspicious activity was identified. September 14, 2022 Krista Rice APRN.ENGINE BUILDER Medication refill requested by Patient Please review and advise. Requested Prescriptions Pending Prescriptions Disp Refills pregabalin (LYRICA) 50 mg capsule 60 capsule 2 Sig: Take 1 capsule by mouth twice daily for 90 days. Last encounter with this provider: 05/27/2022 Next appt: Not scheduled. Cookie Wayne RN documented in this encounter [facility] 06-02-2022 Miscellaneous Notes [employer] message sent to pt with below information. [...] starting alternative medication. documented in this encounter [facility] 05-27-2022 Note HNO ID: [id number] Author: Krista Rice APRN.ENGINE BUILDER Service: ? Author Type: Nurse Practitioner Type: Progress Notes Filed: 05/28/2022 1:31 PM Note Text: [facility] [place] Follow-up Visit Follow-up note May 27, 2022 [...] brain/neck completed in interim and unremarkable. Outpt rn cardiac cath also completed without evidence of afib but noting SVT; recommendation made to follow with her porter baggage. Goals remain BP <140/90 and BG <140. [...] places. Not leavin (more content not included)... [facility] 05-27-2022 History of Present illness Narrative Images from the original note were not included. [facility] [place] Follow-up Visit Follow-up note May 27, 2022 [...] brain/neck completed in interim and unremarkable. Outpt rn cardiac cath also completed without evidence of afib but noting SVT; recommendation made to follow with her porter baggage. Goals remain BP <140/90 and BG <140. [...] Words, up to 2 trials: Face, Velvet, Caodaism, Chayito, Red (no points) 5/5 first try, [...] 1 error) (0/1) Serial subtraction by 7: [id number] (3 points for correct 4 or 5; 2 points for 2 or 3 correct; 1 point for 1 correct) [id number] (04/09) Language: repeat: I only know that [...] (2) Delayed recall: recall words: face, velvet, judaism, chayito, red (0-5) got chayito, red, judaism with clues (2/5) Orientation: date(1), month(1), year(1), [...] chronic kidney disease (HCC) 09/14/2020 Patient to [facility] PAST SURGICAL HISTORY Procedure Laterality Date CHOLECYSTECTOMY [...] temporal region, or occipital region. Labs/studies: Outpatient Expedition Supervisor 06/26/21: Patient had a min HR of [...] DATE OF EXAM: Apr 24 2021 8:57AM [facility] 0294 - MRI BRAIN WO IVCON / [...] is difficult due to differences in technique. [employer]: LUIS DANIEL Transcribe Date/Time: Apr 24 2021 9:13A Dictated by : RED VENTURA MD This examination was interpreted and the report reviewed and electronically signed by: RED VENTURA MD on Apr 24 2021 9:16AM EST Complete Results EEG 06/01/21 ([facility]): No focal, lateralized, nor epileptiform abnormalities noted. Unremarkable waking EEG. Echo 04/14/21 ([facility]): Normal LV size. Left ventricular systolic function [...] slightly elevated, however, pt recently presented to [facility] for new mask fitting and [...] which included preparing to see the patient, [id number] patient care, completing clinical documentation, obtaining and/or reviewing separately obtained history, performing a medically appropriate examination, and counseling and educating the patient/family/caregiver. documented in this encounter [facility] 04-01-2022 Miscellaneous Notes Patient contacted through to see if concerns were addressed regarding Flexeril. Will watch for patient reply. Pauly Broussard LPN documented in this encounter [facility] 03-10-2022 Miscellaneous Notes Spoke with patient [...] brain/neck completed in interim and unremarkable. Outpt rn cardiac cath also completed without evidence of afib but noting SVT; recommendation made to follow with her porter baggage. Goals remain BP <140/90 and BG <140. She continues to take ASA regularly. Recommend follow up with PCP regarding LDL (128) and cholesterol/BP management. Continue to stay compliant with medications and take daily. Continue to get adequate exercise/physical activity within limitations. documented in this encounter [facility] 12-11-2021 Note HNO ID: [id number] Author: Willi Romero APRN.ENGINE BUILDER Service: ? Author Type: Nurse Practitioner Type: Progress Notes Filed: 12/11/2021 8:32 AM Note Text: pre [facility] 12-08-2021 Miscellaneous Notes Message relayed to patient. 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 Images from the original note were [...] Monica Mc LPN documented in this encounter [facility] 11-16-2021 Miscellaneous Notes VIJAYA: 09/24/21 NOV: [...] brain/neck completed in interim and unremarkable. Outpt rn cardiac cath also completed without evidence of afib but noting SVT; recommendation made to follow with her porter baggage. Goals remain BP <140/90 and BG <140. She continues to take ASA regularly. Recommend follow up with PCP regarding LDL (128) and cholesterol/BP management. Continue to stay compliant with medications and take daily. Continue to get adequate exercise/physical activity within limitations. Krista Rice APRN.ENGINE BUILDER documented in this encounter [facility] 09-24-2021 Note HNO ID: [id number] Author: Krista Rice APRN.ENGINE BUILDER Service: ? Author Type: Nurse Practitioner Type: Progress Notes Filed: 09/28/2021 11:12 AM Note Text: [facility] [place] Follow-up Visit Follow-up note September 24, 2021 [...] Will proceed with further workup including outpatient rn cardiac cath and MRA brain/neck (given history of kidney [...] (with mask fit (more content not included)... [facility] 09-24-2021 History of Present illness Narrative Images from the original note were not included. [facility] [place] Follow-up Visit Follow-up note September 24, 2021 [...] Will proceed with further workup including outpatient rn cardiac cath and MRA brain/neck (given history of kidney [...] chronic kidney disease (HCC) [facility] Procedure Laterality Date [...] normal in stance and pattern. Labs/studies: Outpatient Expedition Supervisor 06/26/21: Patient had a min HR of [...] DATE OF EXAM: Apr 24 2021 8:57AM [facility] 0294 - MRI BRAIN WO IVCON / [...] is difficult due to differences in technique. [employer]: [facility] Transcribe Date/Time: Apr 24 2021 9:13A Dictated by : RED VENTURA MD This examination was interpreted and the report reviewed and electronically signed by: RED VENTURA MD on Apr 24 2021 9:16AM EST Complete Results EEG 06/01/21 ([facility]): No focal, lateralized, nor epileptiform abnormalities noted. Unremarkable waking EEG. Echo 04/14/21 ([facility]): Normal LV size. Left ventricular systolic function [...] brain/neck completed in interim and unremarkable. Outpt rn cardiac cath also completed without evidence of afib but noting SVT; recommendation made to follow with her porter baggage. Goals remain BP <140/90 and BG <140. [...] which included preparing to see the patient, [id number] patient care, completing clinical documentation, obtaining and/or reviewing separately obtained history, performing a medically appropriate examination, counseling and educating the patient/family/caregiver, and ordering medications, tests, or procedures. documented in this encounter [facility] 07-22-2021 Miscellaneous Notes Pt requesting Zio report to be faxed to Dr Beck's office. Report faxed to [phone]. Sherrie Holloway LPN documented in this encounter [facility] 07-10-2021 Miscellaneous Notes Updated patient via writewith. Shelby Ragsdale LPN Per reports all testing was unremarkable. Smiley Stoddard MD PAP Compliance report from 05/25/21 to present, EEG results and MRA of Neck and Head scanned into [employer] for Provider to review and address as needed. Shelby Ragsdale LPN documented in this encounter [facility] 06-04-2021 Note HNO ID: [id number] Author: Krista Rice APRN.ENGINE BUILDER Service: ? Author Type: Nurse Practitioner Type: Progress Notes Filed: 06/04/2021 12:13 PM Note Text: [facility] [place] Follow-up Visit Follow-up note June 04, 2021 [...] past few weeks. Had EEG completed through [facility] this week. Recently had follow up with [...] to Visit Me (more content not included)... [facility] 06-04-2021 Note HNO ID: [id number] Author: Oksana Paz MD Service: Interventional Cardiology Author Type: Physician Type: Procedures Filed: 07/10/2021 2:22 PM Note Text: Patient Name: Annette Hair : 1945 Ordering Provider: KRISTA RICE Indication: I63.9 Cerebral infarction, unspecified Type of Monitor: Extended Monitoring-Zio Patch Enrollment Dates: 06/07/2021-06/21/2021 [facility] 06-04-2021 History of Present illness Narrative Images from the original note were not included. [facility] [place] Follow-up Visit Follow-up note June 04, 2021 [...] past few weeks. Had EEG completed through [facility] this week. Recently had follow up with [...] chronic kidney disease (HCC) 09[facility]14/[facility] Procedure Laterality Date CHOLECYSTECTOMY [...] is difficult due to differences in technique. [employer]: LUIS DANIEL Transcribe Date/Time: Apr 24 2021 9:13A Dictated by : RED VENTURA MD This examination was interpreted and the report reviewed and electronically signed by: RED VENTURA MD on Apr 24 2021 9:16AM EST Complete Results EEG 06/01/21 ([facility]): No focal, lateralized, nor epileptiform abnormalities noted. Unremarkable waking EEG. Echo 04/14/21 ([facility]): Normal LV size. Left ventricular systolic function [...] Will proceed with further workup including outpatient rn cardiac cath and MRA brain/neck (given history of kidney [...] which included preparing to see the patient, [id number] patient care, completing clinical documentation, obtaining and/or reviewing separately obtained history, performing a medically appropriate examination, counseling and educating the patient/family/caregiver, ordering medications, tests, or procedures and communicating results to the patient/family/caregiver. PDMP website checked and validated. All prescriptions have been APPROPRIATELY filled. No suspicious activity was identified. June 04, 2021 Krista Rice APRN.NUNU documented in this encounter [facility] 05-26-2021 Miscellaneous Notes Orders faxed to [facility]. Shelby Ragsdale LPN Received copy of CPAP Titration results from [facility]. Will forward to Dr Stoddard to review. Shelby Ragsdale LPN documented in this encounter [facility] documented as of this encounter (statuses as of 05/26/2021) [facility] History of Past illness Narrative* Problem [...] of this encounter (statuses as of 06/04/2021) [facility] History of Past illness Narrative* Problem [...] of this encounter (statuses as of 07/10/2021) [facility] History of Past illness Narrative* Problem [...] of this encounter (statuses as of 07/22/2021) [facility] History of Past illness Narrative* Problem [...] of this encounter (statuses as of 09/28/2021) [facility] History of Past illness Narrative* Problem [...] of this encounter (statuses as of 12/02/2021) [facility] History of Past illness Narrative* Problem [...] of this encounter (statuses as of 12/08/2021) [facility] History of Past illness Narrative* Problem [...] of this encounter (statuses as of 03/10/2022) [facility] History of Past illness Narrative* Problem [...] of this encounter (statuses as of 04/05/2022) [facility] History of Past illness Narrative* Problem [...] of this encounter (statuses as of 05/28/2022) [facility] History of Past illness Narrative* Problem [...] of this encounter (statuses as of 06/02/2022) [facility] History of Past illness Narrative* Problem [...] of this encounter (statuses as of 09/15/2022) [facility] History of Past illness Narrative* Problem [...] of this encounter (statuses as of 09/23/2022) [facility] History of Past illness Narrative* Problem [...] of this encounter (statuses as of 12/07/2022) [facility] History of Past illness Narrative* Problem [...] of this encounter (statuses as of 01/11/2023) [facility] Diagnosis JENNIFER (obstructive sleep apnea) Obstructive sleep apnea (adult) (pediatric) Chronic intractable headache, unspecified headache type- Primary Occipital neuralgia of right side Cervicalgia JENNIFER (obstructive sleep apnea) Obstructive sleep apnea (adult) (pediatric) Transient alteration of awareness documented [facility] this encounter [facility] Diagnosis Chronic intractable headache, unspecified headache type- Primary Occipital neuralgia of right side Cervicalgia JENNIFER (obstructive sleep apnea) Obstructive sleep apnea (adult) (pediatric) Transient alteration of awareness Transient cerebral ischemia, unspecified type Cerebrovascular accident (CVA), unspecified mechanism (HCC) Claustrophobia Other isolated or specific phobias documented in this encounter [facility] Diagnosis Chronic intractable headache, unspecified headache type- Primary Occipital neuralgia of right side Cervicalgia JENNIFER (obstructive sleep apnea) Obstructive sleep apnea (adult) (pediatric) Transient alteration of awareness [facility] this [facility] Diagnosis Chronic intractable headache, unspecified headache type Occipital neuralgia of right side [facility] this [facility] Diagnosis Chronic intractable headache, unspecified headache type- Primary Occipital neuralgia of right side Cervicalgia JENNIFER (obstructive sleep apnea) Obstructive sleep apnea (adult) (pediatric) Transient alteration of awareness Memory change Memory loss Transient cerebral ischemia, unspecified type documented in this encounter [facility] Diagnosis Intractable chronic cluster headache Chronic cluster headache Occipital neuralgia of right side documented in this [facility] Diagnosis Intractable chronic cluster headache Chronic cluster headache Occipital neuralgia of right side [facility] in this encounter [facility]* Diagnosis Intractable chronic cluster headache Chronic cluster headache Occipital neuralgia of right side documented in this encounter [facility] Summary Purpose Family History No Family [...] IVCON MRA, NECK; W/O CONTRAST Krista Rice, FAMILY DAY CARE PROVIDER.ENGINE BUILDER [address] [place] [address] Mr Imaging Referral ID Status Reason Start Date Expiration Date Visits Requested Visits Authorized [id number] Pending Review Auto-Generat ed Referral 06/04/2021 07/04/2022 1 1 Specialty Diagnoses / Procedures Referred By Contac t Referred To Contact MR IMAGING Diagnoses Transient cerebral ischemia, unspecified type Procedures MRA BRAIN WO IVCON MRA, HEAD W/O CONTRAST Krista Rice APRN.ENGINE BUILDER [address] [place] [address] Mr Imaging Referral ID Status Reason Start Date Expiration Date Visits Requested Visits Authorized [id number] Pending Review Auto-Generat ed Referral 06/04/2021 07/04/2022 1 1 Specialty Diagnoses / Procedures Referred By Contac t Referred To Contact MR IMAGING Diagnoses Transient cerebral ischemia, unspecified type Procedures MRI BRAIN WO IVCON MRI BRAIN BRAIN STEM W/O CONTRAST MATERIAL Krista Rice, NORAH.ENGINE BUILDER [address] [place] [address] Mr Imaging Referral ID Status Reason Start Date Expiration Date Visits Requested Visits Authorized [id number] Pending Review Auto-Generat ed Referral 05/28/2022 06/27/2023 1 1 Additional Source Comments INFORMATION SOURCE (unrecogn ized section and content) DATE CREATED AUTHOR AUTHOR'S ORGANIZ ATION 11/05/2018 [facility] DATE CREATED AUTHOR AUTHOR'S ORGANIZ ATION 03/31/2021 [facility] DATE CREATED AUTHOR AUTHOR'S ORGANIZ ATION 05/29/2022 [facility] DATE CREATED AUTHOR AUTHOR'S ORGANIZ ATION 06/11/2022 [facility] Source Comments (unrecognize d section and content) In the event this informatio n is protected by the Federal Confidentiality of Alcohol and Drug Abuse Patient Records regulations: The Federal rules restrict any use of the information to criminally investigate or prosecute any alcohol or drug abuse patient.[facility] event this information is protected by the Federal Confidentiality of Alcohol and Drug Abuse Patient Records regulations: The Federal rules restrict any use of the information to criminally investigate or prosecute any alcohol or drug abuse patient.[facility] event this information is protected by the Federal Confidentiality of Alcohol and Drug Abuse Patient Records regulations: The Federal rules restrict any use of the information to criminally investigate or prosecute any alcohol or drug abuse patient.[facility] event this information is protected by the Federal Confidentiality of Alcohol and Drug Abuse Patient Records regulations: The Federal rules restrict any use of the information to criminally investigate or prosecute any alcohol or drug abuse patient.[facility] event this information is protected by the Federal Confidentiality of Alcohol and Drug Abuse Patient Records regulations: The Federal rules restrict any use of the information to criminally investigate or prosecute any alcohol or drug abuse patient.[facility] event this information is protected by the Federal Confidentiality of Alcohol and Drug Abuse Patient Records regulations: The Federal rules restrict any use of the information to criminally investigate or prosecute any alcohol or drug abuse patient.[facility] event this information is protected by the Federal Confidentiality of Alcohol and Drug Abuse Patient Records regulations: The Federal rules restrict any use of the information to criminally investigate or prosecute any alcohol or drug abuse patient.[facility] the event this information is protected by the Federal Confidentiality of Alcohol and Drug Abuse Patient Records regulations: The Federal rules restrict any use of the information to criminally investigate or prosecute any alcohol or drug abuse patient.[facility] event this information is protected by the Federal Confidentiality of Alcohol and Drug Abuse Patient Records regulations: The Federal rules restrict any use of the information to criminally investigate or prosecute any alcohol or drug abuse patient.[facility] event this information is protected by the Federal Confidentiality of Alcohol and Drug Abuse Patient Records regulations: The Federal rules restrict any use of the information to criminally investigate or prosecute any alcohol or drug abuse patient.[facility] event this information is protected by the Federal Confidentiality of Alcohol and Drug Abuse Patient Records regulations: The Federal rules restrict any use of the information to criminally investigate or prosecute any alcohol or drug abuse patient.[facility] event this information is protected by the Federal Confidentiality of Alcohol and Drug Abuse Patient Records regulations: The Federal rules restrict any use of the information to criminally investigate or prosecute any alcohol or drug abuse patient.[facility] the event this information is protected by the Federal Confidentiality of Alcohol and Drug Abuse Patient Records regulations: The Federal rules restrict any use of the information to criminally investigate or prosecute any alcohol or drug abuse patient.[facility] the event this information is protected by the Federal Confidentiality of Alcohol and Drug Abuse Patient Records regulations: The Federal rules restrict any use of the information to criminally investigate or prosecute any alcohol or drug abuse patient.[facility] the event this information is protected by the Federal Confidentiality of Alcohol and Drug Abuse Patient Records regulations: The Federal rules restrict any use of the information to criminally investigate or prosecute any alcohol or drug abuse patient.[facility] Reason for Visit (unrecogniz ed section and content) Reason Comments Established NI Patient Specialty Diagnoses / Procedures Referred By Coleman bennett Referred To Contact Neurology / NEUROLOGY Diagnoses Headaches headaches- referring. records in scanned documents Procedures NEW PATIENT VISIT LEVEL 5 NEW NEUR HEADACHE Jai Shearer MD [address] [place] [address] Smiley Stoddard Jr., MD [address] [facility] [address] [place] [address] Referral ID Status Reason Start Date Expiration Date V isits Requested Visits Authorized [id number] Authorized 12/30/2020 12/30/2021 99 99 Reason Comments Results Reason Comments Zio Results Reason Comments Follow Up 3 month Specialty Diagnoses / Procedures Referred By Contac t Referred To Contact Neurology / NEUROLOGY Diagnoses Follow-up exam 3 month follow up Procedures OFFICE/OUTPATIENT ESTABLISHED MOD MDM 30-39 MIN EST NI PATIENT Krystal Krista, FAMILY DAY CARE PROVIDER.ENGINE BUILDER [address] [place] [address] Krista Rice, FAMILY DAY CARE PROVIDER.ENGINE BUILDER [address] [place] [address] Referral ID Status Reason Start Date Expiration Date Visits Re quested Visits Authorized [id number] Closed 09/24/2021 02/06/2022 1 1 Reason Onset Date Comments Refill Request 12/07/2021 Reason Comments Follow Up Specialty Diagnoses / Procedures Referred By Contac t Referred To Contact Neurology / NEUROLOGY Diagnoses Follow-up examination follow up Procedures OFFICE/OUTPATIENT ESTABLISHED MOD MDM 30-39 MIN EST NI PATIENT Johnny Riceisten, FAMILY DAY CARE PROVIDER.ENGINE BUILDER [address] [address] Krista Rice, FAMILY DAY CARE PROVIDER.ENGINE BUILDER [address] [place] [address] Referral ID Status Reason Start Date Expiration Date Visits Re quested Visits Authorized [id number] Closed 05/20/2022 02/06/2023 1 1 Reason Onset Date Comments Refill Request 09/14/2022 Reason Onset Date Comments Refill Request 11/30/2022 Refill Request 12/07/2022 Reason Comments Refill Request Care Teams (unrecognized sec tion and content) Roll Up Operator Relationship Specialty Start Date End Date Jai Shearer MD [address] [place], [place] [id number] PCP - General Internal Medicine 05/18/21 Tung Barrientos DO Specialty Knockout Worker Endocrinology 02/23/13 Roll Up Operator Relationship Specialty Start Date End Date Jai Shearer MD [address] [place] [address] PCP - General Internal Medicine 05/18/21 Tung Barrientos, DO Specialty Knockout Worker Endocrinology 02/23/13 Roll Up Operator Relationship Specialty Start Date End Date Jai Shearer MD [address] [place] [address] PCP - General Internal Medicine 05/18/21 Tung Barrientos, DO Specialty Knockout Worker Endocrinology 02/23/13 Roll Up Operator Relationship Specialty Start Date End Date Jai Shearer MD [address] [place] [address] PCP - General Internal Medicine 05/18/21 Tung Barrientos, DO Specialty Knockout Worker Endocrinology 02/23/13 Roll Up Operator Relationship Specialty Start Date End Date Jai Shearer MD [address] [place] [address] PCP - General Internal Medicine 05/18/21 Tung Barrientos, DO Specialty Knockout Worker Endocrinology 02/23/13 Roll Up Operator Relationship Specialty Start Date End Date Jai Shearer MD [address] [place] [address] PCP - General Internal Medicine 05/18/21 Tung Barrientos, DO Specialty Knockout Worker Endocrinology 02/23/13 Roll Up Operator Relationship Specialty Start Date End Date Jai Shearer MD [address] [place] [address] PCP - General Internal Medicine 05/18/21 Tung Barrientos DO Specialty Knockout Worker Endocrinology 02/23/13 Roll Up Operator Relationship Specialty Start Date End Date Jai Shearer MD [address] [place] [address] PCP - General Internal Medicine 05/18/21 Tung Barrientos DO Specialty Knockout Worker Endocrinology 02/23/13 Roll Up Operator Relationship Specialty Start Date End Date Jai Shearer MD [address] [place] [address] PCP - General Internal Medicine 05/18/21 Tung Barrientos DO Specialty Knockout Worker Endocrinology 02/23/13 Roll Up Operator Relationship Specialty Start Date End Date Jai Shearer MD [address] [place] [address] PCP - General Internal Medicine 05/18/21 Tung Barrientos DO Specialty Knockout Worker Endocrinology 02/23/13 Roll Up Operator Relationship Specialty Start Date End Date Jai Shearer MD [address] [place] [address] PCP - General Internal Medicine 05/18/21 Tung Barrientos DO Specialty Knockout Worker Endocrinology 02/23/13 Roll Up Operator Relationship Specialty Start Date End Date Jai Shearer MD [address] [place] [address] PCP - General Internal Medicine 05/18/21 Tung Barrientos DO Specialty Knockout Worker Endocrinology 02/23/13 Roll Up Operator Relationship Specialty Start Date End Date Jai Shearer MD [address] [place], [place] [id number] PCP - General Internal Medicine 05/18/21 Tung Barrientos DO Specialty Knockout Worker Endocrinology 02/23/13 FOR RECORDS PERTAINING TO PATIENTS [...] BE BASED ON THE PRIMARY CLINICAL RECORDS. [facility]. provides no warranty or guarantee of the accuracy or completeness of information in this document.
[2023-03-01 09:12] LABS: Color, Urine Yellow (Yellow); Glucose, Dipstick Normal (Normal); Ketone-Dipstick 50 mg/dl (Negative); Leukocyte Esterase-Dipstick 500 /ul (Negative); Nitrite-Dipstick Positive (Negative); Occult Blood-Urine 25 /ul (Negative); Protein-Dipstick 30 mg/dl (Negative); Urine Bilirubin Dipstick Negative (Negative); Urine Clarity Cloudy (Clear); Urine Urobilinogen Normal (Normal)
[2023-03-01 09:16] LABS: Red Blood Cells-Urine 0-5 SEEN /hpf (0-5); Squamous Epithelial Cells - UA 5-10 SEEN /hpf (5-10); White Blood Cells 25-50 SEEN /hpf (0-5)
[2023-03-01 09:17] LABS: Bacteria 3+ /hpf (None Seen); Mucous, Urine 1+ /hpf (<or=2+)
[2023-03-01 10:09] VITALS: BP 150/62
[2023-03-01] MEDS: Cephalexin 250 MG Capsule 500 MG PO (10:09)
== END 2023-03-01 10:10 | disposition home or self-care (01) ==
PROVIDERS: Emergency Provider Emergency Medicine; PCP Internal Medicine; Visit Provider Emergency Medicine
DX: R51.9 Headache, unspecified (principal); N39.0 Urinary tract infection, site not specified; I10 Essential (primary) hypertension; R06.09 Other forms of dyspnea; Z79.899 Other long term (current) drug therapy
CPT/HCPCS: 70496; 70498; 80048; 81001; 85025; 87077; 87086; 87088; 87186; 87631; 96361; 96374; 99283; J7030; Q9967; A4216; J2405

== ENCOUNTER → 2023-04-01 | Outpatient (CLI) | payer OTHER, SELFPAY ==
[2023-04-01 10:19] LABS: Cholesterol 264 mg/dL (200); High Density Lipoprotein 77 mg/dL; Triglycerides 189 mg/dL; Very Low Density Lipoprotein 38 mg/dL (5-40)
== END | disposition home or self-care (01) ==
LOC: LAB 08:47
PROVIDERS: PCP Internal Medicine
DX: I65.29 Occlusion and stenosis of unspecified carotid artery (principal)
CPT/HCPCS: 36415; 80061

== ENCOUNTER → 2023-08-15 | Outpatient (CLI) | payer OTHER, SELFPAY | END | disposition home or self-care (01) | PROVIDERS: PCP Internal Medicine; Referring Provider Psychiatry & Neurology Neurology; Visit Provider Psychiatry & Neurology Neurology | DX: R41.3 Other amnesia (principal) | CPT/HCPCS: 36415 ==

== ENCOUNTER 2023-09-08 21:24 | Emergency (ER) | payer OTHER, SELFPAY ==
[2023-09-08 21:25] VITALS: BP 132/62; PULSE 76; RESP 16; TEMP 36.5; O2SAT 95; BMI 36.0
[2023-09-08 22:30] VITALS: BP 168/72; PULSE 90; RESP 18; TEMP 36.9; O2SAT 93
--- NOTE | 2023-09-08 22:45 | EX.ED.DYSGE1 ---
HPI History of Present Illness Chief Complaint: Diarrhea Informant: patient and family Narrative Narrative: Here with daughter for evaluation of increasing diarrhea starting at 3 AM less than 24 hours ago. Since 4 PM has been persistent nonbloody. No abdominal pain. Patient denies any recent antibiotics. Daughter came 3 hours away to visit when she heard of the diarrhea. She has had a cough last few days states spouse has current pneumonia. Reported fever for 3 days. Per daughter has been memory issues has been seen by neurology and PCP to have had a negative workup. Daughter is given Imodium throughout the day x 3 doses. [facility] Medical History Wears hearing aid Wears glasses Post-menopausal Seizures Bladder disease History of renal disease Low iron Headache CPAP (continuous positive airway pressure) dependence Non-smoker Leg cramps History of edema History of stress test History of echocardiogram Cardiology follow-up encounter Aortic valve defect Aortic insufficiency Essential hypertension Cystocele Kidney stones UTI (urinary tract infection) Family history of ischemic heart disease Abnormal mammogram of right breast Obstructive sleep apnea Vertigo Asymmetric septal hypertrophy Anserine bursitis Macular degeneration Home Medications ?Medication ?Instructions ?Recorded ?Last Taken ?Type acetaminophen 325 mg capsule 325 mg PO ONCE PRN pain 09/25/20 Unknown History (Tylenol) multivitamin 1 tab PO DAILY 09/25/20 Unknown History aspirin 81 mg tablet,delayed 81 mg PO QHS 05/18/22 11/09/22 History release (Adult Low Dose Aspirin) vitamins A,C,G-pthw-yhoyqt 4,296 1 cap PO BID 05/18/22 11/11/22 History mcg-226 mg-90 mg capsule (PreserVision AREDS) ferrous sulfate 325 mg (65 mg 325 mg PO BID 08/18/22 11/11/22 History iron) tablet (Feosol) FRUITS 3 cap PO DAILY 10/28/22 Unknown History PREVAGEN 1 cap PO DAILY 10/28/22 Unknown History VEGGIES 3 cap PO DAILY 10/28/22 Unknown History fexofenadine 180 mg tablet 180 mg PO DAILY PRN ALLERGIES 10/28/22 11/11/22 History (Poonam Allergy) omega-3 fatty acids 600 mg PO BID 10/28/22 Unknown History amlodipine 2.5 mg tablet 2.5 mg PO BID #180 tabs 11/04/22 11/12/22 Rx venlafaxine 37.5 mg 37.5 mg PO DAILY #30 caps 02/02/23 Unknown Rx capsule,extended release 24 hr atorvastatin 20 mg tablet 20 mg PO DAILY #90 tabs 04/07/23 Unknown Rx lisinopril 20 mg tablet 20 mg PO DAILY #90 tabs 04/29/23 Unknown Rx pregabalin 50 mg capsule 50 mg PO BID #180 caps 07/05/23 Unknown Rx Allergy/AdvReac Type Severity Reaction Status Date / Time animal dander Allergy Unknown unknown Verified 05/25/23 10:27 cat dander Allergy Unknown unknown Verified 05/25/23 10:27 dog dander Allergy Unknown unknown Verified 05/25/23 10:27 mold Allergy Unknown unknown Verified 05/25/23 10:27 Family History Mother Hypertension CVA (cerebral vascular accident) Father Heart disease Myocardial infarction from [place] age 61 Brother CAD (coronary artery disease) CABG 40's Son Arthritis Surgical History S/P vaginal hysterectomy Hx of right cataract extraction Hx of left cataract extraction Hx of colonoscopy History of right breast biopsy (~11/2018) Hx of cholecystectomy H/O parathyroidectomy Social History Smoking Status: Never smoker alcohol intake: never substance use type: does not use caffeine: Yes what type of physical activity do you participate in: walking seatbelt use: always do you feel safe at home: Yes additional social history: Doug Euceda Patient is retired [employer] [facility] ED Constitutional Constitutional ED: Reports fever(s); Denies chills or sweats Eyes Eyes: Denies change in vision ENT ENT ED: Denies dysphagia or sore throat Cardiovascular Cardiovascular: Denies chest pain, leg edema, palpitations or racing heartbeat Respiratory/Chest Respiratory/Chest: Reports cough; Denies dyspnea or dyspnea on exertion Gastrointestinal Gastrointestinal: Reports diarrhea; Denies abdominal pain, nausea or vomiting Genitourinary Genitourinary ED: Denies dysuria, hematuria or urinary frequency Musculoskeletal Musculoskeletal: Denies back pain, extremity pain or neck pain Integumentary Denies rash or wounds Neurologic Neurologic: Denies headache(s), paresthesias or weakness EXAM Physical Exam Const Vital Signs: 09/08/23 21:25 09/08/23 22:30 09/08/23 23:00 Temperature 97.7 F L 98.5 F 98.5 F Temperature Source Temporal Oral Oral Pulse Rate 76 90 77 Respiratory Rate 16 18 18 Blood Pressure 132/62 H 168/72 H 153/56 H Blood Pressure Mean 85 104 88 Pulse Ox 95 93 96 Oxygen Delivery Method Room Air Room Air 09/08/23 23:24 09/09/23 01:00 09/09/23 01:28 Temperature 98.7 F Temperature Source Pulse Rate 97 80 82 Respiratory Rate 16 16 16 Blood Pressure 151/77 H 152/65 H 145/68 H Blood Pressure Mean 101 94 93 Pulse Ox 98 98 98 Oxygen Delivery Method Room Air Room Air Positive well nourished and well developed Constitutional Narrative: Nontoxic General Appearance ED: well developed and NAD HEENT Reports moist mucous membranes normocephalic and atraumatic Eyes EOMs intact bilaterally and conjunctivae normal General Eye ED: Yes normal appearance of both eyes Neck no lymphadenopathy and supple General: Negative for tenderness Chest Wall Chest: Negative for tenderness Resp normal respiratory effort and normal air movement Effort and Inspection: symmetric chest movement; Negative for respiratory distress Cardio regular rate, regular rhythm and no murmurs Peripheral Pulses: pulses 2+ throughout GI normal to inspection, nondistended, normoactive bowel sounds and non-tender GI Narrative: Negative Alberto's or McBurney's tenderness. No pain left lower quadrant. Palpation: Negative for guarding or rebound tenderness present Back/Spine no CVA tenderness and no thoracic nor lumbar tenderness Extremity normal to inspection General Extremety ED: Negative for edema or tenderness General Extremity: Negative for edema Neuro oriented x3 and no sensory deficits noted Sensorium / Orientation: awake and alert Skin no rashes or lesions noted and no wounds MDM MDM MDM Narrative Medical decision making narrative: Interventions / MDM: Differential diagnosis: Diarrhea, viral syndrome, electrolyte abnormalities Diagnosis considered but do not suspect: Pneumonia however chest x-ray negative. No clinical colitis. C. difficile however labs negative. My EKG interpretation: N/A Imaging independently reviewed and interpreted by myself: 2 view chest x-ray: Atelectasis right middle lobe noted no infiltrates. Also read by radiology. External documents reviewed: N/A Test considered but not ordered:N/A ED course: Patient vital signs stable nontoxic nonsurgical abdomen. No clinical dehydration. However reports increasing output. IV established, basic labs fluids were given. 2 view chest x-ray with her increasing cough. COVID flu and RSV ordered. 0130: Small amount of stool within the lab pending results. Patient became more tired and wanted to go home and sleep. Daughter patient states they will follow-up the results on the portal. I discussed continued oral hydration. Labs are stable. COVID and flu negative. Chest x-ray atelectasis with no infiltrates. Discussed main concern would be C. difficile however she has no risk factors for any recent antibiotics. Outpatient follow-up with her doctor. Discussed adjunct therapies with cough symptoms of vapor rub and honey with her drinks. All questions were answered. 0225: C. difficile returned negative. Culture is pending Re-evaluation: stable Disposition discussed with patient/family/significant other: Case discussed with consulting clinician: N/A This note was generated with uTest dictation software. It may contain incorrect words, spelling, and punctuation that were not noted in checking the note before signing. Lab Data Attestation: I reviewed the patient's lab results. Labs: Laboratory Results - last 24 hr 09/08/23 22:58 WBC 9.4 RBC 3.93 L Hgb 10.8 L Hct 34.2 L MCV 87.0 MCH 27.5 MCHC 31.6 L RDW Std Deviation 49.1 H RDW Coeff of Radhames 15.5 H Plt Count 117 L MPV 10.3 Immature Gran % (Auto) 0.300 Neut % (Auto) 57.6 Lymph % (Auto) 26.3 Harris % (Auto) 13.1 H Eos % (Auto) 2.4 Baso % (Auto) 0.3 Absolute Neuts (auto) 5.4 Absolute Lymphs (auto) 2.47 Nucleated RBC % 0 Sodium 138 Potassium 3.6 Chloride 108 H Carbon Dioxide 24.0 Anion Gap 6 BUN 25 H Creatinine 1.59 H Estim Creat Clear Calc 28.42 Est GFR (MDRD) Af Amer 40 L Est GFR (MDRD) Non-Af 33 L BUN/Creatinine Ratio 15.7 Glucose 115 H Calcium 9.2 Radiography Diagnostic Testing: Clinical Impression(s) from Imaging Studies Chest X-Ray 09/08/23 23:22 IMPRESSION: Linear right mid lung atelectasis/scarring. No consolidation. Electronically Signed: Anuel Marino MD at 23:37 EDT , Discharge Plan Triage Chief Complaint: Diarrhea ED Provider: Enoc Jamison Dx/Rx/DC Orders Clinical Impression: Viral URI, Diarrhea, CKD (chronic kidney disease) Instructions: CKD Dc, ED Diarrhea, Unknown Cause, ED URI, Viral, No Abx (Adult) Prescriptions: No Action acetaminophen [Tylenol] 325 mg capsule 325 mg PO ONCE PRN (Reason: pain) multivitamin Tablet 1 tab PO DAILY aspirin [Adult Low Dose Aspirin] 81 mg tablet,delayed release (DR/EC) 81 mg PO QHS PreserVision AREDS 4,296 mcg-226 mg-90 mg capsule 1 cap PO BID venlafaxine 37.5 mg capsule,extended release 24hr 37.5 mg PO DAILY Qty: 30 1RF omega-3 fatty acids Capsule 600 mg PO BID VEGGIES 3 cap PO DAILY FRUITS 3 cap PO DAILY PREVAGEN 1 cap PO DAILY fexofenadine [Poonam Allergy] 180 mg tablet 180 mg PO DAILY PRN (Reason: ALLERGIES) ferrous sulfate [Feosol] 325 mg (65 mg iron) tablet 325 mg PO BID Rx Instructions: decrease to daily if causes constipation amlodipine 2.5 mg tablet 2.5 mg PO BID Qty: 180 3RF atorvastatin 20 mg tablet 20 mg PO DAILY Qty: 90 1RF lisinopril 20 mg tablet 20 mg PO DAILY Qty: 90 3RF pregabalin 50 mg capsule 50 mg PO BID Qty: 180 5RF Primary Care Provider: Dyana Cartwright Referrals: Dyana Cartwright MD [Primary Care Provider] - 3-5 Days Activity Restrictions/Additional Instructions: Chest x-ray negative for pneumonia. Labs are stable. C. difficile and stool cultures are pending results. Continue oral fluids for hydration. Print Language: Macedonian Disposition Disposition: Home, Self Care Discharge Date/Time: 09/09/23 01:40
[2023-09-08 23:00] VITALS: BP 153/56; PULSE 77; RESP 18; TEMP 36.9; O2SAT 96
[2023-09-08] MEDS: 0.9% Normal Saline (1000mL) 1,000 ML 1000 ML IV (23:03)
--- NOTE | 2023-09-08 23:22 | RAD_ITS ---
INDICATION: cough EXAMINATION/TECHNIQUE: X-RAY - XR Chest 2 Views COMPARISON: Prior study dated: 07/08/2020 FINDINGS: LINES/DEVICES: None. LUNGS: The lungs are well expanded. Linear right midlung atelectasis/scarring. No consolidation, edema or effusion. No pneumothorax. MEDIASTINUM AND CARDIOVASCULAR STRUCTURES: Cardiac silhouette not enlarged. Central airways and mediastinal contour are unremarkable. BONES AND SOFT TISSUES: No acute abnormality. RAD/Chest PA and Lateral IMPRESSION: Linear right mid lung atelectasis/scarring. No consolidation. Electronically Signed: Anuel Marino MD at 23:37 EDT ,
[2023-09-08 23:24] VITALS: BP 151/77; PULSE 97; RESP 16; O2SAT 98
[2023-09-08 23:51] LABS: Anion Gap 6 (5-15); BUN 25 mg/dL (7-18); BUN/Creat Ratio 15.7 RATIO (10-20); Calcium,Total 9.2 mg/dL (8.5-10.1); Chloride 108 mmol/L (98-107); Creatinine, Serum 1.59 mg/dL (0.55-1.02); EST Glomerular Filtration Rate 33 mL/min (>60); Est Glom Filt Rate - Afr Amer 40 mL/min (>60); Estimated Creatinine Clearance 28.42 ml/min; Glucose 115 mg/dL (74-106); Potassium 3.6 mmol/L (3.5-5.1); Sodium Level 138 mmol/L (136-145)
[2023-09-08 23:54] LABS: Absolute Lymphocyte Count 2.47 X10^3/uL (0.83-4.51); Absolute Neutrophil Count 5.4 X10^3/uL (2.0-7.7); Basophil# 0.03 X10^3/uL; Basophil% 0.3 % (0-1); Eosinophil# 0.23 X10^3/uL; Eosinophils% 2.4 % (0-5); Hematocrit 34.2 % (37-47); Hemoglobin 10.8 g/dL (12.0-15.0); Lymphocyte # 2.47 X10^3/ul (0.83-4.51); Lymphocyte % 26.3 % (19-41); Mean Corp Hgb Conc 31.6 g/dL (32-36); Mean Corpuscular Hgb 27.5 pg (27.0-32.0); Mean Platelet Vol. 10.3 fl (6.2-12.0); Monocyte# 1.23 X10^3/uL; Monocyte% 13.1 % (0-10); NRBC Flagged by Analyzer 0 % (0-5); Neutrophil % 57.6 % (47-70); Platelet Count 117 K/mm3 (150-450); RBC Distribution Width CV 15.5 % (11.6-14.6); RBC Distribution Width SD 49.1 fl (35.1-43.9); Red Blood Count 3.93 M/mm3 (4.2-5.4); White Blood Count 9.4 K/mm3 (4.4-11.0)
[2023-09-09 01:00] VITALS: BP 152/65; PULSE 80; RESP 16; O2SAT 98
[2023-09-09 01:28] VITALS: BP 145/68; PULSE 82; RESP 16; TEMP 37.1; O2SAT 98
== END 2023-09-09 01:40 | disposition home or self-care (01) ==
PROVIDERS: Emergency Provider Emergency Medicine; PCP Internal Medicine; Visit Provider Emergency Medicine
DX: J06.9 Acute upper respiratory infection, unspecified (principal); I12.9 Hypertensive chronic kidney disease with stage 1 through stage 4 chronic kidney disease, or unspecified chronic kidney disease; R19.7 Diarrhea, unspecified; N18.9 Chronic kidney disease, unspecified; J98.11 Atelectasis; R41.3 Other amnesia; R50.9 Fever, unspecified
CPT/HCPCS: 71046; 80048; 85025; 87493; 87506; 87631; 96360; 96361; 99282; J7030; A4216

== ENCOUNTER → 2023-09-19 | Outpatient (CLI) | payer OTHER, SELFPAY ==
[2023-09-19 18:10] LABS: Absolute Lymphocyte Count 2.85 X10^3/uL (0.83-4.51); Absolute Neutrophil Count 5.5 X10^3/uL (2.0-7.7); Basophil# 0.04 X10^3/uL; Basophil% 0.4 % (0-1); Eosinophil# 0.11 X10^3/uL; Eosinophils% 1.2 % (0-5); Hematocrit 36.4 % (37-47); Hemoglobin 11.6 g/dL (12.0-15.0); Lymphocyte # 2.85 X10^3/ul (0.83-4.51); Lymphocyte % 30.6 % (19-41); Mean Corp Hgb Conc 31.9 g/dL (32-36); Mean Corpuscular Hgb 27.6 pg (27.0-32.0); Mean Corpuscular Volume 86.7 fL (81-99); Mean Platelet Vol. 9.2 fl (6.2-12.0); Monocyte# 0.75 X10^3/uL; NRBC Flagged by Analyzer 0 % (0-5); Neutrophil # 5.52 X10^3/uL (2.7-7.7); Neutrophil % 59.3 % (47-70); Platelet Count 248 K/mm3 (150-450); RBC Distribution Width CV 16.3 % (11.6-14.6); RBC Distribution Width SD 50.4 fl (35.1-43.9); White Blood Count 9.3 K/mm3 (4.4-11.0)
[2023-09-19 19:19] LABS: ALB/GLOB Ratio 0.9 RATIO (0.9-2.4); AST(SGOT) 15 U/L (15-37); Alanine Aminotransfer ALT/SGPT 16 U/L (13-56); Albumin, Serum 3.5 g/dL (3.2-5.0); Alkaline Phosphatase 79 U/L (45-117); Anion Gap 5 (5-15); BUN 27 mg/dL (7-18); BUN/Creat Ratio 24.8 RATIO (10-20); Calcium,Total 9.2 mg/dL (8.5-10.1); Chloride 109 mmol/L (98-107); Cholesterol 110 mg/dL (200); Creatinine, Serum 1.09 mg/dL (0.55-1.02); EST Glomerular Filtration Rate 52 mL/min (>60); Est Glom Filt Rate - Afr Amer 62 mL/min (>60); Globulin 4.1 g/dL (2.2-4.2); Glucose 118 mg/dL (74-106); High Density Lipoprotein 56 mg/dL; Potassium 3.7 mmol/L (3.5-5.1); Protein, Total 7.6 g/dL (6.4-8.2); Sodium Level 140 mmol/L (136-145); Thyroid Stim Hormone (TSH) 1.05 uIU/mL (0.358-3.74); Triglycerides 139 mg/dL; Very Low Density Lipoprotein 28 mg/dL (5-40)
[2023-09-19 21:40] LABS: Syphilis Antibodies Non-reactive; Vitamin B12 835 pg/mL (211-911); Vitamin D,25 Hydroxy 62.8 ng/mL
== END | disposition home or self-care (01) ==
LOC: POLAB3 17:39
PROVIDERS: PCP Family Medicine Geriatric Medicine; Visit Provider Family Medicine Geriatric Medicine
DX: I10 Essential (primary) hypertension (principal); E53.9 Vitamin B deficiency, unspecified; E78.5 Hyperlipidemia, unspecified; E55.9 Vitamin D deficiency, unspecified; A53.9 Syphilis, unspecified
CPT/HCPCS: 36415; 80053; 80061; 82306; 82607; 82746; 84443; 85025; 86780

== ENCOUNTER → 2023-10-13 | Outpatient (CLI) | payer OTHER, SELFPAY ==
--- NOTE | 2023-10-13 16:00 | MRI_ITS ---
EXAM: MR HEAD WITHOUT INTRAVENOUS CONTRAST CLINICAL INDICATION: Vascular dementia TECHNIQUE: Multiplanar and multisequence MR images of the brain were obtained without intravenous contrast. COMPARISON: CT head without contrast 01/27/2023. FINDINGS: BRAIN AND EXTRA-AXIAL SPACES: No diffusion restriction to suspect acute or subacute ischemic infarct. No remote cortical-based ischemic infarct. 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 A few small T2 FLAIR hyperintensity foci in the white matter of the posterior aspects of both superior frontal gyri and the left paracentral lobule. No intra- or extra-axial hemorrhage. No intracranial mass or mass effect. Posterior fossa structures are unremarkable. Ventricles are appropriate for age. No hydrocephalus. Basal cisterns are patent. SELLA: Unremarkable. Normal sella turcica, pituitary gland, infundibular stalk, optic chiasm and hypothalamus. AUDITORY SYSTEM: Unremarkable. The internal auditory canals are patent. BONES/JOINTS: Unremarkable. No discrete lytic or blastic abnormalities. SINUSES: Unremarkable as visualized. Clear. MASTOID AIR CELLS: Unremarkable as visualized. Clear. ORBITS: Unremarkable as visualized. Both globes, extraocular muscles, optic nerves and retrobulbar fat appear unremarkable. VASCULATURE: Unremarkable as visualized. Normal flow voids in the major intracranial circulation. MRI/Brain without Contrast IMPRESSION: 1. No MRI evidence of acute or subacute ischemic infarct or acute intracranial abnormality. 2. No MRI evidence of remote cortical-based ischemic infarct. 3. Small old linear cystic infarct in the right frontal lobe white matter. 4. 3 foci of tiny chronic white matter ischemic changes in the superior frontal gyri and left paracentral lobule. Electronically Signed: Franko Bradshaw MD at 9:56 EDT ,
== END | disposition home or self-care (01) ==
PROVIDERS: PCP Family Medicine Geriatric Medicine; Referring Provider Family Medicine Geriatric Medicine; Visit Provider Family Medicine Geriatric Medicine
DX: F01.50 Vascular dementia, unspecified severity, without behavioral disturbance, psychotic disturbance, mood disturbance, and anxiety (principal)
CPT/HCPCS: 70551

== ENCOUNTER → 2023-10-20 | Outpatient (CLI) | payer OTHER, SELFPAY ==
--- NOTE | 2023-10-20 11:25 | RAD_ITS ---
STUDY: X-RAY - ABDOMEN/PELVIS REASON FOR EXAM: Female, 78 years old. Intestinal malabsorption. TECHNIQUE: AP supine and upright views of the abdomen and pelvis on 3 images. COMPARISON: None. FINDINGS: Normal visualized lung bases. Normal bowel gas pattern with air seen to the rectosigmoid. No disproportionate dilatation of bowel or free intra-abdominal air identified. Moderate amount of feces in the colon. The visualized liver, spleen and kidneys are grossly normal in size and morphology. Cholecystectomy clips. Normal visualized osseous structures. RAD/Abd Inc Decub and/or Erect IMPRESSION: No acute abnormality. Electronically Signed: Isra Esteban MD at 10:46 EDT ,
== END | disposition home or self-care (01) ==
LOC: RAD 11:21
PROVIDERS: PCP Family Medicine Geriatric Medicine; Referring Provider Family Medicine Geriatric Medicine; Visit Provider Family Medicine Geriatric Medicine
DX: K90.89 Other intestinal malabsorption (principal)
CPT/HCPCS: 74019

== ENCOUNTER → 2023-10-24 | Outpatient (CLI) | payer OTHER, SELFPAY ==
--- NOTE | 2023-10-24 15:30 | RAD_ITS ---
STUDY: X-RAY - ABDOMEN/PELVIS REASON FOR EXAM: Female, 78 years old. FECAL IMPACTION OF COLON TECHNIQUE: AP supine and upright views of the abdomen and pelvis. COMPARISON: None. FINDINGS: Normal visualized lung bases. There is an unremarkable bowel gas pattern. There is no demonstrated free abdominal air. The visualized liver, spleen and kidneys are grossly normal in size and morphology. Status post cholecystectomy. Normal visualized osseous structures. RAD/Abd Inc Decub and/or Erect IMPRESSION: Normal x-ray examination of the abdomen and pelvis. Electronically Signed: Thai Almeida MD at 14:04 EDT ,
[2023-10-24 16:23] LABS: Absolute Lymphocyte Count 2.98 X10^3/uL (0.83-4.51); Basophil# 0.05 X10^3/uL; Basophil% 0.5 % (0-1); Eosinophil# 0.07 X10^3/uL; Eosinophils% 0.6 % (0-5); Hematocrit 39.1 % (37-47); Hemoglobin 12.4 g/dL (12.0-15.0); Lymphocyte # 2.98 X10^3/ul (0.83-4.51); Lymphocyte % 27.4 % (19-41); Mean Corp Hgb Conc 31.7 g/dL (32-36); Mean Corpuscular Hgb 27.9 pg (27.0-32.0); Mean Corpuscular Volume 88.1 fL (81-99); Mean Platelet Vol. 9.5 fl (6.2-12.0); Monocyte# 0.71 X10^3/uL; Monocyte% 6.5 % (0-10); NRBC Flagged by Analyzer 0 % (0-5); Neutrophil # 7.03 X10^3/uL (2.7-7.7); Neutrophil % 64.8 % (47-70); Platelet Count 258 K/mm3 (150-450); RBC Distribution Width CV 15.1 % (11.6-14.6); RBC Distribution Width SD 48.4 fl (35.1-43.9); Red Blood Count 4.44 M/mm3 (4.2-5.4); White Blood Count 10.9 K/mm3 (4.4-11.0)
[2023-10-24 17:13] LABS: ALB/GLOB Ratio 0.9 RATIO (0.9-2.4); AST(SGOT) 19 U/L (15-37); Alanine Aminotransfer ALT/SGPT 15 U/L (13-56); Albumin, Serum 3.8 g/dL (3.2-5.0); Alkaline Phosphatase 77 U/L (45-117); Anion Gap 11 (5-15); BUN 23 mg/dL (7-18); BUN/Creat Ratio 15.8 RATIO (10-20); Calcium,Total 9.7 mg/dL (8.5-10.1); Chloride 104 mmol/L (98-107); Creatinine, Serum 1.46 mg/dL (0.55-1.02); EST Glomerular Filtration Rate 37 mL/min (>60); Est Glom Filt Rate - Afr Amer 45 mL/min (>60); Globulin 4.3 g/dL (2.2-4.2); Glucose 115 mg/dL (74-106); Potassium 3.9 mmol/L (3.5-5.1); Protein, Total 8.1 g/dL (6.4-8.2); Sodium Level 138 mmol/L (136-145)
== END | disposition home or self-care (01) ==
LOC: RAD 15:17 → LAB 15:39
PROVIDERS: PCP Family Medicine Geriatric Medicine; Referring Provider Family Medicine Geriatric Medicine; Visit Provider Family Medicine Geriatric Medicine
DX: K56.41 Fecal impaction (principal); N39.0 Urinary tract infection, site not specified; I10 Essential (primary) hypertension; R53.83 Other fatigue
CPT/HCPCS: 36415; 74019; 80053; 84443; 85025; 87077; 87086; 87088; 87186

== ENCOUNTER → 2023-12-20 | Outpatient (CLI) | payer OTHER, SELFPAY ==
[2023-12-20 15:06] LABS: Absolute Lymphocyte Count 3.03 X10^3/uL (0.83-4.51); Absolute Neutrophil Count 5.5 X10^3/uL (2.0-7.7); Basophil# 0.05 X10^3/uL; Basophil% 0.5 % (0-1); Eosinophil# 0.13 X10^3/uL; Eosinophils% 1.4 % (0-5); Hematocrit 36.1 % (37-47); Hemoglobin 11.3 g/dL (12.0-15.0); Lymphocyte # 3.03 X10^3/ul (0.83-4.51); Lymphocyte % 32.1 % (19-41); Mean Corp Hgb Conc 31.3 g/dL (32-36); Mean Corpuscular Volume 89.6 fL (81-99); Mean Platelet Vol. 9.5 fl (6.2-12.0); Monocyte# 0.68 X10^3/uL; Monocyte% 7.2 % (0-10); NRBC Flagged by Analyzer 0 % (0-5); Neutrophil # 5.52 X10^3/uL (2.7-7.7); Neutrophil % 58.6 % (47-70); Platelet Count 177 K/mm3 (150-450); RBC Distribution Width CV 16.5 % (11.6-14.6); Red Blood Count 4.03 M/mm3 (4.2-5.4); White Blood Count 9.4 K/mm3 (4.4-11.0)
[2023-12-20 15:42] LABS: Vitamin D,25 Hydroxy 44.3 ng/mL
[2023-12-20 15:48] LABS: AST(SGOT) 16 U/L (15-37); Alanine Aminotransfer ALT/SGPT 16 U/L (13-56); Albumin, Serum 3.7 g/dL (3.2-5.0); Alkaline Phosphatase 64 U/L (45-117); Anion Gap 8 (5-15); BUN 30 mg/dL (7-18); BUN/Creat Ratio 20.8 RATIO (10-20); Chloride 110 mmol/L (98-107); Cholesterol 171 mg/dL (200); Creatinine, Serum 1.44 mg/dL (0.55-1.02); EST Glomerular Filtration Rate 37 mL/min (>60); Est Glom Filt Rate - Afr Amer 45 mL/min (>60); Globulin 3.7 g/dL (2.2-4.2); Glucose 98 mg/dL (74-106); High Density Lipoprotein 70 mg/dL; Potassium 4.2 mmol/L (3.5-5.1); Protein, Total 7.4 g/dL (6.4-8.2); Sodium Level 138 mmol/L (136-145); Triglycerides 238 mg/dL; Very Low Density Lipoprotein 48 mg/dL (5-40)
== END | disposition home or self-care (01) ==
LOC: POLAB3 14:47
PROVIDERS: PCP Family Medicine Geriatric Medicine; Visit Provider Family Medicine Geriatric Medicine
DX: I10 Essential (primary) hypertension (principal); E55.9 Vitamin D deficiency, unspecified; E78.5 Hyperlipidemia, unspecified
CPT/HCPCS: 36415; 80053; 80061; 82306; 84443; 85025

== ENCOUNTER → 2024-01-10 | Outpatient (CLI) | payer OTHER, SELFPAY | END | disposition home or self-care (01) | LOC: POLAB3 17:17 | PROVIDERS: PCP Family Medicine Geriatric Medicine; Visit Provider Family Medicine Geriatric Medicine | DX: R68.83 Chills (without fever) (principal) | CPT/HCPCS: 87631 ==

== ENCOUNTER → 2024-01-11 | Outpatient (CLI) | payer OTHER, SELFPAY ==
--- NOTE | 2024-01-11 09:54 | CT_ITS ---
STUDY: CT BRAIN WITHOUT CONTRAST REASON FOR EXAM: Female, 78 years old. CLOSED HEAD INJURY RADIATION DOSAGE (If Supplied By Facility): CTDIvol = ( 44.99 ) mGy, DLP = ( 762.36 ) mGycm TECHNIQUE: Transaxial CT imaging of the brain was performed without administration of intravenous contrast material. Individualized dose optimization techniques were used for this CT. COMPARISON: Head CT dated January 27, 2023 FINDINGS: No visualized skull fracture or pneumocephalus or subdural hemorrhage. No extra-axial fluid collection or midline shift or hydrocephalus is present. Normal soft tissue structures. Normal calvarium. There is mild cerebral atrophy with widening of the extra-axial spaces and ventricular dilatation. There are areas of decreased attenuation within the white matter tracts of the supratentorial brain, consistent with microvascular disease changes. There are small punctate calcifications of the basal ganglia which are seen in the aging brain as a normal variant. Normal brainstem. Normal cerebellum. There is no intracranial hemorrhage. There are no findings of an acute ischemic infarction. Normal visualized paranasal sinuses. CT/Brain/Head without Contrast IMPRESSION: Chronic involutional changes of the brain. Electronically Signed: Kain Landaverde MD at 10:46 EST ,
== END | disposition home or self-care (01) ==
LOC: CT 09:47
PROVIDERS: PCP Family Medicine Geriatric Medicine; Referring Provider Family Medicine Geriatric Medicine; Visit Provider Family Medicine Geriatric Medicine
DX: S09.90XA Unspecified injury of head, initial encounter (principal); X58.XXXA Exposure to other specified factors, initial encounter
CPT/HCPCS: 70450

== ENCOUNTER → 2024-03-21 | Outpatient (CLI) | payer OTHER, SELFPAY ==
[2024-03-21 15:00] LABS: Absolute Neutrophil Count 6.8 X10^3/uL (2.0-7.7); Basophil# 0.07 X10^3/uL; Basophil% 0.7 % (0-1); Eosinophil# 0.11 X10^3/uL; Hematocrit 34.6 % (37-47); Hemoglobin 10.8 g/dL (12.0-15.0); Lymphocyte % 26.5 % (19-41); Mean Corp Hgb Conc 31.2 g/dL (32-36); Mean Corpuscular Hgb 29.2 pg (27.0-32.0); Mean Corpuscular Volume 93.5 fL (81-99); Mean Platelet Vol. 9.3 fl (6.2-12.0); Monocyte# 0.71 X10^3/uL; Monocyte% 6.7 % (0-10); NRBC Flagged by Analyzer 0 % (0-5); Neutrophil # 6.83 X10^3/uL (2.7-7.7); Neutrophil % 64.6 % (47-70); Platelet Count 203 K/mm3 (150-450); RBC Distribution Width CV 12.8 % (11.6-14.6); RBC Distribution Width SD 44.3 fl (35.1-43.9); White Blood Count 10.6 K/mm3 (4.4-11.0)
[2024-03-21 15:34] LABS: Vitamin D,25 Hydroxy 44.5 ng/mL
[2024-03-21 15:45] LABS: AST(SGOT) 14 U/L (15-37); Alanine Aminotransfer ALT/SGPT 15 U/L (13-56); Albumin, Serum 3.8 g/dL (3.2-5.0); Alkaline Phosphatase 69 U/L (45-117); Anion Gap 8 (5-15); BUN 31 mg/dL (7-18); BUN/Creat Ratio 23.8 RATIO (10-20); Calcium,Total 9.3 mg/dL (8.5-10.1); Chloride 105 mmol/L (98-107); Cholesterol 195 mg/dL (200); EST Glomerular Filtration Rate 42 mL/min (>60); Est Glom Filt Rate - Afr Amer 51 mL/min (>60); Glucose 106 mg/dL (74-106); High Density Lipoprotein 73 mg/dL; Potassium 4.2 mmol/L (3.5-5.1); Protein, Total 7.8 g/dL (6.4-8.2); Sodium Level 139 mmol/L (136-145); Triglycerides 212 mg/dL; Very Low Density Lipoprotein 42 mg/dL (5-40)
== END | disposition home or self-care (01) ==
LOC: LAB 14:34
PROVIDERS: PCP Family Medicine Geriatric Medicine; Referring Provider Family Medicine Geriatric Medicine; Visit Provider Family Medicine Geriatric Medicine
DX: I10 Essential (primary) hypertension (principal); E55.9 Vitamin D deficiency, unspecified; E78.5 Hyperlipidemia, unspecified
CPT/HCPCS: 36415; 80053; 80061; 82306; 84443; 85025

== ENCOUNTER → 2024-03-23 | Outpatient (CLI) | payer OTHER, SELFPAY ==
[2024-03-23 10:55] LABS: Absolute Lymphocyte Count 2.45 X10^3/uL (0.83-4.51); Absolute Neutrophil Count 5.4 X10^3/uL (2.0-7.7); Basophil# 0.06 X10^3/uL; Basophil% 0.7 % (0-1); Eosinophil# 0.12 X10^3/uL; Eosinophils% 1.4 % (0-5); Hematocrit 33.1 % (37-47); Hemoglobin 10.4 g/dL (12.0-15.0); Lymphocyte # 2.45 X10^3/ul (0.83-4.51); Lymphocyte % 28.3 % (19-41); Mean Corp Hgb Conc 31.4 g/dL (32-36); Mean Corpuscular Hgb 29.2 pg (27.0-32.0); Mean Platelet Vol. 9.6 fl (6.2-12.0); Monocyte# 0.62 X10^3/uL; Monocyte% 7.2 % (0-10); NRBC Flagged by Analyzer 0 % (0-5); Neutrophil # 5.38 X10^3/uL (2.7-7.7); Neutrophil % 62.1 % (47-70); Platelet Count 187 K/mm3 (150-450); RBC Distribution Width CV 12.5 % (11.6-14.6); RBC Distribution Width SD 43.5 fl (35.1-43.9); Red Blood Count 3.56 M/mm3 (4.2-5.4); White Blood Count 8.7 K/mm3 (4.4-11.0)
[2024-03-23 11:13] LABS: Vitamin D,25 Hydroxy 45.4 ng/mL
[2024-03-23 11:22] LABS: ALB/GLOB Ratio 0.8 RATIO (0.9-2.4); AST(SGOT) 21 U/L (15-37); Alanine Aminotransfer ALT/SGPT 15 U/L (13-56); Albumin, Serum 3.4 g/dL (3.2-5.0); Alkaline Phosphatase 72 U/L (45-117); Anion Gap 7 (5-15); BUN 27 mg/dL (7-18); BUN/Creat Ratio 20.5 RATIO (10-20); Calcium,Total 8.9 mg/dL (8.5-10.1); Chloride 103 mmol/L (98-107); Cholesterol 191 mg/dL (200); Creatinine, Serum 1.32 mg/dL (0.55-1.02); EST Glomerular Filtration Rate 41 mL/min (>60); Est Glom Filt Rate - Afr Amer 50 mL/min (>60); Globulin 4.1 g/dL (2.2-4.2); Glucose 105 mg/dL (74-106); High Density Lipoprotein 67 mg/dL; Potassium 4.5 mmol/L (3.5-5.1); Protein, Total 7.5 g/dL (6.4-8.2); Sodium Level 138 mmol/L (136-145); Triglycerides 177 mg/dL; Very Low Density Lipoprotein 35 mg/dL (5-40)
== END | disposition home or self-care (01) ==
PROVIDERS: PCP Internal Medicine; Referring Provider Internal Medicine; Visit Provider Internal Medicine
DX: I65.29 Occlusion and stenosis of unspecified carotid artery (principal); G47.33 Obstructive sleep apnea (adult) (pediatric); R51.9 Headache, unspecified; I10 Essential (primary) hypertension; E55.9 Vitamin D deficiency, unspecified
CPT/HCPCS: 36415; 80053; 80061; 82306; 84443; 85025

== ENCOUNTER 2024-05-16 14:59 | Emergency (ER) | payer OTHER, SELFPAY ==
[2024-05-16 15:02] VITALS: BP 140/62; PULSE 87; RESP 18; TEMP 36.3; O2SAT 98; BMI 30.4
--- NOTE | 2024-05-16 15:09 | EDS_ITS ---
HPI HPI - Fall History of Present Illness Chief Complaint: Fall Informant: patient and spouse/S.O. Occured/Mechanism Occurred: Today (Early this morning) Mechanism/Context: Yes same level fall and Yes cannot recall fall Pain/Injury Location: Right lumbar and lower thoracic paraspinal area Pain Location: back Quality of Pain: Aching Worsened by: Palpation Relieved by: Tylenol Associated Symptoms Associated Symptoms: Positive for Loss of consciousness (Questionable); Negative for Parasthesias, Weakness, Loss of function or Inability to ambulate Length of loss of consciousness: Brief Narrative Narrative: Patient presents after a fall that occurred earlier this morning. Patient remembers getting up to go to the bathroom. states he heard her fall and found her laying on the floor in front of the toilet. states that the floor was dry. Patient denies any incontinence of bowel or bladder. Patient does not remember any of the events of the fall. Patient does have a history of dementia and is a poor informant. thinks that the patient may have passed out. states that the patient was awake when he arrived to pick her up. [facility] Medical History Ecchymosis Bruise of both arms Wears hearing aid Wears glasses Post-menopausal Seizures Bladder disease History of renal disease Low iron Headache CPAP (continuous positive airway pressure) dependence Non-smoker Leg cramps History of edema History of stress test History of echocardiogram Cardiology follow-up encounter Aortic valve defect Aortic insufficiency Essential hypertension Cystocele Kidney stones UTI (urinary tract infection) Family history of ischemic heart disease Abnormal mammogram of right breast Obstructive sleep apnea Vertigo Asymmetric septal hypertrophy Anserine bursitis Macular degeneration Home Medications ?Medication ?Instructions ?Recorded ?Last Taken ?Type multivitamin 1 tab PO DAILY 09/25/20 Unkn own History aspirin 81 mg tablet,delayed 81 mg PO QHS 05/18/2204/29 History release (Adult Low Dose Aspirin) vitamins A,C,O-vmwh-mujgdv 4,296 1 cap PO BID 05/18/22 11/11/22 History mcg-226 mg-90 mg capsule (PreserVision AREDS) ferrous sulfate 325 mg (65 mg 325 mg PO BID 08/18/22 1 History iron) tablet (Feosol) fexofenadine 180 mg tablet 180 mg PO DAILY PRN ALLERGI ES 10/28/22 11/11/22 History (Poonam Allergy) omega-3 fatty acids 600 mg PO BID 10/28/22 Unkno wn History lisinopril 20 mg tablet 20 mg PO DAILY #90 tabs 04/08 04/02 Unknown Rx amlodipine 2.5 mg tablet 2.5 mg PO BID #180 tabs 11/08 05/31 Unknown Rx cephalexin 500 mg capsule 500 mg PO Q6 #20 CAPSULES Unknown Rx fluoxetine 10 mg tablet 10 mg PO DAILY 05/16/24 Unkn own History galantamine 8 mg 24 hr 8 mg PO DAILY 05/16/24 Unkno wn History capsule,extended release sumatriptan succinate 100 mg tablet 100 mg PO PRN PRN migraine 05/16/24 Unknown History Allergy/AdvReac Type Severity Reaction Status Date / Time animal dander Allergy Unknown unknown Verified 05/16/24 15:02 cat dander Allergy Unknown unknown Verified 05/16/24 15:02 dog dander Allergy Unknown unknown Verified 05/16/24 15:02 mold Allergy Unknown unknown Verified 05/16/24 15:02 grass pollen Allergy Other Verified 05/16/24 15:02 Family History Mother Hypertension CVA (cerebral vascular accident) Father Heart disease Myocardial infarction from [place] 61 Brother CAD (coronary artery disease) CABG 40's Son Arthritis Surgical History S/P vaginal hysterectomy Hx of right cataract extraction Hx of left cataract extraction Hx of colonoscopy History of right breast biopsy (~11/2018) Hx of cholecystectomy H/O parathyroidectomy Social History Smoking Status: Never smoker alcohol intake: never substance use type: does not use caffeine: Yes what type of physical activity do you participate in: walking seatbelt use: always do you feel safe at home: Yes additional social history: [place] [place] Patient is retired ROS ROS ED Constitutional Constitutional ED: Denies chills or fever(s) Eyes Eyes: Denies blurry vision or change in vision ENT ENT ED: Denies rhinorrhea or sore throat Cardiovascular Cardiovascular: Denies chest pain or palpitations Respiratory/Chest Respiratory/Chest: Denies cough or dyspnea Gastrointestinal Gastrointestinal: Denies nausea or vomiting Genitourinary Genitourinary ED: Denies dysuria or hematuria Musculoskeletal Musculoskeletal: Reports back pain; Denies neck pain Integumentary Denies abscess or rash Neurologic Neurologic: Denies headache(s) or weakness Allergic/Immunologic Allergic/Immunologic ED: Denies mouth swelling or urticaria EXAM Physical Exam Const Vital Signs: 05/16/24 15:02 05/16/24 15:53 05/16/24 17:45 Temperature 97.4 F L Temperature Source Temporal Pulse Rate 87 Pulse Rate [Lying] 74 Pulse Rate [Sitting (for 1 minute prior to obtaining)] 69 Pulse Rate [Standing (for 1 minute prior to obtaining)] 63 Respiratory Rate 18 Respiratory Effort Normal Respiratory Depth Normal Respiratory Pattern Normal Blood Pressure 140/62 H Blood Pressure [Lying] 141/67 H Blood Pressure [Sitting (for 1 minute prior to obtaining)] 145/47 H Blood Pressure [Standing (for 1 minute prior to obtaining)] 135/69 H Blood Pressure Mean 88 Blood Pressure Mean [Lying] 91 Blood Pressure Mean [Sitting (for 1 minute prior to obtaining)] 79 Blood Pressure Mean [Standing (for 1 minute prior to obtaining)] 91 Pulse Ox 98 Oxygen Delivery Method Room Air Room Air 05/16/24 19:00 Temperature Temperature Source Pulse Rate 71 Pulse Rate [Lying] Pulse Rate [Sitting (for 1 minute prior to obtaining)] Pulse Rate [Standing (for 1 minute prior to obtaining)] Respiratory Rate 18 Respiratory Effort Respiratory Depth Respiratory Pattern Blood Pressure 141/55 H Blood Pressure [Lying] Blood Pressure [Sitting (for 1 minute prior to obtaining)] Blood Pressure [Standing (for 1 minute prior to obtaining)] Blood Pressure Mean 83 Blood Pressure Mean [Lying] Blood Pressure Mean [Sitting (for 1 minute prior to obtaining)] Blood Pressure Mean [Standing (for 1 minute prior to obtaining)] Pulse Ox 100 Oxygen Delivery Method Room Air Positive well nourished and well developed Constitutional Narrative: BMI is 30.5. General Appearance ED: well developed and NAD HEENT Reports normocephalic atraumatic Neck full ROM and supple Resp normal respiratory effort and clear to auscultation bilaterally Cardio regular rate and regular rhythm GI non-tender and non-distended Palpation: soft Back/Spine Back/Spine Narrative: There is tenderness, edema, and ecchymosis over the right lower thoracic and lumbar paraspinal area. There is no bony crepitus or step-off. There is no subcutaneous emphysema noted. Neuro CN's II-XII intact bilaterally, moves all extremities, no focal motor deficits and no sensory deficits noted Eckerman Coma Scale: document GCS findings Spontaneous Obeys Commands Oriented 15 Sensorium / Orientation: alert Motor Exam: strength 5/5 throughout Psych mental status grossly normal and thought process normal MDM MDM MDM Narrative Medical decision making narrative: Differential diagnosis includes syncope, urinary tract infection, dehydration, electrolyte abnormality, cardiac dysrhythmia, cardiac ischemia, orthostatic hypotension,, rib fracture, and contusion. EKG will be obtained to assess for cardiac dysrhythmia and cardiac ischemia. X-rays of the right ribs will be obtained to assess for rib fracture and pneumothorax. CBC will be obtained to assess for leukocytosis and anemia. Basic metabolic profile will be obtained to assess for electrolyte abnormality and renal function. High-sensitivity troponin will be obtained to assess for cardiac ischemia. Urinalysis will be obtained to assess for urinary tract infection and hematuria. Orthostatic vital signs will be obtained to assess for dehydration and hypovolemia. Lab Data Attestation: I reviewed the patient's lab results. Lab results narrative: CBC was reviewed. There is a mild anemia with a hemoglobin of 10.6 and hematocrit 32.4. Basic metabolic profile was reviewed. Lightly elevated at 33 and creatinine was 1.32. These are consistent with previous results. Glucose was slightly elevated at 111. The remainder is within normal limits. Initial high-sensitivity troponin was reviewed and was 50. Urinalysis was reviewed. There are positive nitrites with leukocyte esterase of 500. There are 25-50 white blood cells and 2+ bacteria. 2-hour repeat troponin was reviewed and was 42. Labs: Laboratory Results - last 24 hr 05/16/24 05/16/24 05/16/24 15:45 17:40 18:00 WBC 9.8 RBC 3.60 L Hgb 10.6 L Hct 32.4 L MCV 90.0 MCH 29.4 MCHC 32.7 RDW Std Deviation 47.3 H RDW Coeff of Radhames 14.3 Plt Count 164 MPV 9.3 Immature Gran % (Auto) 0.300 Neut % (Auto) 64.7 Lymph % (Auto) 24.4 [place] % (Auto) 9.4 Eos % (Auto) 0.7 Baso % (Auto) 0.5 Absolute Neuts (auto) 6.4 Absolute Lymphs (auto) 2.40 Nucleated RBC % 0 Sodium 138 Potassium 4.2 Chloride 105 Carbon Dioxide 21.0 Anion Gap 12 BUN 33 H Creatinine 1.32 H Estim Creat Clear Calc 30.84 L Est GFR (MDRD) Non-Af 41 L BUN/Creatinine Ratio 25.2 H Glucose 111 H Calcium 9.4 Troponin T High Sens 50 H Troponin T Hi Sens 2 Hr 42 H Urine Color Yellow Urine Clarity Cloudy Urine pH 6.0 Ur Specific [place] 1.015 Urine Protein 30 H Urine Glucose (UA) Normal Urine Ketones Negative Urine Occult Blood 10 H Urine Nitrite Positive H Urine Bilirubin Negative Urine Urobilinogen Normal Ur Leukocyte Esterase 500 H Urine RBC 0 SEEN Urine WBC 25-50 SEEN Ur Squamous Epith Cells 0 SEEN Amorphous Sediment 1+ URATE Urine Bacteria 2+ Urine Mucus 0 SEEN Radiography Diagnostic Testing: Clinical Impression(s) from Imaging Studies Ribs w/Chest X-Ray 05/16/24 16:05 IMPRESSION: 1. Demineralization without visible acute displaced rib fracture or visible pneumothorax. 2. Additional description as above. Reading Location: [facility] X-rays of the right ribs were obtained. There are 3 views. On my independent interpretation, there is no acute fracture or pneumothorax. Radiologist also interpreted the x-rays and agrees. EKG Initial EKG: Attestation: I personally reviewed and interpreted this EKG as follows: Interpretation: Sinus Rhythm (77) and No Acute Injury Pattern Comments: EKG was obtained. On my independent interpretation, it showed a normal sinus rhythm with a rate of 77. AR interval, QRS interval, and QTc intervals were all normal. Trenary was normal. There are no acute ST or T wave changes. Prior EKG tracings: available for review Prior: Unchanged (11/12/2022) Differential Diagnosis Differential Diagnosis: Urine culture was ordered. Treatment and Re-Evaluation Narrative: Patient was advised of her findings. Patient was given a dose of Rocephin here. Patient was given a prescription for Keflex. Patient has a HEART score of 3. Patient has a delta troponin of -8. Patient is low risk according to [place] syncope rule. Patient was instructed to follow-up with her primary care physician in 5 to 7 days. Patient was instructed to return if worse in any way. Patient and spouse understood and were agreeable with plan. All questions were answered. Discharge Plan Triage Chief Complaint: Fall Other Complaint: Back ED Provider: Augustus Cha Dx/Rx/DC Orders Clinical Impression: Urinary tract infection, Syncope and collapse Instructions: ED Fainting, Uncertain Cause, ED Cystitis Female Adult Prescriptions: New cephalexin 500 mg capsule 500 mg PO Q6 Qty: 20 0RF No Action multivitamin Tablet 1 tab PO DAILY aspirin [Adult Low Dose Aspirin] 81 mg tablet,delayed release (DR/EC) 81 mg PO QHS PreserVision AREDS 4,296 mcg-226 mg-90 mg capsule 1 cap PO BID omega-3 fatty acids Capsule 600 mg PO BID fexofenadine [Poonam Allergy] 180 mg tablet 180 mg PO DAILY PRN (Reason: ALLERGIES) sumatriptan succinate 100 mg tablet 100 mg PO PRN PRN (Reason: migraine) fluoxetine 10 mg tablet 10 mg PO DAILY galantamine 8 mg capsule,ext rel. pellets 24 hr 8 mg PO DAILY ferrous sulfate [Feosol] 325 mg (65 mg iron) tablet 325 mg PO BID Rx Instructions: decrease to daily if causes constipation lisinopril 20 mg tablet 20 mg PO DAILY Qty: 90 3RF amlodipine 2.5 mg tablet 2.5 mg PO BID Qty: 180 3RF Primary Care Provider: Hair Tyson Chi Referrals: Dyana Cartwright MD [Med Staff - [facility]] - 5-7 Days Hair Tyson Chi, MD [Primary Care Provider] - 5-7 Days Print Language: Martiniquais Disposition Disposition: Home, Self Care
--- NOTE | 2024-05-16 15:36 | EKG12_ITS ---
Test Reason : Blood Pressure : */* mmHG Vent. Rate : 77 BPM Atrial Rate : 77 BPM P-R Int : 166 ms QRS Dur : 74 ms QT Int : 402 ms P-R-T Axes : 53 -2 29 degrees QTcB Int : 454 ms Normal sinus rhythm Normal ECG Confirmed by BEL BARON, MILADYS ([id number]), digital editor HOLLIE LIZ ([id number]) on 05/17/2024 8:41:11 AM Referred By: Confirmed By: MILADYS STAPLES MD
[2024-05-16 15:57] LABS: Absolute Neutrophil Count 6.4 X10^3/uL (2.0-7.7); Basophil# 0.05 X10^3/uL; Basophil% 0.5 % (0-1); Eosinophil# 0.07 X10^3/uL; Eosinophils% 0.7 % (0-5); Hematocrit 32.4 % (37-47); Hemoglobin 10.6 g/dL (12.0-15.0); Lymphocyte % 24.4 % (19-41); Mean Corp Hgb Conc 32.7 g/dL (32-36); Mean Corpuscular Hgb 29.4 pg (27.0-32.0); Mean Platelet Vol. 9.3 fl (6.2-12.0); Monocyte# 0.92 X10^3/uL; Monocyte% 9.4 % (0-10); NRBC Flagged by Analyzer 0 % (0-5); Neutrophil # 6.36 X10^3/uL (2.7-7.7); Neutrophil % 64.7 % (47-70); Platelet Count 164 K/mm3 (150-450); RBC Distribution Width CV 14.3 % (11.6-14.6); RBC Distribution Width SD 47.3 fl (35.1-43.9); White Blood Count 9.8 K/mm3 (4.4-11.0)
--- NOTE | 2024-05-16 16:05 | RAD_ITS ---
PROCEDURE: RIBS UNI MIN 3V W/PA CHEST (RADRIB), 05/16/2024 REASON FOR EXAM: FALL TECHNIQUE: Oblique and AP views of the RIGHT ribs in addition to a PA view of the chest were obtained. COMPARISON: None FINDINGS: Heart: Unremarkable. Mediastinum: Atherosclerosis. Lungs/pleura: No focal consolidation. No sizeable pleural effusion or visible pneumothorax. Question calcified granulomas. Bones: Demineralization. No visible acute displaced rib fracture. Lines and support devices: None. Other: RIGHT upper quadrant surgical clips. Suspect a biopsy marker in the RIGHT breast. RAD/Ribs Uni Min 3V w/PA Chest IMPRESSION: 1. Demineralization without visible acute displaced rib fracture or visible pne umothorax. 2. Additional description as above. Reading Location: [id number]
[2024-05-16 16:57] LABS: Anion Gap 12 (5-15); BUN 33 mg/dL (4-19); BUN/Creat Ratio 25.2 RATIO (10-20); Calcium,Total 9.4 mg/dL (7.6-11.0); Chloride 105 mmol/L (98-108); Creatinine, Serum 1.32 mg/dL (0.70-1.20); EST Glomerular Filtration Rate 41 (>60); Estimated Creatinine Clearance 30.84 ml/min (50-250); Glucose 111 mg/dL (70-99); Potassium 4.2 mmol/L (3.3-5.1); Sodium Level 138 mmol/L (133-145)
[2024-05-16 17:45] VITALS: BP 135/69; BP 141/67; BP 145/47; PULSE 63; PULSE 69; PULSE 74
[2024-05-16 17:45] LABS: Mucous, Urine 0 SEEN /hpf (<or=2+); Red Blood Cells-Urine 0 SEEN /hpf (0-5); Squamous Epithelial Cells - UA 0 SEEN /hpf (5-10)
[2024-05-16 17:54] LABS: Color, Urine Yellow (Yellow); Glucose, Dipstick Normal (Normal); Ketone-Dipstick Negative (Negative); Leukocyte Esterase-Dipstick 500 /ul (Negative); Nitrite-Dipstick Positive (Negative); Occult Blood-Urine 10 /ul (Negative); Protein-Dipstick 30 mg/dl (Negative); Specific Gravity, Urine 1.015 (1.002-1.030); Urine Bilirubin Dipstick Negative (Negative); Urine Clarity Cloudy (Clear); Urine Urobilinogen Normal (Normal)
[2024-05-16 17:57] LABS: Troponin T High Sensitivity 50 ng/L (<=14)
[2024-05-16 18:25] LABS: White Blood Cells 25-50 SEEN /hpf (0-5)
[2024-05-16 18:26] LABS: Amorphous Sediment 1+ URATE; Bacteria 2+ /hpf (None Seen)
[2024-05-16 19:00] VITALS: BP 141/55; PULSE 71; RESP 18; O2SAT 100
[2024-05-16 19:33] LABS: Troponin T High Sens 2 HR 42 ng/L (<=14)
[2024-05-16] MEDS: Ceftriaxone 1 GM/50 ML BAG IV (19:43)
== END 2024-05-16 20:26 | disposition home or self-care (01) ==
PROVIDERS: Emergency Provider Emergency Medicine; PCP Family Medicine Geriatric Medicine; Visit Provider Emergency Medicine
DX: N39.0 Urinary tract infection, site not specified (principal); I10 Essential (primary) hypertension; R55 Syncope and collapse; W18.30XA Fall on same level, unspecified, initial encounter
CPT/HCPCS: 71101; 80048; 81001; 84484; 85025; 87077; 87086; 87088; 93005; 96365; 99285; P9612; A4216

== ENCOUNTER → 2024-06-19 | Outpatient (CLI) | payer OTHER, SELFPAY ==
[2024-06-19 15:20] LABS: Absolute Lymphocyte Count 2.87 X10^3/uL (0.83-4.51); Absolute Neutrophil Count 3.9 X10^3/uL (2.0-7.7); Basophil# 0.05 X10^3/uL; Basophil% 0.7 % (0-1); Eosinophil# 0.08 X10^3/uL; Eosinophils% 1.1 % (0-5); Hematocrit 32.8 % (37-47); Hemoglobin 10.3 g/dL (12.0-15.0); Lymphocyte # 2.87 X10^3/ul (0.83-4.51); Lymphocyte % 37.8 % (19-41); Mean Corp Hgb Conc 31.4 g/dL (32-36); Mean Corpuscular Hgb 28.9 pg (27.0-32.0); Mean Corpuscular Volume 91.9 fL (81-99); Mean Platelet Vol. 9.7 fl (6.2-12.0); Monocyte# 0.63 X10^3/uL; Monocyte% 8.3 % (0-10); NRBC Flagged by Analyzer 0 % (0-5); Neutrophil # 3.93 X10^3/uL (2.7-7.7); Neutrophil % 51.7 % (47-70); Platelet Count 156 K/mm3 (150-450); RBC Distribution Width CV 14.1 % (11.6-14.6); RBC Distribution Width SD 48.1 fl (35.1-43.9); Red Blood Count 3.57 M/mm3 (4.2-5.4); White Blood Count 7.6 K/mm3 (4.4-11.0)
[2024-06-19 16:01] LABS: ALB/GLOB Ratio 1.4 RATIO (0.9-2.4); AST(SGOT) 22 U/L (<=31); Alanine Aminotransfer ALT/SGPT 13 U/L (<=34); Albumin, Serum 4.3 g/dL (3.4-4.8); Alkaline Phosphatase 79 U/L (35-104); Anion Gap 13 (5-15); BUN 29 mg/dL (4-19); BUN/Creat Ratio 21.8 RATIO (10-20); Calcium,Total 9.6 mg/dL (7.6-11.0); Carbon Dioxide 23.4 mmol/L (21.0-32.0); Chloride 103 mmol/L (98-108); Cholesterol 205 mg/dL (<=200); Creatinine, Serum 1.31 mg/dL (0.70-1.20); EST Glomerular Filtration Rate 42 (>60); Globulin 3.2 g/dL (2.2-4.2); Glucose 101 mg/dL (70-99); High Density Lipoprotein 69 mg/dL; Low Density Lipoprotein Calc. 108 mg/dL; Potassium 4.5 mmol/L (3.3-5.1); Protein, Total 7.5 g/dL (5.9-8.4); Sodium Level 139 mmol/L (133-145); Total Bilirubin 0.33 mg/dL (0.00-1.30); Triglycerides 138 mg/dL; Very Low Density Lipoprotein 28 mg/dL (5-40); Vitamin D,25 Hydroxy 50.9 ng/mL (30-100); cholesterol:hdl ratio screen 2.97
== END | disposition home or self-care (01) ==
LOC: LAB 13:33
PROVIDERS: PCP Family Medicine Geriatric Medicine; Referring Provider Family Medicine Geriatric Medicine; Visit Provider Family Medicine Geriatric Medicine
DX: I10 Essential (primary) hypertension (principal); E78.5 Hyperlipidemia, unspecified; E55.9 Vitamin D deficiency, unspecified
CPT/HCPCS: 36415; 80053; 80061; 82306; 84443; 85025

== ENCOUNTER → 2024-10-29 | Outpatient (CLI) | payer OTHER, SELFPAY ==
--- NOTE | 2024-10-29 11:32 | US_ITS ---
PROCEDURE: EXT NON VASC LIMITED/SOFT TISS 10/29/2024 REASON FOR EXAM: MASS LEFT THIGH TECHNIQUE: Procedure Code: [id number] Modality: US Procedure: EXT NON VASC LIMITED/SOFT TISS COMPARISON: None FINDINGS: In the area of the palpable abnormality, in the left thigh, proximally, there is a mildly echogenic subcutaneous mass measuring 6.7 x 4.2 x 2.1 cm. This is most consistent with a lipoma, but may require biopsy confirmation. US/Ext Non Vasc Limited/Soft Tiss IMPRESSION: Probable subcutaneous lipoma, left thigh. Reading Location: [id number]
== END | disposition home or self-care (01) ==
LOC: US 11:31
PROVIDERS: PCP Family Medicine Geriatric Medicine; Referring Provider Family Medicine Geriatric Medicine; Visit Provider Family Medicine Geriatric Medicine
DX: R22.42 Localized swelling, mass and lump, left lower limb (principal)
CPT/HCPCS: 76882

== ENCOUNTER → 2024-10-31 | Outpatient (CLI) | payer OTHER, SELFPAY | END | disposition home or self-care (01) | LOC: LABSPEC 13:42 | PROVIDERS: PCP Family Medicine Geriatric Medicine; Referring Provider Family Medicine Geriatric Medicine; Visit Provider Family Medicine Geriatric Medicine | DX: R19.7 Diarrhea, unspecified (principal) | CPT/HCPCS: 87493 ==

== ENCOUNTER → 2024-11-27 | Outpatient (CLI) | payer OTHER, SELFPAY ==
[2024-11-27 17:03] LABS: Hematocrit 33.3 % (37-47); Hemoglobin 10.7 g/dL (12.0-15.0); Immature Granulocytes Count 0.020 X10^3/uL (0.0-0.0); Mean Corp Hgb Conc 32.1 g/dL (32-36); Mean Corpuscular Volume 88.3 fL (81-99); Mean Platelet Vol. 10.0 fl (6.2-12.0); NRBC Flagged by Analyzer 0 % (0-5); Platelet Count 115 K/mm3 (150-450); RBC Distribution Width CV 13.7 % (11.6-14.6); RBC Distribution Width SD 44.1 fl (35.1-43.9); Red Blood Count 3.77 M/mm3 (4.2-5.4); White Blood Count 8.4 K/mm3 (4.4-11.0)
[2024-11-27 17:36] LABS: AST(SGOT) 26 U/L (<=31); Alanine Aminotransfer ALT/SGPT 16 U/L (<=34); Albumin, Serum 4.3 g/dL (3.4-4.8); Alkaline Phosphatase 75 U/L (35-104); Anion Gap 12 (5-15); BUN 33 mg/dL (4-19); BUN/Creat Ratio 27.2 RATIO (10-20); Calcium,Total 9.7 mg/dL (7.6-11.0); Carbon Dioxide 25.3 mmol/L (21.0-32.0); Chloride 101 mmol/L (98-108); Cholesterol 199 mg/dL (<=200); Globulin 3.2 g/dL (2.2-4.2); Glucose 104 mg/dL (70-99); Low Density Lipoprotein Calc. 91 mg/dL; Potassium 4.7 mmol/L (3.3-5.1); Triglycerides 207 mg/dL; Very Low Density Lipoprotein 41 mg/dL (5-40); Vitamin D,25 Hydroxy 45.8 ng/mL (30-100); cholesterol:hdl ratio screen 2.72
== END | disposition home or self-care (01) ==
LOC: LAB 15:40
PROVIDERS: PCP Family Medicine Geriatric Medicine; Referring Provider Family Medicine Geriatric Medicine; Visit Provider Family Medicine Geriatric Medicine
DX: I10 Essential (primary) hypertension (principal); E78.5 Hyperlipidemia, unspecified; E55.9 Vitamin D deficiency, unspecified
CPT/HCPCS: 36415; 80053; 80061; 82306; 84443; 85025

== ENCOUNTER 2025-01-07 13:34 | Emergency (ER) | payer OTHER, SELFPAY ==
[2025-01-07 13:35] VITALS: BP 189/70; PULSE 73; RESP 16; TEMP 36.4; O2SAT 100; BMI 28.7
--- NOTE | 2025-01-07 14:30 | CT_ITS ---
PROCEDURE: SINUS/FACIAL BONE 01/07/2025 REASON FOR EXAM: TRAUMA TECHNIQUE: Procedure Code: CTSI Modality: CT Procedure: SINUS/FACIAL BONE Coronal and Sagittal reconstruction series were provided. One or more dose reduction techniques were used (e.g., Automated exposure control, adjustment of the mA and/or kV according to patient size, use of iterative reconstruction technique). RADIATION DOSE SUMMARY: CTDlvol: 19.05 mGy DLP: 407.49 mGycm COMPARISON: None FINDINGS: Frontal: Unremarkable Ethmoid: Unremarkable Sphenoid: Unremarkable Maxillary: Unremarkable Turbinates: Hypertrophy of the inferior turbinate of the right nasal fossa. Nasal Septum: Nasal septal deviation towards the left side of the midline. Mastoids/Middle Ears: Unremarkable CT/Sinus/Facial Bone IMPRESSION: No acute abnormality is seen. Reading Location: [place] [id number]
--- NOTE | 2025-01-07 14:30 | CT_ITS ---
PROCEDURE: BRAIN/HEAD WITHOUT CONTRAST 01/07/2025 REASON FOR EXAM: TRAUMA TECHNIQUE: Procedure Code: CTBR Modality: CT Procedure: BRAIN/HEAD WITHOUT CONTRAST Coronal and Sagittal reconstruction series were provided. One or more dose reduction techniques were used (e.g., Automated exposure control, adjustment of the mA and/or kV according to patient size, use of iterative reconstruction technique. RADIATION DOSE SUMMARY: CTDlvol: 47.06 mGy DLP: 855.03 mGycm COMPARISON: Prior study dated January 11, 2024. FINDINGS: Brain: Low density in the periventricular white matter suggests mild chronic small vessel ischemic changes.. Punctate calcifications in the basal ganglia bilaterally. This is a normal variant for the patient's age. CSF Spaces: Mild generalized cerebral atrophy Sinuses/Mastoids: Clear at visualized levels Bones: Unremarkable CT/Brain/Head without Contrast IMPRESSION: CHRONIC CHANGES. NO ACUTE FINDINGS. Reading Location: [place] [id number]
--- NOTE | 2025-01-07 14:30 | CT_ITS ---
PROCEDURE: SPINE CERVICAL WITHOUT CONTRAS 01/07/2025 REASON FOR EXAM: TRAUMA Facial swelling. TECHNIQUE: Procedure Code: CTS Modality: CT Procedure: SPINE CERVICAL WITHOUT CONTRAS Coronal and Sagittal reconstruction series were provided. One or more dose reduction techniques were used (e.g., Automated exposure control, adjustment of the mA and/or kV according to patient size, use of iterative reconstruction technique. RADIATION DOSE SUMMARY: CTDlvol: 25.01 mGy DLP: 504.88 mGycm COMPARISON: None FINDINGS: Alignment: Straightening of the normal cervical lordosis. Vertebrae: No evidence of vertebral fracture. Soft Tissues: No prevertebral soft tissue swelling. Other: C1-2: Degenerative changes of the atlantoaxial joint. C2-3: Marked degree of disc space narrowing. No evidence of central or neural foraminal stenosis. C3-4: Facet joint osteoarthritis and hypertrophy. Bilateral neural foraminal stenosis. Uncovertebral arthrosis. C4-5: Facet joint osteoarthritis and hypertrophy. Uncovertebral arthrosis. Bilateral neural foraminal stenosis right greater than left. C5-6: Facet joint osteoarthritis and hypertrophy. No significant stenosis seen. Minimal anterior listhesis of C5 on C6 most likely secondary to the facet joint osteoarthritis. C6-7: Unremarkable C7-T1: Unremarkable CT/Spine Cervical without Contras IMPRESSION: DEGENERATIVE CHANGES OF THE CERVICAL SPINE. NO EVIDENCE OF SIGNIFICANT OSSEOUS CENTRAL CANAL OR NEURAL FORAMINAL STENOSIS. Reading Location: [place] [id number]
--- NOTE | 2025-01-07 15:21 | EDS_ITS ---
HPI HPI - Fall History of Present Illness Chief Complaint: Fall Informant: patient and family Narrative Narrative: 79-year-old female presenting to the emergency room with head and facial injuries following a fall. Patient missed stepped going down 3 stairs into her bathroom. states he heard her fall. No reported loss of consciousness or vomiting. She notes some soreness of the upper neck. She notes right lateral periorbital contusion/hematoma. No visual changes. She notes she has a swollen right upper lip. She denies any dental trauma or pain with opening closing her jaw. She is not on any anticoagulants. [facility] Medical History Obesity Ecchymosis Bruise of both arms Wears hearing aid Wears glasses Post-menopausal Seizures Bladder disease History of renal disease Low iron Headache CPAP (continuous positive airway pressure) dependence Non-smoker Leg cramps History of edema History of stress test History of echocardiogram Cardiology follow-up encounter Aortic valve defect Aortic insufficiency Essential hypertension Cystocele Kidney stones UTI (urinary tract infection) Family history of ischemic heart disease Abnormal mammogram of right breast Obstructive sleep apnea Vertigo Asymmetric septal hypertrophy Anserine bursitis Macular degeneration Home Medications ?Medication ?Instructions ?Recorded ?Last Taken ?Type multivitamin 1 tab PO DAILY 09/25/20 Unkn own History vitamins A,C,C-scem-ompdzp 4,296 1 cap PO BID 05/18/22 11/11/22 History mcg-226 mg-90 mg capsule (PreserVision AREDS) sumatriptan succinate 100 mg tablet 100 mg PO PRN PRN migraine 05/16/24 Unknown History lisinopril 20 mg tablet 20 mg PO DAILY #90 tabs 06/07 08/01 Unknown Rx acetaminophen 325 mg tablet 325 mg PO Q6H PRN headache 01/07/25 01/06/25 History (Aminofen) lacosamide 100 mg tablet 100 mg PO BID 01/07/25 Unkno wn History topiramate 25 mg tablet 25 mg PO QHS 01/07/25 Unknow n History Allergy/AdvReac Type Severity Reaction Status Date / Time animal dander Allergy Unknown unknown Verified 01/07/25 13:38 cat dander Allergy Unknown unknown Verified 01/07/25 13:38 dog dander Allergy Unknown unknown Verified 01/07/25 13:38 mold Allergy Unknown unknown Verified 01/07/25 13:38 grass pollen Allergy Other Verified 01/07/25 13:38 Family History Mother Hypertension CVA (cerebral vascular accident) Father Heart disease Myocardial infarction from [place] age 61 Brother CAD (coronary artery disease) CABG 40's Son Arthritis Other Kidney stones Surgical History H/O pelvic surgery History of kidney surgery S/P vaginal hysterectomy Hx of right cataract extraction Hx of left cataract extraction Hx of colonoscopy History of right breast biopsy (~11/2018) Hx of cholecystectomy H/O parathyroidectomy Social History Smoking Status: Never smoker alcohol intake: never substance use type: does not use caffeine: Yes what type of physical activity do you participate in: walking seatbelt use: always do you feel safe at home: Yes additional social history: Doug Euceda Patient is retired ROS ROS ED Constitutional Constitutional ED: Denies chills, fever(s) or weight loss Eyes Eyes: Denies blurry vision, change in vision or diplopia ENT ENT ED: Reports other Details: See history of present illness ; Denies ear pain, rhinorrhea or sore throat Cardiovascular Cardiovascular: Denies chest pain, orthopnea, palpitations or racing heartbeat Respiratory/Chest Respiratory/Chest: Denies cough, dyspnea or orthopnea Gastrointestinal Gastrointestinal: Denies abdominal pain, diarrhea, nausea or vomiting Genitourinary Genitourinary ED: Denies dysuria, hematuria or urinary frequency Musculoskeletal Musculoskeletal: Reports neck pain; Denies arthralgias or myalgias Integumentary Denies abscess, Abrasions or rash Neurologic Neurologic: Reports headache(s); Denies weakness Psychiatric Psychiatric: Denies anxiety, depression, suicidal ideation or suicidal thoughts Endocrine Endocrinology: Denies polydipsia, polyphagia or polyuria Allergic/Immunologic Allergic/Immunologic ED: Denies mouth swelling, tongue swelling or urticaria EXAM Physical Exam Const Vital Signs: 01/07/25 13:35 01/07/25 13:49 Temperature 97.6 F L Temperature Source Temporal Pulse Rate 73 Respiratory Rate 16 Respiratory Effort Normal Respiratory Depth Normal Respiratory Pattern Normal Blood Pressure 189/70 H Blood Pressure Mean 109 Pulse Ox 100 Oxygen Delivery Method Room Air Room Air Positive well nourished and well developed General Appearance ED: well developed and NAD HEENT Reports normocephalic, head/scalp atraumatic and moist mucous membranes HEENT Narrative: There is a small hematoma/periorbital contusion to the lateral aspect of the right eye. Right upper lip is swollen. There is abrasion and contusion over the inner aspect of the lip. There is no obvious dental trauma no malocclusion. Midface is stable. No tenderness over the zygomatic arch. Eyes PERRL and EOMs intact bilaterally Neck full ROM, no lymphadenopathy, supple and no JVD General: tenderness Resp normal respiratory effort and clear to auscultation bilaterally Cardio regular rate, regular rhythm and no murmurs GI normal to inspection, nondistended, normoactive bowel sounds and non-tender Palpation: soft Back/Spine no CVA tenderness and normal ROM Extremity normal to inspection General Extremety ED: Negative for edema General Extremity: Negative for edema Neuro oriented x3 and CN's II-XII intact bilaterally Sensorium / Orientation: alert Motor Exam: strength 5/5 throughout Psych mental status grossly normal Mood & Affect: Negative for depressed or tearful Skin no rashes or lesions noted and no wounds MDM MDM MDM Narrative Medical decision making narrative: Differential diagnosis includes but not limited to skull fracture intracranial hemorrhage facial fracture orbital fracture periorbital contusion hyphema subconjunctival hemorrhage muscular entrapment neurovascular injury cervical spine injury CT of the brain facial bones and cervical spine was obtained. No acute fractures or intracranial hemorrhages noted. Patient received a dose of Tylenol. Would recommend ice rest conservative treatment at home. Monitor for changes return if worsening or concerns History & Record Review Discussion w/independent historian: Patient and Family Radiography Diagnostic Testing: Clinical Impression(s) from Imaging Studies Brain CT 01/07/25 14:30 IMPRESSION: CHRONIC CHANGES. NO ACUTE FINDINGS. Reading Location: [facility] Cerv[address] 01/07/25 14:30 IMPRESSION: DEGENERATIVE CHANGES OF THE CERVICAL SPINE. NO EVIDENCE OF SIGNIFICANT OSSEOUS CENTRAL CANAL OR NEURAL FORAMINAL STENOSIS. Reading Location: [id number] Facial/Sinus 01/07/25 14:30 IMPRESSION: No acute abnormality is seen. Reading Location: [facility] Discharge Plan Triage Chief Complaint: Fall ED Provider: David Babb Dx/Rx/DC Orders Prescriptions: No Action multivitamin Tablet 1 tab PO DAILY PreserVision AREDS 4,296 mcg-226 mg-90 mg capsule 1 cap PO BID sumatriptan succinate 100 mg tablet 100 mg PO PRN PRN (Reason: migraine) topiramate 25 mg tablet 25 mg PO QHS lacosamide 100 mg tablet 100 mg PO BID acetaminophen [Aminofen] 325 mg tablet 325 mg PO Q6H PRN (Reason: headache) lisinopril 20 mg tablet 20 mg PO DAILY Qty: 90 3RF Primary Care Provider: Hair Tyson Chi Referrals: Hari Tyson Chi, MD [Primary Care Provider, Geriatrics] Print Language: Gabonese
[2025-01-07 15:27] VITALS: BP 189/70; PULSE 73; RESP 16; TEMP 36.4; O2SAT 100
== END 2025-01-07 15:44 | disposition home or self-care (01) ==
PROVIDERS: Emergency Provider Emergency Medicine; PCP Family Medicine Geriatric Medicine; Visit Provider Emergency Medicine
DX: S05.11XA Contusion of eyeball and orbital tissues, right eye, initial encounter (principal); I10 Essential (primary) hypertension; Z79.899 Other long term (current) drug therapy; R51.9 Headache, unspecified; M54.2 Cervicalgia; S00.511A Abrasion of lip, initial encounter; S00.531A Contusion of lip, initial encounter; W10.9XXA Fall (on) (from) unspecified stairs and steps, initial encounter
CPT/HCPCS: 70450; 70486; 72125; 99282